=== PATIENT | male | born 1965 | race Two or more races ===

== ENCOUNTER 2016-11-13 16:57 | Inpatient (IN) | payer MEDICAID ==
[~2016-11-13] VITALS: Ht 165.1 cm; Wt 81.6 kg
--- NOTE | 2016-11-13 16:57 | NUR ---
pt ambulatory to er bed 10. c/o generalized body aches, fever and chills x 3 days. pt temp 101.5 block captain. gowned and placed on monitor. denies chest pain. pt is c/o LUE pain hurting more. denies fall or any recent trauma. awaiting md lujan.
--- NOTE | 2016-11-13 17:13 | NUR ---
dr garcia at bedside for eval.
[2016-11-13] MEDS ORDERED: IV SET PRIMARY 1 EA INFUS.SET MC ONE ×2 (17:19→18:40)
[2016-11-13] MEDS ORDERED: IV NS 0.9% 1,000 ML ONE ×3 (17:19→22:30)
--- NOTE | 2016-11-13 17:21 | NUR ---
iv line started. blood drawn and sent to lab.
[2016-11-13] MEDS: IV NS 0.9% 1,000 ML BAG IV ONE (17:25)
--- NOTE | 2016-11-13 17:42 | NUR ---
radiology at bedside for chest xray.
[2016-11-13 17:50] LABS: EOSINOPHILS % (AUTO) 0.1 % (0.0-6.0); HEMATOCRIT 39 % (39-51); HEMOGLOBIN 13.1 g/dL (13.5-17.5); LYMPHOCYTES # (AUTO) 0.5 /CMM (0.8-4.8); LYMPHOCYTES % (AUTO) 3.5 % (20.0-44.0); MEAN CORPUSCULAR HEMOGLOBIN 29 PG (26.0-33.0); MEAN CORPUSCULAR HGB CONC 34 g/dl (31.0-36.0); MEAN CORPUSCULAR VOLUME 85 fL (80-96); MONOCYTES # (AUTO) 0.7 /CMM (0.1-1.30); MONOCYTES % (AUTO) 5.1 % (2.0-12.0); NEUTROPHILS # (AUTO) 12.1 /CMM (1.8-8.9); NEUTROPHILS % (AUTO) 91.3 % (43.0-81.0); RDW COEFFICIENT OF VARIATION 15.3 (11.5-15.0); RED BLOOD CELL COUNT(AUTO) 4.57 MIL/uL (4.5-6.0); WHITE BLOOD COUNT (AUTO) 13.2 K/uL (4.3-11.0)
[2016-11-13 17:52] LABS: ALANINE AMINOTRANSFERASE 107 U/L (12-78); ALBUMIN 2.6 g/dL (3.4-5.0); ALKALINE PHOSPHATASE 101 U/L (46-116); ASPARTATE AMINOTRANSFERASE 85 U/L (15-37); BILIRUBIN,DIRECT 2.3 mg/dL (0.0-0.2); BILIRUBIN,TOTAL 3.4 mg/dL (0.2-1.0); CARBON DIOXIDE 25 mmol/L (21-32); CHLORIDE 85 mmol/L (98-107); CREATININE 1.3 mg/dL (0.6-1.3); POTASSIUM 3.8 mmol/L (3.5-5.1); TOTAL PROTEIN, SERUM 6.8 g/dL (6.4-8.2); UREA NITROGEN, BLOOD 23 mg/dL (7-18)
[2016-11-13 17:53] LABS: TROPONIN I 0.323 ng/mL (0.00-0.056)
[2016-11-13 18:01] LABS: PLATELET COUNT (AUTO) 44 /CMM (150-450)
[2016-11-13 18:04] LABS: GLUCOSE 418 mg/dL (74-106); SODIUM SERUM 119 mmol/L (136-145)
[2016-11-13 18:10] LABS: INR 0.97 (0.87-1.13); PROTHROMBIN TIME 10.5 SECS (9.5-12.7)
[2016-11-13] MEDS ORDERED: IV NS 0.9% 1,000 ML IV ONE (18:30)
[2016-11-13 18:54] LABS: BAND % (MANUAL) 8 % (0.0-5.0); LYMPHOCYTES % (MANUAL) 4 % (16-48); NEUTROPHILS % (MANUAL) 83 (42-76)
[2016-11-13 18:55] LABS: MONOCYTES % (MANUAL) 5 % (0-11.0)
[2016-11-13 19:10] LABS: APPEARANCE,URINE Clear (CLEAR); BILIRUBIN,URINE SMALL (NEGATIVE); BLOOD, URINE Moderate Ery/uL (NEGATIVE); COLOR,URINE Yellow (YELLOW); KETONES,URINE Negative (NEGATIVE); LEUKOCYTE ESTERASE ,URINE Negative (NEGATIVE); NITRITE, URINE Negative (NEGATIVE); PROTEIN,URINE 100 mg/dl (NEGATIVE); UGLUCOSE 500 MG/DL mg/dL (NEGATIVE)
--- NOTE | 2016-11-13 19:29 | NUR ---
PAGED BILINGUAL EXECUTIVE ASSISTANT PANEL JOSESITO PORTER
[2016-11-13] MEDS ORDERED: IV NS 0.9% 500 ML IV ONE ×2 (19:43→20:00)
[2016-11-13] MEDS ORDERED: IV SET PRIMARY PUMP SET 1 EA INFUS.SET MC ONE ×2 (19:43→20:10)
--- NOTE | 2016-11-13 19:55 | NUR ---
REPORT GIVEN TO KAVYA/RN ON BEHALF OF PRIMARY NURSE YECENIA.
[2016-11-13] MEDS ORDERED: PIPERACILLIN /TAZOBACTAM 3.375 G in IV D5W 50 ML IV ONE (20:00)
[2016-11-13 20:15] VITALS: BP 110/62
[2016-11-13 20:44] LABS: BACTERIA,URINE Few /HPF (None Seen); SQUAMOUS EPITHELIAL CELL,UR Few /HPF (None Seen); WBC,URINE 2-3/HPF /HPF (0-3)
[2016-11-13 20:45] LABS: MUCUS,URINE Few /LPF (None Seen); URINE AMORPHOUS URATE Moderate /HPF (None Seen)
--- NOTE | 2016-11-13 21:46 | NUR ---
NOTIFIED OF CRITICAL VALUE OF 2.0 LACTIC ACID, CHARLOTTE BELLAMY WILL ORDER NEW LACTIC ACID TO BE DRAWN, WILL CONTINUE TO MONITOR.
[2016-11-13] MEDS ORDERED: ACETAMINOPHEN 325 MG TABLET PO PRN (23:00)
[2016-11-13] MEDS ORDERED: MAGNESIUM HYDROXIDE 30 ML UDC PO PRN (23:00)
[2016-11-13] MEDS ORDERED: HYDROCODONE/APAP 5/325MG 1 EACH TABLET PO PRN (23:00)
[2016-11-13] MEDS ORDERED: ZOLPIDEM TARTRATE 5 MG TABLET PO PRN (23:00)
[2016-11-13] MEDS: IV NS 0.9% 1,000 ML IV PRN (23:08)
[2016-11-13] MEDS ORDERED: HYDROCODONE/APAP 5/325MG 1 EACH TABLET ONE (23:11)
[2016-11-13] MEDS: INSULIN REGULAR, HUMAN 100 UNIT/ML 3 ML VIAL SQ PRN (23:26)
[2016-11-13] MEDS ORDERED: DEXTROSE 50%-WATER 50 ML DISP.SYRIN IV PRN (23:30)
[2016-11-13] MEDS: BLOOD SUGAR DIAGNOSTIC 1 EACH STRIP IN SCH (23:44)
[2016-11-14] VITALS (8 sets, daily range): BP systolic 95–111; BP diastolic 57–69
[2016-11-14] MEDS ORDERED: SULFAMETH/TRIMETH 800/160 MG 1 UDTAB TABLET PO SCH
[2016-11-14 00:28] LABS: CALCIUM, SERUM 6.9 mg/dL (8.5-10.1); CREATININE 1.1 mg/dL (0.6-1.3); POTASSIUM 3.5 mmol/L (3.5-5.1)
--- NOTE | 2016-11-14 00:41 | NUR ---
CHARLOTTE BELLAMY INFORMED OF PT'S TEMP 102.4, GM DECIDED TO CHANGE ORDER FROM BACTRIM DS PO TO IV ANTIBIOTIC, NORCO 5/325MG GIVEN AN HOUR AGO FOR PAIN BUE AND BLE LEVEL OF 7/10, COOLING MEASURES PROVIDED, AWAITING FOR NEW ANTIBIOTIC ORDER, WILL CONTINUE TO MONITOR.
[2016-11-14 00:47] LABS: TROPONIN I 0.548 ng/mL (0.00-0.056)
[2016-11-14] MEDS ORDERED: INSULIN REGULAR, HUMAN 100 UNIT/ML 10 ML VIAL ONE (00:52)
[2016-11-14] MEDS ORDERED: IV D5W 250 ML IV ONE (00:53)
[2016-11-14] MEDS ORDERED: VANCOMYCIN 1 GM VIAL ONE (00:53)
[2016-11-14] MEDS ORDERED: PIPERACILLIN /TAZOBACTAM 3.375 G VIAL IV ONE (00:54)
[2016-11-14] MEDS ORDERED: IV D5W 50 ML IV ONE (00:54)
[2016-11-14] MEDS ORDERED: VANCOMYCIN 1 GM in IV D5W 250 ML IV SCH (01:00)
[2016-11-14] MEDS ORDERED: IBUPROFEN 400 MG TABLET PO PRN (01:00)
[2016-11-14] MEDS ORDERED: SECONDARY IV SET 1 EA INFUS.SET MC ONE ×2 (01:15→15:44)
[2016-11-14] MEDS ORDERED: PIPERACILLIN /TAZOBACTAM 3.375 G in IV D5W 50 ML IV SCH ×2 (02:00→10:00)
--- NOTE | 2016-11-14 05:55 | NUR ---
PUMP TENDER CLOSING NOTE PT'S TEMPERATURE IS CURRENTLY 98.3, AND COMFORTABLY SLEEPING, EASILY AROUSED, NO COMPLAINT OF PAIN OR RESPIRATORY DISTRESS NOTED, LACTIC ACID DECREASED TO 1.5 AFTER SEPSIS PROTOCOL PROVIDED, PT STATES NOT HAVING ANY MEDICAL HISTORY DUE TO NEVER HAVING REGULAR MEDICAL EXAMINATIONS, THIS IS THE FIRST TIME HE SEEKS MEDICAL ATTENTION, BS IS 287 THIS AM, WILL PROVIDE COVERAGE ORDERED, HE IS CLEAN/DRY AND COMFORTABLE, SAFETY MEASURES MAINTAINED DURING NIGHT, WILL ENDORSE TO INCOMING NURSE FOR SONI.
[2016-11-14] MEDS: BLOOD SUGAR DIAGNOSTIC 1 EACH STRIP IN SCH ×4 (06:30→21:58)
[2016-11-14] MEDS: INSULIN REGULAR, HUMAN 100 UNIT/ML 3 ML VIAL SQ PRN ×3 (06:32→17:04)
[2016-11-14 06:58] LABS: EOSINOPHILS % (AUTO) 0.1 % (0.0-6.0); HEMATOCRIT 36 % (39-51); HEMOGLOBIN 12.3 g/dL (13.5-17.5); LYMPHOCYTES # (AUTO) 0.7 /CMM (0.8-4.8); LYMPHOCYTES % (AUTO) 5.9 % (20.0-44.0); MEAN CORPUSCULAR HEMOGLOBIN 29 PG (26.0-33.0); MEAN CORPUSCULAR HGB CONC 34 g/dl (31.0-36.0); MEAN CORPUSCULAR VOLUME 84 fL (80-96); MONOCYTES # (AUTO) 0.9 /CMM (0.1-1.30); MONOCYTES % (AUTO) 7.6 % (2.0-12.0); NEUTROPHILS # (AUTO) 10.1 /CMM (1.8-8.9); NEUTROPHILS % (AUTO) 86.4 % (43.0-81.0); RDW COEFFICIENT OF VARIATION 15.2 (11.5-15.0); RED BLOOD CELL COUNT(AUTO) 4.26 MIL/uL (4.5-6.0); WHITE BLOOD COUNT (AUTO) 11.7 K/uL (4.3-11.0)
--- NOTE | 2016-11-14 07:11 | NUR ---
ARCHITECT NAVAL OPENING NOTES PATIENT RECEIVED IN BED AWAKE, ALERT AND ORIENTED X 4 IN NO ACUTE SIGNS OF DISTRESS. ABLE TO VERBALIZED NEEDS, NO COMPLAINTS OF PAIN OR DISCOMFORTS VOICED AT THIS TIME. ON TELE-MONITORING WITH READING OF SR WITH HR OF 78 THIS MORNING. IV ACCESS ON RIGHT AC G#18 INTACT AND PATENT. IVF NS @100ML/HR IN PROGRESS, NO SIGNS OF INFILTRATION NOTED. CALL LIGHT WITHIN REACH. BED LOW, LOCKED WITH SIDE RAILS UP. ALL SAFETY MEASURES IN PLACE. PATIENT IS AFEBRILE WITH TEMP OF 97.6 F @ THIS TIME. WILL CONTINUE TO MONITOR ACCORDINGLY.
[2016-11-14 07:15] LABS: CALCIUM, SERUM 7.1 mg/dL (8.5-10.1); MAGNESIUM 2.4 mg/dL (1.8-2.4); PHOSPHORUS 2.3 mg/dL (2.5-4.9); POTASSIUM 3.4 mmol/L (3.5-5.1)
[2016-11-14 07:16] LABS: CHOLESTEROL 108 mg/dL (<200); TRIGLYCERIDES 288 mg/dL (30-150)
[2016-11-14 07:17] LABS: LDL 48 mg/dL (0-99)
[2016-11-14 07:28] LABS: HDL CHOLESTEROL 6 mg/dL (40-60)
[2016-11-14 08:01] LABS: TROPONIN I 0.402 ng/mL (0.00-0.056)
[2016-11-14] MEDS: PANTOPRAZOLE 40 MG TABLET.DR PO SCH (08:32)
[2016-11-14] MEDS ORDERED: FEE PK DOSING 1 MIN EA MC ONE (08:35)
[2016-11-14 08:38] LABS: PLATELET COUNT (AUTO) 27 /CMM (150-450)
[2016-11-14] MEDS: VANCOMYCIN 1 GM in IV D5W 250 ML IV SCH ×2 (09:11→16:14)
[2016-11-14 10:02] LABS: MAGNESIUM 2.5 mg/dL (1.8-2.4); PHOSPHORUS 1.8 mg/dL (2.5-4.9)
[2016-11-14] MEDS: POTASSIUM CHLORIDE 20 MEQ TAB.PRT.SR PO SCH ×3 (10:05→13:42)
[2016-11-14] MEDS: PIPERACILLIN /TAZOBACTAM 3.375 G in IV D5W 50 ML IV SCH ×2 (10:05→17:17)
[2016-11-14 10:06] LABS: TROPONIN I 0.446 ng/mL (0.00-0.056)
[2016-11-14 10:15] LABS: THYROID STIMULATING HORMONE 1.216 uIU/mL (0.358-3.74)
--- NOTE | 2016-11-14 10:16 | NUR ---
RN NOTES PATIENT'S TROPONIN LEVEL WENT UP FROM 0.[address] FUENTES MADE AWARE. WILL CONTINUE TO MONITOR.
[2016-11-14 10:50] LABS: BAND % (MANUAL) 2 % (0.0-5.0); LYMPHOCYTES % (MANUAL) 3 % (16-48); MONOCYTES % (MANUAL) 4 % (0-11.0); NEUTROPHILS % (MANUAL) 91 (42-76)
--- NOTE | 2016-11-14 11:15 | NUR ---
RN NOTES PATIENT WITH PLATELET COUNT OF 27, DOCTOR NIKKI MADE AWARE WITH NO NEW ORDER MADE AT THIS TIME. WILL CONTINUE TO MONITOR
--- NOTE | 2016-11-14 13:03 | NUR ---
RN NOTES RECEIVED CALL FROM LABORATORY THAT PATIENT'S BLOOD CULTURE IS POSITIVE COOCI IN CLUSTERS SEEN ON GRAM STAIN ONE BOTTLE OF SET. ALSO GRAM POSITIVE COCCI IN CLUSTRES SEEN ON GRAM STAIN BOTH BOTTLES OF SET. MD MADE AWARE. PATIENT ON ABX THERAPIES OF VANCOMYCIN 1 GM IVPB Q 8HRS AND ZOSYN 3.375MG IVPB Q 6HRS. WILL CONTINUE TO MONITOR.
[2016-11-14] MEDS: IV NS 0.9% 1,000 ML IV PRN (14:31)
[2016-11-14] MEDS ORDERED: Sodium Phosphate 7.5 MMOL in IV D5W 100 ML IV ONE (15:00)
[2016-11-14] MEDS ORDERED: K PHOS NEUTRAL 250 MG TABLET PO ONE (16:00)
[2016-11-14] MEDS: HYDROCODONE/APAP 5/325MG 1 EACH TABLET PO PRN (16:15)
--- NOTE | 2016-11-14 19:26 | NUR ---
BRIM BLOCKER CLOSING NOTES PATIENT IN BED AWAKE AND WATCHING TV. ALERT AND ORIENTED X 4 AND ABLE TO VERBALIZED NEEDS. NO ACUTE SIGNS OF DISTRESS MAT THIS TIME. HEAD OF BED KEPT ELEVATED. AFEBRILE DURING SHIFT. ALL NEEDS AND CARE PROVIDED WELL. ON TELE-MONITORING WITH READING OF SR WITH HR OF 75. IV ACCESS ON RIGHT AC G#18 INTACT AND PATENT. IVF NS @100ML/HR IN PROGRESS, NO SIGNS OF INFILTRATION NOTED. CALL LIGHT WITHIN REACH. BED LOW, LOCKED WITH SIDE RAILS UP. ALL SAFETY MEASURES IN PLACE. ENDORSED TO GREASE RACK WORKER TO CONTINUE MONITORING PATIENT.
--- NOTE | 2016-11-14 19:30 | NUR ---
PAPER CONE MACHINE OPERATOR INITIAL NOTE RECEIVED PT AWAKE AND ALERT, ORIENTED X4, CITIZEN OF [place] SPEAKING MOSTLY, NO REPORT OF PAIN OR RESPIRATORY DISTRESS DURING PHYSICAL ASSESSMENT, AM NURSE REPORTED A PLT COUNT OF 27, MD AWARE, NO NEW ORDERS RECEIVED, MONITOR CLOSELY FOR SIGNS OF BLEEDING, ALSO TROP OF 0.402 AND 0.446 REPORTED TO DOCTOR SHARRON BY AM NURSE, NO NEW ORDERS RECEIVED, PT IS CLEAN DRY/COMFORTABLE, SAFETY MEASURES WILL BE MAINTAINED, ALL NEEDS WILL BE ANTICIPATED AND ATTENDED TO DURING HOURLY ROUNDS AND NEEDED.
[2016-11-14] MEDS: *INSULIN REGULAR(HUMULIN R)HUM 100 UNIT/ML VIAL SQ PRN (22:07)
[2016-11-15] VITALS (8 sets, daily range): BP systolic 101–116; BP diastolic 46–63
[2016-11-15] MEDS: PIPERACILLIN /TAZOBACTAM 3.375 G in IV D5W 50 ML IV SCH ×4 (00:36→16:54)
[2016-11-15] MEDS: VANCOMYCIN 1 GM in IV D5W 250 ML IV SCH ×3 (01:06→16:53)
--- NOTE | 2016-11-15 06:30 | NUR ---
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
[2016-11-15 07:13] LABS: ALBUMIN 1.6 g/dL (3.4-5.0); BILIRUBIN,TOTAL 2.6 mg/dL (0.2-1.0); CALCIUM, SERUM 6.9 mg/dL (8.5-10.1); MAGNESIUM 2.3 mg/dL (1.8-2.4); PHOSPHORUS 1.8 mg/dL (2.5-4.9); POTASSIUM 3.2 mmol/L (3.5-5.1); TOTAL PROTEIN, SERUM 4.8 g/dL (6.4-8.2)
[2016-11-15 07:25] LABS: HEMATOCRIT 34 % (39-51); HEMOGLOBIN 11.5 g/dL (13.5-17.5); MEAN CORPUSCULAR HEMOGLOBIN 29 PG (26.0-33.0); MEAN CORPUSCULAR HGB CONC 34 g/dl (31.0-36.0); MEAN CORPUSCULAR VOLUME 85 fL (80-96); RDW COEFFICIENT OF VARIATION 15.8 (11.5-15.0); RED BLOOD CELL COUNT(AUTO) 4.03 MIL/uL (4.5-6.0); WHITE BLOOD COUNT (AUTO) 14.7 K/uL (4.3-11.0)
[2016-11-15] MEDS: BLOOD SUGAR DIAGNOSTIC 1 EACH STRIP IN SCH ×4 (07:30→21:40)
[2016-11-15 07:33] LABS: PLATELET COUNT (AUTO) 38 /CMM (150-450)
[2016-11-15 07:35] LABS: TROPONIN I 0.941 ng/mL (0.00-0.056)
[2016-11-15 08:51] LABS: BAND % (MANUAL) 1 % (0.0-5.0); LYMPHOCYTES % (MANUAL) 3 % (16-48); MONOCYTES % (MANUAL) 7 % (0-11.0); NEUTROPHILS % (MANUAL) 89 (42-76)
--- NOTE | 2016-11-15 09:50 | NUR ---
ms rn received on bed, awake,alert,oriented x3, not in any form of distress, respirations even and unllabored, ms rn no sob noted. lungs are diminished,abdomen soft,positive bowel sounds,denies pain at this time.
--- NOTE | 2016-11-15 10:00 | NUR ---
MS CUEVA BREAKFAST SERVED, DUE MEDS GIVEN,TOLERATED WELL.
[2016-11-15] MEDS: PANTOPRAZOLE 40 MG TABLET.DR PO SCH (10:25)
[2016-11-15] MEDS: POTASSIUM CHLORIDE 20 MEQ TAB.PRT.SR PO SCH ×3 (10:26→16:54)
[2016-11-15] MEDS: NEUTRA PHOS 1 POWD.PACKET PO SCH ×2 (10:26→16:55)
[2016-11-15 11:22] LABS: *SPE A/G RATIO 0.9 (0.7-1.7); *SPE ALBUMIN 2.2 g/dL (2.9-4.4); *SPE ALPHA-1-GLOBULIN 0.3 g/dL (0.0-0.4); *SPE ALPHA-2-GLOBULIN 0.7 g/dL (0.4-1.0); *SPE BETA GLOBULIN 0.7 g/dL (0.7-1.3); *SPE GLOBULIN, TOTAL 2.5 g/dL (2.2-3.9); *SPE M-SPIKE Not Observed g/dL (Not Observed); *SPE PROTEIN TOTAL 4.7 g/dL (6.0-8.5); *SPEGAMMA GLOBULIN 0.7 g/dL (0.4-1.8)
[2016-11-15] MEDS: INSULIN REGULAR, HUMAN 100 UNIT/ML 3 ML VIAL SQ PRN ×2 (12:32→17:23)
[2016-11-15] MEDS: SOD FERRIC GLUC 125 MG in IV NS 0.9% 100 ML IV SCH (16:53)
[2016-11-15] MEDS: LACTOBACILLUS RHAMNOSUS GG 1 EACH CAP.SPRINK PO SCH (16:55)
--- NOTE | 2016-11-15 17:30 | NUR ---
MS CUEVA BS - 270 - 12 UNITS OF REGULAR INSULIN GIVEN SQ.
[2016-11-15] MEDS ORDERED: SECONDARY IV SET 1 EA INFUS.SET MC ONE (17:48)
--- NOTE | 2016-11-15 19:10 | NUR ---
CARTON STAMPER NOTES RECEIVED PT IN BED. AWAKE, ALERT AND VERBALLY RESPONSIVE. NO ACUTE DISTRESS, NO SOB NOTED. RESPIRATION IS EVEN AND UNLABORED. ABDOMEN IS SOFT AND NON DISTENDED. RAC IV SITE INTACT AND PATENT,. NO S/S OF INFILTRATION NOTED. DENIES ANY PAIN OR DISCOMFORT AT THIS TIME. ALL NEEDS AT THIS TIME ATTENDED AND MET. WILL CONTINUE TO MONITOR. CALL LIGHT WITHIN REACH.
[2016-11-15] MEDS: *INSULIN REGULAR(HUMULIN R)HUM 100 UNIT/ML VIAL SQ PRN (21:50)
[2016-11-16] VITALS (7 sets, daily range): BP systolic 94–118; BP diastolic 46–73
[2016-11-16] MEDS: PIPERACILLIN /TAZOBACTAM 3.375 G in IV D5W 50 ML IV SCH ×4 (00:30→18:16)
[2016-11-16] MEDS: VANCOMYCIN 1 GM in IV D5W 250 ML IV SCH ×3 (01:56→16:58)
[2016-11-16] MEDS: IV NS 0.9% 1,000 ML IV PRN (05:30)
[2016-11-16] MEDS: BLOOD SUGAR DIAGNOSTIC 1 EACH STRIP IN SCH ×4 (05:42→21:50)
[2016-11-16] MEDS: INSULIN REGULAR, HUMAN 100 UNIT/ML 3 ML VIAL SQ PRN ×3 (06:26→17:08)
[2016-11-16 06:37] LABS: HEMATOCRIT 33 % (39-51); HEMOGLOBIN 11.4 g/dL (13.5-17.5); MEAN CORPUSCULAR HEMOGLOBIN 29 PG (26.0-33.0); MEAN CORPUSCULAR HGB CONC 34 g/dl (31.0-36.0); MEAN CORPUSCULAR VOLUME 85 fL (80-96); PLATELET COUNT (AUTO) 75 /CMM (150-450); RDW COEFFICIENT OF VARIATION 15.8 (11.5-15.0); RED BLOOD CELL COUNT(AUTO) 3.91 MIL/uL (4.5-6.0); WHITE BLOOD COUNT (AUTO) 18.1 K/uL (4.3-11.0)
--- NOTE | 2016-11-16 06:49 | NUR ---
PLATINUMSMITH NOTES PT IN BED, RESTING COMFORTABLY. ALERT AND VERBALLY RESPONSIVE. NO ACUTE DISTRESS, NO SOB NOTED. RESPIRATION IS EVEN AND UNLABORED. ABLE TO MAKE NEEDS KNOWN. IV SITE ON RAC INTACT AND PATENT, IVF INFUSING WELL. NO S/S OF INFILTRATION NOTED. NO S/S OF HYPO/ HYPERGLYCEMIA NOTED. ABLE TO MAKE NEEDS KNOWN. ABLE TO URINATE FREELY WITH YELLOW URINE. NO HEMATURIA NOTED. ALL NEEDS ATTENDED AND MET. KEPT COMFORTABLE. CALL LIGHT WITHIN REACH. WILL ENDORSE TO NEXT SHIFT FOR SONI.
[2016-11-16 07:01] LABS: BILIRUBIN,TOTAL 1.8 mg/dL (0.2-1.0); CALCIUM, SERUM 6.8 mg/dL (8.5-10.1); CREATININE 1.2 mg/dL (0.6-1.3); MAGNESIUM 2.6 mg/dL (1.8-2.4); PHOSPHORUS 2.7 mg/dL (2.5-4.9); POTASSIUM 3.5 mmol/L (3.5-5.1); TOTAL PROTEIN, SERUM 4.6 g/dL (6.4-8.2)
[2016-11-16 07:15] LABS: ALBUMIN 1.4 g/dL (3.4-5.0)
--- NOTE | 2016-11-16 07:20 | NUR ---
DIRECTOR BIOMEDICAL ENGINEERING NOTES PATIENT IN BED, ASLEEP BUT EASILY AROUSABLE, NO DISTRESS NOTED, NO S/SX OF HYPO/HYPERGLYCEMIA NOTED, PIV ON RAC PATENT AND INTACT WITH NS RUNNING AT 100ML/HR, RECEIVED ASSISTANCE WITH ADLS, LOW BED/LOCKED POSITION, SIDERAILS X2 UP, CALL LIGHT WITHIN REACH, WILL CONTINUE TO MONITOR.
[2016-11-16 07:31] LABS: TROPONIN I 0.829 ng/mL (0.00-0.056)
--- NOTE | 2016-11-16 07:33 | NUR ---
received a call from labs regarding troponin I : 0.829 and albumin : 1.4 , endorsed to day shift nurse.
[2016-11-16 07:49] LABS: BAND % (MANUAL) 4 % (0.0-5.0); EOSINOPHILS % (MANUAL) 2 % (0-4); LYMPHOCYTES % (MANUAL) 10 % (16-48); MONOCYTES % (MANUAL) 4 % (0-11.0); NEUTROPHILS % (MANUAL) 80 (42-76)
[2016-11-16] MEDS: PANTOPRAZOLE 40 MG TABLET.DR PO SCH (08:38)
[2016-11-16] MEDS: LACTOBACILLUS RHAMNOSUS GG 1 EACH CAP.SPRINK PO SCH ×2 (08:38→16:56)
[2016-11-16] MEDS: POTASSIUM CHLORIDE 20 MEQ TAB.PRT.SR PO SCH ×3 (09:54→12:07)
[2016-11-16] MEDS: HYDROCODONE/APAP 5/325MG 1 EACH TABLET PO PRN (11:19)
--- NOTE | 2016-11-16 12:27 | NUR ---
RN MS NOTES PATIENT SEEN AND EXAMINED BY DR. FUENTES THIS AM, RECEIVED NEW ORDERS. ORDERS NOTED AND CARRIED OUT, PATIENT WILL HAVE LEXISCAN NUCLEAR STRESS TEST IN AM, CONSENTS SIGNED AND PLACED IN CHART, ALL DUE MEDS GIVEN ORDERED, PATIENT WAS ALSO SEEN BY PT AND OT AND TOLERATED WELL, WAS ABLE TO AMBULATE WITH A WALKER TO RESTROOM, ASSISTED WITH ADLS, BS 237 AND WAS GIVEN 8 UNITS OF INSULIN, EATING LUNCH AT THIS TIME AND TOLERATING WELL, CALL LIGHT WITHIN REACH, SAFETY MEASURES IN PLACED, WILL CONTINUE TO MONITOR.
[2016-11-16] MEDS ORDERED: SECONDARY IV SET 1 EA INFUS.SET MC ONE ×2 (13:50→16:17)
[2016-11-16] MEDS: SOD FERRIC GLUC 125 MG in IV NS 0.9% 100 ML IV SCH (13:57)
--- NOTE | 2016-11-16 15:57 | NUR ---
RN MS NOTES PATIENT SEEN BY DR. JORDAN WITH NEW ORDERS. ORDERS NOTED AND CARRIED OUT.
--- NOTE | 2016-11-16 17:46 | NUR ---
RN MS NOTES PATIENT IN BED, BLOOD SUGAR CHECKED WITH RESULT OF 253, 12 UNITS OF INSULIN GIVEN, NO ALOC NOR DISTRESS NOTED, ALL DUE MEDS PROVIDED, PATIENT ASSISTED WITH ADL CARE, ABLE TO AMBULATE TO RESTROOM, PIV ON RIGHT AC PATENT AND INTACT, FLUSHES WELL, CALL LIGHT WITHIN REACH, LOW BED/LOCKED POSITION, SIDERAILS X2 UP, WILL CONTINUE TO MONITOR.
--- NOTE | 2016-11-16 18:48 | NUR ---
RN MS NOTES NO SIGNIFICANT CHANGE, WILL ENDORSE TO ASSOCIATE FINANCIAL REPRESENTATIVE FOR SONI.
--- NOTE | 2016-11-16 19:10 | NUR ---
MS RN NOTES RECEIVED PT IN BED, AWAKE, ALERT AND VERBALLY RESPONSIVE. ABLE TO VERBALIZE NEEDS. NO ACUTE DISTRESS, NO SOB AT THIS TIME. RESPIRATION IS EVEN AND UNLABORED. ABDOMEN IS SOFT AND NON DISTENDED, BOWEL SOUNDS PRESENT TO ALL 4 QUADRANTS. IV SITE ON RAC G18 INTACT AND PATENT. NO S/S OF INFILTRATION NOTED. IVF INFUSING WELL. PLAN OF CARE AND PROCEDURES DISCUSSED WITH THE PT. NO S/S OF HYPO/ HYPERGLYCEMIA AT THIS TIME. NO C/O PAIN OR DISCOMFORT. ALL NEEDS ATTENDED AND MET. KEPT COMFORTABLE. SAFETY PRECAUTIONS OBSERVED. CALL LIGHT WITHIN REACH. WILL CONTINUE TO MONITOR.
--- NOTE | 2016-11-16 21:28 | NUR ---
MS RN NOTES PT FOR STRESS TEST IN AM, EXPLAINED PROCEDURE TO PT , CONSENT SIGNED. JACKIE FROM RADIOLOGY INFORMED.
[2016-11-16] MEDS: *INSULIN REGULAR(HUMULIN R)HUM 100 UNIT/ML VIAL SQ PRN (21:53)
[2016-11-17] MEDS: PIPERACILLIN /TAZOBACTAM 3.375 G in IV D5W 50 ML IV SCH ×2 (00:48→05:17)
[2016-11-17] MEDS: VANCOMYCIN 1 GM in IV D5W 250 ML IV SCH (01:26)
--- NOTE | 2016-11-17 03:16 | NUR ---
MS RN NOTES PT IN BED, ASLEEP AT THIS TIME. EASILY AROUSED. NO ACUTE DISTRESS, NO SOB NOTED. IV SITE ON RAC INTACT AND PATENT, NO S/S OF INFILTRATION NOTED. IVF INFUSING WELL. RESPIRATION IS EVEN AND UNLABORED. NO C/O PAIN OR DISCOMFORT AT THIS TIME. CALL LIGHT WITHIN REACH. SAFETY PRECAUTIONS OBSERVED. WILL CONTINUE TO MONITOR.
[2016-11-17] MEDS: IV NS 0.9% 1,000 ML IV PRN (05:11)
[2016-11-17] MEDS: BLOOD SUGAR DIAGNOSTIC 1 EACH STRIP IN SCH ×4 (06:07→22:26)
--- NOTE | 2016-11-17 06:30 | NUR ---
MS RN NOTES PT IN BED, AWAKE, ALERT AND VERBALLY RESPONSIVE. ABLE TO VERBALIZE NEEDS. NO ACUTE DISTRESS, NO SOB AT THIS TIME. RESPIRATION IS EVEN AND UNLABORED. ABDOMEN IS SOFT AND NON DISTENDED, BOWEL SOUNDS PRESENT TO ALL 4 QUADRANTS. IV SITE ON RIGHT HAND G 22 INTACT AND PATENT. NO S/S OF INFILTRATION NOTED. IVF INFUSING WELL. NO S/S OF HYPO/ HYPERGLYCEMIA AT THIS TIME. NO C/O PAIN OR DISCOMFORT. ALL NEEDS ATTENDED AND MET. KEPT COMFORTABLE. SAFETY PRECAUTIONS OBSERVED. CALL LIGHT WITHIN REACH. WILL ENDORSE TO NEXT SHIFT FOR SONI.
--- NOTE | 2016-11-17 07:17 | NUR ---
PT C/O CHEST PAIN 04/12. BP : 97/48, HR : 76, RR: 16, O2 SAT : 95%. EKG STAT DONE WITH RESULT OF SINUS RHYTHM, CHARGE NURSE AWARE. ENDORSED TO DAY SHIFT RN.
[2016-11-17 07:19] LABS: HEMATOCRIT 33 % (39-51); HEMOGLOBIN 11.4 g/dL (13.5-17.5); MEAN CORPUSCULAR HEMOGLOBIN 29 PG (26.0-33.0); MEAN CORPUSCULAR HGB CONC 34 g/dl (31.0-36.0); MEAN CORPUSCULAR VOLUME 84 fL (80-96); PLATELET COUNT (AUTO) 95 /CMM (150-450); RDW COEFFICIENT OF VARIATION 16.5 (11.5-15.0); RED BLOOD CELL COUNT(AUTO) 3.92 MIL/uL (4.5-6.0); WHITE BLOOD COUNT (AUTO) 23.3 K/uL (4.3-11.0)
[2016-11-17] MEDS: PANTOPRAZOLE 40 MG TABLET.DR PO SCH (07:30)
--- NOTE | 2016-11-17 07:35 | NUR ---
AM RN NOTE Patient awake, lying in his bed. Stating feeling little better now. EKG results shown to Dr. Sandoval (Field Human Resources Manager) with NNO at this time. On NPO status, scheduled for Kristen this am. Will continue to monitor.
[2016-11-17 07:37] LABS: CALCIUM, SERUM 6.5 mg/dL (8.5-10.1); CREATININE 3.6 mg/dL (0.6-1.3); MAGNESIUM 2.3 mg/dL (1.8-2.4); PHOSPHORUS 3.4 mg/dL (2.5-4.9); POTASSIUM 4.8 mmol/L (3.5-5.1)
[2016-11-17 08:00] VITALS: BP 96/47
[2016-11-17] MEDS ORDERED: REGADENOSON 0.4 MG/5 ML DISP.SYRIN IVP ONE (08:00)
[2016-11-17 08:56] LABS: BILIRUBIN,TOTAL 1.3 mg/dL (0.2-1.0); CALCIUM, SERUM 6.9 mg/dL (8.5-10.1); CREATININE 3.8 mg/dL (0.6-1.3); POTASSIUM 4.9 mmol/L (3.5-5.1); TOTAL PROTEIN, SERUM 4.9 g/dL (6.4-8.2)
--- NOTE | 2016-11-17 09:00 | NUR ---
RN NOTE Spoke with Anival (Pharmacist) made aware about vanco trough results 58. AM dose of vanco held at this time.
[2016-11-17 09:06] LABS: LYMPHOCYTES % (MANUAL) 11 % (16-48); MONOCYTES % (MANUAL) 13 % (0-11.0); NEUTROPHILS % (MANUAL) 76 (42-76)
[2016-11-17 09:13] LABS: ALBUMIN 1.4 g/dL (3.4-5.0)
--- NOTE | 2016-11-17 09:45 | NUR ---
RN NOTE Patient came back from [facility] ordered diet and will go downstairs to finish other part of Lexiscan. Denies any chest pain at this time.
--- NOTE | 2016-11-17 09:50 | NUR ---
RN NOTE Paged Dr. Harden to notify lab results, awaiting for call back.
[2016-11-17] MEDS: LACTOBACILLUS RHAMNOSUS GG 1 EACH CAP.SPRINK PO SCH ×2 (10:04→17:18)
--- NOTE | 2016-11-17 10:15 | NUR ---
RN NOTE Canelo Abbott PAPETERIE TABLE ASSEMBLER made aware about creatinine lab results (3.6 and repeat 3.8) and vanco lab results (58) with NNO.
[2016-11-17] MEDS: INSULIN REGULAR, HUMAN 100 UNIT/ML 3 ML VIAL SQ PRN ×2 (12:18→17:20)
[2016-11-17] MEDS: PIPERACILLIN /TAZOBACTAM 2.25 G in IV D5W 50 ML IV SCH ×2 (12:25→17:00)
--- NOTE | 2016-11-17 13:20 | NUR ---
RN NOTE Lab results Mg 2.3 and K 4.9 notified to Canelo Abbott CISCO CERTIFIED INTERNETWORK EXPERT with NNO at this time. Patient noted with loose BM X3 notified Canelo PORTER.
[2016-11-17] MEDS: SOD FERRIC GLUC 125 MG in IV NS 0.9% 100 ML IV SCH (14:09)
[2016-11-17 16:00] VITALS: BP 107/48
--- NOTE | 2016-11-17 19:24 | NUR ---
MS RN NOTES RECEIVED PT IN BED, AWAKE, ALERT AND VERBALLY RESPONSIVE. ABLE TO VERBALIZE NEEDS. NO ACUTE DISTRESS, NO SOB AT THIS TIME. RESPIRATION IS EVEN AND UNLABORED. ABDOMEN IS SOFT AND NON DISTENDED, BOWEL SOUNDS PRESENT TO ALL 4 QUADRANTS. IV SITE ON LEFT HAND G22 INTACT AND PATENT, NO S/S OF INFILTRATION NOTED. IVF INFUSING WELL. NO S/S OF HYPO/ HYPERGLYCEMIA AT THIS TIME. NO C/O PAIN OR DISCOMFORT. ALL NEEDS ATTENDED AND MET. KEPT COMFORTABLE. SAFETY PRECAUTIONS OBSERVED. CALL LIGHT WITHIN REACH. WILL CONTINUE TO MONITOR.
--- NOTE | 2016-11-17 19:28 | NUR ---
RN NOTE Patient awake, watching tv. Denies any pain at this time. Endorsed care to next shift in stable condition.
[2016-11-17 20:00] VITALS: BP_SYST 111; BP_DIAS 49; BP_DIAS 75
[2016-11-17] MEDS: *INSULIN REGULAR(HUMULIN R)HUM 100 UNIT/ML VIAL SQ PRN (22:29)
[2016-11-17] MEDS: INSULIN DETEMIR 100 UNIT/ML CARTRIDGE SQ SCH (22:30)
[2016-11-18] MEDS: PIPERACILLIN /TAZOBACTAM 2.25 G in IV D5W 50 ML IV SCH ×2 (00:30→05:37)
[2016-11-18] MEDS: BLOOD SUGAR DIAGNOSTIC 1 EACH STRIP IN SCH ×4 (05:37→23:15)
[2016-11-18] MEDS: INSULIN REGULAR, HUMAN 100 UNIT/ML 3 ML VIAL SQ PRN ×3 (05:44→18:17)
--- NOTE | 2016-11-18 06:53 | NUR ---
MS RN NOTES PT IN BED, RESTING COMFORTABLY AT THIS TIME. ALERT AND VERBALLY RESPONSIVE. ABLE TO VERBALIZE NEEDS. NO ACUTE DISTRESS, NO SOB AT THIS TIME. RESPIRATION IS EVEN AND UNLABORED. ABDOMEN IS SOFT AND NON DISTENDED. IV SITE ON LEFT HAND G22 INTACT AND PATENT, NO S/S OF INFILTRATION NOTED. IVF INFUSING WELL. NO S/S OF HYPO/ HYPERGLYCEMIA AT THIS TIME. NO C/O PAIN OR DISCOMFORT. ALL NEEDS ATTENDED AND MET. KEPT COMFORTABLE. SAFETY PRECAUTIONS OBSERVED. CALL LIGHT WITHIN REACH. WILL ENDORSE TO NEXT SHIFT FOR SONI.
[2016-11-18] MEDS: IV NS 0.9% 1,000 ML IV PRN (07:01)
[2016-11-18 07:35] LABS: HEMATOCRIT 31 % (39-51); HEMOGLOBIN 10.6 g/dL (13.5-17.5); MEAN CORPUSCULAR HEMOGLOBIN 29 PG (26.0-33.0); MEAN CORPUSCULAR HGB CONC 35 g/dl (31.0-36.0); MEAN CORPUSCULAR VOLUME 84 fL (80-96); PLATELET COUNT (AUTO) 109 /CMM (150-450); RDW COEFFICIENT OF VARIATION 16.2 (11.5-15.0); RED BLOOD CELL COUNT(AUTO) 3.66 MIL/uL (4.5-6.0); WHITE BLOOD COUNT (AUTO) 21.5 K/uL (4.3-11.0)
--- NOTE | 2016-11-18 07:44 | NUR ---
RN MS NOTES PT IN BED, AWAKE, ALERT AND ORIENTED, NO COMPLAINT OF PAIN, RESPIRATIONS REGULAR AND NOT LABORED, CALL LIGHT WITHIN REACH, NEEDS ATTENDED.
[2016-11-18 07:46] LABS: CALCIUM, SERUM 6.8 mg/dL (8.5-10.1); POTASSIUM 4.5 mmol/L (3.5-5.1)
[2016-11-18 08:00] VITALS: BP 109/46
[2016-11-18] MEDS: PANTOPRAZOLE 40 MG TABLET.DR PO SCH (08:36)
[2016-11-18] MEDS: LACTOBACILLUS RHAMNOSUS GG 1 EACH CAP.SPRINK PO SCH ×2 (08:36→16:16)
[2016-11-18 09:06] LABS: LYMPHOCYTES % (MANUAL) 5 % (16-48); MONOCYTES % (MANUAL) 8 % (0-11.0); NEUTROPHILS % (MANUAL) 87 (42-76)
--- NOTE | 2016-11-18 10:14 | NUR ---
TEXTED DR. BYRD FOR MRI APPROVAL.
--- NOTE | 2016-11-18 10:21 | NUR ---
MRI APPROVED. PLEASE HAVE THE MRI CHECKLIST READY.
--- NOTE | 2016-11-18 10:45 | NUR ---
RN MS NOTES PT FOR MRI OF THE SPINE, CHECKLIST DONE THROUGH A MULE RIDER, CONSENT GIVEN FOR PROCEDURE, VERBALIZED UNDERSTANDING.
--- NOTE | 2016-11-18 11:13 | NUR ---
RN MS NOTES PT AWAKE, SITTING IN BED, ABLE TO AMBULATE WITH STEADY GAIT TO THE BATHROOM, COOPERATIVE WITH CARE AND INTERVENTION, SEEN BY MD, PLAN OF CARE DISCUSSED, VERBALIZED UNDERSTANDING.
[2016-11-18] MEDS ORDERED: SECONDARY IV SET 1 EA INFUS.SET MC ONE (12:24)
[2016-11-18] MEDS ORDERED: VANCOMYCIN 1 GM in IV D5W 250 ML IV SCH (13:00)
[2016-11-18] MEDS: NAFCILLIN 2 G in IV D5W 50 ML IV SCH ×2 (13:10→18:16)
[2016-11-18] MEDS: SOD FERRIC GLUC 125 MG in IV NS 0.9% 100 ML IV SCH (14:54)
[2016-11-18 16:00] VITALS: BP 104/48
--- NOTE | 2016-11-18 16:26 | NUR ---
RN MS NOTES PT IN BED, RESTING, WITH COMPLAINT OF BACK PAIN 5/10 WHEN LYING DOWN IN BED FOR A LONG PERIOD OF TIME, PT DOES NOT WANT ANY PAIN MEDICATION, STATED PAIN IS RELIEVED WHEN WALKING, PT ABLE TO WALK TO THE BATHROOM WITH STEADY GAIT, PT'S VANCO THROUGH LEVEL IS 51, CLINT SALES FORECAST ANALYST IS AWARE.
--- NOTE | 2016-11-18 19:00 | NUR ---
RN MS NOTES PT IN BED, RESTING, NO COMPLAINT OF PAIN, BREATHING PATTERN NORMAL, TOLERATING CURRENT DIET WELL, BLOOD SUGAR CHECKED, INSULIN GIVEN PER SLIDING SCALE ORDERED, PM CARE RENDERED, ALL NEEDS ATTENDED.
[2016-11-18 20:00] VITALS: BP 111/51
[2016-11-18] MEDS: INSULIN DETEMIR 100 UNIT/ML CARTRIDGE SQ SCH (21:51)
[2016-11-18] MEDS: *INSULIN REGULAR(HUMULIN R)HUM 100 UNIT/ML VIAL SQ PRN (21:51)
[2016-11-19] MEDS: NAFCILLIN 2 G in IV D5W 50 ML IV SCH ×4 (00:11→17:09)
[2016-11-19] MEDS: IV NS 0.9% 1,000 ML IV PRN (00:18)
--- NOTE | 2016-11-19 00:21 | NUR ---
MS/RN SLEEPING AT THIS TIME, AROUSABLE, APPEAR COMFORTABLE, NO SIGNS OF DISTRESS NOTED, CALL LIGHT IN REACH. WILL CONTINUE TO MONITOR.
--- NOTE | 2016-11-19 05:07 | NUR ---
MS/RN PER PATIENT HE HAS NO URINE OUTPUT SINCE LAST NIGHT, BLADDER NOT DISTENDED, BLADDER SCAN SHOWED ZERO URINE IN THE BLADDER. PATIENT AWAKE, ALERT, ORIENTED, NO WHEEZING, VITAL SIGNS, BP 104/43, HR 71, RR 20, TEMP 97.8. MADE A CALL TO DR. MARR, LEFT MESSAGE.
--- NOTE | 2016-11-19 05:14 | NUR ---
MS/RN DR. MARR CALLED BACK, NO ORDERS RECEIVED.
--- NOTE | 2016-11-19 06:11 | NUR ---
MS/RN PATIENT AWAKE, COMFORTABLE, ALL NEEDS ATTENDED AT THIS TIME. WILL CONTINUE TO MONITOR.
[2016-11-19 06:35] LABS: CALCIUM, SERUM 6.6 mg/dL (8.5-10.1); POTASSIUM 4.5 mmol/L (3.5-5.1)
[2016-11-19 06:43] LABS: CREATININE 7.5 mg/dL (0.6-1.3)
[2016-11-19] MEDS: INSULIN REGULAR, HUMAN 100 UNIT/ML 3 ML VIAL SQ PRN (06:55)
[2016-11-19] MEDS: BLOOD SUGAR DIAGNOSTIC 1 EACH STRIP IN SCH ×4 (06:56→23:10)
[2016-11-19 07:00] LABS: EOSINOPHILS # (AUTO) 0.3 /CMM (0.0-0.7); EOSINOPHILS % (AUTO) 1.5 % (0.0-6.0); HEMATOCRIT 34 % (39-51); HEMOGLOBIN 11.2 g/dL (13.5-17.5); LYMPHOCYTES # (AUTO) 1.4 /CMM (0.8-4.8); LYMPHOCYTES % (AUTO) 7.3 % (20.0-44.0); MEAN CORPUSCULAR HEMOGLOBIN 28 PG (26.0-33.0); MEAN CORPUSCULAR HGB CONC 33 g/dl (31.0-36.0); MEAN CORPUSCULAR VOLUME 86 fL (80-96); MONOCYTES # (AUTO) 1.5 /CMM (0.1-1.30); MONOCYTES % (AUTO) 7.9 % (2.0-12.0); NEUTROPHILS # (AUTO) 15.9 /CMM (1.8-8.9); NEUTROPHILS % (AUTO) 83.3 % (43.0-81.0); PLATELET COUNT (AUTO) 151 /CMM (150-450); RDW COEFFICIENT OF VARIATION 16.3 (11.5-15.0); RED BLOOD CELL COUNT(AUTO) 3.93 MIL/uL (4.5-6.0)
--- NOTE | 2016-11-19 07:00 | NUR ---
MS/RN CALLED TO [facility] [employer] [facility], SPOKE TO KAT FARAH, RE: BUN = 80, CREATININE = 7.5. NO ORDERS RECEIVED. CLINT ALSO INFORMED THAT THE PATIENT HAS NO URINE OUTPUT. PATIENT IS AWAKE, ALERT, ORIENTED, NO CHANGE IN CONDITION.
--- NOTE | 2016-11-19 07:30 | NUR ---
RN MS NOTES PT IN BED, ASLEEP, EASILY AROUSABLE, ALERT AND ORIENTED, NO COMPLAINT OF PAIN AT THIS TIME, BREATHING PATTERN NORMAL, CALL LIGHT WITHIN REACH.
[2016-11-19 08:00] VITALS: BP 109/54
[2016-11-19] MEDS: LACTOBACILLUS RHAMNOSUS GG 1 EACH CAP.SPRINK PO SCH ×2 (08:20→17:09)
[2016-11-19] MEDS: PANTOPRAZOLE 40 MG TABLET.DR PO SCH (08:20)
--- NOTE | 2016-11-19 11:00 | NUR ---
RN MS NOTES PT AWAKE, SITTING IN HIS BED, NO COMPLAINT OF PAIN, RESPIRATIONS NORMAL AND NOT LABORED, SEEN BY CLINT AND DR. SONG, PLAN OF CARE EXPLAINED TO PT THROUGH AN REHABILITATION CONSTRUCTION SPECIALIST, VERBALIZED UNDERSTANDING, MD'S INFORMED OF ELEVATED BUN AND CREA, WELL NO URINE OUTPUT DURING THE NIGHT, PT ABLE TO VOID VERY SMALL AMOUNT, PT ABLE TO AMBULATE TO THE BATHROOM, REMAINS ALERT AND ORIENTED, NO CHANGE IN LOC NOTED.
[2016-11-19] MEDS: SOD FERRIC GLUC 125 MG in IV NS 0.9% 100 ML IV SCH (14:32)
[2016-11-19 16:00] VITALS: BP 94/66
--- NOTE | 2016-11-19 18:08 | NUR ---
RN MS NOTES PT IN BED, AWAKE, ALERT AND ORIENTED, EATING DINNER, WITH COMPLAINT OF BACK PAIN 5/10 DURING PROLONGED LYING IN BED, DOES NOT WANT TO TAKE PAIN MEDICATION, ABLE TO URINATE SMALL AMOUNT ONLY, AWARE, DR. SONG ORDERED URINE TESTS BUT PT UNABLE TO PRODUCE ENOUGH FOR SPECIMEN, MD AWARE, NO COMPLAINT OF SHORTNESS OF BREATH, TOLERATING ROOM AIR WELL, NO COUGHING OR CONGESTION, NO CHANGE IN LOC NOTED, AMBULATES TO THE BATHROOM WITH STEADY GAIT, PT SEEN BY DR. BARROW, RECOMMENDATIONS MADE, CLINT KITMAN INFORMED. BLOOD SUGAR CHECKED, NO EPISODE OF HYPO/HYPERGLYCEMIA NOTED, NEEDS ATTENDED.
--- NOTE | 2016-11-19 19:30 | NUR ---
MS RN INITIAL NOTE RECEIVED PT AWAKE AND ALERT, ORIENTED X3, [place] SPEAKING MOSTLY, NO COMPLAINT OF PAIN OR RESPIRATORY DISTRESS REPORTED DURING PHYSICAL ASSESSMENT, PT'S SKIN IS INTACT, LEFT HAND #22G INTACT AND PATENT AND SL, ACCORDING TO AM NURSE PT'S URINE OUT PUT WAS OF 10ML MD IS AWARE, PER DR SONG NO HD AT THIS TIME, VANCOMYCIN HAS BEEN CHANGE DUE TO VANCO TROUGH BEING HIGH, PT STARTED ON NAFCILLIN EVERY 6HRS, ORDER FOR URINE CX RECEIVED BUT NOT ABLE TO SEND TO LAB DUE TO NO URINE OUTPUT, WILL MONITOR DURING FINE GRADE OPERATOR FOR URINE OUTPUT, SAFETY MEASURES WILL BE KEPT IN PLACE, NEEDS WILL BE ANTICIPATED AND ATTENDED TO DURING HOURLY ROUNDS AND NEEDED.
[2016-11-19 20:00] VITALS: BP 108/58
[2016-11-19] MEDS: INSULIN DETEMIR 100 UNIT/ML CARTRIDGE SQ SCH (22:00)
--- NOTE | 2016-11-19 22:31 | NUR ---
UPON CHECKING BS RESULT WAS 133, NO INSULIN GIVEN DUE TO PT'S RENAL FUNCTION BEING COMPROMISED AT THE MOMENT AND PT BEING AT RISK FOR HYPOGLYCEMIA, REPORT GIVEN TO MIRI FOR SONI.
--- NOTE | 2016-11-19 22:35 | NUR ---
MS/RN NOTES RECEIVED PT. FROM ANAY HOFF. PT. LYING IN BED RESTING. EASILY AROUSABLE TO NAME. PT. IS AWAKE, BREATHING EVEN AND UNLABORED ON ROOM AIR. NO SOB, RESPIRATORY DISTRESS OR COMPLAINTS OF PAIN. PT. WITH LEFT HAND 22 GAUGE IV SALINE LOCK PRESENT, PATENT AND INTACT. NO S/S OF HYPO/HYPERGLYCEMIA NOTED. BED IN LOWEST POSITION, CALL LIGHT WITHIN REACH, WILL CONTINUE TO MONITOR.
[2016-11-20] MEDS: NAFCILLIN 2 G in IV D5W 50 ML IV SCH ×4 (00:10→17:35)
--- NOTE | 2016-11-20 06:20 | NUR ---
MS/RN NOTES PT. LYING IN BED RESTING. BREATHING EVEN AND UNLABORED ON ROOM AIR. NO SOB, RESPIRATORY DISTRESS OR COMPLAINTS OF PAIN NOTED THROUGHOUT SHIFT. PT. WITH LEFT HAND 22 GAUGE IV SALINE LOCK PRESENT, PATENT AND INTACT. NO S/S OF HYPO/HYPERGLYCEMIA NOTED THROUGHOUT SHIFT. ALL PT. NEEDS MET. BED IN LOWEST POSITION, CALL LIGHT WITHIN REACH, WILL ENDORSE TO DAYSHIFT NURSE FOR CONTINUITY OF CARE.
[2016-11-20] MEDS: BLOOD SUGAR DIAGNOSTIC 1 EACH STRIP IN SCH ×4 (07:04→22:15)
[2016-11-20 07:09] LABS: APPEARANCE,URINE SL CLOUDY (CLEAR); BILIRUBIN,URINE NEGATIVE (NEGATIVE); BLOOD, URINE 3+ Ery/uL (NEGATIVE); COLOR,URINE YELLOW (YELLOW); KETONES,URINE NEGATIVE (NEGATIVE); LEUKOCYTE ESTERASE ,URINE 1+ (NEGATIVE); NITRITE, URINE NEGATIVE (NEGATIVE); PH,URINE 5.5 (5.0-8.0); PROTEIN,URINE 3+ mg/dl (NEGATIVE); UGLUCOSE NEGATIVE (NEGATIVE); UROBILINOGEN,URINE 0.2 EU/dL (0.2)
--- NOTE | 2016-11-20 07:09 | NUR ---
MS/RN NOTES PT. B MG/DL. NO S/S OF HYPO/HYPERGLYCEMIA NOTED AT THIS TIME. WILL HOLD AND NOT ADMINISTER INSULIN PER SLIDING SCALE AT THIS TIME DUE TO PT. INCREASE RISK FOR HYPOGLYCEMIA DUE TO DECREASED GFR. WILL ENDORSE TO DAYSHIFT NURSE FOR CONTINUITY OF CARE.
[2016-11-20 07:30] LABS: BACTERIA,URINE Few /HPF (None Seen); HYALINE CASTS, URINE Few /LPF (None Seen); SQUAMOUS EPITHELIAL CELL,UR Few /HPF (None Seen); YEAST,URINE Moderate /HPF (None Seen)
[2016-11-20 07:31] LABS: BASOPHILS % (AUTO) 0.2 % (0.0-2.0); EOSINOPHILS # (AUTO) 0.3 /CMM (0.0-0.7); EOSINOPHILS % (AUTO) 2.2 % (0.0-6.0); HEMATOCRIT 32 % (39-51); HEMOGLOBIN 10.6 g/dL (13.5-17.5); LYMPHOCYTES # (AUTO) 1.4 /CMM (0.8-4.8); LYMPHOCYTES % (AUTO) 9.2 % (20.0-44.0); MEAN CORPUSCULAR HEMOGLOBIN 28 PG (26.0-33.0); MEAN CORPUSCULAR HGB CONC 33 g/dl (31.0-36.0); MEAN CORPUSCULAR VOLUME 84 fL (80-96); MONOCYTES # (AUTO) 1.2 /CMM (0.1-1.30); MONOCYTES % (AUTO) 7.8 % (2.0-12.0); NEUTROPHILS # (AUTO) 12.1 /CMM (1.8-8.9); NEUTROPHILS % (AUTO) 80.6 % (43.0-81.0); PLATELET COUNT (AUTO) 192 /CMM (150-450); RED BLOOD CELL COUNT(AUTO) 3.78 MIL/uL (4.5-6.0)
[2016-11-20 08:00] VITALS: BP 112/46
[2016-11-20 08:09] LABS: CALCIUM, SERUM 6.6 mg/dL (8.5-10.1)
[2016-11-20 08:11] LABS: EOSINOPHIL,URINE None Seen
[2016-11-20] MEDS: PANTOPRAZOLE 40 MG TABLET.DR PO SCH (08:31)
[2016-11-20] MEDS: LACTOBACILLUS RHAMNOSUS GG 1 EACH CAP.SPRINK PO SCH ×2 (08:31→16:46)
--- NOTE | 2016-11-20 08:44 | NUR ---
m/s wool cleaner: cardio f/u seen and examined by dr. esparza with order. order acknowledged.
[2016-11-20 08:57] LABS: CREATININE 9.5 mg/dL (0.6-1.3); PHOSPHORUS 9.6 mg/dL (2.5-4.9)
--- NOTE | 2016-11-20 09:00 | NUR ---
m/s wood tile installation helper: md visit seen and examined by tammy yu ([facility]) and informed md re: critical lab values: bun 93, cr 9.5, and phos level 9.6 at this time.
--- NOTE | 2016-11-20 11:00 | NUR ---
m/s inspecting supervisor: id f/u dr. da silva at bedside at this time and updating plan of care.
--- NOTE | 2016-11-20 11:20 | NUR ---
m/s resident care manager rn: nephro f/u seen by dr. michaud with orders. per dr. michaud he texted dr. barnard (vascular surgeon) for hd cath placement. pt for hd tx today per dr. michaud, pt aware. will continue to monitor.
[2016-11-20] MEDS: INSULIN REGULAR, HUMAN 100 UNIT/ML 3 ML VIAL SQ PRN ×2 (12:17→17:24)
--- NOTE | 2016-11-20 14:00 | NUR ---
m/s rn cardiovascular: notes pt increasing in oliguria, pending hd tx and hd cath placement. instructed to call for assistance. will continue to monitor. Addendum: 11/20/16 at 1404 by TAQUERIA VARGAS LVN unalbe to collect urine at this time.
[2016-11-20 16:00] VITALS: BP 111/51
[2016-11-20] MEDS ORDERED: SECONDARY IV SET 1 EA INFUS.SET MC ONE (17:31)
--- NOTE | 2016-11-20 17:55 | NUR ---
Dafne/Frieda MACIAS: VASCULAR SURGEON DR. MCNAIR HERE WITH ORDER TO GET CONSENT FOR INSERTION OF DIALYSIS CATH. ORDER READ BACK AND CARRIED OUT AND ACKNOWLEDGED. Addendum: 11/20/16 at 1841 by TAQUERIA DENSONN PT VERBALIZED UNDERSTANDING AND CONSENT SIGNED. SUPPLIES ORDERED FROM [facility].
--- NOTE | 2016-11-20 18:30 | NUR ---
m/s security dispatcher: notes inserted short-term curve dialysis fr 13, double lumen with 20cm in length, bruce well by dr. barnard at bedside. cxr stat ordered per dr. barnard. called radiology for stat order.
--- NOTE | 2016-11-20 19:00 | NUR ---
m/s business office technician: notes report given to hugh (rn) for continuity of care. cxr result pending. will continue to monitor.
--- NOTE | 2016-11-20 19:10 | NUR ---
RN NOTES RECEIVED PT AWAKE, ALERT AND ORIENTED X4, NO SOB , NOT IN DISTRESS, TOLERATING ROOM AIR. HD CATH ON RIGHT UPPER CHEST WALL INTACT, DRESSING DRY AND CLEAN. NEWLY INSERTED HD CATH BY DR MCNAIR THIS AFTERNOON AWAITING FOR CXR RESULT FOR HD CATH PLACEMENT BEFORE HD TODAY. PT VERBALIZE TOLERABLE PAIN ON HD CATH SITE. IV ACCESS ON RIGHT HAND PATENT AND INTACT. KEPT COMFORTABLE AND ATTENDED. WILL CONTINUE TO MONITOR PT.
[2016-11-20] MEDS: HYDROCODONE/APAP 5/325MG 1 EACH TABLET PO PRN (19:27)
--- NOTE | 2016-11-20 19:27 | NUR ---
RN NOTES PT COMPLAINS OF 7/10 PAIN ON HER RIGHT UPPER CHEST WALL ON THE HD CATH SITE, NORCO 5/325 MG TAB GIVEN PO AND TOLERATED WELL.
--- NOTE | 2016-11-20 19:30 | NUR ---
RN NOTES HD CATH IN PLACE PER CXR, HD STARTED , PT TOLERATED WELL. WILL CONTINUE TO MONITOR PT.
[2016-11-20 20:06] VITALS: BP 90/55
[2016-11-20 20:41] LABS: CREATININE, URINE 248.1 MG/DL (30.0-125.0)
--- NOTE | 2016-11-20 20:45 | NUR ---
RN NOTES HD DONE, NO OUTPUT PER HD DIRECTOR INTEGRATED JASON CLEANING WAS ONLY DONE. PT IN STABLE CONDITION AND VERBALIZING, HE FEELS BETTER..WILL CONTINUE TO MONITOR PT.
[2016-11-20 22:00] VITALS: BP 90/55
[2016-11-20] MEDS: *INSULIN REGULAR(HUMULIN R)HUM 100 UNIT/ML VIAL SQ PRN (22:18)
--- NOTE | 2016-11-20 22:18 | NUR ---
RN NOTES BLOOD SUGAR CHECKED 183 MG/DL, 3 UNITS INSULIN GIVEN SQ PER SLIDING SCALE. WILL CONTINUE TO MONITOR PT.
[2016-11-21] MEDS: NAFCILLIN 2 G in IV D5W 50 ML IV SCH ×4 (00:07→17:14)
[2016-11-21] MEDS: BLOOD SUGAR DIAGNOSTIC 1 EACH STRIP IN SCH ×4 (06:37→21:44)
--- NOTE | 2016-11-21 06:37 | NUR ---
RN NOTES BLOOD SUGAR CHECKED 131 MG/DL, 2 UNITS OF INSULIN GIVEN SQ PER SLIDING SCALE.
[2016-11-21] MEDS: INSULIN REGULAR, HUMAN 100 UNIT/ML 3 ML VIAL SQ PRN ×2 (06:38→11:57)
--- NOTE | 2016-11-21 07:20 | NUR ---
RN NOTES PT AWAKE IN BED, NO SOB, NO SIGNS OF DISTRESS AND DISCOMFORT NOTED, TOLERATING ROOM AIR. DENIES PAIN ON HIS HD SITE AT RIGHT UPPER CHEST WALL. PT WAS ABLE TO URINE X3 WITH VERY LITTLE AMOUNT OF URINE. ALL DUE MEDS GIVEN. PT FEELS BETTER AFTER HD, CLEANSING LAST NIGHT. ALL NEEDS ATTENDED. ENDORSED TO MORNING RN FOR CONTINUITY OF CARE.
[2016-11-21 08:00] VITALS: BP 109/45
[2016-11-21] MEDS: LACTOBACILLUS RHAMNOSUS GG 1 EACH CAP.SPRINK PO SCH ×2 (08:09→16:46)
--- NOTE | 2016-11-21 10:00 | NUR ---
m/s obstetrics gynecology physician: cardio f/u seen by dr. esparza at this time.
[2016-11-21 10:47] LABS: BASOPHILS % (AUTO) 0.1 % (0.0-2.0); EOSINOPHILS # (AUTO) 0.3 /CMM (0.0-0.7); EOSINOPHILS % (AUTO) 2.6 % (0.0-6.0); HEMATOCRIT 31 % (39-51); HEMOGLOBIN 10.4 g/dL (13.5-17.5); LYMPHOCYTES # (AUTO) 1.2 /CMM (0.8-4.8); LYMPHOCYTES % (AUTO) 9.1 % (20.0-44.0); MEAN CORPUSCULAR HEMOGLOBIN 29 PG (26.0-33.0); MEAN CORPUSCULAR HGB CONC 34 g/dl (31.0-36.0); MEAN CORPUSCULAR VOLUME 84 fL (80-96); MONOCYTES # (AUTO) 0.8 /CMM (0.1-1.30); MONOCYTES % (AUTO) 6.5 % (2.0-12.0); NEUTROPHILS # (AUTO) 10.4 /CMM (1.8-8.9); NEUTROPHILS % (AUTO) 81.7 % (43.0-81.0); PLATELET COUNT (AUTO) 241 /CMM (150-450); RDW COEFFICIENT OF VARIATION 17.2 (11.5-15.0); RED BLOOD CELL COUNT(AUTO) 3.65 MIL/uL (4.5-6.0); WHITE BLOOD COUNT (AUTO) 12.7 K/uL (4.3-11.0)
[2016-11-21 11:05] LABS: BILIRUBIN,TOTAL 2.5 mg/dL (0.2-1.0); CALCIUM, SERUM 6.7 mg/dL (8.5-10.1); POTASSIUM 4.4 mmol/L (3.5-5.1); TOTAL PROTEIN, SERUM 5.4 g/dL (6.4-8.2)
[2016-11-21 11:15] LABS: ALBUMIN 1.4 g/dL (3.4-5.0)
[2016-11-21 11:16] LABS: CREATININE 9.4 mg/dL (0.6-1.3)
--- NOTE | 2016-11-21 11:16 | NUR ---
WOUND CARE CONSULT: PT PRESENTS AMBULATORY. SMALL DRY ABRASION NOTED TO LEFT ARM. NO DRAINAGE, TENDERNESS OR SURROUNDING REDNESS NOTED. NO WOUND CARE NEEDED AT THIS TIME. WILL SEE PRN. FERNANDA SCORE IS 20. Addendum: 11/21/16 at 1117 by STEVE WASSERMAN WNDNU Amended: Links added.
--- NOTE | 2016-11-21 11:20 | NUR ---
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 DR. RAPPUBIN HERE AND MADE AWARE WITH NO NEW ORDER.
--- NOTE | 2016-11-21 12:30 | NUR ---
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 will continue to monitor.
--- NOTE | 2016-11-21 15:00 | NUR ---
M/S ZONING ENGINEER: NOTES HD TX IN PROGRESS. CALL LIGHT WITHIN REACH. WILL MONITOR.
[2016-11-21 16:00] VITALS: BP 110/69
--- NOTE | 2016-11-21 16:00 | NUR ---
m/s volunteer services manager: notes hd tx completed with zero uf per hd nurse report. no apparent distress noted. will monitor.
[2016-11-21] MEDS: SEVELAMER CARBONATE 0.8 GM POWD.PACK GT SCH (17:25)
--- NOTE | 2016-11-21 18:00 | NUR ---
m/s automatic mounter: notes in bed having dinner with hob elevated. needs attended. no apparent distress noted. instructed to call for assistance. will continue to monitor.
--- NOTE | 2016-11-21 19:10 | NUR ---
RN NOTES RECEIVED PT AWAKE IN BED, NO SOB, NOT IN DISTRESS, TOLERATING ROOM AIR. PT ALERT AND ORIENTED X4, DENIES ANY PAIN AND DISCOMFORT AT THIS TIME. HD CATH ON RIGHT UPPER CHEST WALL INTACT, WITH DRESSING DRY AND CLEAN. IV ON ACCESS ON RIGHT HAND PATENT AND INTACT. KEPT BED IN THE LOWEST POSITION, LOCKED, SIDE RAILS X2 UP WITH CALL LIGHT WITH IN REACH, FALL PRECAUTION OBSERVED. WILL CONTINUE TO MONITOR PT.
[2016-11-21 20:00] VITALS: BP 125/50
[2016-11-21] MEDS: *INSULIN REGULAR(HUMULIN R)HUM 100 UNIT/ML VIAL SQ PRN (21:47)
--- NOTE | 2016-11-21 21:47 | NUR ---
RN NOTES BLOOD SUGAR CHECKED 202 MG/DL, 4 UNITS OF INSULIN GIVEN PER SLIDING SCALE. WILL CONTINUE TO MONITOR PT.
[2016-11-21 22:00] VITALS: BP 125/50
[2016-11-22] MEDS: NAFCILLIN 2 G in IV D5W 50 ML IV SCH ×4 (00:15→17:25)
[2016-11-22 06:17] LABS: COMPLEMENT C3, SERUM <4 mg/dL (82-167); COMPLEMENT C4, SERUM 2 mg/dL (14-44)
[2016-11-22] MEDS: BLOOD SUGAR DIAGNOSTIC 1 EACH STRIP IN SCH ×4 (06:27→21:59)
[2016-11-22] MEDS: INSULIN REGULAR, HUMAN 100 UNIT/ML 3 ML VIAL SQ PRN ×2 (06:30→17:26)
--- NOTE | 2016-11-22 06:30 | NUR ---
RN NOTES BLOOD SUGAR CHECKED 148 MG/DL, 2 UNITS INSULIN GIVEN PER SLIDING SCALE.
[2016-11-22 06:52] LABS: BASOPHILS # (AUTO) 0.1 /CMM (0.0-0.2); BASOPHILS % (AUTO) 0.4 % (0.0-2.0); EOSINOPHILS # (AUTO) 0.4 /CMM (0.0-0.7); EOSINOPHILS % (AUTO) 2.9 % (0.0-6.0); HEMATOCRIT 29 % (39-51); LYMPHOCYTES # (AUTO) 0.9 /CMM (0.8-4.8); LYMPHOCYTES % (AUTO) 7.5 % (20.0-44.0); MEAN CORPUSCULAR HEMOGLOBIN 29 PG (26.0-33.0); MEAN CORPUSCULAR HGB CONC 34 g/dl (31.0-36.0); MEAN CORPUSCULAR VOLUME 84 fL (80-96); MONOCYTES # (AUTO) 0.8 /CMM (0.1-1.30); MONOCYTES % (AUTO) 6.6 % (2.0-12.0); NEUTROPHILS # (AUTO) 10.2 /CMM (1.8-8.9); NEUTROPHILS % (AUTO) 82.6 % (43.0-81.0); PLATELET COUNT (AUTO) 263 /CMM (150-450); RDW COEFFICIENT OF VARIATION 16.7 (11.5-15.0); RED BLOOD CELL COUNT(AUTO) 3.48 MIL/uL (4.5-6.0); WHITE BLOOD COUNT (AUTO) 12.4 K/uL (4.3-11.0)
--- NOTE | 2016-11-22 07:18 | NUR ---
RN NOTES PT AWAKE IN BED, NO SOB, NOT IN DISTRESS, TOLERATING ROOM AIR. VITAL SIGNS STABLE, A FEBRILE, NO EPISODE OF NAUSEA AND VOMITING. NO COMPLAIN OF PAIN WITH IN THE SHIFT. PT STILL VOIDING WITH VERY LITTLE AMOUNT OF URINE. AMBULATES TO THE BATHROOM WITH STEADY GAIT, FALL PRECAUTION OBSERVED. ALL DUE MEDS GIVEN. ALL NEEDS ATTENDED. ENDORSED TO MORNING RN FOR CONTINUITY OF CARE.
[2016-11-22 07:25] LABS: CALCIUM, SERUM 6.3 mg/dL (8.5-10.1); MAGNESIUM 2.5 mg/dL (1.8-2.4); POTASSIUM 4.1 mmol/L (3.5-5.1)
--- NOTE | 2016-11-22 07:28 | NUR ---
RN NOTES PT IN BED.AWAKE,ALERT, ORIENTED X 3. IN NO APPARENT DISTRESS. RESPIRATIONS EVEN AND UNLABORED. DENIES PAIN AND DISCOMFORT AT THIS TIME. WILL CONTINUE TO MONITOR
[2016-11-22 07:45] LABS: PHOSPHORUS 8.2 mg/dL (2.5-4.9)
--- NOTE | 2016-11-22 07:45 | NUR ---
RN NOTES RECEIVED CALL FROM LAB. PT WITH CREATININE LEVEL RESULT OF 8.0. WILL INFORM .
[2016-11-22 07:56] VITALS: BP 112/50
[2016-11-22] MEDS: LACTOBACILLUS RHAMNOSUS GG 1 EACH CAP.SPRINK PO SCH ×2 (08:04→17:26)
[2016-11-22] MEDS: SEVELAMER CARBONATE 0.8 GM POWD.PACK GT SCH ×3 (08:04→17:26)
--- NOTE | 2016-11-22 10:00 | NUR ---
RN NOTES PT SEEN AND EXAMINED BY DR GUARDADO- WITH NEW ORDERS NOTED AND CARRIED OUT. WITH ORDER FOR CT GUIDED NEEDLE IOPSY- CONSENT SIGNED BY PATIENT. WILL CONTINUE TO MONITOR
[2016-11-22 11:09] LABS: INR 0.96 (0.87-1.13); PROTHROMBIN TIME 10.3 SECS (9.5-12.7)
[2016-11-22] MEDS: CALCIUM ACETATE 667 MG TABLET PO SCH ×2 (12:49→17:26)
[2016-11-22 16:00] VITALS: BP 130/53
--- NOTE | 2016-11-22 16:11 | NUR ---
RN NOTES SPOKE WITH DR ALEMAN FOR [facility] ABOUT CONSULT. SAYS HE RECEIVED THE REFERRAL FROM [facility], BUT NEEDS TO SEE THE ACTUAL MRI SLIDES. NOTED. UPDATED CHARGE NURSE
--- NOTE | 2016-11-22 18:00 | NUR ---
RN NOTES RECEIVED PT IN BED. AWAKE, ALERT, ORIENTED X 3. IN NO APPARENT DISTRESS. RESPIRATIONS EVEN AND UNLABORED. DENIES PAIN AND DISCOMFORT. TOLERATED ALL MEDS AND TREATMENTS. PT DENIES HAVING URINE OUTPUT- UNABLE TO GET SPECIMEN FOR TESTS. WILL ENDORSE TO ONCOMING SHIFT
--- NOTE | 2016-11-22 19:40 | NUR ---
MS RN NOTE: PATIENT RESTING IN BED, NO ACUTE DISTRESS NOTED. BREATHING EVEN AND UNLABORED, NO SOB NOTED. HD SITE TO RIGHT NECK IN PLACE, NO BLEEDING NOTED. HL TO RIGHT HAND IN PLACE. PATIENT DENIES S/S OF HYPER/HYPOGLYCEMIA AT THIS TIME. INFORMED PATIENT THAT HE WILL BE NPO AFTER MIDNIGHT AND NOT TO EAT OR DRINK AFTER MIDNIGHT. FOR PROCEDURE IN THE MORNING. BED LOCKED AND IN LOWEST POSITION, CALL LIGHT IN REACH. WILL CONTINUE TO MONITOR.
[2016-11-22 20:00] VITALS: BP 138/56
--- NOTE | 2016-11-22 22:10 | NUR ---
MS RN NOTE: PATIENT BLOOD SUGAR LEVEL 127 MG/DL, NO INSULIN NEEDED PER SLIDING SCALE. PATIENT DENIES S/S OF HYPER/HYPOGLYCEMIA AT THIS TIME. WILL CONTINUE TO MONITOR.
[2016-11-23] VITALS (17 sets, daily range): BP systolic 92–167; BP diastolic 41–96
[2016-11-23] MEDS: NAFCILLIN 2 G in IV D5W 50 ML IV SCH ×2 (00:12→06:00)
--- NOTE | 2016-11-23 00:15 | NUR ---
MS RN NOTE: PATIENT NPO FOR PROCEDURE IN MORNING. INFORMED PATIENT THAT HE CAN NOT EAT OR DRINK ANYTHING ANYMORE TILL AFTER PROCEDURE IN MORNING. OFFERED PATIENT A LAST SNACK AND A DRINK. WATER PITCHER EMPTIED AND REMOVED FROM BEDSIDE. WILL CONTINUE TO MONITOR.
--- NOTE | 2016-11-23 06:05 | NUR ---
MS RN NOTE: PATIENT BLOOD SUGAR LEVEL 134 MG/DL, NO INSULIN SINCE PATIENT IS NPO FOR PROCEDURE THIS MORNING. PATIENT DENIES S/S OF HYPER/HYPOGLYCEMIA AT THIS TIME. WILL CONTINUE TO MONITOR.
--- NOTE | 2016-11-23 06:15 | NUR ---
MS RN NOTE: PATIENT COMPLAINS OF SHORTNESS OF BREATH, UNABLE TO BREATHE. VITAL SIGNS TAKEN, BP UNABLE TO REGISTER WITH AUTOMATIC BP MACHINE. MANUAL BLOOD PRESSURE TAKEN 180/70, HR 112, TEMP 97.6. RESP 22. WILL CONTINUE TO MONITOR.
[2016-11-23] MEDS ORDERED: CLONIDINE HCL 0.1 MG TABLET ONE (06:40)
[2016-11-23] MEDS: CLONIDINE HCL 0.1 MG TABLET PO PRN (06:44)
--- NOTE | 2016-11-23 06:45 | NUR ---
MS RN NOTE: PATIENT WITH NO BLOOD PRESSURE MEDICATIONS, SENIOR PHP DEVELOPER MD CONTACTED AND SPOKE TO DR. HAGAN, RECEIVED ORDERS FOR CLONIDINE 1.0 MG ORAL EVERY 6 HOURS NEEDED. ORDER NOTED AND CARRIED OUT. PATIENT ON TELE MONITOR FOR OBSERVATION. HR 122 AND PATIENT ON OXYGEN AT 5 NC WITH O2 SAT AT 90%. PATIENT THEN PLACE ON NON REBREATHER WITH O2 SAT AT 94%. CLONIDINE 0.1 MG ORAL GIVEN PER MD. WILL CONTINUE TO MONITOR.
[2016-11-23] MEDS: BLOOD SUGAR DIAGNOSTIC 1 EACH STRIP IN SCH ×4 (06:47→21:03)
--- NOTE | 2016-11-23 07:00 | NUR ---
MS RN NOTE: PATIENT CONTINUE TO BE SHORT OF BREATH WITH NON REBREATHER AND O2 SAT DECREASING TO 88-90%. BLOOD PRESSURE 167/70, HR 110. DR. FUENTES AT STATION AND ASKED TO EVALUATE PATIENT. PATIENT SEEN BY DR. FUENTES WITH ORDERS FOR STAT ABG AND CHEST XRAY. ORDERS NOTED AND CARRIED.
[2016-11-23 07:15] LABS: ABG OXYGEN SATURATION 86.5 % (92.0-98.5); ABG PCO2 57.9 mmHg (35.0-45.0); ABG PH 7.028 (7.350-7.450); ABG PO2 73.4 mmHg (75.0-100.0); AaDO2 436.2 mmHg; COHb 0.8 % (0.5-1.5); MetHb 0.9 % (0.0-1.5)
[2016-11-23 07:26] LABS: BASOPHILS % (AUTO) 0.1 % (0.0-2.0); EOSINOPHILS # (AUTO) 0.5 /CMM (0.0-0.7); EOSINOPHILS % (AUTO) 2.3 % (0.0-6.0); HEMATOCRIT 37 % (39-51); HEMOGLOBIN 12.4 g/dL (13.5-17.5); LYMPHOCYTES % (AUTO) 18.8 % (20.0-44.0); MEAN CORPUSCULAR HEMOGLOBIN 29 PG (26.0-33.0); MEAN CORPUSCULAR HGB CONC 33 g/dl (31.0-36.0); MEAN CORPUSCULAR VOLUME 86 fL (80-96); MONOCYTES # (AUTO) 1.5 /CMM (0.1-1.30); MONOCYTES % (AUTO) 7.2 % (2.0-12.0); NEUTROPHILS # (AUTO) 15.4 /CMM (1.8-8.9); NEUTROPHILS % (AUTO) 71.6 % (43.0-81.0); PLATELET COUNT (AUTO) 370 /CMM (150-450); RDW COEFFICIENT OF VARIATION 17.8 (11.5-15.0); RED BLOOD CELL COUNT(AUTO) 4.33 MIL/uL (4.5-6.0); WHITE BLOOD COUNT (AUTO) 21.5 K/uL (4.3-11.0)
--- NOTE | 2016-11-23 07:30 | NUR ---
MS RN NOTE: RT CALLED FOR STAT ABG, UNABLE TO OBTAIN AT THIS TIME. PATIENT CONTINUE TO HAVE SATURATION DECREASE TO LOW 80% ON NON-BREATHER. RAPID RESPONSE CALLED. DR. FUENTES SAW PATIENT AGAIN AND ORDERED TO TRANSFER PATIENT TO ICU. RAPID RESPONSE TEAM AT BEDSIDE, ICU NURSE TRIED TO GET ABB BEFORE TRANSFER, UNABLE TO OBTAIN. PATIENT TO BE TRANSFERRED TO ROOM 261. PATIENT TRANSFERRED WITH ACLS PROTOCOL. REPORT GIVEN AT BEDSIDE TO ANAY LAWLER.
[2016-11-23] MEDS: CALCIUM ACETATE 667 MG TABLET PO SCH ×3 (08:00→17:07)
[2016-11-23] MEDS: SEVELAMER CARBONATE 0.8 GM POWD.PACK GT SCH ×3 (08:00→17:07)
[2016-11-23] MEDS: LACTOBACILLUS RHAMNOSUS GG 1 EACH CAP.SPRINK PO SCH ×2 (08:09→17:07)
[2016-11-23 08:10] LABS: CREATININE, URINE 296.1 MG/DL (30.0-125.0); URINE TOTAL PROTEIN 797.2 mg/dL (0-11.9)
[2016-11-23 08:25] LABS: CALCIUM, SERUM 7.5 mg/dL (8.5-10.1); POTASSIUM 4.5 mmol/L (3.5-5.1)
[2016-11-23 08:37] LABS: CREATININE 10.2 mg/dL (0.6-1.3)
--- NOTE | 2016-11-23 09:28 | NUR ---
MATERIALS SUPERVISOR NOTE 0750: Received patient ABG done, pH 7.028 CO2 57.9, placed by RT to Bipap. Patient aware for the POC. Called Ahmed and made aware for the HD needed SREE. Followed up with Radiology for CXR. Dr. Sandoval called and update given. SR on EKG. 829: Dr. Sidhu called and given update re: the patient. Patient on Bipap, HD nurse at bedside to start HD. 0900: S/E by Dr. Darling, with order for repeat BC, unable to gather sputum for now for patient dry on Bipap, MD aware, will gather when able. Phleb came to draw blood from HD cath and peripheral. CN spoke with radiology unable to go to CT guided renal biopsy, secondary to unstable. 919: S/E by Dr. Real. Patient on Bipap, HD ongoing, tolerated at this time.
--- NOTE | 2016-11-23 10:00 | NUR ---
RN NOTES RECEIVED PT ON BED , ON BIPAP , O2 SAT 99%, RECEIVING HD AT THIS TIME .CONTINUE TO MONITOR PT CLOSELY .
[2016-11-23] MEDS ORDERED: IV NS 0.9% 250 ML IV ONE (10:13)
[2016-11-23] MEDS ORDERED: IV SET PRIMARY PUMP SET 1 EA INFUS.SET MC ONE ×2 (10:13→11:57)
[2016-11-23] MEDS ORDERED: SECONDARY IV SET 1 EA INFUS.SET MC ONE ×2 (10:13→17:05)
[2016-11-23] MEDS: LINEZOLID RTU BAG 600 MG in PREMIX 1 EA IV SCH ×2 (10:20→20:45)
--- NOTE | 2016-11-23 11:00 | NUR ---
RN NOTES RADIOLOGY NOTIFIED REGARDING CT GUIDED BX THAT HAS TO BE DONE TOMORROW PER DR GUARDADO'S ORDER .
[2016-11-23 11:16] LABS: ABG BASE EXCESS 1.1 mmol/L; ABG OXYGEN SATURATION 98.6 % (92.0-98.5); ABG PCO2 32.5 mmHg (35.0-45.0); ABG PH 7.488 (7.350-7.450); ABG PO2 200.8 mmHg (75.0-100.0); AaDO2 191.3 mmHg; COHb 0.4 % (0.5-1.5); MetHb 1.6 % (0.0-1.5); O2Hb 96.6 % (94.0-97.0); SITE, ABG Right Radial
--- NOTE | 2016-11-23 11:30 | NUR ---
RN NOTES ABG RESULTS SENT TO DEBBY SWEET .
--- NOTE | 2016-11-23 11:34 | NUR ---
ABG RESULTS REPORTED TO NURSE(HUGH). FI02 DECREASED TO 40% TO MAINTAIN SP02>94% PER PROTOCOL.
[2016-11-23] MEDS: PIPERACILLIN /TAZOBACTAM 2.25 G in IV D5W 50 ML IV SCH ×2 (12:03→17:09)
--- NOTE | 2016-11-23 13:22 | NUR ---
RN NOTES PT SITTING UP ON THE BED , A/Ox4. OFF BIPAP AT THIS TIME, RESPIRATION EVEN AND UNLABORED . EAT 100% OF HIS LUNCH , YASMANI ANY DISTRESS AT THIS TIME, CONTINUE TO MONITOR . Addendum: 11/23/16 at 1325 by HUGH OTT RN ON O2 2 L N/C O2 SAT 96% . NO SOB NOTED
[2016-11-23] MEDS: INSULIN REGULAR, HUMAN 100 UNIT/ML 3 ML VIAL SQ PRN (18:00)
--- NOTE | 2016-11-23 18:08 | NUR ---
PATIENT OBSERVATION ASSISTANT NOTE Patient has no any significant changes. On 2LPM ofO2 via NC, Sat 95%. With PIVs intact. Anuric. HD cath intact. VSS. Patient aware to be NPO post midnight for CT guided biopsy tomorrow @ 1000. Also aware to have less fluids or maintain 1500mL fluid restriction. Dr Sandoval updated for Trop 0.976 and patient's condition, no new order. Will follow up with patient's sputum collection after eating dinner.
--- NOTE | 2016-11-23 20:00 | NUR ---
THROW OUT CLERK PT RECEIVED IN BED . AWAKE AND ALERT. IVS INTACT AND FLUSHING WELL. PT ON 2L NC . NO SOB NOTED. RIJ HD CATH INTACT AND PATENT. PT DENIES PAIN AT THIS TIME. WILL CONT TO MONITOR FOR ANY CHANGES.
[2016-11-23] MEDS: *INSULIN REGULAR(HUMULIN R)HUM 100 UNIT/ML VIAL SQ PRN (21:10)
[2016-11-24] VITALS (57 sets, daily range): BP systolic 0–203; BP diastolic 38–158
[2016-11-24] MEDS: HYDROCODONE/APAP 5/325MG 1 EACH TABLET PO PRN (00:03)
[2016-11-24] MEDS: PIPERACILLIN /TAZOBACTAM 2.25 G in IV D5W 50 ML IV SCH ×5 (00:04→23:22)
[2016-11-24 04:36] LABS: BASOPHILS % (AUTO) 0.2 % (0.0-2.0); EOSINOPHILS # (AUTO) 0.4 /CMM (0.0-0.7); HEMATOCRIT 27 % (39-51); MEAN CORPUSCULAR HEMOGLOBIN 29 PG (26.0-33.0); MEAN CORPUSCULAR HGB CONC 34 g/dl (31.0-36.0); MEAN CORPUSCULAR VOLUME 85 fL (80-96); MONOCYTES # (AUTO) 0.9 /CMM (0.1-1.30); MONOCYTES % (AUTO) 6.5 % (2.0-12.0); NEUTROPHILS # (AUTO) 12.1 /CMM (1.8-8.9); NEUTROPHILS % (AUTO) 83.3 % (43.0-81.0); PLATELET COUNT (AUTO) 302 /CMM (150-450); RDW COEFFICIENT OF VARIATION 17.1 (11.5-15.0); RED BLOOD CELL COUNT(AUTO) 3.15 MIL/uL (4.5-6.0); WHITE BLOOD COUNT (AUTO) 14.5 K/uL (4.3-11.0)
[2016-11-24 04:47] LABS: ALBUMIN 1.5 g/dL (3.4-5.0); BILIRUBIN,TOTAL 1.6 mg/dL (0.2-1.0); MAGNESIUM 2.6 mg/dL (1.8-2.4); POTASSIUM 4.3 mmol/L (3.5-5.1); TOTAL PROTEIN, SERUM 5.7 g/dL (6.4-8.2)
[2016-11-24 04:59] LABS: CREATININE 8.1 mg/dL (0.6-1.3); PHOSPHORUS 8.3 mg/dL (2.5-4.9); TROPONIN I 0.916 ng/mL (0.00-0.056)
--- NOTE | 2016-11-24 07:01 | NUR ---
TODDLER LEAD TEACHER NO CHANGES NOTED THROUGHOUT THE NIGHT. PT TOLERATED BED BATH WELL AND WAS ABLE TO TURN SELF.
--- NOTE | 2016-11-24 07:30 | NUR ---
GREEN MEAT GRADER; ASSESSMENT RECEIVED PT AWAKE AND ORIENTED X4 SLOVENIAN SPEAKING. PT CURRENTLY RECEIVING HD. PT ON NASAL CANULA 2L/MIN. PT DENIES ANY PAIN AT THIS TIME. [place] [address]. WILL REVIEW CONSENTS. NO ACUTE DISTRESS NOTED WILL CONTINUE TO MONITOR.
[2016-11-24] MEDS: CALCIUM ACETATE 667 MG TABLET PO SCH ×3 (08:11→17:51)
[2016-11-24] MEDS: BLOOD SUGAR DIAGNOSTIC 1 EACH STRIP IN SCH ×4 (08:11→21:06)
[2016-11-24] MEDS: SEVELAMER CARBONATE 0.8 GM POWD.PACK GT SCH ×3 (08:12→17:51)
[2016-11-24] MEDS ORDERED: MIDAZOLAM HCL 5MG/ML VIAL 25 MG/5 ML VIAL IV PRN (09:00)
[2016-11-24] MEDS ORDERED: FENTANYL PF 250MCG/5ML AMPUL IV PRN (09:00)
[2016-11-24] MEDS ORDERED: NALOXONE PREFILLED SYRINGE 2 MG/2 ML SYRINGE IV PRN (09:00)
[2016-11-24] MEDS: LINEZOLID RTU BAG 600 MG in PREMIX 1 EA IV SCH (09:04)
[2016-11-24] MEDS: LACTOBACILLUS RHAMNOSUS GG 1 EACH CAP.SPRINK PO SCH ×2 (09:04→17:00)
[2016-11-24 09:26] LABS: ABG BASE EXCESS -0.8 mmol/L; ABG OXYGEN SATURATION 93.6 % (92.0-98.5); ABG PH 7.446 (7.350-7.450); ABG PO2 73.2 mmHg (75.0-100.0); AaDO2 86.3 mmHg; COHb 1.5 % (0.5-1.5); MetHb 1.6 % (0.0-1.5); O2Hb 90.7 % (94.0-97.0); SITE, ABG Right Radial; VENT MODE, BG Nasal Cannula
--- NOTE | 2016-11-24 09:47 | NUR ---
CARBON CLEANER; PROCEDURE TRANSPORT TEAM AT BEDSIDE WITH HAKEEM CUEVA (PROCEDURE NURSE) TO TAKE PT TO CT GUIDED BIOPSY OF KIDNEY. TRANSPORT USING ACLS PROTOCOL.
[2016-11-24] MEDS ORDERED: LIDOCAINE HCL/PF 1% 30 ML SDV ONE (10:07)
[2016-11-24] MEDS ORDERED: NITROGLYCERIN PACKET 1 GM PACKET ONE (11:02)
[2016-11-24 11:06] LABS: ABG BASE EXCESS -5.4 mmol/L; ABG OXYGEN SATURATION 85.7 % (92.0-98.5); ABG PCO2 45.2 mmHg (35.0-45.0); ABG PH 7.286 (7.350-7.450); ABG PO2 58.8 mmHg (75.0-100.0); COHb 1.2 % (0.5-1.5); MetHb 1.3 % (0.0-1.5); O2Hb 83.6 % (94.0-97.0); SITE, ABG Right Femoral; VENT MODE, BG NON REBREATHER
[2016-11-24] MEDS ORDERED: NITROGLYCERIN PACKET 1 GM PACKET TOP STA (11:10)
[2016-11-24] MEDS: CLONIDINE HCL 0.1 MG TABLET PO PRN (11:14)
--- NOTE | 2016-11-24 11:15 | NUR ---
EVENTS FROM 1100 TO 1130AM. RETURNED FROM X/R. PROCEDURE NOT DONE PT POSITIONED PRONE AND DEVELOPED ACUTE RESPIR DISTRESS, DIAPHORESIS, AND HTN. BROUGHT BACK TO ICU,. BP 202/156. HR 110, RR 44 BPM. PT AT 90 DEGREES. ABG WITH PH 7.29 PCO2 45 PO2 59 ON 15 LPM NRB MASK. BIPAP STARTED. NTG PASTE . GABE FUENTES, MARVIN AND MELANY NOTIFIED. DR GUARDADO CAME TO EVAL PT.
--- NOTE | 2016-11-24 11:18 | NUR ---
ARMATURE TESTER; PT BACK FORM CT. PT UNABLE TO GET BIOPSY DUE TO PT BECOMING DIAPHORETIC, TACHYCARDIC. PT NOW IN ROOM 261. ABG STAT ORDER WAS DONE. SEE ABG RESULTS. STAT CHEST XRAY ORDERED. PT PLACED ON ASSEMBLY SUPERVISOR SHOWING SINUS TACH AT 120BPM. RESP RATE OF 30'S RT CALLED TO PLACE PT ON BIPAP. BLOOD SUGAR CHECKED RESULT OF 171. DR. FUENTES AND DR. WONG NOTIFIED NEW ORDERS GIVEN.
--- NOTE | 2016-11-24 11:40 | NUR ---
CONSULTING SME 1015 BROUGHT PT FROM ICU ROOM 261 TO RADIOLOGY PT IS STABLE VS STABLE SBP 120S HR 104 RR 20 ON 4L NC SAT 94% PT DENIES OF ANY PAIN OR DISCOMFORT. 1030 PLACED PT IN PRONE POSITION FOR CT, AFTER 10MIN PT STARTED TO PERIPORATE PROFUSELY HR 120S SAT DOPED FROM 90S TO 80S DR. BEE AT BEDSIDE, CALLED DR. CHRIS GAVE INFO REGARDING PT CONDITION, AT THIS TIME PT WAS PLACED SUPINE WITH HOB ELEVATED ON NON REBREATHER SAT 90%. 1040 MOVED PT BACK TO ICU UNDER UNSTABLE CONDITION, ORDERS RECEIVED AND FOLLOWED, REPORT GIVEN TO ANAY QUINONES FOR CONTINUITY OF CARE. 1100 PT ON BIPAP SBP MEDS GIVEN SBP ELEVATED SAT 95% PT IS STABLE AT THIS TIME SR ON TELE SBP STABLE DR. KUMAR GUARDADO AT BEDSIDE EVALUATING PT.
--- NOTE | 2016-11-24 11:45 | NUR ---
BEHAVIORAL INTERVENTION SPECIALIST; MEDICATION NITROGLYCERIN 2INCHES ALREADY GIVEN. MEDICATION WAS OVERWRITTEN ONCE PT GOT HERE FROM CT SCAN.
--- NOTE | 2016-11-24 12:03 | NUR ---
MOTOR VEHICLE DISPATCHER; MEDICATION NITRO PATCHED REMOVED. BP DROP TO 92/38. WILL CONTINUE TO MONITOR CLOSELY.
[2016-11-24] MEDS ORDERED: DEXTROSE 50%-WATER 50 ML DISP.SYRIN IV PRN (12:30)
[2016-11-24] MEDS: INSULIN REGULAR, HUMAN 100 UNIT/ML 3 ML VIAL SQ PRN ×2 (12:37→21:08)
[2016-11-24] MEDS ORDERED: SECONDARY IV SET 1 EA INFUS.SET MC ONE (16:22)
[2016-11-24] MEDS ORDERED: ALBUMIN 25% 25 GM in PREMIX 1 EA IV ONE (16:30)
--- NOTE | 2016-11-24 19:30 | NUR ---
ICU/RN- PT IN BED A/OX4. DENIES ANY CHEST PAIN OR SOB AT THIS TIME. ON MONITOR W/ SR 80'S. ON O2 2L/MIN VIA NC W/ O2 SAT 98%. RESP EVEN AND UNLABORED. INSTRUCTED PT TO USE CALL LIGHT FOR ASSISTANCE. CALL LIGHT W/ IN REACH. BED LOW AND IN LOCKED POSITION. WILL MONITOR ACCORDINGLY.
[2016-11-24] MEDS: IV NS 0.9% 1,000 ML BAG IV ONE (19:56)
[2016-11-24] MEDS: LINEZOLID 600 MG TABLET PO SCH (20:08)
--- NOTE | 2016-11-24 21:31 | NUR ---
ICU/RN- CO SOB ON 3L/MIN. REQUESTED TO BE PUT BACK ON BIPAP. RT CALLED AND PLACED BACK ON BIPAP W/ SAME SETTINGS.
--- NOTE | 2016-11-24 21:34 | NUR ---
ICU/RN- RT AT BEDSIDE TO PERFORM ABG.
[2016-11-24 21:54] LABS: ABG BASE EXCESS 0.7 mmol/L; ABG OXYGEN SATURATION 87.5 % (92.0-98.5); ABG PCO2 39.2 mmHg (35.0-45.0); ABG PH 7.424 (7.350-7.450); ABG PO2 55.3 mmHg (75.0-100.0); MetHb 1.2 % (0.0-1.5); O2Hb 85.6 % (94.0-97.0); SITE, ABG Right Radial; VENT MODE, BG 3L NC
--- NOTE | 2016-11-24 22:07 | NUR ---
RT ABG ORDER FOR 1930 WAS TRANSFERED OVER ORDER FOR 1400. ABG RESULTS SHOWING @ 1400 TIME IS ACTUALLY FOR 192911/24/16.
[2016-11-25] VITALS (51 sets, daily range): BP systolic 89–149; BP diastolic 41–90
[2016-11-25 04:37] LABS: BASOPHILS # (AUTO) 0.1 /CMM (0.0-0.2); EOSINOPHILS # (AUTO) 0.2 /CMM (0.0-0.7); EOSINOPHILS % (AUTO) 1.8 % (0.0-6.0); HEMATOCRIT 25 % (39-51); HEMOGLOBIN 8.4 g/dL (13.5-17.5); LYMPHOCYTES # (AUTO) 0.9 /CMM (0.8-4.8); LYMPHOCYTES % (AUTO) 7.4 % (20.0-44.0); MEAN CORPUSCULAR HEMOGLOBIN 28 PG (26.0-33.0); MEAN CORPUSCULAR HGB CONC 33 g/dl (31.0-36.0); MEAN CORPUSCULAR VOLUME 86 fL (80-96); MONOCYTES # (AUTO) 0.7 /CMM (0.1-1.30); MONOCYTES % (AUTO) 6.3 % (2.0-12.0); NEUTROPHILS # (AUTO) 9.9 /CMM (1.8-8.9); NEUTROPHILS % (AUTO) 83.5 % (43.0-81.0); PLATELET COUNT (AUTO) 298 /CMM (150-450); RDW COEFFICIENT OF VARIATION 17.1 (11.5-15.0); RED BLOOD CELL COUNT(AUTO) 2.97 MIL/uL (4.5-6.0); WHITE BLOOD COUNT (AUTO) 11.8 K/uL (4.3-11.0)
[2016-11-25 04:49] LABS: CALCIUM, SERUM 7.8 mg/dL (8.5-10.1); CREATININE 5.9 mg/dL (0.6-1.3); POTASSIUM 4.3 mmol/L (3.5-5.1)
[2016-11-25] MEDS: PIPERACILLIN /TAZOBACTAM 2.25 G in IV D5W 50 ML IV SCH ×4 (05:26→23:36)
--- NOTE | 2016-11-25 06:36 | NUR ---
ICU/RN- HD NURSE AT BEDSIDE FOR DIALYSIS. NAD NOTED AT THIS TIME. ALL NEEDS ATTENDED AND MET. AM CARE PROVIDED. WILL ENDORSE TO AM SHIFT FOR CONTINUATION OF CARE.
[2016-11-25] MEDS ORDERED: SECONDARY IV SET 1 EA INFUS.SET MC ONE ×2 (07:27→11:59)
[2016-11-25] MEDS: BLOOD SUGAR DIAGNOSTIC 1 EACH STRIP IN SCH ×4 (07:30→21:23)
[2016-11-25] MEDS: ALBUMIN 25% 25 GM in PREMIX 1 EA IV PRN (07:31)
--- NOTE | 2016-11-25 07:50 | NUR ---
SANDER OPERATOR: pt/is A/Ox3, no pain, no c/o, on Bipap, O2 sat. WNL, SR, SBP 85-95, getting HD, waiting Albumin IV, good IV access, RT is going switch for O2 n/c
[2016-11-25] MEDS: CALCIUM ACETATE 667 MG TABLET PO SCH ×4 (08:45→18:00)
[2016-11-25] MEDS: LACTOBACILLUS RHAMNOSUS GG 1 EACH CAP.SPRINK PO SCH ×2 (08:45→16:57)
[2016-11-25] MEDS: LINEZOLID 600 MG TABLET PO SCH ×2 (08:45→20:26)
[2016-11-25] MEDS: SEVELAMER CARBONATE 0.8 GM POWD.PACK GT SCH ×3 (08:45→17:16)
--- NOTE | 2016-11-25 08:45 | NUR ---
SENIOR BOOKKEEPER: is in room, updated with pt.current condition, VS, HD, resp.status, I/O, see new orders
--- NOTE | 2016-11-25 09:40 | NUR ---
PLANT ENGINEERING SUPERVISOR: HD done, tolerated well, VSS, 4.5L out
--- NOTE | 2016-11-25 11:00 | NUR ---
SUPERANNUATION FUNDS MANAGER: updated with pt.VS, HD (10L out per last 24hrs), I/O, labs, see new orders
[2016-11-25] MEDS: INSULIN REGULAR, HUMAN 100 UNIT/ML 3 ML VIAL SQ PRN ×3 (11:47→21:22)
[2016-11-25 12:13] LABS: ABG BASE EXCESS -1.2 mmol/L; ABG OXYGEN SATURATION 91.2 % (92.0-98.5); ABG PCO2 37.1 mmHg (35.0-45.0); ABG PH 7.413 (7.350-7.450); ABG PO2 63.2 mmHg (75.0-100.0); AaDO2 107.1 mmHg; COHb 1.7 % (0.5-1.5); MetHb 0.9 % (0.0-1.5); O2Hb 88.8 % (94.0-97.0); SITE, ABG Right Radial
[2016-11-25] MEDS: LEVOFLOXACIN 500 MG /D5W 100ML 500 MG in PREMIX 1 EA IV SCH (12:15)
--- NOTE | 2016-11-25 14:35 | NUR ---
GRUBBER: notified re pt.VS, HD, I/O, labs, BS, see new orders
--- NOTE | 2016-11-25 16:08 | NUR ---
INDEPENDENT AGENT MUSIC EDUCATION: O2 sat. 90-91% on 4L n/c, RR 20-30, pt.c/o SOB, "breathing problem", placed back on Bipap by RT, SR, BP WNL
--- NOTE | 2016-11-25 16:29 | NUR ---
PLACED BACK ON BIPAP FOR ELEVATED WOB Addendum: 11/25/16 at 1630 by MAHSA COTTRELL RT Amended: Links added.
--- NOTE | 2016-11-25 17:40 | NUR ---
VP EMERGING MEDIA: is in room, updated with pt.history, tests, orders, VS, I/O, 10L out by HDx3 per last 24hrs, ABG, labs, n/c O2 support over day and desat.episode today d/t labored SOB, back on Bipap, pt.feels now better on Bipap, plan: keep on Bipap over night and try off Bipap tomorrow per state
--- NOTE | 2016-11-25 20:00 | NUR ---
ICU/RN- PT IN BED A/OX4. DENIES ANY CHEST PAIN OR SOB AT THIS TIME. ON MONITOR W/ SR 80'S. ON BIPAP R 10 25/10 FIO2 50 W/ O2 SATURATION 98%. RESP EVEN AND UNLABORED. INSTRUCTED PT TO USE CALL LIGHT FOR ASSISTANCE. CALL LIGHT W/ IN REACH. BED LOW AND IN LOCKED POSITION. WILL MONITOR ACCORDINGLY.
--- NOTE | 2016-11-25 20:11 | NUR ---
pt received on bipap via face mask, settigns as charted ambu bag at bedside alarms set and audible. disconnect alarms checked breath sounds equal bilateral coarse pt receiving no breathing tx at this time Addendum: 11/25/16 at 2012 by JACOB MARTINEZ RT Amended: Links added.
[2016-11-26] VITALS (32 sets, daily range): BP systolic 100–166; BP diastolic 42–72
[2016-11-26 04:43] LABS: BASOPHILS # (AUTO) 0.1 /CMM (0.0-0.2); EOSINOPHILS # (AUTO) 0.2 /CMM (0.0-0.7); EOSINOPHILS % (AUTO) 1.3 % (0.0-6.0); HEMATOCRIT 23 % (39-51); HEMOGLOBIN 7.8 g/dL (13.5-17.5); LYMPHOCYTES # (AUTO) 1.1 /CMM (0.8-4.8); LYMPHOCYTES % (AUTO) 8.1 % (20.0-44.0); MEAN CORPUSCULAR HEMOGLOBIN 29 PG (26.0-33.0); MEAN CORPUSCULAR HGB CONC 34 g/dl (31.0-36.0); MEAN CORPUSCULAR VOLUME 86 fL (80-96); MONOCYTES # (AUTO) 0.9 /CMM (0.1-1.30); NEUTROPHILS # (AUTO) 10.9 /CMM (1.8-8.9); NEUTROPHILS % (AUTO) 82.6 % (43.0-81.0); PLATELET COUNT (AUTO) 267 /CMM (150-450); RDW COEFFICIENT OF VARIATION 17.8 (11.5-15.0); RED BLOOD CELL COUNT(AUTO) 2.68 MIL/uL (4.5-6.0); WHITE BLOOD COUNT (AUTO) 13.2 K/uL (4.3-11.0)
[2016-11-26 04:51] LABS: RETICULOCYTE COUNT 4.4 % (0.6-2.5)
[2016-11-26 04:55] LABS: CALCIUM, SERUM 7.9 mg/dL (8.5-10.1); MAGNESIUM 2.3 mg/dL (1.8-2.4); POTASSIUM 4.5 mmol/L (3.5-5.1)
[2016-11-26 05:02] LABS: CREATININE 7.7 mg/dL (0.6-1.3)
[2016-11-26] MEDS ORDERED: IV NS 0.9% 250 ML IV ONE (05:12)
[2016-11-26] MEDS: PIPERACILLIN /TAZOBACTAM 2.25 G in IV D5W 50 ML IV SCH ×4 (05:21→23:38)
[2016-11-26] MEDS: IV NS 0.9% 250 ML IV PRN (05:21)
--- NOTE | 2016-11-26 06:06 | NUR ---
ICU/RN- HD NURSE AT BEDSIDE FOR DIALYSIS
[2016-11-26] MEDS ORDERED: SECONDARY IV SET 1 EA INFUS.SET MC ONE (06:13)
[2016-11-26] MEDS ORDERED: ALBUMIN 25% 100 ML IV ONE (06:13)
[2016-11-26] MEDS: ALBUMIN 25% 25 GM in PREMIX 1 EA IV PRN (06:17)
--- NOTE | 2016-11-26 08:00 | NUR ---
RN POST PARTUM; ASSESSMENT RECEIVED ON BIPAP AWAKE AND ORIENTED X3. RECEIVING HD AT THIS TIME. PT DENIES ANY PAIN AT THIS TIME. VSS WILL CONTINUE TO MONITOR.
[2016-11-26] MEDS: CALCIUM ACETATE 667 MG TABLET PO SCH ×3 (08:36→17:42)
[2016-11-26] MEDS: LACTOBACILLUS RHAMNOSUS GG 1 EACH CAP.SPRINK PO SCH ×2 (08:36→17:30)
[2016-11-26] MEDS: LINEZOLID 600 MG TABLET PO SCH (08:36)
[2016-11-26] MEDS: SEVELAMER CARBONATE 0.8 GM POWD.PACK GT SCH ×3 (08:36→17:30)
[2016-11-26] MEDS: BLOOD SUGAR DIAGNOSTIC 1 EACH STRIP IN SCH ×4 (08:36→23:38)
[2016-11-26] MEDS: INSULIN REGULAR, HUMAN 100 UNIT/ML 3 ML VIAL SQ PRN (12:07)
[2016-11-26] MEDS: IPRATROPIUM NEB FS 0.5 MG/2.5 ML AMPUL.NEB NEB SCH ×2 (13:37→19:55)
[2016-11-26] MEDS: ALBUTEROL FS 2.5 MG/3 ML VIAL.NEB NEB SCH ×2 (13:37→19:56)
--- NOTE | 2016-11-26 15:05 | NUR ---
EARLIER I SPOKE TO GABE GUARDADO AND MANDEEP ABOUT PT'S INCREASED GENERALIZED WEAKNESS, INCLUDING VERY WEAK PHONATION AND GENERAL WITHDRAWAL FROM INTERACTIONS WHICH IS DIFFERENT FROM 11/24/16. I HELPED GET THE PT OOB WHICH HE NEEDED MINIMAL ASSISTANCE FOR WITH EQUALLY WEAK STRENGTH BUT PT HAS A LEFT FACIAL DROOP AND DOES NOT VISUALLY TRACK WELL. HE IS CONVERSANT IN ETHIOPIAN AND HAS BETTER SPEECH VOLUME. DR KAUFMAN JUST SAW PT I CALLED HER AND SHE DIRECTS A STAT CT HEAD
--- NOTE | 2016-11-26 15:40 | NUR ---
R/V'D WITH DR BAXTER AND YANETH CASINO CAGE MANAGER WOLFGANG LEFT FACIAL WEAKNESS AND QUESTION OF CALLING A CODE STROKE ESPECIALLY IN SETTING OF POSSIBLE SEPTIC EMBOLI PER DR BAXTER VERSUS AUTOIMMUNE DISEASE PER DR GUARDADO. PT IS IN HEAD CT NOW AND TECH TOLD TO CALL FOR STAT READ
--- NOTE | 2016-11-26 16:25 | NUR ---
SERVER MANAGER; NEURO NOTED FACIAL DROOP TO LEFT SIDE. ASYMMETRICAL FACIAL MOVEMENTS. CHARGE NURSE AND MD'S AWARE, PT TAKE TO CT OF HEAD STAT. DR. BAXTER AT BEDSIDE TO R/O STROKE.
--- NOTE | 2016-11-26 16:28 | NUR ---
ADULT PSYCHIATRIST; CT/ RESP RETURNED FROM CT OF HEAD. PT TOLERATED PROCEDURE. DID NOTE PT HAVING SOB WITH WHEEZES DURING INCREASE OF ACTIVITY. HOB ELEVATED. ENCOURAGE PT TO DEEP BREATH AND COUGH..
--- NOTE | 2016-11-26 16:45 | NUR ---
CT SCAN RESULTS NOTED AND CONFERENCE BETWEEN GABE BAXTER (HERE IN ICU) AND MANDEEP (TELEPHONICALLY) DONE. MDS DO NOT WANT CODE STROKE AT THIS TIME BUT DR BLAKE WILL BE CALLED BY PMD [facility]
[2016-11-26] MEDS ORDERED: ASPIRIN 81 MG TAB.CHEW PO SCH (17:30)
--- NOTE | 2016-11-26 17:42 | NUR ---
TYPING SECTION CHIEF; MEDICATIONS UNABLE TO ADMISTER PHOSLO PER ORDER TO PT STARTED TO ASPIRATE AFTER GIVENING ASA AND RENVELA. HOB AT 90 DEGREES, ASPIRATION PRECAUTIONS ENFORCED.
--- NOTE | 2016-11-26 17:55 | NUR ---
DR KAUFMAN UPDATED AND STATES DR BLAKE WILL SEE PT TOMORROW APPLICATION SYSTEMS ADMINISTRATOR IS AWARE. I HAVE SPOKEN TO DR FUENTES AND NURSING ADMINISTRATION REGARDING NEURO STATUS WHICH INCLUDES LT FACIAL DROOP, SOME SLURRING OF SPEECH AND INABILITY TO SAFELY SWALLOW AND CT SCAN RESULTS. DR FUENTES DOES NOT THINK THERE IS ANY INDICATION FOR TPA RISK OF BLEEDING IS GREATER THAN POTENTIAL BENEFIT AND SEES NO NEED FOR CODE STROKE ACTIVATION. DR FUENTES WILL RE EVAL NEED FOR [place] IN AM
[2016-11-26] MEDS ORDERED: ASPIRIN 300 MG/SUPP.RECT RC SCH (18:00)
[2016-11-26] MEDS ORDERED: DEXTROSE 50%-WATER 50 ML DISP.SYRIN IV PRN (18:30)
--- NOTE | 2016-11-26 18:58 | NUR ---
ENERGY SYSTEMS ENGINEER; NG NG TUBE PLACED TO RIGHT NARE. PT TOLERATED WELL. POSITIVE FOR AUSCULTATION AND ASPIRATION. PLACEMENT VERIFIED WITH SECOND NURSE Pau PEREZ RN.
--- NOTE | 2016-11-26 20:00 | NUR ---
received pt from day shift, alert, follows commands, minor L facial droop and slurred speech noted MD aware, able to move all extremities no weakness noted, SR, on 4L NC sat well, lungs partially congested, some edema BLLE, NPO difficulty swallowing,anuric HD today, v/s stable, no pain, pt turned and repositioned.
[2016-11-26] MEDS: SIMVASTATIN 20 MG TABLET PO SCH (22:00)
[2016-11-27] VITALS (28 sets, daily range): BP systolic 111–150; BP diastolic 50–68
--- NOTE | 2016-11-27 00:51 | NUR ---
pt is resting in the bed, alert, follows commands, v/s stable, no pain, pt turned and repositioned q2hrs.
[2016-11-27] MEDS: IPRATROPIUM NEB FS 0.5 MG/2.5 ML AMPUL.NEB NEB SCH ×4 (02:23→20:28)
[2016-11-27] MEDS: ALBUTEROL FS 2.5 MG/3 ML VIAL.NEB NEB SCH ×4 (02:23→20:28)
[2016-11-27] MEDS ORDERED: IV NS 0.9% 0 ML IV ONE (03:30)
[2016-11-27] MEDS ORDERED: IV NS 0.9% 250 ML IV ONE (03:31)
[2016-11-27 05:00] LABS: BASOPHILS % (AUTO) 0.3 % (0.0-2.0); EOSINOPHILS # (AUTO) 0.1 /CMM (0.0-0.7); EOSINOPHILS % (AUTO) 0.8 % (0.0-6.0); HEMATOCRIT 24 % (39-51); HEMOGLOBIN 7.7 g/dL (13.5-17.5); LYMPHOCYTES # (AUTO) 0.7 /CMM (0.8-4.8); MEAN CORPUSCULAR HEMOGLOBIN 28 PG (26.0-33.0); MEAN CORPUSCULAR HGB CONC 33 g/dl (31.0-36.0); MEAN CORPUSCULAR VOLUME 86 fL (80-96); MONOCYTES # (AUTO) 0.8 /CMM (0.1-1.30); MONOCYTES % (AUTO) 6.3 % (2.0-12.0); NEUTROPHILS # (AUTO) 11.5 /CMM (1.8-8.9); NEUTROPHILS % (AUTO) 87.6 % (43.0-81.0); PLATELET COUNT (AUTO) 297 /CMM (150-450); RDW COEFFICIENT OF VARIATION 17.7 (11.5-15.0); RED BLOOD CELL COUNT(AUTO) 2.72 MIL/uL (4.5-6.0); WHITE BLOOD COUNT (AUTO) 13.1 K/uL (4.3-11.0)
--- NOTE | 2016-11-27 05:09 | NUR ---
pt is resting in the bed, alert, follows commands, extremities with in normal limits, slurred speed and L face droop, v/s stable, no pain, pt cleaned, changed and repositioned q2hrs.
[2016-11-27 05:10] LABS: CALCIUM, SERUM 8.3 mg/dL (8.5-10.1); CREATININE 7.2 mg/dL (0.6-1.3); POTASSIUM 4.2 mmol/L (3.5-5.1)
[2016-11-27] MEDS: BLOOD SUGAR DIAGNOSTIC 1 EACH STRIP IN SCH ×4 (05:18→23:50)
[2016-11-27] MEDS: PIPERACILLIN /TAZOBACTAM 2.25 G in IV D5W 50 ML IV SCH ×4 (05:18→23:51)
--- NOTE | 2016-11-27 07:30 | NUR ---
ICU/RN: PT RECEIVED IN BED, NO S/S ACUTE DISTRESS, A&OX4, SLURRED SPEECH NOTED WITH MILD L ARM WEAKNESS. PT ABLE TO MOVE ALL EXTREMITIES, EYES BRISK, PERRLA. R IJ HD CATH PATENT AND INTACT, DENIES CP, SOB, ON O2 4L/MIN. TOLERATING WELL. WILL CONT TO MONITOR PT.
[2016-11-27] MEDS: CALCIUM ACETATE 667 MG TABLET PO SCH ×3 (08:00→17:28)
[2016-11-27] MEDS: SEVELAMER CARBONATE 0.8 GM POWD.PACK GT SCH ×3 (08:00→17:28)
[2016-11-27] MEDS: LACTOBACILLUS RHAMNOSUS GG 1 EACH CAP.SPRINK PO SCH ×3 (09:00→17:28)
[2016-11-27] MEDS: ASPIRIN 300 MG/SUPP.RECT RC SCH ×2 (09:00→13:01)
[2016-11-27 11:10] LABS: INR 1.11 (0.87-1.13)
[2016-11-27] MEDS: LEVOFLOXACIN 500 MG /D5W 100ML 500 MG in PREMIX 1 EA IV SCH (11:38)
--- NOTE | 2016-11-27 12:29 | NUR ---
ICU/RN: DR KAUFMAN AT THE BEDSIDE; UPDATED ON PT STATUS. DISCUSSED [place] AND PLAN FOR RENAL BIOPSY TODAY - PT UNABLE TO TOLERATE TURNING AND REPOSITIONING FOR EXTENDED PERIODS OF TIME; SOB NOTED WITH EXERTION, O2 SAT DROPS TO 86-88% WITH ACCESSORY MUSCLE USE; PT NEEDS TO HAVE HOB ELEVATED TO DECREASE WORK OF BREATHING. PER MD OK TO HOLD PROCEDURES FOR NOW. PLASTIC BOAT PATCHER NOTIFIED.
--- NOTE | 2016-11-27 13:56 | NUR ---
RT PATIENT BECAME DISTRESS AND SOB. PLACED BACK ON BIPAP WITH PREVIOUS STANDING ORDER. VENT ALARMS CHECKED + AUDIBLE. RN AWARE Addendum: 11/27/16 at 1357 by SARBJIT DE LA CRUZ RT Amended: Links added.
--- NOTE | 2016-11-27 13:58 | NUR ---
ICU/RN: VITO HOPE, STATES "IM HAVING A HARD TIME BREATHING." ELEVATED HOB, PLACED BACK ON BIPAP ORDERED. EDUCATED. VERBALIZED UNDERSTANDING. Addendum: 11/27/16 at 1709 by NURIS RODRIGUEZ RN DR WONG NOTIFIED.
--- NOTE | 2016-11-27 19:28 | NUR ---
ICU/RN: PT RESTING IN BED COMFORTABLY, NO ACUTE DISTRESS NOTED. TOLERATING CURRENT BIPAP SETTINGS. CARE ENDORSED TO PM RN FOR SONI.
--- NOTE | 2016-11-27 20:00 | NUR ---
ICU/RN RECEIVED PT AWAKE,ALERT OX3.ON BIPAP 40% FIO2,SAT OF98%, RATE OF 10 AND W/RESP.RATE OF 26-27/MIN.MONITOR SHOWS NSR W/OUT ECTOPICS.DENIES PAIN OR DISCOMFORT.
[2016-11-27] MEDS: SIMVASTATIN 20 MG TABLET PO SCH (21:40)
[2016-11-27] MEDS ORDERED: PROPOFOL 100 ML IV ONE (21:50)
[2016-11-27] MEDS ORDERED: IV SET PRIMARY PUMP SET 1 EA INFUS.SET MC ONE (21:51)
--- NOTE | 2016-11-27 23:35 | NUR ---
ICU/RN COUSIN AT BEDSIDE VISITING,CONDITION REPORT AND PLAN OF CARE GIVEN.
[2016-11-28] VITALS (47 sets, daily range): BP systolic 94–137; BP diastolic 33–68
[2016-11-28] MEDS: IPRATROPIUM NEB FS 0.5 MG/2.5 ML AMPUL.NEB NEB SCH ×4 (02:20→20:12)
[2016-11-28] MEDS: ALBUTEROL FS 2.5 MG/3 ML VIAL.NEB NEB SCH ×4 (02:20→20:12)
[2016-11-28] MEDS ORDERED: IV SET PRIMARY PUMP SET 1 EA INFUS.SET MC ONE ×2 (03:51→12:15)
[2016-11-28] MEDS: IV NS 0.9% 250 ML IV PRN (04:02)
[2016-11-28 04:31] LABS: BASOPHILS # (AUTO) 0.2 /CMM (0.0-0.2); BASOPHILS % (AUTO) 1.3 % (0.0-2.0); EOSINOPHILS # (AUTO) 0.3 /CMM (0.0-0.7); EOSINOPHILS % (AUTO) 2.4 % (0.0-6.0); HEMATOCRIT 24 % (39-51); HEMOGLOBIN 7.7 g/dL (13.5-17.5); LYMPHOCYTES # (AUTO) 0.6 /CMM (0.8-4.8); LYMPHOCYTES % (AUTO) 5.3 % (20.0-44.0); MEAN CORPUSCULAR HEMOGLOBIN 28 PG (26.0-33.0); MEAN CORPUSCULAR HGB CONC 33 g/dl (31.0-36.0); MEAN CORPUSCULAR VOLUME 86 fL (80-96); MONOCYTES % (AUTO) 8.5 % (2.0-12.0); NEUTROPHILS % (AUTO) 82.5 % (43.0-81.0); PLATELET COUNT (AUTO) 271 /CMM (150-450); RDW COEFFICIENT OF VARIATION 17.2 (11.5-15.0); RED BLOOD CELL COUNT(AUTO) 2.73 MIL/uL (4.5-6.0); WHITE BLOOD COUNT (AUTO) 12.1 K/uL (4.3-11.0)
[2016-11-28 05:06] LABS: MAGNESIUM 2.6 mg/dL (1.8-2.4); POTASSIUM 4.9 mmol/L (3.5-5.1)
[2016-11-28 05:10] LABS: CREATININE 9.3 mg/dL (0.6-1.3)
[2016-11-28] MEDS: BLOOD SUGAR DIAGNOSTIC 1 EACH STRIP IN SCH ×3 (05:37→17:35)
[2016-11-28] MEDS: PIPERACILLIN /TAZOBACTAM 2.25 G in IV D5W 50 ML IV SCH ×3 (05:38→17:13)
--- NOTE | 2016-11-28 07:59 | NUR ---
SUPERVISOR PACKING; ASSESSMENT RECEIVED PT ON BIPAP MASK RATE OF 10, 25/10, 40% FIO2. PT IS AWAKE AND ORIENTED X3. PT IS ABLE TO FOLLOW SIMPLE COMMANDS. ABLE TO RISE ARELIS UPPER AND LOWER WITH EQUAL STRENGTH. UNABLE TO ASSESS FACIAL DROOP AT THIS TIME PT ON BIPAP. WILL ASSESS WITH RT AT BEDSIDE. PT IS ANURIC WITH HD ACCESS TO RIGHT IJ, MIDLINE 18G TO RIGHT UPPER ARM, LEFT HAND 20G. PT DENIES ANY PAIN AT THIS TIME WILL CONTINUE.
[2016-11-28] MEDS: SEVELAMER CARBONATE 0.8 GM POWD.PACK GT SCH ×3 (08:34→17:13)
[2016-11-28] MEDS: ASPIRIN 81 MG TAB.CHEW NG SCH (08:34)
[2016-11-28] MEDS: LACTOBACILLUS RHAMNOSUS GG 1 EACH CAP.SPRINK PO SCH ×2 (08:34→17:13)
[2016-11-28] MEDS: CALCIUM ACETATE 667 MG TABLET PO SCH ×3 (08:34→17:13)
--- NOTE | 2016-11-28 08:45 | NUR ---
SOCIAL DIRECTOR; PULMONARY, NEURO ASSESS AT BEDSIDE ASKED TO PLACED PT ON NASAL CANULA TO ASSESS IF PT CAN TOLERATE TRANSPORT TO OR FOR [place]. RT AT BEDSIDE. 0830;PT PLACED ON NASAL CANULA 4L/MIN. PT ABLE TO TOLERATE NASAL CANULA FOR ABOUT 10MIN. PT BECAME TACHYPNEIC, SOB AND SATURATIONS DROPPED TO 90%. WHILE PT OFF OF BIPAP ABLE TO ASSESS FACIAL MUSCLES. WHEN ASKED PT TO SMILE NOTED LEFT FACIAL DROOP. WHEN ASKED TO LIFT EYE BROWS PT ONLY ABLE TO LIFT RIGHT EYE BROW.PT DOES HAVE CLEAR SPEECH. PT PLACED BACK ON BIPAP. WILL CONTINUE TO MONITOR CLOSELY.
[2016-11-28] MEDS: ALBUMIN 25% 25 GM in PREMIX 1 EA IV PRN (09:59)
[2016-11-28] MEDS ORDERED: ATRACURIUM 100MG/10 ML MDV IV ONE (11:35)
--- NOTE | 2016-11-28 11:40 | NUR ---
COLLECTIVE BARGAINING SPECIALIST; OR OR TEAM AT BEDSIDE. PT TAKEN TO OR FOR A[place], WITH ACLS PROTOCOL
--- NOTE | 2016-11-28 12:27 | NUR ---
BIODIESEL OPERATIONS MANAGER; OR PT BACK FROM OR S/P [place], S/P INTUBATED. ETT 7.5 21CM LIP LINE. AC 16, TV 600, 100% FIO2, PEEP 5. ORDERS ENTERED FOR STAT CHEST X RAY AND TO START SEDATION DIPRIVAN DRIP PER IZABELLA ROWELL ANESTHESIOLOGIST. SHELLIE RN AT BEDSIDE TO FINISH PT RECOVERY.
--- NOTE | 2016-11-28 12:33 | NUR ---
Received male intubated pt from OR. Secured 7.5 ETT at 21cm @ the lip. Placed pt on mechanical ventilator with settings of AC 16 600 100% +[address] Sukumar Tavera. Addendum: 11/28/16 at 1236 by SARITA MOREJON RT Amended: Links added.
[2016-11-28] MEDS: PROPOFOL 100 ML IV PRN ×2 (12:35→18:07)
[2016-11-28 14:13] LABS: ABG BASE EXCESS -2.9 mmol/L; ABG PH 7.443 (7.350-7.450); ABG PO2 272.7 mmHg (75.0-100.0); AaDO2 409.3 mmHg; MetHb 1.3 % (0.0-1.5); O2Hb 96.7 % (94.0-97.0); SITE, ABG Right Radial; VENT MODE, BG AC 16 600 100% +5
--- NOTE | 2016-11-28 14:59 | NUR ---
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 Pt's and son are residing in [place] and she would like to apply for a temporary visa with Immigration to get them to the [place] to visit pt. due to his hospitalization. RICHARD informed Angela she can write a verification of admission letter stating that pt. would like for his and son to visit him in the [place] due to his current hospitalization in ICU. RICHARD informed Angela she will complete the letter and have it ready for picket [employer] union this afternoon. RICHARD contacted pt's RN Ginette to get pt's 's and son's full name. Ginette informed RICHARD, pt's is Georgette Abbott and son is Daniel Abbott. RICHARD typed letter and is awaiting for Angela Grimes to picket labor union letter requesting a temporary visa.
--- NOTE | 2016-11-28 15:24 | NUR ---
ICU, S/P [place] + vegetation, will need AVR per cardiology. Will need higher level of care referral to the county. Spoke with clifrita Coello- patient [place] no [place] ID available, advised family to bring in any bills that has patient name and address with proof he is a resident of [facility]. Family will bring in proof of residence in am. [facility] referral faxed to [facility] Intake [phone]. Addendum: 11/28/16 at 1525 by FOX BECERRA RN Amended: Links added.
--- NOTE | 2016-11-28 17:05 | NUR ---
HAWK MISSILE AIR DEFENSE ARTILLERY; SEDATION NOTED PT REACHING FOR ETT. DIPRIVAN INCREASED TO 30MCG/KG/MIN. ARELIS WRIST RESTRAINS ORDERED AND APPLIED FOR PT SAFETY.
[2016-11-28] MEDS: SIMVASTATIN 20 MG TABLET PO SCH (21:51)
[2016-11-29] VITALS (89 sets, daily range): BP systolic 82–152; BP diastolic 29–72
[2016-11-29] MEDS: PIPERACILLIN /TAZOBACTAM 2.25 G in IV D5W 50 ML IV SCH ×5 (00:09→23:47)
[2016-11-29] MEDS: BLOOD SUGAR DIAGNOSTIC 1 EACH STRIP IN SCH ×4 (00:10→17:25)
[2016-11-29] MEDS ORDERED: IV SET PRIMARY PUMP SET 1 EA INFUS.SET MC ONE ×4 (00:25→23:44)
[2016-11-29] MEDS: PROPOFOL 100 ML IV PRN ×4 (00:34→18:09)
[2016-11-29] MEDS: ALBUTEROL FS 2.5 MG/3 ML VIAL.NEB NEB SCH ×4 (01:27→20:27)
[2016-11-29] MEDS: IPRATROPIUM NEB FS 0.5 MG/2.5 ML AMPUL.NEB NEB SCH ×4 (01:27→20:27)
[2016-11-29 05:13] LABS: BASOPHILS # (AUTO) 0.1 /CMM (0.0-0.2); BASOPHILS % (AUTO) 1.1 % (0.0-2.0); EOSINOPHILS # (AUTO) 0.3 /CMM (0.0-0.7); EOSINOPHILS % (AUTO) 3.1 % (0.0-6.0); HEMATOCRIT 22 % (39-51); HEMOGLOBIN 7.3 g/dL (13.5-17.5); LYMPHOCYTES # (AUTO) 0.8 /CMM (0.8-4.8); LYMPHOCYTES % (AUTO) 7.2 % (20.0-44.0); MEAN CORPUSCULAR HEMOGLOBIN 29 PG (26.0-33.0); MEAN CORPUSCULAR HGB CONC 33 g/dl (31.0-36.0); MEAN CORPUSCULAR VOLUME 85 fL (80-96); MONOCYTES % (AUTO) 9.9 % (2.0-12.0); NEUTROPHILS # (AUTO) 8.3 /CMM (1.8-8.9); NEUTROPHILS % (AUTO) 78.7 % (43.0-81.0); PLATELET COUNT (AUTO) 243 /CMM (150-450); RDW COEFFICIENT OF VARIATION 17.1 (11.5-15.0); RED BLOOD CELL COUNT(AUTO) 2.56 MIL/uL (4.5-6.0); WHITE BLOOD COUNT (AUTO) 10.5 K/uL (4.3-11.0)
[2016-11-29 05:25] LABS: CALCIUM, SERUM 7.8 mg/dL (8.5-10.1); MAGNESIUM 2.4 mg/dL (1.8-2.4); POTASSIUM 5.2 mmol/L (3.5-5.1)
[2016-11-29 05:45] LABS: CREATININE 7.9 mg/dL (0.6-1.3); PHOSPHORUS 8.1 mg/dL (2.5-4.9)
[2016-11-29 06:33] LABS: ALBUMIN 1.8 g/dL (3.4-5.0); BILIRUBIN,DIRECT 1.2 mg/dL (0.0-0.2); BILIRUBIN,TOTAL 2.1 mg/dL (0.2-1.0); TOTAL PROTEIN, SERUM 6.3 g/dL (6.4-8.2)
[2016-11-29] MEDS ORDERED: PHENYLEPHRINE 40 MG in IV D5W 250 ML IV PRN (07:30)
[2016-11-29] MEDS: SEVELAMER CARBONATE 0.8 GM POWD.PACK GT SCH ×3 (07:50→17:25)
[2016-11-29] MEDS: CALCIUM ACETATE 667 MG TABLET PO SCH ×3 (07:51→17:25)
--- NOTE | 2016-11-29 08:00 | NUR ---
ICU/RN INITIAL NOTES,AM RECEIVED REPORT FROM NIGHT NURSE. PT INTUBATED, ETT 7.5, 21 @ THE LIP. ON VENT SETTINGS ORDERED, NO ACUTE DISTRESS NOTED AT THIS TIME. PT SEDATED, HOWEVER STILL ABLE TO OPEN EYES TO STIMULI AND FOLLOW SIMPLE COMMANDS. PT ON TELE, SINUS. RIGHT NARE NG TUBE IN PLACE, PLACEMENT VERIFIED, LIFE EDUCATOR CLAMPED AT THIS TIME. PT NPO FOR US GUIDED BIOPSY, CONSENT SIGNED AND IN CHART. TRANSFER TO HIGHER LEVEL OF CARE PENDING, PT NEEDS AORTIC VALVE REPLACEMENT. PT NPO AT THIS TIME. BLOOD PRESSURE IN 80'S CALLING MD FOR ORDERS. MIDLINE IN PLACE, NO S/S OF INFECTION OR INFILTRATION. ALL NEEDS WILL BE MET, SAFETY MEASURES TAKEN, BED IN LOW POSITION,SIDE RAILS UP. PT ON BILATERAL WRIST RESTRAINTS FOR SAFETY. WILL CONTINUE CARE.
[2016-11-29] MEDS: LACTOBACILLUS RHAMNOSUS GG 1 EACH CAP.SPRINK PO SCH ×2 (08:04→17:25)
[2016-11-29] MEDS: ASPIRIN 81 MG TAB.CHEW NG SCH (08:04)
--- NOTE | 2016-11-29 08:30 | NUR ---
ICU/RN: PT STARTED ON GODFREY FOR BP SUPPORT, WILL TITRATE APPROPRIATE. ORDERS FOR PICC LINE RECEIVED AWAITING FOR PLACEMENT, BREAD ICER AND CHARGE AWARE.
--- NOTE | 2016-11-29 10:30 | NUR ---
ICU/RN: ROUNDS: PT SEEN BY . AT THIS TIME PT NOT STABLE FOR BIOPSY. TROLLEY CAR MECHAN[employer] AND CHARGE NOTIFIED.
--- NOTE | 2016-11-29 12:10 | NUR ---
RICHARD received a call from pt's cousin Cassandra Abbott requesting for SW to email letter for temporary visa to [email or web address]. RICHARD sent an email to
[2016-11-29] MEDS: ALBUMIN 25% 25 GM in PREMIX 1 EA IV SCH ×3 (12:40→23:45)
--- NOTE | 2016-11-29 14:30 | NUR ---
ICU/RN: SUSANNA THOMPSON AT BEDSIDE FOR PICC LINE INSERTION. CONSENT OBTAINED, SIGNED AND IN CHART.
--- NOTE | 2016-11-29 16:00 | NUR ---
ICU/RN: TEMP OF 100.1 NOTED, COOL ICE BATH GIVEN. WILL REASSESS
[2016-11-29 16:31] LABS: ABG OXYGEN SATURATION 91.8 % (92.0-98.5); ABG PCO2 34.1 mmHg (35.0-45.0); ABG PO2 67.2 mmHg (75.0-100.0); MetHb 1.2 % (0.0-1.5); O2Hb 89.8 % (94.0-97.0); SITE, ABG Right Radial; VENT MODE, BG AC 12 550 70%
--- NOTE | 2016-11-29 19:29 | NUR ---
ICU/RN ENDING NOTES,AM REPORT ENDORSED TO NIGHT NURSE FOR CONTINUATION OF CARE. ALL NEEDS MET. PT CONTINUES TO BE ON DIPRIVAN FOR SEDATION. NO BP SUPPORT NEEDED AT THIS TIME. PT ON VENT SETTINGS ORDERED BY MD, NO ACUTE DISTRESS NOTED. STILL PENDING TRANSFER FOR HIGHER LEVEL OF CARE. PT SCHEDULED FOR H.D IN AM. TEMP DOWN, UNDER CONTROL AT THIS TIME. PT BATHED, LINENS CHANGED, TURNED AND REPOSITIONED. ALL NEEDS MET, SAFETY MEASURES TAKEN, BED IN LOW POSITION, SIDE RAILS UP. WILL CONTINUE CARE.
--- NOTE | 2016-11-29 19:42 | NUR ---
ICU/RN- PT IN BED, OPENS EYES TO NAME AND NODS YES OR NO W/ BUE SOFT WRIST RESTRAINTS FOR SAFETY. ON MONITOR W/ SR 90S. ORALLY INTUBATED W/ ETT 7.5 AC 12 TV 550 FIO2 80% P 0. O2 SAT 94% AT THIS TIME. WILL SUCTION ETT PRN FOR CLEARANCE. NINA MIDLINE AND MILAGROS PICC LINE PATENT AND INTACT. DIPRIVAN 22 MCG/KG MIN. INCREASED TO 30 MCG/KG/MIN FOR SEDATION. REPOSITION FOR COMFORT. WILL MONITOR CLOSELY.
[2016-11-30] VITALS (85 sets, daily range): BP systolic 84–135; BP diastolic 31–67
[2016-11-30] MEDS ORDERED: IV SET PRIMARY PUMP SET 1 EA INFUS.SET MC ONE ×3 (00:47→21:11)
[2016-11-30] MEDS: PROPOFOL 100 ML IV PRN ×8 (01:08→23:14)
[2016-11-30] MEDS: IPRATROPIUM NEB FS 0.5 MG/2.5 ML AMPUL.NEB NEB SCH ×4 (01:11→19:31)
[2016-11-30] MEDS: ALBUTEROL FS 2.5 MG/3 ML VIAL.NEB NEB SCH ×4 (01:12→19:31)
[2016-11-30] MEDS ORDERED: ACETAMINOPHEN 650 MG/20.3 ML UDC ONE (01:28)
--- NOTE | 2016-11-30 01:35 | NUR ---
ICU/RN- INFORMED DR POWER ABOUT TEMP OF 102.6 ORALLY. ORDERED TO PROVIDE COOLING BLANKET. OK TO GIVE TYLENOL 650 Q 6HRS NGT PRN FEVER. BLOOD CULTURE X 2 AND UA AND URINE CULTURE. OK TO USE STRAIGHT CATH FOR COLLECTION.
[2016-11-30] MEDS: ACETAMINOPHEN 650 MG/20.3 ML UDC NG PRN ×2 (01:47→10:10)
--- NOTE | 2016-11-30 02:30 | NUR ---
ICU/RN- IN AND OUT CATH INSERTED. NO URINE OUTPUT. UNABLE TO ACQUIRE SPECIMEN.
--- NOTE | 2016-11-30 03:00 | NUR ---
ICU/RN- PT O2 SAT IS IN HI 80S. CALLED RT. JONATHON RT AT BEDSIDE. INCREASED FIO2 100%. WILL MONITOR FOR S/SX OF RESP DISTRESS.
[2016-11-30 04:53] LABS: BASOPHILS # (AUTO) 0.2 /CMM (0.0-0.2); BASOPHILS % (AUTO) 1.3 % (0.0-2.0); EOSINOPHILS # (AUTO) 0.2 /CMM (0.0-0.7); EOSINOPHILS % (AUTO) 1.5 % (0.0-6.0); HEMATOCRIT 22 % (39-51); HEMOGLOBIN 7.4 g/dL (13.5-17.5); MEAN CORPUSCULAR HEMOGLOBIN 29 PG (26.0-33.0); MEAN CORPUSCULAR HGB CONC 34 g/dl (31.0-36.0); MEAN CORPUSCULAR VOLUME 86 fL (80-96); MONOCYTES # (AUTO) 1.6 /CMM (0.1-1.30); NEUTROPHILS # (AUTO) 11.6 /CMM (1.8-8.9); NEUTROPHILS % (AUTO) 79.2 % (43.0-81.0); PLATELET COUNT (AUTO) 213 /CMM (150-450); RED BLOOD CELL COUNT(AUTO) 2.58 MIL/uL (4.5-6.0); WHITE BLOOD COUNT (AUTO) 14.7 K/uL (4.3-11.0)
[2016-11-30 05:11] LABS: CALCIUM, SERUM 7.9 mg/dL (8.5-10.1); MAGNESIUM 2.8 mg/dL (1.8-2.4)
[2016-11-30] MEDS: PIPERACILLIN /TAZOBACTAM 2.25 G in IV D5W 50 ML IV SCH ×4 (05:20→23:55)
[2016-11-30] MEDS: ALBUMIN 25% 25 GM in PREMIX 1 EA IV SCH (05:20)
[2016-11-30] MEDS: BLOOD SUGAR DIAGNOSTIC 1 EACH STRIP IN SCH ×5 (05:28→23:50)
[2016-11-30 05:49] LABS: CREATININE 9.7 mg/dL (0.6-1.3); POTASSIUM 6.4 mmol/L (3.5-5.1)
--- NOTE | 2016-11-30 07:45 | NUR ---
DIRECTOR ZONE: pt.is sedated well with Diprivan 40mcg/kg/m, reactive for pain with face muscles activity, RR 30-40, ABG order is active, FiO2 100%, was desat. over night, s/p stroke, pressor is off, SR, T101.1 now, was 102.6 over night, BC done, K+6.4, HD today, is in room, updated with above
[2016-11-30] MEDS: CALCIUM ACETATE 667 MG TABLET PO SCH ×3 (08:12→17:43)
[2016-11-30] MEDS: SEVELAMER CARBONATE 0.8 GM POWD.PACK GT SCH ×3 (08:12→17:43)
[2016-11-30 08:23] LABS: ABG BASE EXCESS -7.5 mmol/L; ABG OXYGEN SATURATION 94.3 % (92.0-98.5); ABG PCO2 27.4 mmHg (35.0-45.0); ABG PH 7.398 (7.350-7.450); ABG PO2 82.5 mmHg (75.0-100.0); AaDO2 603.1 mmHg; COHb 1.4 % (0.5-1.5); MetHb 1.3 % (0.0-1.5); O2Hb 91.8 % (94.0-97.0); PEEP,BG 0 cm H2O; SITE, ABG Right Radial; VT, ABG 500 mL
[2016-11-30] MEDS: LACTOBACILLUS RHAMNOSUS GG 1 EACH CAP.SPRINK PO SCH ×2 (08:35→16:54)
[2016-11-30] MEDS: ASPIRIN 81 MG TAB.CHEW NG SCH (08:35)
--- NOTE | 2016-11-30 09:17 | NUR ---
CHIP TUNER: is in room, updated with pt.current condition, sedation level, 102.6 T episode, FiO2 100%, ABG, VS, I/O, pressor off now, labs, HD today, ETT suction amount, ordered: PEEP 8 (RT is in room), see new orders
--- NOTE | 2016-11-30 10:00 | NUR ---
PHYSICAL METALLURGIST: RT titrated FiO2 down to 80%, O2sat. 90-92%, RR 30-40, pt.is reactive for touch, confirmed "yes": can hear, no grimacing, eyes reaction+ without tracking, increased sedation to 50mcg Dipivan gtt, continue FiO2 85% by RT, is in room, updated with all above, VS, labs/HD today by night court magistrate report, T, H/H, NPO, I/O, BCx2 done, pressor off now, restraints, neuro status, family call, charge nurse spoke with SW: confirmed med report/letter was sent for [facility] consular, ordered: ok for sedation maximum dose 100 mcg/kg/min Diprivan, pt.is unstable to go for kidney biopsy now
[2016-11-30 11:16] LABS: HEPATITIS Be AB Negative (Negative)
--- NOTE | 2016-11-30 12:45 | NUR ---
ESOL TEACHER ASSISTANT: HD nurse got report, labs, meds information, pt.is sedated well, reactive with pain stimuli, RR 28-32, O2 sat/ WNL
--- NOTE | 2016-11-30 13:34 | NUR ---
CLINICAL REHAB SPECIALIST: ID FULL STACK PHP DEVELOPER updated with pt.VS, labs, HD, catheters, I/O, orders, POC
[2016-11-30] MEDS ORDERED: ALBUMIN 25% 25 GM in PREMIX 1 EA IV ONE (14:00)
--- NOTE | 2016-11-30 17:27 | NUR ---
VOLTAGE TESTER: pt.is sedated well now, RR 20-26, O2 sat. WNL, FiO2 70%, suctioned: no bloody secretion, SR, getting HD, goal 4L out, SBP over 100, PM/skin care done, sacral area skin is intact, T WNL, same neuro status, had 6.4 K+, elevated ST waves are down during HD
--- NOTE | 2016-11-30 18:07 | NUR ---
RT END OF THE SHIFT REPORT: PT. 51 Y OLD MALE REMAIN ORALLY INTUBATED ETT#7.5@22CM ON VENT WITH NOTED SETTINGS, ALARMS ARE SET AND FUNCTIONAL, B/S RALES/RHONCHI SUX' FOR LARGE/MINIMAL REDDISH FOAMY THIN SECRETIONS, NO DISTRESS NOTED T/O SHIFT PEEP INCREASED TO +[address] WONG ORDER AT THE BEDSIDE. RN AT THE BEDSIDE. CONTINUE FOR MONITOR AND TITRATED FIO2 DOWN TO 70% T/O SHIFT. PT. REMAIN STABLE TX'S GIVEN INLINE NO ADVERSE REACTION NOTED VENT PLUGGED INTO RED OUTLET AND AMBU BAG AT THE BEDSIDE. REPORT WILL BE PASS TO PM SHIFT. Addendum: 11/30/16 at 1811 by JERMAN HOGAN RT Amended: Links added.
--- NOTE | 2016-11-30 19:45 | NUR ---
ICU/CRAS RECEIVED REPORT FROM DAY NURSE, PT IS CURRENTLY ON DEPRO AT 70 MCG, PT IS ABLE TO MOVE ARMS, WHICH REQUIRES RESTRAINTS. PT IS ORALLY INTUBATED, TOLERATING CURRENT VENT SETTINGS. SATURATION IS 94-96%. PT IS SINUS ON MONITOR. PT HAS RIGHT NARE N/G TUBE WHICH HE IS NPO. PT PRODUCED NO URINE. HE GETS HD WHICH WAS DONE TODAY, TOOK OFF 4 LITERS. PT WAS TURNED AND REPOSITIONED FOR COMFORT AND CARE, NO SKIN ISSUES ARE NOTED AT THIS TIME.
[2016-11-30] MEDS ORDERED: DOSE PER PHARMACY MICAFUNGIN 1 EA XX PRN (20:00)
--- NOTE | 2016-11-30 21:00 | NUR ---
ICU/SVP PROGRAMMATIC TV KATHYA FERNANDO WROTE NEW ORDERS, FOR ANTIBIOTICS AND ALSO URINE CULTURE. PT IS A HD PT AND DOES NOT PRODUCE URINE, BUT WILL TRY. CHARGE NURSE AWARE OF THE NEW ORDERS.
[2016-11-30] MEDS ORDERED: SECONDARY IV SET 1 EA INFUS.SET MC ONE (21:11)
[2016-11-30] MEDS ORDERED: IV NS 0.9% 250 ML IV ONE (21:12)
[2016-11-30] MEDS: MICAFUNGIN SODIUM 100 MG in IV NS 0.9% 100 ML IV SCH (21:24)
[2016-11-30] MEDS: LINEZOLID RTU BAG 600 MG in PREMIX 1 EA IV SCH (21:58)
[2016-11-30] MEDS ORDERED: IV NS 0.9% 250 ML IV PRN ×2 (22:00)
--- NOTE | 2016-11-30 22:10 | NUR ---
ICU/HAIRSPRING STUDDER FAMILY AT BEDSIDE, ASKED QUESTIONS. GAVE A UPDATE. NO FURTHER QUESTIONS AT THIS TIME.
[2016-11-30] MEDS: INSULIN REGULAR, HUMAN 100 UNIT/ML 3 ML VIAL SQ PRN (23:51)
[2016-12-01] VITALS (37 sets, daily range): BP systolic 96–136; BP diastolic 28–58
--- NOTE | 2016-12-01 00:10 | NUR ---
ICU/MANAGER SKILLED BLOOD SUGAR IS 131, THERE IS 2 UNITS FOR THIS. WILL CONTINUE TO MONITOR THE BLOOD SUGAR PER MD ORDERS. PT WAS TURNED AND REPOSITIONED FOR COMFORT AND CARE.
--- NOTE | 2016-12-01 00:59 | NUR ---
ICU/REFUND SPECIALIST FAMILY AT BEDSIDE, ASKED QUESTIONS. GAVE A UPDATE. NO FURTHER QUESTIONS AT THIS TIME. STAYED FOR ABOUT 20 MINUTES THEN WENT HOME.
[2016-12-01] MEDS: ALBUTEROL FS 2.5 MG/3 ML VIAL.NEB NEB SCH ×4 (01:24→20:08)
[2016-12-01] MEDS: IPRATROPIUM NEB FS 0.5 MG/2.5 ML AMPUL.NEB NEB SCH ×4 (01:24→20:08)
[2016-12-01] MEDS: PROPOFOL 100 ML IV PRN ×6 (01:52→17:54)
--- NOTE | 2016-12-01 02:07 | NUR ---
ICU/VULCAN CREWMEMBER URINE CULTURE AND C&S WAS ORDERED BY KATHYA ROSS, HOWEVER PT IS A HD ON 11/30/16 WHICH TOOK OFF 4 LITERS. THERE STRAIGHT CATH WAS DONE HOWEVER PRODUCED NO URINE, CHARGE NURSE AWARE OF THE RESULTS. PT WAS TURNED AND REPOSITIONED FOR COMFORT AND ARE.
[2016-12-01 05:06] LABS: CALCIUM, SERUM 7.7 mg/dL (8.5-10.1); CREATININE 5.2 mg/dL (0.6-1.3); MAGNESIUM 2.1 mg/dL (1.8-2.4); PHOSPHORUS 5.8 mg/dL (2.5-4.9); POTASSIUM 4.4 mmol/L (3.5-5.1)
[2016-12-01] MEDS: BLOOD SUGAR DIAGNOSTIC 1 EACH STRIP IN SCH ×3 (05:19→17:32)
[2016-12-01 05:21] LABS: BASOPHILS # (AUTO) 0.1 /CMM (0.0-0.2); BASOPHILS % (AUTO) 0.9 % (0.0-2.0); EOSINOPHILS # (AUTO) 0.4 /CMM (0.0-0.7); LYMPHOCYTES # (AUTO) 0.6 /CMM (0.8-4.8); LYMPHOCYTES % (AUTO) 5.7 % (20.0-44.0); MEAN CORPUSCULAR HEMOGLOBIN 29 PG (26.0-33.0); MEAN CORPUSCULAR HGB CONC 34 g/dl (31.0-36.0); MEAN CORPUSCULAR VOLUME 86 fL (80-96); MONOCYTES # (AUTO) 1.1 /CMM (0.1-1.30); MONOCYTES % (AUTO) 9.8 % (2.0-12.0); NEUTROPHILS # (AUTO) 8.8 /CMM (1.8-8.9); NEUTROPHILS % (AUTO) 79.6 % (43.0-81.0); PLATELET COUNT (AUTO) 140 /CMM (150-450); RDW COEFFICIENT OF VARIATION 17.3 (11.5-15.0); WHITE BLOOD COUNT (AUTO) 11.1 K/uL (4.3-11.0)
[2016-12-01 05:22] LABS: RED BLOOD CELL COUNT(AUTO) 1.92 MIL/uL (4.5-6.0)
[2016-12-01 05:23] LABS: HEMATOCRIT 17 % (39-51); HEMOGLOBIN 5.6 g/dL (13.5-17.5)
[2016-12-01 05:39] LABS: BAND % (MANUAL) 2 % (0.0-5.0); EOSINOPHILS % (MANUAL) 2 % (0-4); LYMPHOCYTES % (MANUAL) 5 % (16-48); MONOCYTES % (MANUAL) 4 % (0-11.0); NEUTROPHILS % (MANUAL) 87 (42-76)
[2016-12-01] MEDS: PIPERACILLIN /TAZOBACTAM 2.25 G in IV D5W 50 ML IV SCH (05:41)
--- NOTE | 2016-12-01 05:50 | NUR ---
Received pt on vent support, AC 12,550, +8 AND 70% FIO2, vent orders were checked and current to MDs orders, pt remained stable no sob or distress noted, titrated fio2 to 60% and current saturation is at 95%. Addendum: 12/01/16 at 0552 by NICKY LYLES RT Amended: Links added.
--- NOTE | 2016-12-01 06:05 | NUR ---
ICU/LOCATION MANAGER HD NURSE HERE, AM LABS GIVEN. WELL ORDER WRITTEN FOR ALBUMIN. WHICH WAS SCANNED.
--- NOTE | 2016-12-01 06:10 | NUR ---
ICU/MILITARY PERSONNEL SPECIALIST PT'S H/H WAS LOW AT 5.6/, MD WAS CALLED ABOUT CRITICAL, MD GAVE ORDERS FOR 2 UNITS TYPE AND CROSS AND 2 UNITS PRBC. COUSIN WAS CALLED GAVE CONSENT TO TYPE AND CROSS PLUS 2 UNITS OF PRBC.
[2016-12-01] MEDS ORDERED: SECONDARY IV SET 1 EA INFUS.SET MC ONE ×2 (06:42→13:20)
[2016-12-01] MEDS: ALBUMIN 25% 25 GM in PREMIX 1 EA IV PRN (06:51)
--- NOTE | 2016-12-01 07:30 | NUR ---
RN INITIAL NOTES PT IN BED, SEDATED, HOB ELEVATED 35 DEGREES, HAVING HD NOW, WILL ALSO GIVE 2 UNITS OF PRBC D/T LOW H/H OF 5.6/17 PER MD. ON TELE MONITOR WITH SR 70-80'S. PT HAS ETT 7.5, AC 12, TV 550, FO2 60%, PEEP +8, TOLERATING WELL, NO SIGNS OF DISTRESS NOTED. SKIN CDI. IV ON RIJ HD CATH, NINA MIDLINE, MILAGROS PICC, LH 20G, SALINE FLUSHED, ALL CDI, NO SIGNS OF INFECTION/INFILTRATION NOTED, RUNNING DIP @ 70 MCG, TOLERATING WELL. OFF GODFREY SINCE 11/30. PT HAS A RIGHT NGT, NPO. CALL LIGHT WITHIN EASY REACH, SAFETY MEASURES MAINTAINED, WILL CONTINUE TO MONITOR AND FOLLOW MD ORDERS.
[2016-12-01] MEDS ORDERED: BLOOD IV SET 1 EA INFUS.SET MC ONE (08:13)
[2016-12-01] MEDS: ASPIRIN 81 MG TAB.CHEW NG SCH (08:19)
[2016-12-01] MEDS: CALCIUM ACETATE 667 MG TABLET PO SCH ×3 (08:19→17:33)
[2016-12-01] MEDS: SEVELAMER CARBONATE 0.8 GM POWD.PACK GT SCH ×3 (08:19→17:33)
[2016-12-01] MEDS: LACTOBACILLUS RHAMNOSUS GG 1 EACH CAP.SPRINK PO SCH ×2 (08:19→17:00)
[2016-12-01] MEDS ORDERED: IV SET PRIMARY PUMP SET 1 EA INFUS.SET MC ONE ×2 (08:52→20:14)
[2016-12-01] MEDS: LINEZOLID RTU BAG 600 MG in PREMIX 1 EA IV SCH (09:54)
[2016-12-01 11:39] LABS: ABG BASE EXCESS 1.7 mmol/L; ABG OXYGEN SATURATION 94.7 % (92.0-98.5); ABG PCO2 38.2 mmHg (35.0-45.0); ABG PH 7.447 (7.350-7.450); ABG PO2 76.1 mmHg (75.0-100.0); AaDO2 309.7 mmHg; COHb 0.8 % (0.5-1.5); MetHb 1.2 % (0.0-1.5); O2Hb 92.8 % (94.0-97.0); PEEP,BG 8 cm H2O; SITE, ABG Right Radial; VT, ABG 550 mL
--- NOTE | 2016-12-01 12:00 | NUR ---
PROCESS CONTROL BOARD OPERATOR NOTE 0915: Done with HD, SP 2PRBC with HD, tolerated well, VSS at this time. 1000: Will titrate Diprivan as able. 1200: @ 20mcg of Dirpivan at this time, patient comfortable. VSS.
[2016-12-01 12:04] LABS: BASOPHILS % (AUTO) 0.2 % (0.0-2.0); EOSINOPHILS # (AUTO) 0.5 /CMM (0.0-0.7); EOSINOPHILS % (AUTO) 3.1 % (0.0-6.0); HEMATOCRIT 24 % (39-51); HEMOGLOBIN 8.2 g/dL (13.5-17.5); LYMPHOCYTES # (AUTO) 0.5 /CMM (0.8-4.8); LYMPHOCYTES % (AUTO) 3.4 % (20.0-44.0); MEAN CORPUSCULAR HEMOGLOBIN 29 PG (26.0-33.0); MEAN CORPUSCULAR HGB CONC 34 g/dl (31.0-36.0); MEAN CORPUSCULAR VOLUME 87 fL (80-96); MONOCYTES # (AUTO) 1.1 /CMM (0.1-1.30); MONOCYTES % (AUTO) 6.9 % (2.0-12.0); NEUTROPHILS # (AUTO) 13.2 /CMM (1.8-8.9); NEUTROPHILS % (AUTO) 86.4 % (43.0-81.0); PLATELET COUNT (AUTO) 134 /CMM (150-450); RDW COEFFICIENT OF VARIATION 16.8 (11.5-15.0); WHITE BLOOD COUNT (AUTO) 15.3 K/uL (4.3-11.0)
--- NOTE | 2016-12-01 12:21 | NUR ---
RICHARD received a call from pt's daughter Paula from [place] requesting a letter. RICHARD Rivas contacted Paula and left her a voicemail message to call back. Paula is Turkmen speaking. RICHARD Marcial contacted Cassandra Abbott, to inform her that the letter was emailed to Marcelle at the [place] consulate on November 29, 2016.
[2016-12-01 12:22] LABS: INR 1.04 (0.87-1.13); PROTHROMBIN TIME 11.1 SECS (9.5-12.7)
[2016-12-01 12:26] LABS: D-DIMER 4.4 mg/L(FEU (0.17-0.50)
[2016-12-01] MEDS: CEFAZOLIN 1 GM in IV NS 0.9% 50 ML IV SCH (14:00)
[2016-12-01] MEDS: LEVOFLOXACIN 500 MG /D5W 100ML 500 MG in PREMIX 1 EA IV SCH (15:11)
[2016-12-01] MEDS: RENAL NOVASOURCE 1,000 ML BOTTLE GT PRN (17:33)
[2016-12-01 18:03] LABS: BASOPHILS # (AUTO) 0.1 /CMM (0.0-0.2); BASOPHILS % (AUTO) 0.5 % (0.0-2.0); EOSINOPHILS # (AUTO) 0.4 /CMM (0.0-0.7); EOSINOPHILS % (AUTO) 2.4 % (0.0-6.0); HEMATOCRIT 25 % (39-51); HEMOGLOBIN 8.5 g/dL (13.5-17.5); LYMPHOCYTES # (AUTO) 0.6 /CMM (0.8-4.8); LYMPHOCYTES % (AUTO) 3.9 % (20.0-44.0); MEAN CORPUSCULAR HEMOGLOBIN 29 PG (26.0-33.0); MEAN CORPUSCULAR HGB CONC 34 g/dl (31.0-36.0); MEAN CORPUSCULAR VOLUME 86 fL (80-96); MONOCYTES # (AUTO) 1.1 /CMM (0.1-1.30); MONOCYTES % (AUTO) 7.3 % (2.0-12.0); NEUTROPHILS # (AUTO) 12.9 /CMM (1.8-8.9); NEUTROPHILS % (AUTO) 85.9 % (43.0-81.0); PLATELET COUNT (AUTO) 147 /CMM (150-450); RDW COEFFICIENT OF VARIATION 16.7 (11.5-15.0); RED BLOOD CELL COUNT(AUTO) 2.92 MIL/uL (4.5-6.0)
--- NOTE | 2016-12-01 19:20 | NUR ---
RN CLOSING NOTES PT IN STABLE CONDITION, ALL MD ORDERS CARRIED OUT, IV'S CDI, TOLERATING ALL MEDS WELL, VSS, AFEBRILE, TOLERATING MECH VENT WELL. CALL LIGHT WITHIN EASY REACH, SAFETY MEASURES MAINTAINED, REPORT GIVEN TO NIGHT NURSE FOR SONI.
--- NOTE | 2016-12-01 19:30 | NUR ---
DIRECTOR OF INSTITUTIONAL RESEARCH: PT RECEIVED ORALLY INTUBATED AND TOLERATING VENT SETTINGS ORDERED. SEDATED ON DIPRIVAN AT 20MCG/KG/MIN, ABLE TO FOLLOW SIMPLE COMMANDS. BILAT. SOFT WRIST RESTRAINTS IN PLACE FOR EPISODES OF TRYING TO REACH FOR TUBINGS. GOOD CIRCULATION AND NO NEW SKIN BREAKDOWN NOTED WHEN RESTRAINTS WERE RELEASED AND CHECKED. VS WITHIN HIS BASELINE. AFEBRILE. TOLERATING NGT FEEDING WT NO RESIDUAL. SAFETY PRECAUTION NOTED. WILL CONTINUE TO MONITOR.
[2016-12-01] MEDS: PANTOPRAZOLE 40 MG VIAL IV SCH (20:45)
[2016-12-01] MEDS: MICAFUNGIN SODIUM 100 MG in IV NS 0.9% 100 ML IV SCH (20:50)
[2016-12-02] VITALS (37 sets, daily range): BP systolic 90–165; BP diastolic 32–62
[2016-12-02] MEDS: CEFAZOLIN 1 GM in IV NS 0.9% 50 ML IV SCH ×2 (00:48→12:37)
[2016-12-02] MEDS: PROPOFOL 100 ML IV PRN ×3 (00:49→20:09)
[2016-12-02] MEDS: BLOOD SUGAR DIAGNOSTIC 1 EACH STRIP IN SCH ×4 (00:53→17:04)
[2016-12-02] MEDS: INSULIN REGULAR, HUMAN 100 UNIT/ML 3 ML VIAL SQ PRN ×2 (00:56→12:12)
[2016-12-02] MEDS: IPRATROPIUM NEB FS 0.5 MG/2.5 ML AMPUL.NEB NEB SCH ×4 (01:32→19:54)
[2016-12-02] MEDS: ALBUTEROL FS 2.5 MG/3 ML VIAL.NEB NEB SCH ×4 (01:32→19:54)
[2016-12-02 05:25] LABS: BASOPHILS % (AUTO) 0.2 % (0.0-2.0); EOSINOPHILS # (AUTO) 0.6 /CMM (0.0-0.7); EOSINOPHILS % (AUTO) 3.6 % (0.0-6.0); HEMATOCRIT 32 % (39-51); HEMOGLOBIN 10.8 g/dL (13.5-17.5); LYMPHOCYTES # (AUTO) 0.6 /CMM (0.8-4.8); LYMPHOCYTES % (AUTO) 3.6 % (20.0-44.0); MEAN CORPUSCULAR HEMOGLOBIN 29 PG (26.0-33.0); MEAN CORPUSCULAR HGB CONC 34 g/dl (31.0-36.0); MEAN CORPUSCULAR VOLUME 87 fL (80-96); MONOCYTES # (AUTO) 0.9 /CMM (0.1-1.30); MONOCYTES % (AUTO) 5.9 % (2.0-12.0); NEUTROPHILS # (AUTO) 13.6 /CMM (1.8-8.9); NEUTROPHILS % (AUTO) 86.7 % (43.0-81.0); PLATELET COUNT (AUTO) 172 /CMM (150-450); WHITE BLOOD COUNT (AUTO) 15.7 K/uL (4.3-11.0)
[2016-12-02 05:37] LABS: CREATININE 4.5 mg/dL (0.6-1.3); PHOSPHORUS 5.7 mg/dL (2.5-4.9); POTASSIUM 4.1 mmol/L (3.5-5.1)
[2016-12-02] MEDS: IV NS 0.9% 250 ML IV PRN (05:39)
--- NOTE | 2016-12-02 06:35 | NUR ---
TECHNICAL SUPPORT ANALYST: PT HAD LARGE AMT. OF ORAL THIN NICOLE SECRETIONS. ALSO NOTED WT PINK TINGED SECRETIONS WHEN SUCTIONED VIA ETT. REMAINED SEDATED ON DIPRIVAN AT 20MCG/KG/MIN. ABLE TO FOLLOW SIMPLE COMMANDS. V/S WITHIN HIS BASELINE. REMAINED AFEBRILE THROUGHOUT THE SHIFT.
--- NOTE | 2016-12-02 07:19 | NUR ---
RN INITIAL NOTES PT IN BED, SEDATED, HOB ELEVATED 35 DEGREES, ON TELE MONITOR WITH SR 70-80'S. PT HAS ETT 7.5/, AC 12, TV 550, FO2 60%, PEEP +8, TOLERATING WELL, NO SIGNS OF DISTRESS NOTED. SKIN CDI, WITH LEFT LATERAL AC SKIN TEAR. IV ON RIJ HD CATH, NINA MIDLINE, MILAGROS PICC, LH 20G, SALINE FLUSHED, ALL CDI, NO SIGNS OF INFECTION/INFILTRATION NOTED, RUNNING DIP @ 20 MCG, TOLERATING WELL. OFF GODFREY SINCE 11/30. PT HAS A RIGHT NGT RUNNING NOVASOURCE @ 20 CC/HR, TOLERATING WELL, NO RESIDUAL. CALL LIGHT WITHIN EASY REACH, SAFETY MEASURES MAINTAINED, WILL CONTINUE TO MONITOR AND FOLLOW MD ORDERS.
[2016-12-02] MEDS ORDERED: IV SET PRIMARY PUMP SET 1 EA INFUS.SET MC ONE ×3 (07:34→19:58)
--- NOTE | 2016-12-02 07:59 | NUR ---
RN NOTES PT OFF DIPRIVAN AND IS AWAKE, CALM, AND DENIES PAIN. PT IS ABLE TO FOLLOW COMMANDS, PUPILS ARE REACTIVE (RIGHT SLIGHTLY BIGGER THAN LEFT), PT IS ABLE TO SQUEEZE MY HANDS. WILL KEEP PT OFF DIP FOR LONG HE CAN TOLERATE WITHOUT IT. OVERALL IN STABLE CONDITION.
--- NOTE | 2016-12-02 08:21 | NUR ---
PHOTOFLASH POWDER MIXER NOTE S/E by Dr. Lyn, aware for the am labs and for FOB +, said may resume feeding, keep @ 20ml/hr and continue Protonix.
[2016-12-02] MEDS: ASPIRIN 81 MG TAB.CHEW NG SCH (08:24)
[2016-12-02] MEDS: LACTOBACILLUS RHAMNOSUS GG 1 EACH CAP.SPRINK PO SCH ×2 (08:24→17:04)
[2016-12-02] MEDS: SEVELAMER CARBONATE 0.8 GM POWD.PACK GT SCH ×3 (08:24→17:04)
[2016-12-02] MEDS: CALCIUM ACETATE 667 MG TABLET PO SCH ×3 (08:24→17:04)
[2016-12-02 10:09] LABS: ABG BASE EXCESS -0.5 mmol/L; ABG OXYGEN SATURATION 98.3 % (92.0-98.5); ABG PCO2 37.9 mmHg (35.0-45.0); ABG PH 7.417 (7.350-7.450); ABG PO2 144.5 mmHg (75.0-100.0); AaDO2 241.6 mmHg; COHb 0.7 % (0.5-1.5); O2Hb 96.6 % (94.0-97.0); PEEP,BG 8 cm H2O; SITE, ABG Right Radial; VT, ABG 550 mL
--- NOTE | 2016-12-02 13:30 | NUR ---
RN NOTES PT BACK ON DIP 20 MCG
[2016-12-02] MEDS: RENAL NOVASOURCE 1,000 ML BOTTLE GT PRN (20:09)
[2016-12-02] MEDS: MICAFUNGIN SODIUM 100 MG in IV NS 0.9% 100 ML IV SCH (20:10)
[2016-12-02] MEDS: PANTOPRAZOLE 40 MG VIAL IV SCH (20:10)
[2016-12-03] VITALS (40 sets, daily range): BP systolic 94–141; BP diastolic 32–79
[2016-12-03] MEDS: BLOOD SUGAR DIAGNOSTIC 1 EACH STRIP IN SCH ×5 (00:13→23:46)
[2016-12-03] MEDS: INSULIN REGULAR, HUMAN 100 UNIT/ML 3 ML VIAL SQ PRN ×4 (00:15→23:47)
[2016-12-03] MEDS: CEFAZOLIN 1 GM in IV NS 0.9% 50 ML IV SCH ×3 (00:16→23:47)
[2016-12-03] MEDS: ALBUTEROL FS 2.5 MG/3 ML VIAL.NEB NEB SCH ×4 (01:40→20:00)
[2016-12-03] MEDS: IPRATROPIUM NEB FS 0.5 MG/2.5 ML AMPUL.NEB NEB SCH ×4 (01:40→20:00)
[2016-12-03] MEDS: PROPOFOL 100 ML IV PRN ×2 (02:57→09:04)
[2016-12-03 04:34] LABS: BASOPHILS # (AUTO) 0.2 /CMM (0.0-0.2); BASOPHILS % (AUTO) 1.4 % (0.0-2.0); EOSINOPHILS # (AUTO) 0.6 /CMM (0.0-0.7); EOSINOPHILS % (AUTO) 4.7 % (0.0-6.0); HEMATOCRIT 28 % (39-51); HEMOGLOBIN 9.6 g/dL (13.5-17.5); LYMPHOCYTES # (AUTO) 0.6 /CMM (0.8-4.8); LYMPHOCYTES % (AUTO) 4.8 % (20.0-44.0); MEAN CORPUSCULAR HEMOGLOBIN 30 PG (26.0-33.0); MEAN CORPUSCULAR HGB CONC 34 g/dl (31.0-36.0); MEAN CORPUSCULAR VOLUME 87 fL (80-96); MONOCYTES # (AUTO) 0.8 /CMM (0.1-1.30); MONOCYTES % (AUTO) 6.1 % (2.0-12.0); NEUTROPHILS # (AUTO) 10.4 /CMM (1.8-8.9); PLATELET COUNT (AUTO) 184 /CMM (150-450); RDW COEFFICIENT OF VARIATION 16.6 (11.5-15.0); RED BLOOD CELL COUNT(AUTO) 3.25 MIL/uL (4.5-6.0); WHITE BLOOD COUNT (AUTO) 12.6 K/uL (4.3-11.0)
[2016-12-03 04:48] LABS: CALCIUM, SERUM 7.9 mg/dL (8.5-10.1); CREATININE 5.8 mg/dL (0.6-1.3); PHOSPHORUS 5.2 mg/dL (2.5-4.9); POTASSIUM 3.9 mmol/L (3.5-5.1)
[2016-12-03 04:49] LABS: MAGNESIUM 2.3 mg/dL (1.8-2.4)
[2016-12-03] MEDS: IV NS 0.9% 250 ML IV PRN (04:56)
[2016-12-03] MEDS ORDERED: SECONDARY IV SET 1 EA INFUS.SET MC ONE (06:04)
--- NOTE | 2016-12-03 06:30 | NUR ---
RELATIONSHIP EXECUTIVE: NO SIGNIFICANT SONI DURING THE SHIFT. PT REMAINED SEDATED ON DIPRIVAN DRIP AT 20MCG/KG/MIN. ABLE TO FOLLOW SIMPLE COMMANDS. TOLERATING VENT SETTINGS ORDERED WT NO ACUTE DISTRESS. NO EVIDENCE OF DISCOMFORT. VS WITHIN HIS BASELINE. HEMODIALYSIS STARTED AT 0600 WITH NO NEED FOR ALBUMIN AT THIS TIME. TOLERATING GTF WT NO RESIDUAL. BILAT. SOFT WRIST RESTRAINTS IN PLACE FOR EPISODES OF TRYING TO REACH FOR TUBINGS. NO NEW SKIN BREAKDOWN AND WT GOOD CIRCULATION WHEN RELEASED AND CHECKED. SAFETY PRECAUTION NOTED AT ALL TIMES.
--- NOTE | 2016-12-03 07:48 | NUR ---
INITIAL DIRECTOR STRATEGY NOTE RCVD PT AWAKE AND ALERT, ABLE TO FOLLOW COMMANDS. SHOWING NO S/O DISTRESS OR C/O PAIN AT THE MOMENT. SR ON TELE HR 79. TOLERATING ORDERED VENT SETTTINGS ETT 7.5 21 AT LIP. PER PT'S REPORT ANURIC. NG TUBE IN RIGHT NARE PATENT, PLACEMENT VERIFIED. INFUSING TUBE FEEDING. TOLERATING WELL NO RESIDUAL OBTAINED. PT RECEIVING DIALYSIS AT THIS TIME. IV SITES IV SITES C/D/I/PATENT. NO S/O INFILTRATION OR PHLEBITIS OBSERVED UPON FLUSHING. WILL CONTINUE TO MONITOR PT FOR SAFETY AND COMFORT. CALL LIGHT WITHIN REACH. BED IN LOW AND LOCKED POSITION.
[2016-12-03] MEDS: SEVELAMER CARBONATE 0.8 GM POWD.PACK GT SCH ×3 (08:18→17:45)
[2016-12-03] MEDS: CALCIUM ACETATE 667 MG TABLET PO SCH ×3 (08:18→17:44)
[2016-12-03] MEDS: LACTOBACILLUS RHAMNOSUS GG 1 EACH CAP.SPRINK PO SCH ×2 (08:18→17:41)
[2016-12-03] MEDS: ASPIRIN 81 MG TAB.CHEW NG SCH (08:18)
[2016-12-03] MEDS ORDERED: IV SET PRIMARY PUMP SET 1 EA INFUS.SET MC ONE (08:49)
[2016-12-03] MEDS: ALBUMIN 25% 25 GM in PREMIX 1 EA IV PRN (08:55)
--- NOTE | 2016-12-03 10:09 | NUR ---
MEDICAL RECORDS DIRECTOR NOTE [place] [facility] [phone] REQUESTING PT'S INFORMATION. HE STATED THAT HE'S LOOKING INTO [facility]. WILL CALL BACK IF THERE IS A BED AVAILABLE. EPIC # [id number]. MAXINE ANDERSON AWARE.
[2016-12-03] MEDS ORDERED: LACTULOSE 10 G/15 ML UDC (PYXIS) PO PRN (10:30)
--- NOTE | 2016-12-03 11:04 | NUR ---
THERAPY ASSISTANT NOTE PT'S FAMILY FRIENDS AT BEDSIDE, INFORMED OF PT'S CONDITION PER PT'S REQUEST. QUESTIONS ANSWERED.
--- NOTE | 2016-12-03 11:30 | NUR ---
EMPLOYMENT APPEALS EXAMINER NOTE RESTRAINTS REMOVED WILL CONTINUE TO MONITOR PT FOR SAFETY. PT WAS EXPLAINED THE IMPORTANCE OF THE ETT IN JAPANESE AND TO NOT PULL THE TUBE. PT ACKNOWLEDGED.
[2016-12-03] MEDS: RENAL NOVASOURCE 1,000 ML BOTTLE GT PRN (11:57)
--- NOTE | 2016-12-03 13:07 | NUR ---
DIE MAKER APPRENTICE NOTE NG TUBE CLOGGED, CHANGED, PLACEMENT VERIFIED BY AUSCULTATION AND SECOND RN.
[2016-12-03] MEDS: LEVOFLOXACIN 500 MG /D5W 100ML 500 MG in PREMIX 1 EA IV SCH (13:08)
[2016-12-03] MEDS: DOCUSATE SODIUM LIQ 100 MG/10 ML UDC GT SCH (17:41)
--- NOTE | 2016-12-03 18:18 | NUR ---
ENDING AGRICULTURAL SYSTEMS SPECIALIST NOTE PT AWAKE AND ALERT, OFF SEDATION AND RESTRAINTS. SR ON TELE. ETT 7.5 21 AT LIP. TOLERATING NEW ORDERED VENT SETTINGS. RIGHT NG TUBE PATENT. TOLERATING NEW TUBE FEEDING RATE. NO RESIDUAL OBTAINED. IV SITES C/D/I/PATENT. NO S/O INFILTRATION OR PHLEBITIS OBSERVED UPON FLUSHING. CALL LIGHT WITHIN REACH. BED IN LOW AND LOCKED POSITION. PT'S CARE WILL BE ENDORSED TO ADMINISTRATIVE MANAGER RN FOR CONTINUITY OF CARE.
[2016-12-03 18:25] LABS: BASOPHILS # (AUTO) 0.1 /CMM (0.0-0.2); BASOPHILS % (AUTO) 0.5 % (0.0-2.0); EOSINOPHILS # (AUTO) 0.4 /CMM (0.0-0.7); HEMATOCRIT 26 % (39-51); HEMOGLOBIN 8.8 g/dL (13.5-17.5); LYMPHOCYTES # (AUTO) 0.6 /CMM (0.8-4.8); LYMPHOCYTES % (AUTO) 5.5 % (20.0-44.0); MEAN CORPUSCULAR HEMOGLOBIN 29 PG (26.0-33.0); MEAN CORPUSCULAR HGB CONC 34 g/dl (31.0-36.0); MEAN CORPUSCULAR VOLUME 86 fL (80-96); MONOCYTES # (AUTO) 0.8 /CMM (0.1-1.30); MONOCYTES % (AUTO) 7.1 % (2.0-12.0); NEUTROPHILS # (AUTO) 8.9 /CMM (1.8-8.9); NEUTROPHILS % (AUTO) 82.9 % (43.0-81.0); PLATELET COUNT (AUTO) 156 /CMM (150-450); RDW COEFFICIENT OF VARIATION 16.8 (11.5-15.0); RED BLOOD CELL COUNT(AUTO) 3.06 MIL/uL (4.5-6.0); WHITE BLOOD COUNT (AUTO) 10.7 K/uL (4.3-11.0)
[2016-12-03] MEDS ORDERED: DEXTROSE 50%-WATER 50 ML DISP.SYRIN IV PRN (18:30)
--- NOTE | 2016-12-03 18:55 | NUR ---
NETWORKS SOFTWARE CONSULTANT NOTE RCVD CBC RESULTS DR. GUZMAN MADE AWARE OF HGB DROPPING TO 8.8 FROM 9.6. NO ACTIVE BLEEDING OBSERVED.
--- NOTE | 2016-12-03 20:00 | NUR ---
PROFESSOR OF ENGLISH: POLY PT AWAKE AND ALERT, ABLE TO FOLLOW COMMANDS. SHOWING NO S/O DISTRESS, NO C/O PAIN AT THE MOMENT. SR ON TELE HR STABLE. TOLERATING ORDERED VENT SETTINGS ETT 7.5 21 AT LIP. PER PT'S REPORT ANURIC,ON DIALYSIS,DIALYZED TODAY 2.8 L OUT. NG TUBE IN RIGHT NARE PATENT, PLACEMENT VERIFIED. INFUSING TUBE FEEDING. TOLERATING WELL NO RESIDUAL NOTED. IV SITES IV SITES C/D/I/PATENT. NO S/O INFILTRATION OR PHLEBITIS OBSERVED UPON FLUSHING. SAFETY PRECAUTION PLACED. CALL LIGHT WITHIN REACH. BED IN LOW AND LOCKED POSITION. ONGOING MONITORING...
[2016-12-03] MEDS: PANTOPRAZOLE 40 MG VIAL IV SCH (20:43)
[2016-12-03] MEDS: MICAFUNGIN SODIUM 100 MG in IV NS 0.9% 100 ML IV SCH (20:43)
--- NOTE | 2016-12-03 20:48 | NUR ---
PT RECEIVED INTUBATED WITH 7.5 ETT SECURED AT 22CM AT THE LIP. PT IS AWAKE TOLERATING VENT SETTINGS. SX'D FOR MOD AMT OF TINGED SECRETIONS. VENT ALARMS SET AND AUDIBLE. ANILA SARMIENTO AT [facility]. WILL CONTINUE TO MONITOR. Addendum: 12/03/16 at 2049 by ANITA DIGGS RT Amended: Links added.
[2016-12-04] VITALS (46 sets, daily range): BP systolic 93–160; BP diastolic 33–62
[2016-12-04] MEDS: IPRATROPIUM NEB FS 0.5 MG/2.5 ML AMPUL.NEB NEB SCH ×4 (01:44→20:25)
[2016-12-04] MEDS: ALBUTEROL FS 2.5 MG/3 ML VIAL.NEB NEB SCH ×4 (01:44→20:25)
[2016-12-04 04:59] LABS: BASOPHILS # (AUTO) 0.2 /CMM (0.0-0.2); BASOPHILS % (AUTO) 1.6 % (0.0-2.0); EOSINOPHILS # (AUTO) 0.5 /CMM (0.0-0.7); EOSINOPHILS % (AUTO) 3.9 % (0.0-6.0); HEMATOCRIT 27 % (39-51); HEMOGLOBIN 8.9 g/dL (13.5-17.5); LYMPHOCYTES # (AUTO) 0.6 /CMM (0.8-4.8); LYMPHOCYTES % (AUTO) 4.8 % (20.0-44.0); MEAN CORPUSCULAR HEMOGLOBIN 29 PG (26.0-33.0); MEAN CORPUSCULAR HGB CONC 33 g/dl (31.0-36.0); MEAN CORPUSCULAR VOLUME 88 fL (80-96); MONOCYTES # (AUTO) 0.9 /CMM (0.1-1.30); MONOCYTES % (AUTO) 7.6 % (2.0-12.0); NEUTROPHILS # (AUTO) 10.2 /CMM (1.8-8.9); NEUTROPHILS % (AUTO) 82.1 % (43.0-81.0); PLATELET COUNT (AUTO) 165 /CMM (150-450); RDW COEFFICIENT OF VARIATION 16.8 (11.5-15.0); RED BLOOD CELL COUNT(AUTO) 3.03 MIL/uL (4.5-6.0); WHITE BLOOD COUNT (AUTO) 12.4 K/uL (4.3-11.0)
[2016-12-04] MEDS: BLOOD SUGAR DIAGNOSTIC 1 EACH STRIP IN SCH ×3 (05:12→17:25)
[2016-12-04] MEDS: INSULIN REGULAR, HUMAN 100 UNIT/ML 3 ML VIAL SQ PRN ×3 (05:13→17:25)
[2016-12-04 05:17] LABS: CREATININE 5.4 mg/dL (0.6-1.3); MAGNESIUM 2.1 mg/dL (1.8-2.4); PHOSPHORUS 3.5 mg/dL (2.5-4.9); POTASSIUM 3.8 mmol/L (3.5-5.1)
[2016-12-04] MEDS: IV NS 0.9% 250 ML IV PRN (05:23)
[2016-12-04] MEDS: DOCUSATE SODIUM LIQ 100 MG/10 ML UDC GT SCH ×2 (08:11→17:08)
[2016-12-04] MEDS: LACTOBACILLUS RHAMNOSUS GG 1 EACH CAP.SPRINK PO SCH ×2 (08:12→17:08)
[2016-12-04] MEDS: ASPIRIN 81 MG TAB.CHEW NG SCH (08:12)
[2016-12-04] MEDS: CALCIUM ACETATE 667 MG TABLET PO SCH ×3 (08:12→17:08)
[2016-12-04] MEDS: SEVELAMER CARBONATE 0.8 GM POWD.PACK GT SCH ×3 (08:12→17:08)
[2016-12-04 08:19] LABS: ABG BASE EXCESS -3.4 mmol/L; ABG PCO2 38.4 mmHg (35.0-45.0); ABG PH 7.367 (7.350-7.450); AaDO2 208.3 mmHg; COHb 0.2 % (0.5-1.5); O2Hb 95.8 % (94.0-97.0); PEEP,BG 5 cm H2O; SITE, ABG Right Radial; VT, ABG 550 mL
--- NOTE | 2016-12-04 10:36 | NUR ---
RICHARD received a call from pt's cousin Cassandra Arsalan, requesting another verification of admission letter be sent to Marcelle at the [facility] consulate. Cassandra informed SW that pt's Georgette and two last names and both need to be included. RICHARD completed letter and included Georgette Peraza in the letter and sent it via email to [email or web address].
[2016-12-04] MEDS: CEFAZOLIN 1 GM in IV NS 0.9% 50 ML IV SCH (12:04)
[2016-12-04] MEDS ORDERED: SECONDARY IV SET 1 EA INFUS.SET MC ONE (12:16)
--- NOTE | 2016-12-04 13:12 | NUR ---
HEALTH SERVICES DIRECTOR NOTE 0720: Received patient awake. A/Ox3, able to answer yes/no questions. With ETT to vent, tolerated settings. No c/o any discomfort at this time. Diprivan off since yesterday. With right NGT intact, feeding tolerated, no residuals noted. No S/S hypo/hyperglycemia noted at this time. RIJ HD cath, NINA midline, MILAGROS PICC RH PIV g20, all intact. S/E by Dr. Sandoval, no new order at this time. 0800: S/E by Dr. Acosta,a with set of lab ordered for tomorrow. 0900: S/E by Dr. Real, no new order at this time. 0930: S/E by Dr. Tavera, ordered HD today. 1030: HD at bedside for HD, S/E by Dr. Fournier, no new order at this time. 1200: BS 139, 2 units of RI given as ordered. 1230: HD done, patient tolerated well, HD nurse reported 2500mL out. Nephew at bedside. 1300: No any significant changes noted at this time, continue monitoring for changes. Kept patient clean, warm and dry. Needs anticipated. Positioned q2 and for comfort.
[2016-12-04] MEDS: RENAL NOVASOURCE 1,000 ML BOTTLE GT PRN (16:36)
--- NOTE | 2016-12-04 18:17 | NUR ---
RT END OF THE SHIFT REPORT: PT. 51 Y OLD MALE REMAIN ORALLY INTUBATED ETT#7.5@22CM ON VENT WITH NOTED SETTINGS, ALARMS ARE SET AND FUNCTIONAL, B/S RALES/RHONCHI SUX' FOR MINIMAL REDDISH THIN SECRETIONS, NO DISTRESS NOTED T/O SHIFT NO CHANGES T/O SHIFT. CONTINUE FOR MONITOR AND EQUAL CHEST RISE NOTED PT. AWAKE AND RESPONSIVE. HME CHANGED AMBU BAG REMAIN AT THE BEDSIDE. REPORT WILL PASS TO PM SHIFT Addendum: 12/04/16 at 1818 by JERMAN HOGAN RT Amended: Links added.
--- NOTE | 2016-12-04 20:00 | NUR ---
OIL WELL SERVICE UNIT OPERATOR: POLY PT AWAKE AND ALERT, ABLE TO FOLLOW COMMANDS. SHOWING NO S/O DISTRESS, NO C/O PAIN AT THE MOMENT. SR ON TELE HR STABLE. TOLERATING ORDERED VENT SETTINGS ETT 7.5 21 cm AT LIP. PER PT'S REPORT ANURIC,ON DIALYSIS,DIALYZED TODAY 2.5 L OUT. NG TUBE IN RIGHT NARE PATENT, PLACEMENT VERIFIED. INFUSING TUBE FEEDING. TOLERATING WELL NO RESIDUAL NOTED. IV SITES IV SITES C/D/I/PATENT. NO S/O INFILTRATION OR PHLEBITIS OBSERVED UPON FLUSHING. SAFETY PRECAUTION PLACED. CALL LIGHT WITHIN REACH. BED IN LOW AND LOCKED POSITION. ONGOING MONITORING...
[2016-12-04] MEDS: PANTOPRAZOLE 40 MG VIAL IV SCH (20:38)
[2016-12-04] MEDS: MICAFUNGIN SODIUM 100 MG in IV NS 0.9% 100 ML IV SCH (20:39)
--- NOTE | 2016-12-04 21:36 | NUR ---
PT REC'D INTUBATED WITH 7.5 ETT @ 22CM AT THE LIP. PT IS AWAKE. PT ON VENT SETTINGS CHARTED. SX'D MOD BLOOD TINGED SECRETIONS. VENT ALARMS SET AND AUDIBLE. AMBU BAG BEDSIDE. VENT IS PLUGGED IN RED OUTLET. WILL CONTINUE TO MONITOR. Addendum: 12/04/16 at 2141 by CHRISTOPHE BECKETT RT Amended: Links added.
[2016-12-05] VITALS (63 sets, daily range): BP systolic 94–171; BP diastolic 33–83
[2016-12-05] MEDS ORDERED: SECONDARY IV SET 1 EA INFUS.SET MC ONE (00:02)
[2016-12-05] MEDS: BLOOD SUGAR DIAGNOSTIC 1 EACH STRIP IN SCH ×5 (00:26→23:55)
[2016-12-05] MEDS: INSULIN REGULAR, HUMAN 100 UNIT/ML 3 ML VIAL SQ PRN ×5 (00:27→23:55)
[2016-12-05] MEDS: CEFAZOLIN 1 GM in IV NS 0.9% 50 ML IV SCH ×2 (00:27→12:47)
[2016-12-05] MEDS: IPRATROPIUM NEB FS 0.5 MG/2.5 ML AMPUL.NEB NEB SCH ×4 (02:00→20:27)
[2016-12-05] MEDS: ALBUTEROL FS 2.5 MG/3 ML VIAL.NEB NEB SCH ×4 (02:00→20:27)
[2016-12-05] MEDS ORDERED: IV SET PRIMARY PUMP SET 1 EA INFUS.SET MC ONE ×3 (03:30→12:42)
[2016-12-05] MEDS: IV NS 0.9% 250 ML IV PRN (03:37)
[2016-12-05 05:18] LABS: BASOPHILS # (AUTO) 0.2 /CMM (0.0-0.2); BASOPHILS % (AUTO) 1.1 % (0.0-2.0); EOSINOPHILS # (AUTO) 0.5 /CMM (0.0-0.7); EOSINOPHILS % (AUTO) 3.9 % (0.0-6.0); HEMATOCRIT 26 % (39-51); HEMOGLOBIN 8.8 g/dL (13.5-17.5); LYMPHOCYTES # (AUTO) 0.9 /CMM (0.8-4.8); LYMPHOCYTES % (AUTO) 6.2 % (20.0-44.0); MEAN CORPUSCULAR HEMOGLOBIN 30 PG (26.0-33.0); MEAN CORPUSCULAR HGB CONC 34 g/dl (31.0-36.0); MEAN CORPUSCULAR VOLUME 88 fL (80-96); MONOCYTES # (AUTO) 1.3 /CMM (0.1-1.30); MONOCYTES % (AUTO) 9.6 % (2.0-12.0); NEUTROPHILS # (AUTO) 11.1 /CMM (1.8-8.9); NEUTROPHILS % (AUTO) 79.2 % (43.0-81.0); PLATELET COUNT (AUTO) 174 /CMM (150-450); RDW COEFFICIENT OF VARIATION 16.9 (11.5-15.0); RED BLOOD CELL COUNT(AUTO) 2.97 MIL/uL (4.5-6.0); WHITE BLOOD COUNT (AUTO) 14.1 K/uL (4.3-11.0)
[2016-12-05 05:23] LABS: CALCIUM, SERUM 8.1 mg/dL (8.5-10.1); MAGNESIUM 2.2 mg/dL (1.8-2.4); PHOSPHORUS 2.6 mg/dL (2.5-4.9)
[2016-12-05] MEDS: ACETAMINOPHEN 650 MG/20.3 ML UDC NG PRN (05:45)
[2016-12-05] MEDS: MORPHINE SULFATE INJ 2 MG/ML DISP.SYRIN IV PRN (05:47)
[2016-12-05] MEDS: PROPOFOL 100 ML IV PRN ×2 (06:03→18:57)
--- NOTE | 2016-12-05 06:03 | NUR ---
PT WAS DESATURATING BELOW 88%. PT COUGHING LARGE AMOUNT OF RED SECRETIONS. PT WAS PUT ON 100%. ANAY MCGEE NOTIFIED.
--- NOTE | 2016-12-05 06:14 | NUR ---
TIRE MAN: PT WAS DESATURATING TO 885, TACHYPNEIC RR 40, TACHYCARDIAC HR 130, SWEATING, BP ELEVATED, PT NODS HIS HEAD WHEN ASKED FOR PAIN, MORPHINE 2 MG IV PRN GIVEN, NOTIFIED TO DR POWER , ORDERS TO RESTART DIPRIVAN. PT IS INTUBATED WITH AC MODE WITHOUT SEDATION. DIPRIVAN STARTED AT 5 MCG/KG/MIN, ONGOING MONITORING... Addendum: 12/05/16 at 0619 by SOURAV COLINDRES RN CORRECT WORD: DESATURATING TO 88%.
--- NOTE | 2016-12-05 08:00 | NUR ---
CONTRACT AGENT RECEIVED PT IN BED AWAKE AO X2, INTUBATED TUBE SECURED VENT SETTINGS NTOED, ON PROPOFOL 5MICS, VS STABLE HR SR ON TELE HR 90S SBP STABLE, EDEMA PRESENT UPPER AND LOWER EXTREMITY, ABD SOFT ACTIVE BOWEL SOUNDS, PT IV ACCESS MID LINE AND PICC LINE PATENT INFUSING MEDS WITH GOOD BLOOD RETURN, NO DISTRESS NOTED TEMP 99 FAN ON PROVIDED BAY CARE PT HAD A BM X1 APPLIED COLD TOWEL ON PT FOREHEAD, TURN AND REPOSITION IN BED FALL PRECAUTIONS TAKEN CALL LIGHT W/ IN REACH.
[2016-12-05] MEDS: LACTOBACILLUS RHAMNOSUS GG 1 EACH CAP.SPRINK PO SCH ×2 (08:08→17:30)
[2016-12-05] MEDS: SEVELAMER CARBONATE 0.8 GM POWD.PACK GT SCH ×3 (08:08→17:30)
[2016-12-05] MEDS: ASPIRIN 81 MG TAB.CHEW NG SCH (08:08)
[2016-12-05] MEDS: DOCUSATE SODIUM LIQ 100 MG/10 ML UDC GT SCH ×2 (08:08→17:30)
[2016-12-05] MEDS: CALCIUM ACETATE 667 MG TABLET PO SCH ×3 (08:08→17:30)
[2016-12-05 09:28] LABS: ABG BASE EXCESS 0.8 mmol/L; ABG OXYGEN SATURATION 97.7 % (92.0-98.5); ABG PCO2 41.3 mmHg (35.0-45.0); ABG PH 7.409 (7.350-7.450); ABG PO2 114.6 mmHg (75.0-100.0); AaDO2 412.4 mmHg; COHb 0.4 % (0.5-1.5); MetHb 0.7 % (0.0-1.5); O2Hb 96.6 % (94.0-97.0); PEEP,BG 5 cm H2O; SITE, ABG Right Radial; VT, ABG 550 mL
[2016-12-05] MEDS ORDERED: LEVOFLOXACIN 500 MG /D5W 100ML 500 MG in PREMIX 1 EA IV SCH (14:00)
--- NOTE | 2016-12-05 15:00 | NUR ---
WHEEL BUFFER PT IN BED HD FINISHED 2.4L OUT ALBUMIN GIVEN P/HD NURSE, NO DISTRESS NOTED STARTED TO TITRATE PROPOFOL DOWN.
--- NOTE | 2016-12-05 15:57 | NUR ---
RT NOTE: PATIENT RECEIVED ORALLY INTUBATED WITH 7.5 ETT SECURED AT 22CM MID UPPER LIP LINE ON MECHANICAL VENT. ETT MOVED FROM LEFT TO RIGHT SIDE OF THE MOUTH THROUGHOUT THE SHIFT. BILAT BS NOTED. SUCTIONED AND LAVAGED THIN BLOODY SECRETIONS THROUGHOUT SHIFT. AWARE. ABG DONE AND REPORTED TO . ANILA SARMIENTO AT [facility].
--- NOTE | 2016-12-05 17:00 | NUR ---
DIRECTOR SEMICONDUCTOR PT IN BED OFF OF PROPOFOL NO DISTRESS NOTED BED BATH GIVEN W/ COMPLETE LINEN CHANGE ALL PT NEEDS MEET CO WORKERS AT BEDSIDE.
--- NOTE | 2016-12-05 19:54 | NUR ---
WOOD WINDOW AND DOOR CRAFTSMAN: RECEIVED PT A/O X2, INTUBATED TUBE SECURED VENT SETTINGS VERIFIED, NOTED TACHYPNEIC RR AROUND 40, PT LOOKS ANXIOUS, RESTARTED PROPOFOL AT 5 MCG/KG/MIN, VS STABLE HR SR ON MONITOR HR 90-100, SBP STABLE, EDEMA PRESENT UPPER AND LOWER EXTREMITY, ABD SOFT ACTIVE BOWEL SOUNDS, PT IV ACCESS MID LINE AND PICC LINE PATENT INFUSING DIPRIVAN AND TKO. NO DISTRESS NOTED. TEMP 99.4, FAN ON. TURN AND REPOSITION IN BED FALL PRECAUTIONS PLACED.
--- NOTE | 2016-12-05 20:32 | NUR ---
PT RECEIVED ON VENT VIA ETT, SETTINGS CHARTED AMBU BAG AT BEDSIDE ALARMS SET AND AUDIBLE SUCTIONED A SMALL AMOUNT OF THIN RED SECRETIONS BREATH SOUNDS EQUAL BILATERAL COARSE PT RECEIVING NO BREATHING TX AT THIS TIME
--- NOTE | 2016-12-05 20:35 | NUR ---
PT RECEIVED ON VENT VIA ETT, SETTINGS CHARTED AMBU BAG AT BEDSIDE ALARMS SET AND AUDIBLE SUCTIONED A SMALL AMOUNT OF THIN RED SECRETIONS BREATH SOUNDS EQUAL BILATERAL COARSE PT RECEIVING ALBUTEROL AND ATROVENT Addendum: 12/05/16 at 2037 by JACOB ALONZO Amended: Links added.
[2016-12-05] MEDS: MICAFUNGIN SODIUM 100 MG in IV NS 0.9% 100 ML IV SCH (21:41)
[2016-12-05] MEDS: PANTOPRAZOLE 40 MG VIAL IV SCH (21:41)
[2016-12-06] VITALS (50 sets, daily range): BP systolic 91–135; BP diastolic 33–94
[2016-12-06] MEDS: CEFAZOLIN 1 GM in IV NS 0.9% 50 ML IV SCH ×2 (00:48→11:57)
[2016-12-06] MEDS ORDERED: IV SET PRIMARY PUMP SET 1 EA INFUS.SET MC ONE ×3 (01:07→23:48)
[2016-12-06] MEDS: MORPHINE SULFATE INJ 2 MG/ML DISP.SYRIN IV PRN (01:11)
--- NOTE | 2016-12-06 01:32 | NUR ---
[facility]ICE [facility]: pt still awake, agitates, sweating, no fever, pain meds given, restlessness, TACHYPNEIC RR 30, breathing over the vent, diprivan increased to 25 mcg/kg/min. ONGOING MONITORING..
[2016-12-06] MEDS: ALBUTEROL FS 2.5 MG/3 ML VIAL.NEB NEB SCH ×4 (02:18→19:39)
[2016-12-06] MEDS: IPRATROPIUM NEB FS 0.5 MG/2.5 ML AMPUL.NEB NEB SCH ×4 (02:18→19:39)
[2016-12-06] MEDS: IV NS 0.9% 250 ML IV PRN (03:46)
[2016-12-06] MEDS: PROPOFOL 100 ML IV PRN ×6 (04:03→22:13)
[2016-12-06 04:32] LABS: BASOPHILS # (AUTO) 0.1 /CMM (0.0-0.2); BASOPHILS % (AUTO) 1.1 % (0.0-2.0); EOSINOPHILS # (AUTO) 0.8 /CMM (0.0-0.7); EOSINOPHILS % (AUTO) 6.4 % (0.0-6.0); HEMATOCRIT 23 % (39-51); HEMOGLOBIN 7.7 g/dL (13.5-17.5); LYMPHOCYTES # (AUTO) 0.7 /CMM (0.8-4.8); LYMPHOCYTES % (AUTO) 5.5 % (20.0-44.0); MEAN CORPUSCULAR HEMOGLOBIN 30 PG (26.0-33.0); MEAN CORPUSCULAR HGB CONC 34 g/dl (31.0-36.0); MEAN CORPUSCULAR VOLUME 88 fL (80-96); MONOCYTES # (AUTO) 0.9 /CMM (0.1-1.30); MONOCYTES % (AUTO) 7.8 % (2.0-12.0); NEUTROPHILS # (AUTO) 9.5 /CMM (1.8-8.9); NEUTROPHILS % (AUTO) 79.2 % (43.0-81.0); PLATELET COUNT (AUTO) 167 /CMM (150-450); RDW COEFFICIENT OF VARIATION 16.8 (11.5-15.0); RED BLOOD CELL COUNT(AUTO) 2.61 MIL/uL (4.5-6.0)
[2016-12-06 04:46] LABS: CALCIUM, SERUM 7.9 mg/dL (8.5-10.1); CREATININE 4.8 mg/dL (0.6-1.3); MAGNESIUM 2.1 mg/dL (1.8-2.4); PHOSPHORUS 2.1 mg/dL (2.5-4.9); POTASSIUM 3.9 mmol/L (3.5-5.1)
[2016-12-06] MEDS: INSULIN REGULAR, HUMAN 100 UNIT/ML 3 ML VIAL SQ PRN ×4 (05:48→23:59)
[2016-12-06] MEDS: BLOOD SUGAR DIAGNOSTIC 1 EACH STRIP IN SCH ×4 (05:48→23:58)
[2016-12-06] MEDS: CALCIUM ACETATE 667 MG TABLET PO SCH (08:00)
[2016-12-06] MEDS: SEVELAMER CARBONATE 0.8 GM POWD.PACK GT SCH (08:00)
--- NOTE | 2016-12-06 08:00 | NUR ---
WOUND CARE CONSULT: PT PRESENTS WITH INTACT SKIN AND SMALL DRY ABRASION TO LEFT ARM. NO DRAINAGE OR REDNESS NOTED. PT INTUBATED, ON FIRST STEP MATTRESS. ALL SKIN PROTECTION MEASURES IN PLACE AND DISCUSSED WITH NURSING STAFF. WILL SEE PRN. ANDRES IN AGREEMENT WITH PLAN OF CARE. Addendum: 12/06/16 at 0802 by STEVE WASSERMAN WNDNU Amended: Links added.
--- NOTE | 2016-12-06 08:15 | NUR ---
ASSOCIATE PASTOR NOTE: RECEIVED PATIENT IN BED INTUBATED WITH ETT 7.5 21CMS AT THE LIP VENT SETTINGS NOTED AND VERIFIED. OPENS EYES, SEDATION VACATION PROVIDED. RESPONDS TO NAME, ALERT TO SELF AND PLACE. PATIENT PLACED BACK ON PROPOFOL AND TITRATED UP TO 45MCG/KG/MIN PATIENT BECAME TACHYPNEIC WITH INCREASED WORK OF BREATHING AND DISTRESS NOTED, SR ON TELE, BP STABLE. PT NOTED WITH IV ACCESS NINA MID LINE AND MILAGROS PICC LINE PATENT INFUSING MEDS WITH GOOD BLOOD RETURN, AND RIJ HD CATHETER. PATIENT NOTED WITH RNARE NGTUBE IN PLACEMENT VERIFIED. ON NOVASOURCE AT 40ML/HR NO RESIDUAL NOTED. WOUND CARE CONSULT DONE AND SKIN INTACT. ON 1ST STEP AIR MATTRESS. PATIENT KEPT CLEAN AND DRY, TURN AND REPOSITION, EXTREMITIES OFFLOADED. SAFETY MAINTAINED, CALL LIGHT WITHIN REACH ONGOING MONITORING
[2016-12-06] MEDS: LACTOBACILLUS RHAMNOSUS GG 1 EACH CAP.SPRINK PO SCH ×2 (08:28→16:16)
[2016-12-06] MEDS: ASPIRIN 81 MG TAB.CHEW NG SCH (08:28)
[2016-12-06] MEDS: DOCUSATE SODIUM LIQ 100 MG/10 ML UDC GT SCH ×2 (08:28→16:16)
--- NOTE | 2016-12-06 08:40 | NUR ---
STUDIO DIRECTOR NOTE: DR. WONG AT BEDSIDE. PATIENT NOTED ON DIPRIVAN AT 45MCG/KG/MIN HOWEVER CALM AND COOPERATIVE ABLE TO RESPOND. NOTED TO BE TACHYPNEIC. NO PLAN FOR WEANING TODAY. ONGOING MONITORING.
[2016-12-06 09:00] LABS: ABG BASE EXCESS -0.6 mmol/L; ABG OXYGEN SATURATION 92.1 % (92.0-98.5); ABG PCO2 35.1 mmHg (35.0-45.0); ABG PH 7.441 (7.350-7.450); ABG PO2 63.2 mmHg (75.0-100.0); AaDO2 253.8 mmHg; COHb 1.1 % (0.5-1.5); MetHb 1.2 % (0.0-1.5); PEEP,BG 5 cm H2O; SITE, ABG Right Radial; VT, ABG 550 mL
--- NOTE | 2016-12-06 09:42 | NUR ---
ROLLER COASTER OPERATOR NOTE: DR. GUARDADO AT BEDSIDE, INFORMED THAT PATENT'S HGB IS 7.7 FROM 8.8 YESTERDAY AND PHOS IS 2.1. RECEIVED ORDER TO DISCONTINUE PHOSLO AND RENVELA. PATIENT WILL HAVE HD TODAY HOWEVER NO ORDER FOR TRANSFUSION TODAY. ONGOING MONITORING.
--- NOTE | 2016-12-06 11:46 | NUR ---
SENIOR TECHNICAL SUPPORT ENGINEER NOTE: RECEIVED ORDER FOR URINE DRUG SCREEN, PATIENT ANURIC UNABLE TO OBTAIN SAMPLE. ONGOING MONITORING
[2016-12-06] MEDS: ACETAMINOPHEN 650 MG/20.3 ML UDC NG PRN (12:13)
[2016-12-06] MEDS: CEFAZOLIN 500 MG in IV NS 0.9% 50 ML IV SCH (13:00)
[2016-12-06] MEDS ORDERED: NEUTRA PHOS 1 POWD.PACKET GT ONE (14:30)
[2016-12-06] MEDS ORDERED: IBUPROFEN 400 MG TABLET GT PRN (15:30)
--- NOTE | 2016-12-06 15:50 | NUR ---
AUTOMOTIVE METALSMITH NOTE: HD NURSE AT BEDSIDE STARTING HD. VS STABLE. ORAL CARE PROVIDED. PATIENT TURNED AND REPOSITIONED AND SUCTIONED. ONGOING MONITORING
[2016-12-06] MEDS: RENAL NOVASOURCE 1,000 ML BOTTLE GT PRN (17:55)
--- NOTE | 2016-12-06 18:20 | NUR ---
ELECTRICAL MECHANIC NOTE: HD COMPLETE AND 2800ML OUT. VS STABLE. PATIENT TOLERATED HD WELL. PATIENT CLEANED AND TURNED AND REPOSITIONED. SKIN CARE RENDERED. EXTREMITIES OFFLOADED. DIPRIVAN TITRATED UP TO 60MCG/KG/MIN PER PROTOCOL PER ORDER. SAFETY MEASURES OBSERVED. WILL ENDORSE FOR CONTINUITY OF CARE.
[2016-12-06] MEDS: PANTOPRAZOLE 40 MG VIAL IV SCH (20:05)
--- NOTE | 2016-12-06 22:30 | NUR ---
AIRFRAME DESIGN ENGINEER SBP INTERMITTENTLY 80s DECREASED DIPRIVAN TO 55 MCG/KG/MIN; CONTINUE TO MONITOR.
[2016-12-06] MEDS ORDERED: IV NS 0.9% 250 ML IV ONE (23:48)
[2016-12-07] VITALS (40 sets, daily range): BP systolic 90–110; BP diastolic 27–43
[2016-12-07] MEDS: IV NS 0.9% 250 ML IV PRN
[2016-12-07] MEDS: CEFAZOLIN 500 MG in IV NS 0.9% 50 ML IV SCH ×2 (00:01→12:00)
[2016-12-07] MEDS: ALBUTEROL FS 2.5 MG/3 ML VIAL.NEB NEB SCH ×4 (01:47→20:01)
[2016-12-07] MEDS: IPRATROPIUM NEB FS 0.5 MG/2.5 ML AMPUL.NEB NEB SCH ×4 (01:47→20:01)
[2016-12-07 04:59] LABS: BASOPHILS # (AUTO) 0.2 /CMM (0.0-0.2); BASOPHILS % (AUTO) 1.4 % (0.0-2.0); EOSINOPHILS # (AUTO) 1.5 /CMM (0.0-0.7); EOSINOPHILS % (AUTO) 12.3 % (0.0-6.0); HEMATOCRIT 23 % (39-51); HEMOGLOBIN 7.8 g/dL (13.5-17.5); LYMPHOCYTES # (AUTO) 0.8 /CMM (0.8-4.8); LYMPHOCYTES % (AUTO) 6.5 % (20.0-44.0); MEAN CORPUSCULAR HEMOGLOBIN 30 PG (26.0-33.0); MEAN CORPUSCULAR HGB CONC 34 g/dl (31.0-36.0); MEAN CORPUSCULAR VOLUME 87 fL (80-96); MONOCYTES % (AUTO) 8.1 % (2.0-12.0); NEUTROPHILS # (AUTO) 8.6 /CMM (1.8-8.9); NEUTROPHILS % (AUTO) 71.7 % (43.0-81.0); PLATELET COUNT (AUTO) 198 /CMM (150-450); RED BLOOD CELL COUNT(AUTO) 2.62 MIL/uL (4.5-6.0)
[2016-12-07] MEDS: BLOOD SUGAR DIAGNOSTIC 1 EACH STRIP IN SCH ×3 (05:00→17:05)
[2016-12-07] MEDS: PROPOFOL 100 ML IV PRN ×8 (05:01→23:36)
[2016-12-07 05:27] LABS: CALCIUM, SERUM 7.9 mg/dL (8.5-10.1); CREATININE 5.9 mg/dL (0.6-1.3); MAGNESIUM 2.3 mg/dL (1.8-2.4); PHOSPHORUS 2.8 mg/dL (2.5-4.9); POTASSIUM 4.5 mmol/L (3.5-5.1)
[2016-12-07] MEDS: INSULIN REGULAR, HUMAN 100 UNIT/ML 3 ML VIAL SQ PRN ×3 (05:53→17:22)
[2016-12-07 06:00] LABS: EOSINOPHILS % (MANUAL) 13 % (0-4); LYMPHOCYTES % (MANUAL) 10 % (16-48); MONOCYTES % (MANUAL) 8 % (0-11.0); NEUTROPHILS % (MANUAL) 69 (42-76)
[2016-12-07 07:15] LABS: ALBUMIN 2.2 g/dL (3.4-5.0); BILIRUBIN,DIRECT 0.5 mg/dL (0.0-0.2); TOTAL PROTEIN, SERUM 6.9 g/dL (6.4-8.2)
[2016-12-07] MEDS ORDERED: IV SET PRIMARY PUMP SET 1 EA INFUS.SET MC ONE ×4 (07:51→20:08)
--- NOTE | 2016-12-07 07:53 | NUR ---
INITIAL PENSION EXAMINER NOTE RCVD PT SEDATED ON DIPRIVAN, SR ON TELE. ETT 7.5 AT 21 AT LIP TOLERATING ORDERED VENT SETTINGS WELL. RIGHT NARE TUBE PLACEMENT VERIFIED NO RESIDUAL OBSERVED, FEEDING TOLERATED. MILAGROS PICC, NINA MIDLINE NO S/O INFILTRATION OR PHLEBITIS OBSERVED UPON FLUSHING. WILL CONTINUE TO MONITOR PT FOR SAFETY AND COMFORT. CALL LIGHT WITHIN REACH. BED IN LOW AND LOCKED POSITION. Addendum: 12/07/16 at 1146 by CARLA WARREN RN ETT 22 AT LIP PT ABLE TO FOLLOW COMMANDS WHILE SEDATED.
--- NOTE | 2016-12-07 08:24 | NUR ---
PT REC'D INTUBATED VIA 7.5 ETT AT 22CM AT THE LIP. BS BILAT. EQUAL AND COARSE. ETT WILL SHIFTED TO PREVENT PRESSURE ULCERS THROUGHOUT THE SHIFT. ABG PENDING. SX'D SEMI-THICK BLOODY/YELLOW SECRETIONS FROM ETT. VENT SETTINGS PER MD REQUEST. ALARMS CHECKED AND AUDIBLE PER POLICY. VENT PLUGGED INTO RED OUTLET. [facility] AT [facility]. WILL CONTINUE TO MONITOR PT.
[2016-12-07 08:44] LABS: ABG BASE EXCESS -1.1 mmol/L; ABG OXYGEN SATURATION 96.8 % (92.0-98.5); ABG PCO2 37.1 mmHg (35.0-45.0); ABG PH 7.415 (7.350-7.450); ABG PO2 97.2 mmHg (75.0-100.0); AaDO2 289.8 mmHg; COHb 0.9 % (0.5-1.5); MetHb 1.2 % (0.0-1.5); O2Hb 94.8 % (94.0-97.0); PEEP,BG 8 cm H2O; SITE, ABG Right Radial; VT, ABG 550 mL
[2016-12-07] MEDS: ASPIRIN 81 MG TAB.CHEW NG SCH (08:47)
[2016-12-07] MEDS: DOCUSATE SODIUM LIQ 100 MG/10 ML UDC GT SCH ×2 (08:47→17:05)
[2016-12-07] MEDS: LACTOBACILLUS RHAMNOSUS GG 1 EACH CAP.SPRINK PO SCH ×2 (08:47→17:05)
[2016-12-07] MEDS ORDERED: ALBUMIN 25% 25 GM in PREMIX 1 EA IV PRN (10:00)
[2016-12-07] MEDS ORDERED: IV NS 0.9% 250 ML IV ONE ×2 (11:40→20:08)
--- NOTE | 2016-12-07 12:39 | NUR ---
SHIPFITTER NOTE DR. SMITH INFORMED OF TRIGLYCERIDE 360 ON 12/04 HE RECOMMENDED TO RE-DRAW LAB TODAY AND RE-EVALUATE PT'S SEDATION MEDICATION. WILL F/U.
[2016-12-07] MEDS: CEFAZOLIN 1 GM in IV D5W 50 ML IV SCH (12:52)
--- NOTE | 2016-12-07 14:30 | NUR ---
INDUSTRIAL MACHINE SYSTEM TECHNICIAN NOTE DR. SMITH INFORMED OF TODAY'S TRIGLYCERIDE RESULTS 293 HE RECOMMENDED TO CONTINUE WITH DIPRIVAN.
[2016-12-07] MEDS ORDERED: EPOETIN ALFA (10,000 UNIT) 10,000 UNIT/ML VIAL SQ ONE (15:00)
[2016-12-07] MEDS: ALBUMIN 25% 25 GM in PREMIX 1 EA IV PRN (16:19)
[2016-12-07] MEDS: RENAL NOVASOURCE 1,000 ML BOTTLE GT PRN (17:05)
--- NOTE | 2016-12-07 18:08 | NUR ---
ENDING VOICE TEACHER NOTE PT CONTINUES TO BE SEDATED, FOLLOWING COMMANDS, SR ON TELE. ETT 7.5 22 AT LIP. TOLERATING ORDERED TUBE FEEDING RATE. IV LINES C/D/I/PATENT. NO S/O INFILTRATION OR PHLEBITIS OBSERVED IVF INFUSING. DIALYSIS DONE TODAY PT TOLERATED ALBUMIN INFUSED DURING TREATMENT. CALL LIGHT WITHIN REACH. BED IN LOW AND LOCKED POSITION.
[2016-12-07] MEDS: PANTOPRAZOLE 40 MG VIAL IV SCH (20:18)
--- NOTE | 2016-12-07 20:30 | NUR ---
ICU/PROPERTY ECONOMIST FAMILY MEMBERS AT BEDSIDE, PT APPEARED TO RESPOND TO THEM BY WAVING HIS HAND. ASKED ABOUT UPDATE, SMALL REPORT GIVEN, THEN STAYED FOR ABOUT 15-20 MINUTES THEN WENT HOME.
--- NOTE | 2016-12-07 22:10 | NUR ---
ICU/NUT PICKER BOTHER AT BEDSIDE, RESPONDED TO HIM BY WAVING HIS HAND.THEN HE ASKED ABOUT ANY UPDATES, BRIEF REPORT GIVEN, HE STAYED FOR ABOUT 15 MINUTES THEN WENT HOME.
[2016-12-08] VITALS (41 sets, daily range): BP systolic 99–134; BP diastolic 33–55
[2016-12-08] MEDS: BLOOD SUGAR DIAGNOSTIC 1 EACH STRIP IN SCH ×5 (00:43→23:34)
[2016-12-08] MEDS: CEFAZOLIN 1 GM in IV D5W 50 ML IV SCH ×2 (00:47→12:02)
[2016-12-08] MEDS: ACETAMINOPHEN 650 MG/20.3 ML UDC NG PRN (00:49)
[2016-12-08] MEDS: INSULIN REGULAR, HUMAN 100 UNIT/ML 3 ML VIAL SQ PRN ×5 (00:49→23:28)
[2016-12-08] MEDS: IPRATROPIUM NEB FS 0.5 MG/2.5 ML AMPUL.NEB NEB SCH ×4 (01:49→19:51)
[2016-12-08] MEDS: ALBUTEROL FS 2.5 MG/3 ML VIAL.NEB NEB SCH ×4 (01:49→19:51)
--- NOTE | 2016-12-08 02:30 | NUR ---
ICU/DEMOGRAPHER PT WAS GIVEN TYLENOL VIA N/G TUBE FOR PAIN, USING FLACC SCALE PAIN RATED BETWEEN 5-7/10. WILL CONTINUE TO MONITOR PT'S PAIN.
[2016-12-08] MEDS: PROPOFOL 100 ML IV PRN ×2 (03:20→07:12)
[2016-12-08 04:48] LABS: BASOPHILS # (AUTO) 0.1 /CMM (0.0-0.2); BASOPHILS % (AUTO) 1.1 % (0.0-2.0); EOSINOPHILS # (AUTO) 1.5 /CMM (0.0-0.7); EOSINOPHILS % (AUTO) 13.3 % (0.0-6.0); HEMATOCRIT 23 % (39-51); HEMOGLOBIN 7.8 g/dL (13.5-17.5); LYMPHOCYTES # (AUTO) 0.8 /CMM (0.8-4.8); LYMPHOCYTES % (AUTO) 7.6 % (20.0-44.0); MEAN CORPUSCULAR HEMOGLOBIN 30 PG (26.0-33.0); MEAN CORPUSCULAR HGB CONC 34 g/dl (31.0-36.0); MEAN CORPUSCULAR VOLUME 87 fL (80-96); MONOCYTES # (AUTO) 0.8 /CMM (0.1-1.30); MONOCYTES % (AUTO) 6.8 % (2.0-12.0); NEUTROPHILS # (AUTO) 7.9 /CMM (1.8-8.9); NEUTROPHILS % (AUTO) 71.2 % (43.0-81.0); PLATELET COUNT (AUTO) 227 /CMM (150-450); RDW COEFFICIENT OF VARIATION 17.1 (11.5-15.0); RED BLOOD CELL COUNT(AUTO) 2.62 MIL/uL (4.5-6.0); WHITE BLOOD COUNT (AUTO) 11.1 K/uL (4.3-11.0)
[2016-12-08 04:56] LABS: CREATININE 4.9 mg/dL (0.6-1.3); MAGNESIUM 2.1 mg/dL (1.8-2.4); PHOSPHORUS 3.1 mg/dL (2.5-4.9); POTASSIUM 4.2 mmol/L (3.5-5.1)
--- NOTE | 2016-12-08 07:57 | NUR ---
INITIAL COMMERCIAL MANAGEMENT ACCOUNTANT NOTE RCVD PT SEDATED ON DIPRIVAN, ABLE TO FOLLOW COMMANDS. SR ON TELE. TOLERATING ORDERED VENT SETTINGS. RIGHT NG TUBE PLACEMENT VERIFIED. NO RESIDUAL OBSERVED. IV LINES C/D/I/PATENT. NO S/O INFILTRATION OR PHLEBITIS OBSERVED IVF INFUSING. WILL CONTINUE TO MONITOR PT FOR SAFETY AND COMFORT. CALL LIGHT WITHIN REACH. BED IN LOW AND LOCKED POSITION.
--- NOTE | 2016-12-08 08:05 | NUR ---
RT PT RECEIVED ORALLY INTUBATED WITH A 7.5 ETT SECURED AT 22CM AT THE LIP LINE. PT RESPONDS TO STIMULI. VENT ALARMS ARE SET AND AUDIBLE WITH BVM BY BEDSIDE. HR ASSISTANT CUFF PRESSURE NOTED. VENT IS PLUGGED INTO RED OUTLET. SX MODERATE THICK WHITE SECRETIONS. NO RESPIRATORY DISTRESS NOTED AT THIS TIME, WILL CONTINUE TO MONITOR. Addendum: 12/08/16 at 1516 by PRATIMA CASTELLANOS RT Amended: Links added.
[2016-12-08] MEDS: LACTOBACILLUS RHAMNOSUS GG 1 EACH CAP.SPRINK PO SCH ×2 (08:11→16:46)
[2016-12-08] MEDS: ASPIRIN 81 MG TAB.CHEW NG SCH (08:11)
[2016-12-08] MEDS: DOCUSATE SODIUM LIQ 100 MG/10 ML UDC GT SCH ×2 (08:11→16:53)
--- NOTE | 2016-12-08 10:25 | NUR ---
OFF OF DIPRIVAN. AWAKE AND ALERT AND FOLLOWS COMMANDS. NODS HEAD YES AND NO TO QUESTIONS. VERY MINIMAL LUE MOVEMENT. MOVES RUE STRONGLY AND PURPOSEFULLY. WIGGLES ALL TEN TOES TO COMMAND. D/W DR SMITH AND THERAPY TEACHER ARMANI
--- NOTE | 2016-12-08 10:45 | NUR ---
AUTOMATIC BEADING LATHE OPERATOR NOTE PT OFF SEDATION CONTINUES TO BE ALERT AND FOLLOW COMMANDS. MARCI, REHABILITATION THERAPY TECHNICIAN AT BEDSIDE UPDATED ON PT'S CONDITION. WILL CONTINUE TO MONITOR.
--- NOTE | 2016-12-08 14:07 | NUR ---
MANAGING DIRECTOR ATLAS NOTE PT TAKEN TO RADIOLOGY VIA BED PER PROTOCOL FOR CT SCAN OF HEAD. RT, RN AND TRANSPORT AT BEDSIDE.
--- NOTE | 2016-12-08 14:22 | NUR ---
BUSINESS EDUCATION TEACHER NOTE PT RETURNED TO ROOM FROM RADIOLOGY IN STABLE CONDITION. PT PLACED BACK ON BEDSIDE MONITOR, NGTUBE PLACEMENT VERIFIED AND FLUSHED.
[2016-12-08] MEDS: RENAL NOVASOURCE 1,000 ML BOTTLE GT PRN (16:46)
[2016-12-08] MEDS: Z GUARD REMEDY 2 OZ OINT TP PRN (17:00)
[2016-12-08] MEDS: MORPHINE SULFATE INJ 2 MG/ML DISP.SYRIN IV PRN (18:37)
--- NOTE | 2016-12-08 18:48 | NUR ---
ENDING LINECASTING MACHINE KEYBOARD OPERATOR NOTE PT AWAKE AND ALERT OFF SEDATION, SHOWING NO S/O DISTRESS OR PAIN. SR ON TELE. CONTINUES TO TOLERATE ORDERED VENT SETTINGS. RIGHT NG TUBE IN PLACE. TOLERATING TUBE FEEDING RATE. IV SITES C/D/I/PATENT. NO S/O INFILTRATION OR PHLEBITIS OBSERVED IVF INFUSING. CALL LIGHT WITHIN REACH. BED IN LOW AND LOCKED POSITION. Addendum: 12/08/16 at 1850 by CARLA WARREN RN PT'S CARE WILL BE ENDORSED TO MATHEMATICS ACADEMIC CHAIR RN FOR CONTINUITY OF CARE.
[2016-12-08] MEDS: PANTOPRAZOLE 40 MG VIAL IV SCH (19:35)
--- NOTE | 2016-12-08 19:44 | NUR ---
GRAD INTERN NOTES RECEIVED REPORT FROM NADYA. PATIENT IS ALERT ORIENTED X3, KAZAKH SPEAKING. SR 8U3 BP 121/47 O2 SAT 00% TEMP 99.3, ET TO VENT WITH SETTINGS AC 12 TV 550 FIO2 50% PEEP 8, NGT TO L NARE CONNECTED TO FEEDING NOVASOUNRCE 40 WITH NO RESIDUAL. ANURIC, SCD'S ON, NORMAL RADIAL PULSES, NO SOB, ICC LINE PATENT WITH BLOOD RETURN/FLUSHED, PAIN REASSESSMENT 0 PER RONY PAINTING. WILL CONTINUE TO MONITOR. Addendum: 12/08/16 at 2007 by CASSIE MORA RN [place] ICU PATIENT IS CALM, NOT SEDATED, NOT PULLING ON TUBES
--- NOTE | 2016-12-08 21:49 | NUR ---
FIRE CREW WORKER VERBALIZED SOME DIFFICULTY IN BREATHING (GUEST SUPERINTENDENT RADIO COMMUNICATIONS), O2 SAT 100% ON PRESENT VENT SETIINGS, SUCTIONED THIN WHITISH SECRETION VIA ET, SUCTIONED MOUTH AND GIVEN MOUTH CARE, CALL MADE TO RT TO REASSES, EMOTIONAL SUPPORT GIVEN. Addendum: 12/08/16 at 2203 by CASSIE MORA RN FIRE CREW WORKER DENIES CHEST PAIN
[2016-12-09] VITALS (57 sets, daily range): BP systolic 92–202; BP diastolic 35–91
[2016-12-09] MEDS: CEFAZOLIN 1 GM in IV D5W 50 ML IV SCH ×2 (00:36→12:02)
--- NOTE | 2016-12-09 00:49 | NUR ---
BUILDING INSPECTION ENGINEER PATIENT'S IJ HD LINE ACCIDENTALLY GOT PULLED OUT, MINIMAL BLEEDING/IMMEDIATELY APPLIED PRESSURE, PRESSURE KEPT FOR 15 MIN AND PRESSURE DRESSING APPLIED BY CHARGE NURSE ED, REPORTED TO DR JORDAN WHO WAS IN THE STATION AT THE TIME, WILL CONTINUE TO WATCH FOR BLEEDING.SUCTIONED LARGE AMOUNT OF WHITISH ORAL SECRETIONS AND SMALL AMOUNT OF NICOLE SECRETIONS FROM ET. Addendum: 12/09/16 at 0329 by CASSIE MORA RN BUILDING INSPECTION ENGINEER NO BLEEDING ON FORMER IJ SITE
[2016-12-09] MEDS: ALBUTEROL FS 2.5 MG/3 ML VIAL.NEB NEB SCH ×4 (01:52→19:30)
[2016-12-09] MEDS: IPRATROPIUM NEB FS 0.5 MG/2.5 ML AMPUL.NEB NEB SCH ×4 (01:52→19:30)
--- NOTE | 2016-12-09 02:13 | NUR ---
FINISH PHOTOGRAPHER VERBALIZED SOB, O2 SAT FROM 100% TO 93%, SUBSTERNAL RETRACTIONS NOTED, RR 26 BP 163.75, TACHY 110, SUCTIONED DONE BY RN AND RT, ASSESSED BY RT, PEAK FLOW TO 70% BY RT, PATIENT DENIED PAIN. SOB RELIEVED, V/S TO STABLE SR 97, RR 23, O2 SAT 99% BP 138/57
[2016-12-09 04:33] LABS: BASOPHILS # (AUTO) 0.5 /CMM (0.0-0.2); BASOPHILS % (AUTO) 2.8 % (0.0-2.0); EOSINOPHILS # (AUTO) 0.5 /CMM (0.0-0.7); EOSINOPHILS % (AUTO) 3.1 % (0.0-6.0); HEMATOCRIT 26 % (39-51); HEMOGLOBIN 8.8 g/dL (13.5-17.5); LYMPHOCYTES # (AUTO) 0.8 /CMM (0.8-4.8); LYMPHOCYTES % (AUTO) 4.9 % (20.0-44.0); MEAN CORPUSCULAR HEMOGLOBIN 29 PG (26.0-33.0); MEAN CORPUSCULAR HGB CONC 34 g/dl (31.0-36.0); MEAN CORPUSCULAR VOLUME 86 fL (80-96); MONOCYTES % (AUTO) 6.4 % (2.0-12.0); NEUTROPHILS # (AUTO) 13.3 /CMM (1.8-8.9); NEUTROPHILS % (AUTO) 82.8 % (43.0-81.0); PLATELET COUNT (AUTO) 314 /CMM (150-450); RDW COEFFICIENT OF VARIATION 16.4 (11.5-15.0)
[2016-12-09 04:56] LABS: CALCIUM, SERUM 8.3 mg/dL (8.5-10.1); CREATININE 6.5 mg/dL (0.6-1.3); POTASSIUM 5.1 mmol/L (3.5-5.1)
--- NOTE | 2016-12-09 05:10 | NUR ---
SCIENTIST IMMUNOLOGY CRITICAL LAB CALLED BY LAB BUN 105 AND CREA 6.5, REPORTED TO DR JORDAN
[2016-12-09] MEDS: BLOOD SUGAR DIAGNOSTIC 1 EACH STRIP IN SCH ×4 (05:18→23:32)
[2016-12-09] MEDS: INSULIN REGULAR, HUMAN 100 UNIT/ML 3 ML VIAL SQ PRN ×4 (05:21→23:24)
[2016-12-09] MEDS: CLONIDINE HCL 0.1 MG TABLET PO PRN (07:10)
--- NOTE | 2016-12-09 07:13 | NUR ---
RN SUDDEN DESAT AT 0648, HYPERVENTILATED AND SUCTIONED, SEEN BY RT'S, HIGH BP 200/79, TACHY 122, MORPHINE 2 MG PRN GIVEN, CLONIDINE PRN GIVEN, NOW WITH RT TATUM. DR SONG CALLED AND ORDERED TO CALL DR RUIZ. DR RUIZ CALLED BUT NOT AVAILABLE AND NOW TRYING TO REACH DR SANTIAGO OR SUSANNA THOMPSON.
[2016-12-09] MEDS ORDERED: IV SET PRIMARY PUMP SET 1 EA INFUS.SET MC ONE ×3 (07:25→22:26)
[2016-12-09] MEDS: PROPOFOL 100 ML IV PRN ×2 (07:35→16:08)
--- NOTE | 2016-12-09 07:35 | NUR ---
ICU/RN - Notes Pt noted to be tachypneic RR 30's, hypertensive with BP as high 200/79, tachycardic 120's, pt restarted on Diprivan drip as pt manifests distress, while orally intubated to mechanical vent. RT at bedside.
[2016-12-09] MEDS: DOCUSATE SODIUM LIQ 100 MG/10 ML UDC GT SCH ×2 (08:14→16:06)
[2016-12-09] MEDS: ASPIRIN 81 MG TAB.CHEW NG SCH (08:14)
[2016-12-09] MEDS: LACTOBACILLUS RHAMNOSUS GG 1 EACH CAP.SPRINK PO SCH ×2 (08:14→16:06)
[2016-12-09] MEDS: ACETAMINOPHEN 650 MG/20.3 ML UDC NG PRN ×2 (08:14→21:34)
--- NOTE | 2016-12-09 08:57 | NUR ---
ICU/RN - Notes Pt noted with temperature 101.2 F. Per order from Infectious Disease, blood culture x2 (including one from PICC line) and respiratory culture obtained and sent to lab. Attempted to collect urine per order, but unable to obtain sufficient urine via straight cath as pt is anuric, scant urine amount drained. Administered Tylenol 650mg via NGT as ordered. Cooling measures in place. Will continue to monitor.
--- NOTE | 2016-12-09 09:00 | NUR ---
ICU/RN - Notes Per charge nurse, Dr Todd Glover will place HD catheter tomorrow, unable today.
[2016-12-09] MEDS ORDERED: SECONDARY IV SET 1 EA INFUS.SET MC ONE ×2 (11:45→14:31)
[2016-12-09] MEDS: IV NS 0.9% 250 ML IV PRN (12:18)
[2016-12-09] MEDS ORDERED: DOSE PER PHARMACY MICAFUNGIN 1 EA XX PRN (14:00)
[2016-12-09] MEDS: MEROPENEM 500 MG in IV NS 0.9% 50 ML IV SCH (15:12)
[2016-12-09] MEDS: MICAFUNGIN SODIUM 100 MG in IV NS 0.9% 100 ML IV SCH (16:06)
[2016-12-09] MEDS: MORPHINE SULFATE INJ 2 MG/ML DISP.SYRIN IV PRN ×2 (16:30→23:30)
--- NOTE | 2016-12-09 16:30 | NUR ---
ICU/RN - Notes Pt noted to be diaphoretic, vital signs changes - tachypneic RR 40's, hypertensive with BP as high 147/48, tachycardic 108, O2 saturation 90%, Diprivan titrated up as pt is in distress. Morphine 2mg IVP administered to ensure comfort as pt is intubated. Will continue to monitor.
[2016-12-09] MEDS: RENAL NOVASOURCE 1,000 ML BOTTLE GT PRN (17:09)
[2016-12-09] MEDS: LINEZOLID RTU BAG 600 MG in PREMIX 1 EA IV SCH (17:12)
[2016-12-09] MEDS: CLOTRIMAZOLE 1% 15 GM TUBE TP SCH (18:33)
--- NOTE | 2016-12-09 18:53 | NUR ---
ICU/RN - Notes Pt appears comfortable with eyes closed. Sedated on Diprivan @ 30 mcg/kg/min. All needs met and attended. Will endorse to night nurse for continuity of care.
--- NOTE | 2016-12-09 20:26 | NUR ---
PT RECEIVED INTUBATED 7.5 ETT SECURED AT 22CM AT THE LIP. PT TACHYPNEIC ON VENT. PT ON 80% FIO2 O2 SAT IS 97%. SX'D FOR MOD AMT OF TINGED SECRETIONS. VENT ALARMS SET AND AUDIBLE. AMBU BAG AT [facility]. VENT PLUGGED INTO RED OUTLET. WILL CONTINUE TO MONITOR. Addendum: 12/09/16 at 2028 by ANITA DIGGS RT Amended: Links added.
--- NOTE | 2016-12-09 20:53 | NUR ---
ULTRASOUND TECHNOLOGIST SONOGRAPHER DF PT SEDATED ON 35MCG OF PROPOFOL INCREASED FROM 25MCG PT OVERBREATHING VENT,RESTLESS,AGITATED. PT OBSERVED MOVING RIGHT HAND SCRATCH FACE AND PT IS PLACING HIS HAND ON ETT. PT ON 12/08 REMOVED HD CATH PER REPORT. PT SELF EXTUBATION RISK.PLACED RIGHT HAND IN SOFT RESTRAINT FOR PT SAFETY. PT WITH FEVER OF 100.1 COOLING MEASURES PROVIDED. WILL MEDICATE PT WITH TYLENOL. PT VSS. BP OF 92/53 TOLERATING VENT SETTINGS. NAD NOTED.
[2016-12-09] MEDS: PANTOPRAZOLE 40 MG VIAL IV SCH (20:59)
--- NOTE | 2016-12-09 23:30 | NUR ---
DARKROOM TECHNICIAN DF MORPHINE 2MG IVP ADMIN PRN PAIN FLACC OF 2 DIAPHORETIC RESTLESS,AGITATED.SEDATED ON PROPOFOL@40MCG. ACCU CHECK OF 143 COVERED WITH 2UNITS PER RISS.
[2016-12-10] VITALS (48 sets, daily range): BP systolic 91–128; BP diastolic 33–50
[2016-12-10] MEDS: ALBUTEROL FS 2.5 MG/3 ML VIAL.NEB NEB SCH ×4 (01:14→20:26)
[2016-12-10] MEDS: IPRATROPIUM NEB FS 0.5 MG/2.5 ML AMPUL.NEB NEB SCH ×4 (01:14→20:26)
[2016-12-10] MEDS: MEROPENEM 500 MG in IV NS 0.9% 50 ML IV SCH ×2 (02:37→14:10)
[2016-12-10] MEDS: PROPOFOL 100 ML IV PRN ×4 (02:37→17:51)
[2016-12-10 04:58] LABS: BASOPHILS # (AUTO) 0.3 /CMM (0.0-0.2); BASOPHILS % (AUTO) 2.1 % (0.0-2.0); EOSINOPHILS # (AUTO) 0.5 /CMM (0.0-0.7); EOSINOPHILS % (AUTO) 3.1 % (0.0-6.0); HEMATOCRIT 22 % (39-51); HEMOGLOBIN 7.4 g/dL (13.5-17.5); LYMPHOCYTES % (AUTO) 6.5 % (20.0-44.0); MEAN CORPUSCULAR HEMOGLOBIN 29 PG (26.0-33.0); MEAN CORPUSCULAR HGB CONC 34 g/dl (31.0-36.0); MEAN CORPUSCULAR VOLUME 86 fL (80-96); MONOCYTES # (AUTO) 0.9 /CMM (0.1-1.30); MONOCYTES % (AUTO) 5.5 % (2.0-12.0); NEUTROPHILS % (AUTO) 82.8 % (43.0-81.0); PLATELET COUNT (AUTO) 333 /CMM (150-450); RDW COEFFICIENT OF VARIATION 16.4 (11.5-15.0); RED BLOOD CELL COUNT(AUTO) 2.57 MIL/uL (4.5-6.0); WHITE BLOOD COUNT (AUTO) 15.7 K/uL (4.3-11.0)
[2016-12-10 05:12] LABS: CALCIUM, SERUM 8.3 mg/dL (8.5-10.1); MAGNESIUM 2.6 mg/dL (1.8-2.4); PHOSPHORUS 5.7 mg/dL (2.5-4.9); POTASSIUM 5.3 mmol/L (3.5-5.1)
[2016-12-10 05:21] LABS: CREATININE 8.7 mg/dL (0.6-1.3)
--- NOTE | 2016-12-10 05:30 | NUR ---
SUPERVISOR STRIPPING DF CRITICAL VALUES BUN 143/CREAT 8.7 PER REPORTS/NOTES ON 12/08 HD CATH REMOVED. TO ARRIVE TODAY AROUND 1600 FOR HD CATH PLACEMENT AND PT WILL HAVE DIALYSIS POST HD CATH PLACEMENT.CONSULTING MD,S AWARE OF SITUATION.
[2016-12-10] MEDS: ACETAMINOPHEN 650 MG/20.3 ML UDC NG PRN (06:29)
[2016-12-10] MEDS: BLOOD SUGAR DIAGNOSTIC 1 EACH STRIP IN SCH ×4 (06:31→23:28)
[2016-12-10] MEDS: INSULIN REGULAR, HUMAN 100 UNIT/ML 3 ML VIAL SQ PRN ×4 (06:31→23:28)
[2016-12-10] MEDS ORDERED: PROPOFOL 100 ML IV ONE (06:37)
--- NOTE | 2016-12-10 06:44 | NUR ---
COMPUTER REPAIR INSTRUCTOR DF PT WITH TEMP OF 99.1 COOLING MEASURES PROVIDED.TYLENOL 650 MG LIQ GT ADMIN. VSS.NAD NOTED.
--- NOTE | 2016-12-10 07:20 | NUR ---
Received intubated pt on mechanical vent. 7.5 ETT secured at 22 cm @ the lip. Vent is plugged into a red outlet, alarms are set and audible. Ambu bag at bedside. Addendum: 12/10/16 at 1126 by SARITA MOREJON RT Amended: Links added.
--- NOTE | 2016-12-10 07:56 | NUR ---
ICU/RN - Initial Notes Received pt in bed, orally intubated to mechanical vent with settings as ordered. Pt noted with temperature 100.9F, Tylenol administered per previous nurse, cooling measures in place. Sedated on Diprivan drip, able to open eyes to verbal stimuli. SR 96 on the monitor. Right nare NGT intact, tolerating tube feeding well, no residual noted. MILAGROS PICC and NINA Midline intact. Safety and comfort measures in place. Will continue to monitor pt closely.
[2016-12-10] MEDS: LINEZOLID RTU BAG 600 MG in PREMIX 1 EA IV SCH ×2 (08:06→21:10)
[2016-12-10] MEDS: ASPIRIN 81 MG TAB.CHEW NG SCH (08:07)
[2016-12-10] MEDS: IV NS 0.9% 250 ML IV PRN (08:07)
[2016-12-10] MEDS: CLOTRIMAZOLE 1% 15 GM TUBE TP SCH ×2 (08:07→16:10)
[2016-12-10] MEDS: DOCUSATE SODIUM LIQ 100 MG/10 ML UDC GT SCH ×2 (08:07→16:00)
[2016-12-10] MEDS: LACTOBACILLUS RHAMNOSUS GG 1 EACH CAP.SPRINK PO SCH ×2 (08:07→16:00)
[2016-12-10] MEDS: MORPHINE SULFATE INJ 2 MG/ML DISP.SYRIN IV PRN ×2 (08:44→15:36)
--- NOTE | 2016-12-10 08:55 | NUR ---
ICU/RN - Notes Followed up with lab regarding blood culture preliminary results, spoke with Shayla, per lab preliminary blood culture negative and "will release and write report within an hour" Followed up with [facility] regarding sputum culture, per micro specimen will be worked up today with preliminary result released this afternoon. Call back number provided.
[2016-12-10] MEDS ORDERED: EPOETIN ALFA (10,000 UNIT) 10,000 UNIT/ML VIAL SQ ONE (10:00)
--- NOTE | 2016-12-10 12:03 | NUR ---
RT PER DR CHRISTIAN DAILY ABG NOT NECESSARY TODAY, PATIENT STABLE WITH NO DISTRESS OR SOB
[2016-12-10] MEDS ORDERED: IV SET PRIMARY PUMP SET 1 EA INFUS.SET MC ONE ×2 (13:27→22:35)
[2016-12-10] MEDS: MICAFUNGIN SODIUM 100 MG in IV NS 0.9% 100 ML IV SCH (15:02)
--- NOTE | 2016-12-10 15:36 | NUR ---
ICU/RN - Notes Pt noted to be tachypneic with RR 40's and diaphoretic. Administered Morphine 2mg IVP as ordered to ensure comfort as pt is intubated.
[2016-12-10] MEDS: RENAL NOVASOURCE 1,000 ML BOTTLE GT PRN (16:01)
[2016-12-10 16:05] LABS: ABG BASE EXCESS -8.2 mmol/L; ABG OXYGEN SATURATION 94.1 % (92.0-98.5); ABG PCO2 41.4 mmHg (35.0-45.0); ABG PH 7.262 (7.350-7.450); AaDO2 442.9 mmHg; COHb 1.3 % (0.5-1.5); MetHb 1.2 % (0.0-1.5); O2Hb 91.7 % (94.0-97.0); SITE, ABG Right Radial; VENT MODE, BG AC 12 550 80% +8
[2016-12-10] MEDS ORDERED: LACTOBACILLUS RHAMNOSUS GG 1 EACH CAP.SPRINK GT SCH (17:00)
--- NOTE | 2016-12-10 17:10 | NUR ---
ICU/RN - Notes Hemodialysis catheter inserted by Dr Todd Glover to pt's left femoral. HD nurse called by charge nurse for pt to have hemodialysis, per charge nurse, HD nurse will be here at 1900.
[2016-12-10] MEDS ORDERED: BLOOD IV SET 1 EA INFUS.SET MC ONE (19:47)
[2016-12-10] MEDS ORDERED: IV NS 0.9% 250 ML IV ONE (19:48)
--- NOTE | 2016-12-10 21:03 | NUR ---
received pt from day shift, sedated on Diprivan at 30mcg, SR, ST, on the vent, lungs congested, some non pitting edema all extremities, one unit PRBCs transfused with HD, no transfusion reactions, NG to feeding tolerates well, anuric, having HD now, v/s stable, no pain, pt turned and repositioned, family at the bedside.
[2016-12-10] MEDS: PANTOPRAZOLE 40 MG VIAL IV SCH (21:10)
[2016-12-11] VITALS (45 sets, daily range): BP systolic 88–125; BP diastolic 31–69
[2016-12-11] MEDS: ACETAMINOPHEN 650 MG/20.3 ML UDC NG PRN (00:20)
--- NOTE | 2016-12-11 00:44 | NUR ---
pt is resting in the bed, sedated on diprivan at 35mcg, temp 101, tylenol 650mg given, cooling measures initiated, tolerates feeding, v/s stable, no pain, pt turned and repositioned q2hrs.
[2016-12-11] MEDS: ALBUTEROL FS 2.5 MG/3 ML VIAL.NEB NEB SCH ×4 (01:34→20:15)
[2016-12-11] MEDS: IPRATROPIUM NEB FS 0.5 MG/2.5 ML AMPUL.NEB NEB SCH ×4 (01:34→20:15)
[2016-12-11] MEDS: MEROPENEM 500 MG in IV NS 0.9% 50 ML IV SCH ×2 (02:46→14:09)
--- NOTE | 2016-12-11 04:15 | NUR ---
pt is resting in the bed, no acute distress overnight, sedated on Diprivan at 35mcg, v/s stable,no pain, pt cleaned, changed and repositioned q2hrs.
[2016-12-11] MEDS: PROPOFOL 100 ML IV PRN (04:32)
[2016-12-11 04:50] LABS: BASOPHILS # (AUTO) 0.2 /CMM (0.0-0.2); BASOPHILS % (AUTO) 0.8 % (0.0-2.0); EOSINOPHILS # (AUTO) 0.2 /CMM (0.0-0.7); EOSINOPHILS % (AUTO) 0.8 % (0.0-6.0); HEMATOCRIT 26 % (39-51); HEMOGLOBIN 8.8 g/dL (13.5-17.5); LYMPHOCYTES # (AUTO) 0.9 /CMM (0.8-4.8); LYMPHOCYTES % (AUTO) 3.9 % (20.0-44.0); MEAN CORPUSCULAR HEMOGLOBIN 29 PG (26.0-33.0); MEAN CORPUSCULAR HGB CONC 34 g/dl (31.0-36.0); MEAN CORPUSCULAR VOLUME 85 fL (80-96); MONOCYTES # (AUTO) 1.2 /CMM (0.1-1.30); MONOCYTES % (AUTO) 5.5 % (2.0-12.0); PLATELET COUNT (AUTO) 364 /CMM (150-450); RDW COEFFICIENT OF VARIATION 17.2 (11.5-15.0); RED BLOOD CELL COUNT(AUTO) 3.06 MIL/uL (4.5-6.0); WHITE BLOOD COUNT (AUTO) 22.5 K/uL (4.3-11.0)
[2016-12-11 05:08] LABS: CALCIUM, SERUM 8.2 mg/dL (8.5-10.1); CREATININE 7.4 mg/dL (0.6-1.3); MAGNESIUM 2.4 mg/dL (1.8-2.4); POTASSIUM 4.4 mmol/L (3.5-5.1)
[2016-12-11] MEDS: INSULIN REGULAR, HUMAN 100 UNIT/ML 3 ML VIAL SQ PRN ×3 (05:27→17:08)
[2016-12-11] MEDS: BLOOD SUGAR DIAGNOSTIC 1 EACH STRIP IN SCH ×3 (05:29→17:03)
[2016-12-11 05:54] LABS: BAND % (MANUAL) 1 % (0.0-5.0); LYMPHOCYTES % (MANUAL) 6 % (16-48); MONOCYTES % (MANUAL) 5 % (0-11.0); NEUTROPHILS % (MANUAL) 88 (42-76)
--- NOTE | 2016-12-11 07:55 | NUR ---
INITIAL TOOL PROFILING MACHINE SET UP OPERATOR NOTE RCVD PT SEDATED ON DIPRIVAN AT 35 MCG, ABLE TO FOLLOW COMMANDS SHOWING NO S/O DISTRESS OR PAIN. SR ON TELE. TOLERATING ORDERED VENT SETTINGS. RIGHT NG TUBE PLACEMENT VERIFIED NO RESIDUAL OBSERVED. IV SITES C/D/I/PATENT. NO S/O INFILTRATION OR PHLEBITIS OBSERVED. PT SUCTIONED WILL CONTINUE TO MONITOR FOR SAFETY AND COMFORT. CALL LIGHT WITHIN REACH. BED IN LOW AND LOCKED POSITION.
[2016-12-11 08:21] LABS: ABG BASE EXCESS -3.2 mmol/L; ABG OXYGEN SATURATION 96.8 % (92.0-98.5); ABG PCO2 42.9 mmHg (35.0-45.0); ABG PH 7.337 (7.350-7.450); ABG PO2 103.1 mmHg (75.0-100.0); AaDO2 422.3 mmHg; COHb 1.1 % (0.5-1.5); MetHb 0.8 % (0.0-1.5); PEEP,BG 8 cm H2O; SITE, ABG Right Radial; VT, ABG 550 mL
[2016-12-11] MEDS: DOCUSATE SODIUM LIQ 100 MG/10 ML UDC GT SCH ×3 (09:00→17:00)
[2016-12-11] MEDS ORDERED: SECONDARY IV SET 1 EA INFUS.SET MC ONE ×2 (09:06→20:24)
[2016-12-11] MEDS: LACTOBACILLUS RHAMNOSUS GG 1 EACH CAP.SPRINK PO SCH ×2 (09:11→17:03)
[2016-12-11] MEDS: LINEZOLID RTU BAG 600 MG in PREMIX 1 EA IV SCH ×2 (09:11→20:22)
[2016-12-11] MEDS: ASPIRIN 81 MG TAB.CHEW NG SCH (09:11)
[2016-12-11] MEDS: CLOTRIMAZOLE 1% 15 GM TUBE TP SCH ×2 (09:12→17:04)
--- NOTE | 2016-12-11 09:51 | NUR ---
WHEAT GROWER NOTE DR. SMITH AT BEDSIDE INFORMED OF PT HAVING WATERY DIARRHEA, RCVD ORDER TO SEND SAMPLE FOR C.DIFF. SAID THAT PT MIGHT BE TRANSFERRED TO [facility] TO GET VALVE REPLACED. WILL F/U WITH CASE MANAGEMENT.
--- NOTE | 2016-12-11 11:11 | NUR ---
AESTHETICIAN NOTE PT OBSERVED BEING DIAPHORETIC TEMP CHECKED 100.1 COOLING MEASURES STARTED. WILL CONTINUE TO MONITOR.
--- NOTE | 2016-12-11 12:24 | NUR ---
MINCEMEAT MAKER NOTE TEMP RE-CHECKED 99.6 WILL CONTINUE TO MONITOR.
[2016-12-11] MEDS: MICAFUNGIN SODIUM 100 MG in IV NS 0.9% 100 ML IV SCH (15:01)
--- NOTE | 2016-12-11 15:21 | NUR ---
COGNOS REPORT DEVELOPER NOTE PT'S FAMILY MEMBERS AT BEDSIDE UPDATED ON PT'S CONDITION PER PT'S REQUEST. QUESTIONS ANSWERED.
[2016-12-11] MEDS: RENAL NOVASOURCE 1,000 ML BOTTLE GT PRN (17:03)
--- NOTE | 2016-12-11 18:22 | NUR ---
ENDING WEB OFFSET PRESS FEEDER NOTE PT AWAKE AND ALERT SHOWING NO S/O DISTRESS, DENIES PAIN. TOLERATING ORDERED VENT SETTINGS, ETT 7.5 22 AT LIP, NO RESIDUAL ON TUBE FEEDING. IV SITES C/D/I/PATENT. NO S/O INFILTRATION OR PHLEBITIS OBSERVED. PT REPOSITIONED THROUGHOUT SHIFT PER POLICY. CALL LIGHT WITHIN REACH. BED IN LOW AND LOCKED POSITION. PT'S CARE WILL BE ENDORSED TO PAINTING TECHNICIAN RN FOR CONTINUITY OF CARE.
--- NOTE | 2016-12-11 18:35 | NUR ---
RT END OF THE SHIFT REPORT: PT. 51 Y OLD MALE REMAIN ORALLY INTUBATED ETT#7.5 @ 22 CM ON VENT WITH NOTED SETTINGS, ALARMS ARE SET AND FUNCTIONAL, B/S RALES/RHONCHI BILATERALLY SUX' FOR MINIMAL NICOLE SECRETIONS, NO DISTRESS NOTED PEEP +[address] WONG ORDER AT THE BEDSIDE. CUATE. WELL. CONTINUED FOR MONITOR. VENT PLUGGED INTO RED OUTLET. EQUAL CHEST RISE NOTED. HME CHANGED, AMBU BAG REMAIN AT THE BEDSIDE. PT. REMAIN STABLE. REPORT WILL PASS TO PM SHIFT. Addendum: 12/11/16 at 1837 by JERMAN HOGAN RT Amended: Links added.
[2016-12-11] MEDS: PANTOPRAZOLE 40 MG VIAL IV SCH (20:20)
[2016-12-11] MEDS ORDERED: IV SET PRIMARY PUMP SET 1 EA INFUS.SET MC ONE (20:23)
--- NOTE | 2016-12-11 20:47 | NUR ---
pt received on vent via ett, settings as charted ambu bag at bedside alarms set and audible breath sounds equal bilateral coarse suctioned a small amount of thick red secretions pt receiving albuterol and atrovent q6 Addendum: 12/11/16 at 2046 by JACOB MARTINEZ RT Amended: Links added.
[2016-12-11] MEDS: PIPERACILLIN /TAZOBACTAM 2.25 G in IV D5W 50 ML IV SCH (21:16)
--- NOTE | 2016-12-11 22:01 | NUR ---
ICU/RN- HD NURSE AT BEDSIDE FOR DIALYSIS. INFORMED HD NURSE ABOUT BLOOD CULTURE X 2 15 MIN APART PER MD ORDER.
[2016-12-12] VITALS (61 sets, daily range): BP systolic 94–139; BP diastolic 35–109
--- NOTE | 2016-12-12 00:02 | NUR ---
ICU/RN- HD DONE, 1700 ML OUTPUT PER HD NURSE.
[2016-12-12] MEDS: BLOOD SUGAR DIAGNOSTIC 1 EACH STRIP IN SCH ×5 (00:20→23:10)
[2016-12-12] MEDS: INSULIN REGULAR, HUMAN 100 UNIT/ML 3 ML VIAL SQ PRN ×5 (00:21→23:11)
[2016-12-12] MEDS: PIPERACILLIN /TAZOBACTAM 2.25 G in IV D5W 50 ML IV SCH ×4 (01:30→20:36)
[2016-12-12] MEDS: ALBUTEROL FS 2.5 MG/3 ML VIAL.NEB NEB SCH ×4 (01:52→20:26)
[2016-12-12] MEDS: IPRATROPIUM NEB FS 0.5 MG/2.5 ML AMPUL.NEB NEB SCH ×4 (01:52→20:26)
[2016-12-12 04:31] LABS: HEMATOCRIT 26 % (39-51); HEMOGLOBIN 8.6 g/dL (13.5-17.5); MEAN CORPUSCULAR HEMOGLOBIN 29 PG (26.0-33.0); MEAN CORPUSCULAR HGB CONC 33 g/dl (31.0-36.0); MEAN CORPUSCULAR VOLUME 86 fL (80-96); PLATELET COUNT (AUTO) 304 /CMM (150-450); RDW COEFFICIENT OF VARIATION 17.9 (11.5-15.0); RED BLOOD CELL COUNT(AUTO) 3.02 MIL/uL (4.5-6.0); WHITE BLOOD COUNT (AUTO) 20.9 K/uL (4.3-11.0)
[2016-12-12 04:47] LABS: CALCIUM, SERUM 8.3 mg/dL (8.5-10.1); CREATININE 6.1 mg/dL (0.6-1.3); MAGNESIUM 2.4 mg/dL (1.8-2.4); PHOSPHORUS 4.8 mg/dL (2.5-4.9); POTASSIUM 5.3 mmol/L (3.5-5.1)
[2016-12-12 05:08] LABS: EOSINOPHILS % (MANUAL) 1 % (0-4); LYMPHOCYTES % (MANUAL) 3 % (16-48); MONOCYTES % (MANUAL) 8 % (0-11.0); NEUTROPHILS % (MANUAL) 88 (42-76)
--- NOTE | 2016-12-12 07:48 | NUR ---
INITIAL TAG PRESS OPERATOR NOTE RCVD PT AWAKE AND ALERT, TOLERATING BEING OFF SEDATION AND SHOWING NO S/O DISTRESS OR PAIN. SR ON TELE. TOLERATING ORDERED VENT SETTINGS AND TUBE FEEDING RATE. NO RESIDUAL OBSERVED. RIGHT NG TUBE PLACEMENT VERIFIED. IV SITES C/D/I/PATENT. NO S/O INFILTRATION OR PHLEBITIS OBSERVED. WILL CONTINUE TO MONITOR FOR SAFETY AND COMFORT. CALL LIGHT WITHIN REACH. BED IN LOW AND LOCKED POSITION.
--- NOTE | 2016-12-12 07:54 | NUR ---
CLAM PICKER NOTE LAB CALLED REQUESTING C.DIFF RESULTS, CARPENTER ROUGH STATES THAT SAMPLE WAS SENT OUT TO [facility] FOR PROCESSING AND THEY'LL RELEASE THE RESULTS, TEST TAKES A COUPLE OF DAYS.
[2016-12-12] MEDS: DOCUSATE SODIUM LIQ 100 MG/10 ML UDC GT SCH ×2 (08:24→16:47)
[2016-12-12] MEDS: CLOTRIMAZOLE 1% 15 GM TUBE TP SCH ×2 (08:24→16:47)
[2016-12-12] MEDS: LINEZOLID RTU BAG 600 MG in PREMIX 1 EA IV SCH ×2 (08:24→20:36)
[2016-12-12] MEDS: ASPIRIN 81 MG TAB.CHEW NG SCH (08:24)
[2016-12-12] MEDS: LACTOBACILLUS RHAMNOSUS GG 1 EACH CAP.SPRINK PO SCH ×2 (08:24→16:46)
--- NOTE | 2016-12-12 08:28 | NUR ---
WOUND CARE CONSULT PATIENT SEEN AND SKIN INTEGRITY ASSESSMENT DONE. PLEASE SEE ANSWERING SERVICE AGENT ASSESSMENT IN PCS FOR TODAY ALONG WITH ALL RECOMMENDATIONS. PATIENT PRESENTS WITH INTACT DTI TO THE RIGHT OUTER EAR. PATIENT TENDS TO FAVOR THAT SIDE. PATIENT WAS GIVEN INSTRUCTION IN GERMAN THAT HE NOW HAS A WOUND ON THAT OUTER EAR AND HE NEEDS TO REALLY TRY AND NOT LAY ALL THE TIME ON THE EAR, HE WAS ABLE TO NOD YES TO UNDERSTANDING OF THESE INSTRUCTIONS. TREATMENT PLAN DISCUSSED WITH MD AND MD IN AGREEMENT. ALL SKIN MANAGEMENT AND PREVENTION MEASURES NOTED TO BE IN PLACE AT THE TIME OF THE BREAKDOWN. PATIENT WITH MULTIPLE CO-MORBIDITIES INCLUDING MULTISYSTEM ORGAN FAILURE, FURTHER SKIN BREAKDOWN MAY BE UNAVOIDABLE. ALL SKIN MANAGMENT AND PREVENTION MEASURES DISCUSSED WITH NURSING AT THE BEDSIDE AND ALL DISCUSSED WITH PATIENT WELL IN GERMAN WITH GOOD UNDERSTANDING. Addendum: 12/12/16 at 0833 by VANE DUGGAN WNDNU Amended: Links added.
[2016-12-12 08:35] LABS: ABG BASE EXCESS -1.6 mmol/L; ABG OXYGEN SATURATION 96.9 % (92.0-98.5); ABG PH 7.326 (7.350-7.450); ABG PO2 105.8 mmHg (75.0-100.0); AaDO2 414.2 mmHg; COHb 1.3 % (0.5-1.5); O2Hb 94.7 % (94.0-97.0); PEEP,BG 10 cm H2O; SITE, ABG Left Radial; VT, ABG 550 mL
[2016-12-12] MEDS: NEOMY SULF/BACITRAC ZN/POLY 15 GM TUBE TP SCH ×2 (09:34→16:47)
--- NOTE | 2016-12-12 11:16 | NUR ---
DRAFTER AUTOMOTIVE DESIGN LAYOUT NOTE DR. WONG AT BEDSIDE ASKED HIM REGARDING TRACH PLAN, NO CURRENT ORDER FOR TRACH AT THE TIME BUT THAT WILL BE THE CLAIMS MANAGER PLAN FOR PT WHILE WAITING FOR VALVE REPLACEMENT. DR. SONG IN UNIT INFORMED HER THAT PT HAS CRACKLES IN HIS LUNGS DESPITE DIALYSIS LAST NIGHT. SHE'LL ORDER DIALYSIS FOR TODAY. WILL F/U. DR. RAGSDALE AT BEDSIDE INFORMED HER THAT PT CONTINUES TO HAVE DIARRHEA PER NUMERICAL TOOL PROGRAMMER'S REPORT, TEMP RANGES BETWEEN 99-100. SHE ACKNOWLEDGED AND CHANGED SOME ABX. REQUESTED TO CANCEL URINE CX/UA SINCE PT IS ANURIC. LAB INFORMED TO CANCEL BOTH ORDERS. WILL CONTINUE TO MONITOR.
[2016-12-12] MEDS ORDERED: PIPERACILLIN /TAZOBACTAM 2.25 G in IV D5W 50 ML IV SCH (13:00)
--- NOTE | 2016-12-12 13:57 | NUR ---
SUMMER LAW ASSOCIATE NOTE CHARLOTTE JARAMILLO IN UNIT INFORMED OF PT'S LLE WEAKNESS, PT ACKNOWLEDGES THAT LLE IS WEAKER TODAY COMPARED TO YESTERDAY. CHARLOTTE JARAMILLO ACKNOWLEDGED AND SAID THAT HEAD CT SCAN WILL BE ORDERED.
[2016-12-12] MEDS ORDERED: ALTEPLASE CATHFLO 2 MG/VIAL IV ONE ×2 (14:30→15:00)
[2016-12-12] MEDS: MICAFUNGIN SODIUM 100 MG in IV NS 0.9% 100 ML IV SCH (16:46)
--- NOTE | 2016-12-12 17:06 | NUR ---
INBOUND CALL CENTER AGENT NOTE PT TAKEN TO RADIOLOGY FOR CT SCAN PER PROTOCOL. VITALS STABLE DURING TRANSPORT. RT AND RADIOLOGIST AT BEDSIDE.
[2016-12-12] MEDS: RENAL NOVASOURCE 1,000 ML BOTTLE GT PRN (17:38)
--- NOTE | 2016-12-12 17:55 | NUR ---
RT END OF THE SHIFT REPORT: PT. 51 Y OLD MALE REMAIN ORALLY INTUBATED ETT#7.5 @ 22 CM ON VENT WITH NOTED SETTINGS, ALARMS ARE SET AND FUNCTIONAL, B/S RALES/RHONCHI BILATERALLY SUX' FOR MINIMAL NICOLE SECRETIONS, NO DISTRESS NOTED FIO2 TITRATED TO 65% PER DR. WONG ORDER. TOL. UMAÑA. CONTINUED FOR MONITOR. VENT PLUGGED INTO RED OUTLET. EQUAL CHEST RISE NOTED. HME CHANGED, AMBU BAG REMAIN AT THE BEDSIDE. REPORT WILL PASS ON TO PM SHIFT. Addendum: 12/12/16 at 1756 by JERMAN HOGAN RT Amended: Links added.
[2016-12-12] MEDS: IV NS 0.9% 250 ML IV PRN (18:25)
[2016-12-12] MEDS: ACETAMINOPHEN 650 MG/20.3 ML UDC NG PRN ×2 (18:39→23:49)
--- NOTE | 2016-12-12 18:53 | NUR ---
ENDING FIBER DRIER OPERATOR NOTE PT AWAKE INTERMITTENTLY, TOLERATING ORDERED VENT SETTINGS ETT 7.5 22 AT LIP. TOLERATING TUBE FEEDING. IV SITES C/D/I/PATENT. NO S/O INFILTRATION OR PHLEBITIS OBSERVED. SR/ST ON TELE. TEMP 101.1 TYLENOL GIVEN, COOL BATH DONE, COOLING MEASURES IMPLEMENTED. BLOOD CX FROM PICC X2 DRAWN AND RESPIRATORY CX SENT TO LAB. PT'S CARE WILL BE ENDORSED TO RESOURCE TECHNICIAN RN FOR CONTINUITY OF CARE. BED IN LOW AND LOCKED POSITION. CALL LIGHT WITHIN REACH.
--- NOTE | 2016-12-12 19:18 | NUR ---
CORPORATE RELATIONS MANAGER NOTE CT HEAD RESULTS RCVD AND COMMUNICATED TO CHARLOTTE JARAMILLO. F/U ENDORSED TO ANAY CASTELLANOS.
[2016-12-12] MEDS: PANTOPRAZOLE 40 MG VIAL IV SCH (20:35)
--- NOTE | 2016-12-12 23:56 | NUR ---
ICU/RN- PT TEMP IS 101.1. COOLING MEASURES ALREADY IN PLACE. TYLENOL 650 MG GIVEN RNGT PRN FOR FEVER. WILL MONITOR TEMP.
[2016-12-13] VITALS (46 sets, daily range): BP systolic 105–162; BP diastolic 35–70
[2016-12-13] MEDS: IPRATROPIUM NEB FS 0.5 MG/2.5 ML AMPUL.NEB NEB SCH ×4 (02:26→19:58)
[2016-12-13] MEDS: ALBUTEROL FS 2.5 MG/3 ML VIAL.NEB NEB SCH ×4 (02:26→19:58)
[2016-12-13] MEDS: PIPERACILLIN /TAZOBACTAM 2.25 G in IV D5W 50 ML IV SCH ×3 (04:25→20:02)
[2016-12-13 04:55] LABS: BASOPHILS # (AUTO) 0.1 /CMM (0.0-0.2); BASOPHILS % (AUTO) 0.6 % (0.0-2.0); EOSINOPHILS # (AUTO) 0.4 /CMM (0.0-0.7); EOSINOPHILS % (AUTO) 1.9 % (0.0-6.0); HEMATOCRIT 26 % (39-51); HEMOGLOBIN 8.5 g/dL (13.5-17.5); LYMPHOCYTES # (AUTO) 0.9 /CMM (0.8-4.8); LYMPHOCYTES % (AUTO) 4.7 % (20.0-44.0); MEAN CORPUSCULAR HEMOGLOBIN 28 PG (26.0-33.0); MEAN CORPUSCULAR HGB CONC 32 g/dl (31.0-36.0); MEAN CORPUSCULAR VOLUME 86 fL (80-96); MONOCYTES # (AUTO) 0.8 /CMM (0.1-1.30); MONOCYTES % (AUTO) 4.3 % (2.0-12.0); NEUTROPHILS # (AUTO) 16.8 /CMM (1.8-8.9); NEUTROPHILS % (AUTO) 88.5 % (43.0-81.0); PLATELET COUNT (AUTO) 263 /CMM (150-450); RDW COEFFICIENT OF VARIATION 17.6 (11.5-15.0); RED BLOOD CELL COUNT(AUTO) 3.06 MIL/uL (4.5-6.0)
[2016-12-13 05:18] LABS: CALCIUM, SERUM 8.5 mg/dL (8.5-10.1); CREATININE 6.4 mg/dL (0.6-1.3); MAGNESIUM 2.7 mg/dL (1.8-2.4); PHOSPHORUS 5.7 mg/dL (2.5-4.9); POTASSIUM 5.3 mmol/L (3.5-5.1)
[2016-12-13] MEDS: BLOOD SUGAR DIAGNOSTIC 1 EACH STRIP IN SCH ×4 (05:36→23:23)
[2016-12-13] MEDS: INSULIN REGULAR, HUMAN 100 UNIT/ML 3 ML VIAL SQ PRN ×2 (05:37→23:36)
[2016-12-13 06:09] LABS: BAND % (MANUAL) 2 % (0.0-5.0); BASOPHILS % (MANUAL) 1 % (0.0-2.0); EOSINOPHILS % (MANUAL) 1 % (0-4); LYMPHOCYTES % (MANUAL) 4 % (16-48); MONOCYTES % (MANUAL) 1 % (0-11.0); MYELOCYTES % 3 % (0-0); NEUTROPHILS % (MANUAL) 88 (42-76)
--- NOTE | 2016-12-13 07:15 | NUR ---
ICU/RN: PT RECEIVED, ON VENT, TOLERATING CURRENT SETTINGS, AIRWAY CLEARED OF SECRETIONS. A&OX4, ABLE TO COMMUNICATE NEEDS. R AND L UE WEAKNESS NOTED. PT WITH FULL ROM OF L LEG; MILD WEAKNESS NOTED ON R LEG. NGT WITH SOME RESISTANCE, FLUSHED, AUSCULTATED FOR PATENCY. OFFLOADED R EAR. ALARM SOUNDS AUDIBLE. WILL CONT TO MONITOR.
[2016-12-13] MEDS: LACTOBACILLUS RHAMNOSUS GG 1 EACH CAP.SPRINK PO SCH ×2 (08:45→17:19)
[2016-12-13] MEDS: DOCUSATE SODIUM LIQ 100 MG/10 ML UDC GT SCH ×2 (08:45→17:00)
[2016-12-13] MEDS: LINEZOLID RTU BAG 600 MG in PREMIX 1 EA IV SCH ×2 (08:46→20:02)
[2016-12-13] MEDS: Z GUARD REMEDY 2 OZ OINT TP PRN ×2 (08:46→17:19)
[2016-12-13] MEDS: NEOMY SULF/BACITRAC ZN/POLY 15 GM TUBE TP SCH ×2 (08:46→17:19)
[2016-12-13] MEDS: ASPIRIN 81 MG TAB.CHEW NG SCH (08:47)
[2016-12-13] MEDS: CLOTRIMAZOLE 1% 15 GM TUBE TP SCH ×2 (08:49→17:19)
[2016-12-13] MEDS ORDERED: EPOETIN ALFA (10,000 UNIT) 10,000 UNIT/ML VIAL SQ ONE (10:00)
--- NOTE | 2016-12-13 11:43 | NUR ---
ICU/RN: CLINT DANIEL AT THE BEDSIDE; INFORMED FIRER HELPER OF ABN LABS, OVERNIGHT TEMP AND ID RECOMMENDATIONS. PER FIRER HELPER, OK TO HOLD RADIOLOGY TESTS UNTIL PEEP IS TITRATED DOWN. WOUND CARE CONSULT REQUESTED. NOTED.
--- NOTE | 2016-12-13 17:00 | NUR ---
ICU/RN: DURING HD PT HAD PERIOD OF SVT 170'S, FLUIDS IMMEDIATELY RETURNED AND HD STOPPED. HR RETURNED TO ST 105 WITHIN SECONDS. PT REMAINS AOX4, AWAKE, OBEYS COMMANDS AND DENIES ANY DISCOMFORT. CLINT DANIEL NOTIFIED. TOTAL HD OUTPUT: 1.4 LITERS
[2016-12-13] MEDS: RENAL NOVASOURCE 1,000 ML BOTTLE GT PRN (17:19)
[2016-12-13] MEDS: MICAFUNGIN SODIUM 100 MG in IV NS 0.9% 100 ML IV SCH (17:20)
[2016-12-13] MEDS: IV NS 0.9% 250 ML IV PRN (17:22)
--- NOTE | 2016-12-13 17:45 | NUR ---
ICU/RN: PT WITH LARGE AMOUNT OF DARK BROWN LOOSE STOOL. WOUND CARE RENDERED. BED BATH AND ORAL CARE PROVIDED. R NGT NOTED TO BE CLOGGED. NEW NGT INSERTED INTO L NARE. VERIFIED PLACEMENT VIA AUSCULTATION WITH 2ND RN, BRYNN.
--- NOTE | 2016-12-13 19:10 | NUR ---
ICU/RN: PT RESTING IN BED COMFORTABLY, NO S/S ACUTE DISTRESS, BREATHING EVEN AND UNLABORED ON CURRENT VENT SETTINGS. TOLERATING GTF. ST 110'S ON MONITOR. COOLING MEASURES IN PLACE. CARE ENDORSED TO PM RN FOR SONI.
[2016-12-13] MEDS: PANTOPRAZOLE 40 MG VIAL IV SCH (19:54)
--- NOTE | 2016-12-13 20:00 | NUR ---
NEON ELECTRICIAN NOTES RECEIVED PT IN BED, AWAKE, A/O X4. HX OF STROKE X2 PER AM RN. TELE READS ST AT 120 BPM. ON VENT VIA ETT WITH SETTINGS OF AC 12 TV 550 FIO2 50% PEEP 8. ORDERS TO TITRATE PEEP TO [address] RIGHT NGT IN PLACE RUNNING NOVASOURCE AT 40 ML/HR, NO GASTRIC RESIDUAL. NINA MIDLINE AND MILAGROS PICC, RUNNING NS AT TKO. LEFT FEMORAL HD CATH, DRESSING INTACT. RIGHT EAR DTI PRESENT WITH MEPILEX IN PLACE. MILAGROS SKIN TEAR PRESENT, COVERED WITH TEGADERM. ON KCI MATTRESS, SIDE RAILS X4 FOR PT SAFETY. HOB ELEVATED, CALL LIGHT WITHIN REACH OF RIGHT HAND. FAMILY AT BEDSIDE. PT WARM TO TOUCH BUT TEMP IS WNL, OPERATING FAN IN ROOM WITH SPEED 3 DIRECTED ONTO PATIENT PER REQUEST.
--- NOTE | 2016-12-13 20:03 | NUR ---
PEEP dropped from 8 to 6 per md orders as tolerated.
[2016-12-13] MEDS: CLONIDINE HCL 0.1 MG TABLET PO PRN (23:41)
--- NOTE | 2016-12-13 23:50 | NUR ---
MANAGER FINANCIAL PLANNING NOTES PT'S TEMP IS MILDLY ELEVATED AT 99.8 AND PT EXPRESSES FEELING HOT AND IS DIAPHORETIC DESPITE COOLING MEASURES. TYLENOL ADMINISTERED.
[2016-12-14] VITALS (57 sets, daily range): BP systolic 91–155; BP diastolic 29–65
[2016-12-14] MEDS: ALBUTEROL FS 2.5 MG/3 ML VIAL.NEB NEB SCH ×4 (01:13→19:57)
[2016-12-14] MEDS: IPRATROPIUM NEB FS 0.5 MG/2.5 ML AMPUL.NEB NEB SCH ×4 (01:13→19:57)
[2016-12-14] MEDS: MORPHINE SULFATE INJ 2 MG/ML DISP.SYRIN IV PRN (03:27)
--- NOTE | 2016-12-14 03:30 | NUR ---
BALE COVERER NOTES PT EXPERIENCING PAIN AT LEFT CHEST. 2MG MORPHINE GIVEN.
[2016-12-14 05:15] LABS: BASOPHILS # (AUTO) 0.1 /CMM (0.0-0.2); BASOPHILS % (AUTO) 0.6 % (0.0-2.0); EOSINOPHILS # (AUTO) 0.1 /CMM (0.0-0.7); EOSINOPHILS % (AUTO) 0.3 % (0.0-6.0); HEMATOCRIT 25 % (39-51); HEMOGLOBIN 8.1 g/dL (13.5-17.5); LYMPHOCYTES # (AUTO) 1.1 /CMM (0.8-4.8); LYMPHOCYTES % (AUTO) 6.1 % (20.0-44.0); MEAN CORPUSCULAR HEMOGLOBIN 28 PG (26.0-33.0); MEAN CORPUSCULAR HGB CONC 33 g/dl (31.0-36.0); MEAN CORPUSCULAR VOLUME 85 fL (80-96); MONOCYTES % (AUTO) 5.4 % (2.0-12.0); NEUTROPHILS # (AUTO) 15.6 /CMM (1.8-8.9); NEUTROPHILS % (AUTO) 87.6 % (43.0-81.0); PLATELET COUNT (AUTO) 251 /CMM (150-450); RDW COEFFICIENT OF VARIATION 17.7 (11.5-15.0); RED BLOOD CELL COUNT(AUTO) 2.93 MIL/uL (4.5-6.0); WHITE BLOOD COUNT (AUTO) 17.8 K/uL (4.3-11.0)
[2016-12-14] MEDS: BLOOD SUGAR DIAGNOSTIC 1 EACH STRIP IN SCH ×3 (05:15→17:06)
[2016-12-14] MEDS: PIPERACILLIN /TAZOBACTAM 2.25 G in IV D5W 50 ML IV SCH ×3 (05:15→20:28)
[2016-12-14] MEDS: INSULIN REGULAR, HUMAN 100 UNIT/ML 3 ML VIAL SQ PRN ×3 (05:27→18:20)
[2016-12-14] MEDS ORDERED: MORPHINE SULFATE INJ 2 MG/ML DISP.SYRIN IV ONE (05:30)
--- NOTE | 2016-12-14 05:30 | NUR ---
CODE NUMBER STAMPER NOTES PT'S CHEST PAIN WAS NOT RELIEVED WITH 2MG MORPHINE. EKG AND TROPONIN LEVEL ORDERED. MADE SOFIA THOMPSON AWARE. ORDER 2MG MORPHINE ONE TIME NOW.
[2016-12-14 05:41] LABS: CALCIUM, SERUM 8.2 mg/dL (8.5-10.1); CREATININE 5.3 mg/dL (0.6-1.3); MAGNESIUM 2.6 mg/dL (1.8-2.4); PHOSPHORUS 5.8 mg/dL (2.5-4.9); POTASSIUM 5.1 mmol/L (3.5-5.1)
[2016-12-14] MEDS ORDERED: IV SET PRIMARY PUMP SET 1 EA INFUS.SET MC ONE (07:16)
[2016-12-14] MEDS: PROPOFOL 100 ML IV PRN ×5 (07:23→20:30)
--- NOTE | 2016-12-14 07:30 | NUR ---
ICU/RN: PT RECEIVED, INTUBATED, DIAPHORETIC, RR 34-38, ST 110'S. PT CO CHEST DISCOMFORT WHILE AWAKE. PT PLACED BACK ON SEDATION ORDERED; TITRATED UNTIL PT COMFORTABLE.
[2016-12-14] MEDS: ACETAMINOPHEN 650 MG/20.3 ML UDC NG PRN (08:30)
--- NOTE | 2016-12-14 08:30 | NUR ---
ICU/RN: DR FUENTES ROUNDS; UPDATED ON OVERNIGHT EVENTS, EKG AND TROPONIN RESULTS. PER MD, OK TO KEEP SEDATED TO ALLEVIATE RESPIRATORY DISTRESS. ENTRY LEVEL ADMINISTRATIVE ASSISTANT TO F/U WITH CM REGARDING TRANSFER.
[2016-12-14] MEDS: LACTOBACILLUS RHAMNOSUS GG 1 EACH CAP.SPRINK PO SCH ×2 (08:31→16:58)
[2016-12-14] MEDS: ASPIRIN 81 MG TAB.CHEW NG SCH (08:31)
[2016-12-14] MEDS: DOCUSATE SODIUM LIQ 100 MG/10 ML UDC GT SCH ×2 (08:31→17:00)
[2016-12-14] MEDS: NEOMY SULF/BACITRAC ZN/POLY 15 GM TUBE TP SCH ×2 (08:31→17:06)
[2016-12-14] MEDS: LINEZOLID RTU BAG 600 MG in PREMIX 1 EA IV SCH ×2 (08:31→20:28)
[2016-12-14] MEDS: CLOTRIMAZOLE 1% 15 GM TUBE TP SCH ×2 (08:31→17:06)
--- NOTE | 2016-12-14 09:00 | NUR ---
ICU/RN: DR WONG AT THE BEDSIDE UPDATED ON PT STATUS. PLACED BACK ON SEDATION; OK TO CONT CURRENT VENT SETTINGS WITH 50% FIO2 AND PEEP 6.
--- NOTE | 2016-12-14 10:30 | NUR ---
ICU/RN: DR BARROW NOTIFIED OF FEVER; UNABLE TO PERFORM CT DT PT INSTABILITY AND CT SCAN UNDER MAINTENANCE.
--- NOTE | 2016-12-14 10:45 | NUR ---
ICU/RN: DR BLAKE ROUNDS; UPDATED ON HEAD CT RESULTS. PER MD MORRIS TO RESUME ASA.
--- NOTE | 2016-12-14 15:00 | NUR ---
ICU/RN: WOUND CARE, BED BATH RENDERED, PT TOLERATED WELL. COOLING MEASURES IN PLACE. L LATERAL FOOT SUSPECTED DTI NOTED. SEE PAPER CHART.
[2016-12-14] MEDS: RENAL NOVASOURCE 1,000 ML BOTTLE GT PRN (16:58)
[2016-12-14] MEDS: IV NS 0.9% 250 ML IV PRN (16:58)
[2016-12-14] MEDS: Z GUARD REMEDY 2 OZ OINT TP PRN (17:05)
--- NOTE | 2016-12-14 17:45 | NUR ---
ICU/RN: HD HD COMPLETED WITH 1.5 L OUT. UPON INITIATION OF HD PT NOTED TO BE DIAPHORECTIC, TACHYPNEIC - REQUIRED TITRATION OF DIPRIVAN TO 70MCG/MIN PER PARAMETERS FOR PT COMFORT. BP MONITORED CLOSELY. PT SBP POST HD IN 90'S, HR 95-105. NO DISTRESS NOTED.
[2016-12-14] MEDS ORDERED: SECONDARY IV SET 1 EA INFUS.SET MC ONE (17:55)
[2016-12-14] MEDS: MICAFUNGIN SODIUM 100 MG in IV NS 0.9% 100 ML IV SCH (17:56)
[2016-12-14] MEDS: PANTOPRAZOLE 40 MG VIAL IV SCH (19:55)
--- NOTE | 2016-12-14 20:00 | NUR ---
OFFC SPEC NOTES RECEIVED PT IN BED, SEDATED ON DIPRIVAN. HX OF STROKE X2 PER AM RN. TELE READS ST AT 107 BPM. ON VENT VIA ETT WITH SETTINGS OF AC 12 TV 550 FIO2 50% PEEP 6. RIGHT NGT IN PLACE RUNNING NOVASOURCE AT 40 ML/HR, NO GASTRIC RESIDUAL. NINA MIDLINE AND MILAGROS PICC, RUNNING NS AT TKO. LEFT FEMORAL HD CATH, DRESSING INTACT. RIGHT EAR DTI PRESENT WITH MEPILEX IN PLACE. MILAGROS SKIN TEAR PRESENT, COVERED WITH TEGADERM. ON KCI MATTRESS, SIDE RAILS X4 FOR PT SAFETY. HOB ELEVATED. FAMILY AT BEDSIDE. PT WARM TO TOUCH BUT TEMP IS WNL, OPERATING FAN IN ROOM WITH SPEED 3 DIRECTED ONTO PATIENT PER REQUEST.
[2016-12-15] VITALS (67 sets, daily range): BP systolic 77–128; BP diastolic 25–93
[2016-12-15] MEDS: INSULIN REGULAR, HUMAN 100 UNIT/ML 3 ML VIAL SQ PRN ×4 (00:53→17:47)
[2016-12-15] MEDS: IPRATROPIUM NEB FS 0.5 MG/2.5 ML AMPUL.NEB NEB SCH ×4 (00:59→19:50)
[2016-12-15] MEDS: ALBUTEROL FS 2.5 MG/3 ML VIAL.NEB NEB SCH ×4 (00:59→19:50)
[2016-12-15] MEDS: BLOOD SUGAR DIAGNOSTIC 1 EACH STRIP IN SCH ×5 (00:59→23:58)
[2016-12-15] MEDS: PROPOFOL 100 ML IV PRN ×4 (01:22→22:36)
[2016-12-15] MEDS: ACETAMINOPHEN 650 MG/20.3 ML UDC NG PRN ×2 (03:41→12:56)
[2016-12-15] MEDS: PIPERACILLIN /TAZOBACTAM 2.25 G in IV D5W 50 ML IV SCH ×3 (05:07→21:05)
[2016-12-15 05:41] LABS: CALCIUM, SERUM 7.5 mg/dL (8.5-10.1); CREATININE 4.6 mg/dL (0.6-1.3); MAGNESIUM 2.3 mg/dL (1.8-2.4); PHOSPHORUS 6.1 mg/dL (2.5-4.9); POTASSIUM 4.3 mmol/L (3.5-5.1)
[2016-12-15 05:51] LABS: BASOPHILS # (AUTO) 0.3 /CMM (0.0-0.2); BASOPHILS % (AUTO) 1.4 % (0.0-2.0); EOSINOPHILS # (AUTO) 0.4 /CMM (0.0-0.7); HEMATOCRIT 24 % (39-51); HEMOGLOBIN 7.8 g/dL (13.5-17.5); LYMPHOCYTES # (AUTO) 1.7 /CMM (0.8-4.8); LYMPHOCYTES % (AUTO) 8.2 % (20.0-44.0); MEAN CORPUSCULAR HEMOGLOBIN 28 PG (26.0-33.0); MEAN CORPUSCULAR HGB CONC 33 g/dl (31.0-36.0); MEAN CORPUSCULAR VOLUME 85 fL (80-96); MONOCYTES # (AUTO) 1.2 /CMM (0.1-1.30); MONOCYTES % (AUTO) 5.5 % (2.0-12.0); NEUTROPHILS # (AUTO) 17.6 /CMM (1.8-8.9); NEUTROPHILS % (AUTO) 82.9 % (43.0-81.0); PLATELET COUNT (AUTO) 232 /CMM (150-450); RDW COEFFICIENT OF VARIATION 17.8 (11.5-15.0); RED BLOOD CELL COUNT(AUTO) 2.77 MIL/uL (4.5-6.0); WHITE BLOOD COUNT (AUTO) 21.2 K/uL (4.3-11.0)
[2016-12-15] MEDS ORDERED: IV SET PRIMARY PUMP SET 1 EA INFUS.SET MC ONE ×3 (08:22→22:31)
[2016-12-15] MEDS: DOCUSATE SODIUM LIQ 100 MG/10 ML UDC GT SCH ×2 (08:26→16:10)
[2016-12-15] MEDS: LINEZOLID RTU BAG 600 MG in PREMIX 1 EA IV SCH ×2 (08:26→21:40)
[2016-12-15] MEDS: ASPIRIN 81 MG TAB.CHEW NG SCH (08:27)
[2016-12-15] MEDS: LACTOBACILLUS RHAMNOSUS GG 1 EACH CAP.SPRINK PO SCH ×2 (08:27→16:10)
[2016-12-15] MEDS: CLOTRIMAZOLE 1% 15 GM TUBE TP SCH ×2 (08:28→16:11)
[2016-12-15] MEDS: NEOMY SULF/BACITRAC ZN/POLY 15 GM TUBE TP SCH ×2 (08:28→16:11)
--- NOTE | 2016-12-15 09:43 | NUR ---
WOUND CARE CONSULT: PT PRESENTS WITH LEFT LATERAL FOOT PURPLE INTACT SKIN (SUSPECTED DTI), NO DRAINAGE NOTED. RT OUTER EAR CONTINUES TO PRESENT WITH INTACT DTI, NO DRAINAGE AND LEFT OUTER EAR HAS INTACT SUSPECTED DTI, NO DRAINAGE. RECOMMEND CONTINUE ALL SKIN PROTECTION MEASURES. DISCUSSED WITH NURSING STAFF. PT ON FIRST STEP MATTRESS. PT HAS MULTIPLE CO-MORBIDITES AND REMAINS ON VENTILATOR. MD IN AGREEMENT WITH PLAN OF CARE. Addendum: 12/15/16 at 0946 by STEVE WASSERMAN WNDNU Amended: Links added.
--- NOTE | 2016-12-15 10:38 | NUR ---
Talked with Carlos from Dr. Mcleod's office regarding Dr. Mcleod's plan for tracheostomy. Carlos will ask Dr. Mcleod regading tracheostomy placement and will call back.
--- NOTE | 2016-12-15 14:35 | NUR ---
PT'S BP VERY LOWER, UNSTABLE. ICU WILL CALL WHEN READY.
--- NOTE | 2016-12-15 14:40 | NUR ---
CT chest abdomen and sinus cancelled again due to hypotension. SBP 74/45. 1 unit PRBC pending due to presence of antibody. Per laboratory, need to be sent to [place].
--- NOTE | 2016-12-15 16:00 | NUR ---
Patient blood pressure normalize without pressor or fluids. Off sedation but still obtunded.
[2016-12-15] MEDS: MICAFUNGIN SODIUM 100 MG in IV NS 0.9% 100 ML IV SCH (16:10)
--- NOTE | 2016-12-15 19:30 | NUR ---
Received patient obtunded off sedation moving left arm and leg but right arm and leg flaccid. Patient off left wrist restraints and pulled out NGT.Soft wrist restraint reapplied for safety. Intubated to vent on AC 12,TV 550,FIO2 50%,PEEP 5.Suctioned small amount white secretions. Oral care done.SR/ST per monitor.hemodynamically stable.No acute distress noted.Turned and repositioned
--- NOTE | 2016-12-15 20:00 | NUR ---
NGT right nares FR# 16 inserted without difficulty.Placement verified by 2 RN.No residual noted.NGT feeding Novasource renal restarted at 40 ml/hr.HOB elevated.
[2016-12-15] MEDS: PANTOPRAZOLE 40 MG VIAL IV SCH (20:08)
--- NOTE | 2016-12-15 22:40 | NUR ---
Patient restless and anxious Diprivan drip restarted and will titrate accordingly.
--- NOTE | 2016-12-15 23:12 | NUR ---
RT PEEP dropped from 6 TO 5 per md orders as tolerated.
[2016-12-16] VITALS (72 sets, daily range): BP systolic 101–128; BP diastolic 31–49
--- NOTE | 2016-12-16 | NUR ---
Patient still restless and Diprivan drip titrated up to 20mcg/kg/min.Blood sugar 264 covered per RI SS.Bed bath rendered for comfort and all linens changed.Repositioned to comfort.
[2016-12-16] MEDS: INSULIN REGULAR, HUMAN 100 UNIT/ML 3 ML VIAL SQ PRN ×3 (00:02→17:42)
[2016-12-16] MEDS: IPRATROPIUM NEB FS 0.5 MG/2.5 ML AMPUL.NEB NEB SCH ×4 (02:05→19:43)
[2016-12-16] MEDS: ALBUTEROL FS 2.5 MG/3 ML VIAL.NEB NEB SCH ×4 (02:05→19:43)
--- NOTE | 2016-12-16 03:32 | NUR ---
Called Blood [facility] to follow up on patient 1 unit PRBC.Per Audrey, [facility] did not bring The blood yet.
[2016-12-16] MEDS: PIPERACILLIN /TAZOBACTAM 2.25 G in IV D5W 50 ML IV SCH ×3 (04:30→20:45)
[2016-12-16] MEDS: PROPOFOL 100 ML IV PRN ×4 (04:37→22:38)
[2016-12-16 05:29] LABS: BASOPHILS # (AUTO) 0.2 /CMM (0.0-0.2); EOSINOPHILS # (AUTO) 0.6 /CMM (0.0-0.7); EOSINOPHILS % (AUTO) 2.5 % (0.0-6.0); HEMATOCRIT 24 % (39-51); HEMOGLOBIN 7.6 g/dL (13.5-17.5); LYMPHOCYTES # (AUTO) 1.9 /CMM (0.8-4.8); LYMPHOCYTES % (AUTO) 8.5 % (20.0-44.0); MEAN CORPUSCULAR HEMOGLOBIN 28 PG (26.0-33.0); MEAN CORPUSCULAR HGB CONC 32 g/dl (31.0-36.0); MEAN CORPUSCULAR VOLUME 86 fL (80-96); MONOCYTES # (AUTO) 1.1 /CMM (0.1-1.30); MONOCYTES % (AUTO) 4.9 % (2.0-12.0); NEUTROPHILS % (AUTO) 83.1 % (43.0-81.0); PLATELET COUNT (AUTO) 208 /CMM (150-450); RED BLOOD CELL COUNT(AUTO) 2.77 MIL/uL (4.5-6.0); WHITE BLOOD COUNT (AUTO) 22.8 K/uL (4.3-11.0)
[2016-12-16 05:32] LABS: CALCIUM, SERUM 7.7 mg/dL (8.5-10.1); CREATININE 4.1 mg/dL (0.6-1.3)
[2016-12-16 05:36] LABS: INR 0.96 (0.87-1.13); PROTHROMBIN TIME 10.3 SECS (9.5-12.7)
[2016-12-16] MEDS: BLOOD SUGAR DIAGNOSTIC 1 EACH STRIP IN SCH ×4 (06:00→23:56)
--- NOTE | 2016-12-16 06:10 | NUR ---
Follow up call to Blood Bank,per Audrey still blood not arrived from [facility].Patient remains sedated with Diprivan drip @ 40 mcg.All due meds given.Accu check done BS 197.No coverage given.Remains NPO for trach today.Pre op check list initiated.Repositioned.All needs met.No acute distress noted.
[2016-12-16 06:19] LABS: BAND % (MANUAL) 2 % (0.0-5.0); EOSINOPHILS % (MANUAL) 1 % (0-4); LYMPHOCYTES % (MANUAL) 5 % (16-48); METAMYELOCYTES % 2 % (0-0); MONOCYTES % (MANUAL) 3 % (0-11.0); MYELOCYTES % 1 % (0-0); NEUTROPHILS % (MANUAL) 86 (42-76)
[2016-12-16] MEDS ORDERED: LIDOCAINE HCL/PF 1% 30 ML SDV ONE (07:23)
--- NOTE | 2016-12-16 07:37 | NUR ---
RT PT RECEIVED ORALLY INTUBATED WITH A 7.5 ETT SECURED AT 22CM AT THE LIP LINE. PT IS RESPONDS TO STIMULI WHEN SUCTIONED. VENT ALARMS ARE SET AND AUDIBLE WITH BVM BY BEDSIDE. FIELD SALES MANAGER CUFF PRESSURE NOTED. VENT IS PLUGGED INTO RED OUTLET. NO RESPIRATORY DISTRESS NOTED AT THIS TIME, WILL CONTINUE TO MONITOR. Addendum: 12/16/16 at 1754 by PRATIMA CASTELLANOS RT Amended: Links added.
--- NOTE | 2016-12-16 07:40 | NUR ---
RADIO OFFICER: pt.is sedated with 40mcg/kg/min Diprivan gtt well, reactive for light pain stimuli, consents for surgery/anesthesia are in chart, SR, SBP over 100, O2 sat. WNL, one PRBC transfusion order is active, waiting unit from [facility], O
[2016-12-16] MEDS ORDERED: MIDAZOLAM HCL 2 MG/2ML VIAL ONE (07:59)
[2016-12-16] MEDS ORDERED: ROCURONIUM BROMIDE 50 MG/5 ML ONE (07:59)
--- NOTE | 2016-12-16 08:00 | NUR ---
HOSPICE CASE MANAGER: Anesthesiologist updated with pt.condition, history, sedation level, labs, H/H, meds, consent, NPO, spoke with pt.family
--- NOTE | 2016-12-16 08:25 | NUR ---
MATH PROFESSOR: pt.is transferred to OR
[2016-12-16] MEDS ORDERED: SEVOFLURANE 250 ML BOTTLE IH ONE (08:26)
--- NOTE | 2016-12-16 09:05 | NUR ---
CYTOLOGIST: pt.is back from OR, by OR nurse report: shaye Fleming#8, f/u order: resume all arders, trach care, VSS, sedation restarted with 5 mcg Diprivan
[2016-12-16] MEDS: ASPIRIN 81 MG TAB.CHEW NG SCH (09:08)
[2016-12-16] MEDS: LINEZOLID RTU BAG 600 MG in PREMIX 1 EA IV SCH ×2 (09:08→21:17)
[2016-12-16] MEDS: LACTOBACILLUS RHAMNOSUS GG 1 EACH CAP.SPRINK PO SCH ×2 (09:08→16:25)
[2016-12-16] MEDS: NEOMY SULF/BACITRAC ZN/POLY 15 GM TUBE TP SCH ×2 (09:11→16:26)
[2016-12-16] MEDS: Z GUARD REMEDY 2 OZ OINT TP PRN (09:11)
[2016-12-16] MEDS: CLOTRIMAZOLE 1% 15 GM TUBE TP SCH ×2 (09:11→16:25)
[2016-12-16] MEDS: DOCUSATE SODIUM LIQ 100 MG/10 ML UDC GT SCH ×2 (09:13→16:25)
[2016-12-16] MEDS: RENAL NOVASOURCE 1,000 ML BOTTLE GT PRN (09:15)
--- NOTE | 2016-12-16 09:27 | NUR ---
RT PT BROUGHT BACK FROM OR TRACHED WITH A SHILEY 8, PLACED PT BACK ON VENT ON PREVIOUS SETTINGS. EQUAL BILATERAL BREATHE SOUNDS AND CHEST RISE. NO RESPIRATORY DISTRESS NOTED, WILL CONTINUE TO MONITOR. Addendum: 12/16/16 at 0929 by PRATIMA CASTELLANOS RT Amended: Links added.
--- NOTE | 2016-12-16 10:00 | NUR ---
FUR LINER: is in room, updated with pt.s/p trach/current condition, VS, I/O, 12/15/16 HD, meds, see new orders
[2016-12-16] MEDS ORDERED: IV SET PRIMARY PUMP SET 1 EA INFUS.SET MC ONE ×2 (10:07→20:03)
--- NOTE | 2016-12-16 10:30 | NUR ---
HOSPICE CLINICAL SUPERVISOR: is in room to see pt., notified re new trach, suction amount, sedation level/previous activity level, VS, I/O, NGTF, see new orders
[2016-12-16] MEDS: ACETAMINOPHEN 650 MG/20.3 ML UDC NG PRN ×2 (11:05→18:50)
--- NOTE | 2016-12-16 11:10 | NUR ---
DIRECTOR OF SCOUT WORK: is in room, updated with pt.current condition, new trach, VS, T 100.7 now, I/O, NGTF, labs, meds, skin problems, sedation level, ordered BCx3 from PICC, HD cath, peripheral, SputumC, see new orders
[2016-12-16] MEDS ORDERED: SECONDARY IV SET 1 EA INFUS.SET MC ONE (11:45)
[2016-12-16] MEDS: ALBUMIN 25% 25 GM in PREMIX 1 EA IV PRN (12:00)
--- NOTE | 2016-12-16 12:00 | NUR ---
SHEET WRITER: called to blood back, still waiting for one PRBC from [facility], HD nurse notified re pt.status, VS, labs, HD started
--- NOTE | 2016-12-16 13:09 | NUR ---
ENERGY TRADING ANALYST: CHARLOTTE Abbott is in room, updated with pt.neuro status, current condition, VS, IVF, NPO, labs, K+ replacement order, I/O, T101 episode, microbiology results, wrists restrains, see new orders
--- NOTE | 2016-12-16 13:10 | NUR ---
EVALUATION ANALYST: previous note is error
--- NOTE | 2016-12-16 13:15 | NUR ---
GLASS CYLINDER FLANGER: CHARLOTTE Abbott updated with pt.current condition, new trach, VS, sedation level, HD, NGTF, I/O, BS, still waiting for one PRBC unit from [facility], see new orders
[2016-12-16] MEDS ORDERED: IV NS 0.9% 250 ML IV ONE (16:19)
[2016-12-16] MEDS ORDERED: BLOOD IV SET 1 EA INFUS.SET MC ONE (16:19)
--- NOTE | 2016-12-16 17:09 | NUR ---
DRAIN TILE PRESS OPERATOR: pt.is sedated well, reactive for light pain stimuli, R.leg, arm trace activity+, continue titrate sedation, rest, no grimacing, SBP over 100, SR/ST [id number], O2sat. WNL, trach site care done, no acute bleeding, dressing changed, tolerated well for blood transfusion, skin care done/dressings changed, pt.family is in room, updated with orders, POC
--- NOTE | 2016-12-16 19:30 | NUR ---
Received patient resting vs stable.Hemodynamically stable.ST 104.Sedated on Diprivan drip at 30 mcg and will titrate accordingly.With tach to vent on same prescribed settings well tolerated.SPO2 100%.Trach site with dressing C/D/I.No s/s of pain.R nares NGT with feeding infusing.Placement verified and with 5 ml residual noted.HOB elevated.No acute distress noted.Turned and repositioned to comfort.
--- NOTE | 2016-12-16 20:16 | NUR ---
RT NOTE PT RECEIVED MECHANICALLY VENTILATED VIA SHILEY 8 TRACH TUBE. SETTINGS PRESCRIBED. ALARMS SET PER PROTOCOL AND AUDIBLE. AMBU BAG AT BEDSIDE. HOUSEKEEPING ATTENDANT PERFORMED. BILATERAL CHEST RISE NOTED. NO DISTRESS NOTED WILL CONTINUE TO MONITOR. Addendum: 12/16/16 at 2019 by JAMES ALEMAN RT Amended: Links added.
[2016-12-16] MEDS: IV NS 0.9% 250 ML IV PRN (20:45)
--- NOTE | 2016-12-16 22:00 | NUR ---
Patient family visiting and updated of patient status and plan of care.Made mentioned about PEG placement.Per she is in agreement for peg placement.But first she has to talk to her niece who speaks Romanian.
[2016-12-17] VITALS (52 sets, daily range): BP systolic 101–138; BP diastolic 28–56
[2016-12-17] MEDS ORDERED: INSULIN REGULAR, HUMAN 100 UNIT/ML 3 ML VIAL SQ ONE
[2016-12-17] MEDS ORDERED: DEXTROSE 50%-WATER 50 ML DISP.SYRIN IV PRN
--- NOTE | 2016-12-17 00:15 | NUR ---
Patient resting .VS stable.ST 103.Blood sugar 404.No distress noted.SOFIA,Todd Glover notified. Orders received and carried out.Regular insulin 20 units SQ total given.Changed accu check Q 4 hrs aggressive sliding scale.
[2016-12-17] MEDS: BLOOD SUGAR DIAGNOSTIC 1 EACH STRIP IN SCH ×6 (01:02→20:34)
[2016-12-17] MEDS: IPRATROPIUM NEB FS 0.5 MG/2.5 ML AMPUL.NEB NEB SCH ×4 (01:20→19:48)
[2016-12-17] MEDS: ALBUTEROL FS 2.5 MG/3 ML VIAL.NEB NEB SCH ×4 (01:20→19:48)
--- NOTE | 2016-12-17 01:20 | NUR ---
Blood sugar checked BS 423.DNP,Todd Glover notified with order to give 20 units RI per SS. and to changed feeding to Glytrol.
[2016-12-17] MEDS: INSULIN REGULAR, HUMAN 100 UNIT/ML 3 ML VIAL SQ PRN ×5 (01:23→20:33)
[2016-12-17] MEDS ORDERED: GLYTROL 1,000 ML BAG GT PRN (01:30)
[2016-12-17] MEDS ORDERED: GLYTROL 1,000 ML BAG ONE (02:38)
[2016-12-17] MEDS: PIPERACILLIN /TAZOBACTAM 2.25 G in IV D5W 50 ML IV SCH ×3 (04:33→20:24)
[2016-12-17] MEDS: PROPOFOL 100 ML IV PRN ×3 (04:33→17:19)
[2016-12-17 04:49] LABS: BASOPHILS # (AUTO) 0.1 /CMM (0.0-0.2); BASOPHILS % (AUTO) 0.5 % (0.0-2.0); EOSINOPHILS # (AUTO) 0.3 /CMM (0.0-0.7); EOSINOPHILS % (AUTO) 2.1 % (0.0-6.0); HEMATOCRIT 22 % (39-51); HEMOGLOBIN 7.3 g/dL (13.5-17.5); LYMPHOCYTES # (AUTO) 1.3 /CMM (0.8-4.8); MEAN CORPUSCULAR HEMOGLOBIN 29 PG (26.0-33.0); MEAN CORPUSCULAR HGB CONC 33 g/dl (31.0-36.0); MEAN CORPUSCULAR VOLUME 86 fL (80-96); MONOCYTES # (AUTO) 0.6 /CMM (0.1-1.30); MONOCYTES % (AUTO) 4.1 % (2.0-12.0); NEUTROPHILS # (AUTO) 13.6 /CMM (1.8-8.9); NEUTROPHILS % (AUTO) 85.3 % (43.0-81.0); PLATELET COUNT (AUTO) 181 /CMM (150-450); RDW COEFFICIENT OF VARIATION 18.2 (11.5-15.0); RED BLOOD CELL COUNT(AUTO) 2.55 MIL/uL (4.5-6.0); WHITE BLOOD COUNT (AUTO) 15.9 K/uL (4.3-11.0)
[2016-12-17 04:58] LABS: CALCIUM, SERUM 7.5 mg/dL (8.5-10.1); CREATININE 4.5 mg/dL (0.6-1.3); MAGNESIUM 2.4 mg/dL (1.8-2.4); PHOSPHORUS 6.2 mg/dL (2.5-4.9); POTASSIUM 4.2 mmol/L (3.5-5.1)
--- NOTE | 2016-12-17 06:30 | NUR ---
Patient resting .VS stable.SR .Tolerating NGT feeding.Patient latest Blood sugar 164 and coverage given per RI SS.All due meds given.NAD noted.Turned and repositioned.Needs met.
--- NOTE | 2016-12-17 08:00 | NUR ---
DR. GWENDOLYN SONG AND CLINT DANIEL FOREIGN TRADE TEACHER ON THE UNIT TO EVAL THE PATIENT. THEY BOTH AGREE AND ORDER FOR 1 UNIT PRBC WITH HD. ORDERS IN PLACE.
[2016-12-17] MEDS: LACTOBACILLUS RHAMNOSUS GG 1 EACH CAP.SPRINK PO SCH ×2 (08:07→16:27)
[2016-12-17] MEDS: ASPIRIN 81 MG TAB.CHEW NG SCH (08:07)
[2016-12-17] MEDS: DOCUSATE SODIUM LIQ 100 MG/10 ML UDC GT SCH ×2 (08:07→16:27)
[2016-12-17] MEDS: LINEZOLID RTU BAG 600 MG in PREMIX 1 EA IV SCH ×2 (08:09→20:28)
[2016-12-17] MEDS: ACETAMINOPHEN 650 MG/20.3 ML UDC NG PRN ×2 (08:09→16:27)
[2016-12-17] MEDS: CLOTRIMAZOLE 1% 15 GM TUBE TP SCH ×2 (08:13→16:39)
[2016-12-17] MEDS: NEOMY SULF/BACITRAC ZN/POLY 15 GM TUBE TP SCH ×2 (08:13→16:39)
[2016-12-17] MEDS: GLYTROL 1,000 ML BAG GT PRN (08:17)
--- NOTE | 2016-12-17 10:22 | NUR ---
CT SCAN ON HOLD FOR NOW. RN WILL FIND OUT IF IT IS CHEST, ABD. & PEL. VS. JUST ABD.& PEL. RN WILL CALL.
[2016-12-17] MEDS ORDERED: PHENYLEPHRINE 40 MG in IV D5W 250 ML IV PRN ×2 (10:30→16:00)
--- NOTE | 2016-12-17 10:52 | NUR ---
TRANSPORTING PT FOR CT. CONSENT TELEPHONE ORDER SIGNED, BY FAMILY MEMBER CURTIS GARDINER (ON FACESHEET).
[2016-12-17] MEDS ORDERED: IOHEXOL-300 100 ML VIAL IV ONE ×2 (10:54→10:58)
[2016-12-17] MEDS ORDERED: CT SWABBABLE VALVE TRANS SET 1 EA INFUS.SET MC ONE (10:54)
[2016-12-17] MEDS ORDERED: IV NS 0.9% 250 ML IV ONE (10:54)
--- NOTE | 2016-12-17 11:50 | NUR ---
PT TAKEN TO CT W/ RN. PT BAGGED W/ 100% FIO2 VIA AMBUBAG; PULSE OX AND HR MONITOR AT BEDSIDE. PT PLACED ON HT70 CT VENT W/ ORDERED SETTINGS. NO SIGNS OF RESP DISTRESS NOTED ON TRANSPORT AND RETURN TO ICU. PT PLACED BACK ON PRIOR VENT SETTINGS.
--- NOTE | 2016-12-17 14:13 | NUR ---
ABNORMAL CT FINDINGS OF SINUS AREA REPORTED TO Gary ORTIZ DR AND DR SONG
--- NOTE | 2016-12-17 15:53 | NUR ---
DISCUSSED WITH MARCI MONITORING SPECIALIST WORKING WITH DR. BARROW, STANDING ORDERS IN FOR URINE SAMPLE IF PT IS SPIKING FEVERS. SHE SAYS ITS OKAY TO STRAIGHT CATH TO OBTAIN SAMPLE. STRAIGHT CATHED THE PT AND VERY SMALL AMOUNT OF URINE OBTAINED. COLLECTED AND SENT TO THE LAB. MARCI ALSO ORDERS FOR BLOOD CULTURES OF THE HD CATHETER WHEN HE HAS HD FOR TODAY. HD NURSE STATES SHE WILL COME AT 1800.
[2016-12-17] MEDS ORDERED: LEVOFLOXACIN 500 MG /D5W 100ML 500 MG in PREMIX 1 EA IV SCH (16:00)
[2016-12-17] MEDS ORDERED: SECONDARY IV SET 1 EA INFUS.SET MC ONE (16:23)
[2016-12-17 17:37] LABS: APPEARANCE,URINE CLOUDY (CLEAR); BILIRUBIN,URINE NEGATIVE (NEGATIVE); BLOOD, URINE 2+ Ery/uL (NEGATIVE); COLOR,URINE YELLOW (YELLOW); KETONES,URINE NEGATIVE (NEGATIVE); LEUKOCYTE ESTERASE ,URINE TRACE (NEGATIVE); NITRITE, URINE NEGATIVE (NEGATIVE); PROTEIN,URINE 3+ mg/dl (NEGATIVE); UGLUCOSE TRACE mg/dL (NEGATIVE); UROBILINOGEN,URINE 0.2 EU/dL (0.2)
[2016-12-17 17:42] LABS: BACTERIA,URINE 2+ /HPF (None Seen); SPERM,URINE Few /HPF (None Seen); SQUAMOUS EPITHELIAL CELL,UR 0-2 /HPF (None Seen)
[2016-12-17] MEDS ORDERED: BLOOD IV SET 1 EA INFUS.SET MC ONE (18:10)
[2016-12-17] MEDS ORDERED: IV SET PRIMARY PUMP SET 1 EA INFUS.SET MC ONE (20:13)
--- NOTE | 2016-12-17 20:21 | NUR ---
RT NOTE PT RECEIVED MECHANICALLY VENTILATED VIA SHILEY 8 CUFFED TRACH TUBE. VENT SETTINGS PRESCRIBED. ALARMS SET PER PROTOCOL AND AUDIBLE. AMBU BAG AT BEDSIDE. VENT PLUGGED IN TO RED OUTLET. PT SEDATED. BILATERAL CHEST RISE NOTED. NO DISTRESS NOTED. WILL CONTINUE TO MONITOR. Addendum: 12/17/16 at 2022 by JAMES ALEMAN RT Amended: Links added.
[2016-12-17] MEDS: PANTOPRAZOLE 40 MG/PACK PACK GT SCH (20:23)
[2016-12-18] VITALS (62 sets, daily range): BP systolic 84–126; BP diastolic 28–47
[2016-12-18] MEDS: ALBUTEROL FS 2.5 MG/3 ML VIAL.NEB NEB SCH ×4 (01:16→19:36)
[2016-12-18] MEDS: IPRATROPIUM NEB FS 0.5 MG/2.5 ML AMPUL.NEB NEB SCH ×4 (01:16→19:36)
[2016-12-18] MEDS ORDERED: IV SET PRIMARY PUMP SET 1 EA INFUS.SET MC ONE ×3 (01:23→20:20)
[2016-12-18] MEDS: IV NS 0.9% 250 ML IV PRN (01:27)
[2016-12-18] MEDS: PROPOFOL 100 ML IV PRN (01:27)
[2016-12-18] MEDS: INSULIN REGULAR, HUMAN 100 UNIT/ML 3 ML VIAL SQ PRN ×6 (01:52→20:25)
[2016-12-18] MEDS: BLOOD SUGAR DIAGNOSTIC 1 EACH STRIP IN SCH ×6 (01:53→20:11)
[2016-12-18 04:52] LABS: BASOPHILS % (AUTO) 0.1 % (0.0-2.0); EOSINOPHILS # (AUTO) 0.3 /CMM (0.0-0.7); EOSINOPHILS % (AUTO) 2.1 % (0.0-6.0); HEMATOCRIT 22 % (39-51); HEMOGLOBIN 7.4 g/dL (13.5-17.5); LYMPHOCYTES # (AUTO) 0.7 /CMM (0.8-4.8); LYMPHOCYTES % (AUTO) 5.5 % (20.0-44.0); MEAN CORPUSCULAR HEMOGLOBIN 28 PG (26.0-33.0); MEAN CORPUSCULAR HGB CONC 33 g/dl (31.0-36.0); MEAN CORPUSCULAR VOLUME 85 fL (80-96); MONOCYTES # (AUTO) 0.5 /CMM (0.1-1.30); MONOCYTES % (AUTO) 3.8 % (2.0-12.0); NEUTROPHILS # (AUTO) 11.7 /CMM (1.8-8.9); NEUTROPHILS % (AUTO) 88.5 % (43.0-81.0); PLATELET COUNT (AUTO) 122 /CMM (150-450); RDW COEFFICIENT OF VARIATION 18.4 (11.5-15.0); RED BLOOD CELL COUNT(AUTO) 2.61 MIL/uL (4.5-6.0); WHITE BLOOD COUNT (AUTO) 13.2 K/uL (4.3-11.0)
[2016-12-18 05:06] LABS: CALCIUM, SERUM 7.9 mg/dL (8.5-10.1); CREATININE 4.4 mg/dL (0.6-1.3); MAGNESIUM 2.4 mg/dL (1.8-2.4); PHOSPHORUS 7.8 mg/dL (2.5-4.9); POTASSIUM 4.8 mmol/L (3.5-5.1)
[2016-12-18] MEDS ORDERED: ALBUMIN 25% 100 ML IV ONE (05:58)
--- NOTE | 2016-12-18 06:00 | NUR ---
CLASSIFYING MACHINE OPERATOR - REC'D PT. AT START OF SHIFT ON DIPRIVAN GTT. AT 30 MCG/KG/MIN. PT'S FAMILY WAS AT BS AT [facility]. PT'S UPSET AT SITE OF NECK SWELLING FROM NEW TRACH. RN EXPLAINED TO PT. THE RATIONALE OF EDEMA AROUND NEW TRACH SITE. COPIOUS AMTS OF BLOODY SX'S AT TRACH SITE. RT. SIDE OF BODY IS STRONGER THAN LEFT. ALL PORTS TO PICC,MIDLINE & PIV'S ARE PATENT TO FLUSH. DIALYSIS WAS DONE LAST NIGHT W/1.7L REMOVED. HD ANAY URBINA WAS HERE AT 05:30 TO PERFORM ANOTHER HD. ALBUMIN 100CC WAS ADM. W/THIS AM HD. COMP. BEDBATH ADM. AT 3AM W/SKIN PICS TAKEN & DOCUMENTED. RT. MALATHI SNIDERT HAS GLYTROL INFUSING AT 40CC/HR. NO RESID. ANURIC CONT.POC.
[2016-12-18] MEDS: PIPERACILLIN /TAZOBACTAM 2.25 G in IV D5W 50 ML IV SCH ×3 (07:24→20:10)
--- NOTE | 2016-12-18 08:00 | NUR ---
PT RECEIVED TRACHED ON MECHANICAL VENT W/ SETTINGS PER MD. VENT IN RED OUTLET, AMBUBAG AT BEDSIDE, VENT ALARMS CHECKED AND AUDIBLE. PT SX'ED AND LAVAGED PRN. NO RESP DISTRESS NOTED AT THIS TIME. PLAN IS TO CONTINUE CARE W/ CURRENT MD ORDERS AND MONITOR FOR CHANGES. Addendum: 12/18/16 at 0955 by GOLDY SPAULDING RT Amended: Links added.
[2016-12-18] MEDS: ASPIRIN 81 MG TAB.CHEW NG SCH (08:47)
[2016-12-18] MEDS: LACTOBACILLUS RHAMNOSUS GG 1 EACH CAP.SPRINK PO SCH ×2 (08:47→16:04)
[2016-12-18] MEDS: DOCUSATE SODIUM LIQ 100 MG/10 ML UDC GT SCH ×2 (08:48→16:04)
[2016-12-18] MEDS: LINEZOLID RTU BAG 600 MG in PREMIX 1 EA IV SCH ×2 (08:49→20:11)
[2016-12-18] MEDS ORDERED: SECONDARY IV SET 1 EA INFUS.SET MC ONE (08:55)
[2016-12-18] MEDS: CLOTRIMAZOLE 1% 15 GM TUBE TP SCH ×2 (09:03→16:04)
[2016-12-18] MEDS: NEOMY SULF/BACITRAC ZN/POLY 15 GM TUBE TP SCH ×2 (09:03→16:05)
--- NOTE | 2016-12-18 10:54 | NUR ---
NEW TYPE AND SCREEN ORDERED DUE TO EXPIRATION OF OLD TYPE AND SCREEN. CLINT ORDERS 1 UNIT PRBC WHICH THEY WILL REQUEST FOR WITH THE NEW TYPE AND SCREEN.
--- NOTE | 2016-12-18 13:54 | NUR ---
I RELAYED TO CLINT DANIEL THAT DR. BARROW RECOMMENDS GTUBE PLACEMENT (NG TUBE PUTS STRESS ON SINUSES WHICH HAVE THE ABCESS AND OSTEOMYELITIS SEE LAST SINUS CT 12/17/16). CLINT STATES THAT HE WILL CONTACT DR. WORTHY ABOUT POSSIBLE GTUBE PLACEMENT AND HE ALREADY SPOKE WITH THE DRNubia REGARDING GI BLEED, NO PLAN FOR EGD AT THIS TIME.
--- NOTE | 2016-12-18 17:42 | NUR ---
UTILIZED MALAWIAN SPEAKING RN TO EXPLAIN TO THE PTS THE CURRENT CONDITION OF THE PATIENT REGARDING, THE GROWTH ON HER MITRAL VALVE AT THIS POINT WE ARE TRYING TO TREAT HIS RECURRENT INFECTIONS AND FIND A BED AND SURGEON FOR THE PROCEDURE. I ALSO TOLD HER THAT THE PATIENT MAY NEED A GTUBE SOON BECAUSE OF THE SINUS ABCESS AND THE NG TUBE CANNOT STAY IN PLACE FOR LONG. WE ARE CURRENTLY AWAITING FOR GI CONSULT TO COME IN, DR. WORTHY WAS NOTIFIED BY CLINT DANIEL TODAY.
[2016-12-18] MEDS: PANTOPRAZOLE 40 MG/PACK PACK GT SCH (19:18)
--- NOTE | 2016-12-18 20:00 | NUR ---
FOIL OPERATOR - NOTES - RECEIVED PT AWAKE ANSWERS SIMPLE QUESTIONS W NODS. PT'S FAMILY WAS AT BEDSIDE. PT HAS MODERATE AMTS OF BLOODY SX'S AT TRACH SITE. RT. SIDE OF BODY IS STRONGER THAN LEFT. ALL PORTS TO PICC, MIDLINE ARE PATENT TO FLUSH. RIGHT NARE NGT HAS GLYTROL INFUSING AT 40CC/HR. NO RESID. ANURIC CONT.POC.
[2016-12-18] MEDS: ACETAMINOPHEN 650 MG/20.3 ML UDC NG PRN (20:52)
[2016-12-19] VITALS (80 sets, daily range): BP systolic 84–126; BP diastolic 30–61
[2016-12-19] MEDS: BLOOD SUGAR DIAGNOSTIC 1 EACH STRIP IN SCH ×6 (01:01→21:45)
[2016-12-19] MEDS: INSULIN REGULAR, HUMAN 100 UNIT/ML 3 ML VIAL SQ PRN ×5 (01:05→21:56)
[2016-12-19] MEDS ORDERED: BLOOD IV SET 1 EA INFUS.SET MC ONE (01:30)
[2016-12-19] MEDS: IPRATROPIUM NEB FS 0.5 MG/2.5 ML AMPUL.NEB NEB SCH ×5 (01:30→20:13)
[2016-12-19] MEDS: ALBUTEROL FS 2.5 MG/3 ML VIAL.NEB NEB SCH ×5 (01:30→20:13)
[2016-12-19] MEDS: IV NS 0.9% 250 ML IV PRN (01:37)
[2016-12-19 05:11] LABS: BASOPHILS % (AUTO) 0.4 % (0.0-2.0); EOSINOPHILS # (AUTO) 0.5 /CMM (0.0-0.7); EOSINOPHILS % (AUTO) 3.5 % (0.0-6.0); HEMATOCRIT 23 % (39-51); HEMOGLOBIN 7.5 g/dL (13.5-17.5); LYMPHOCYTES # (AUTO) 0.8 /CMM (0.8-4.8); LYMPHOCYTES % (AUTO) 5.8 % (20.0-44.0); MEAN CORPUSCULAR HEMOGLOBIN 28 PG (26.0-33.0); MEAN CORPUSCULAR HGB CONC 33 g/dl (31.0-36.0); MEAN CORPUSCULAR VOLUME 85 fL (80-96); MONOCYTES # (AUTO) 0.5 /CMM (0.1-1.30); MONOCYTES % (AUTO) 3.6 % (2.0-12.0); NEUTROPHILS # (AUTO) 11.5 /CMM (1.8-8.9); NEUTROPHILS % (AUTO) 86.7 % (43.0-81.0); PLATELET COUNT (AUTO) 107 /CMM (150-450); RDW COEFFICIENT OF VARIATION 17.4 (11.5-15.0); RED BLOOD CELL COUNT(AUTO) 2.68 MIL/uL (4.5-6.0); WHITE BLOOD COUNT (AUTO) 13.2 K/uL (4.3-11.0)
[2016-12-19 05:33] LABS: CALCIUM, SERUM 7.9 mg/dL (8.5-10.1); CREATININE 4.6 mg/dL (0.6-1.3); MAGNESIUM 2.3 mg/dL (1.8-2.4)
[2016-12-19] MEDS: PIPERACILLIN /TAZOBACTAM 2.25 G in IV D5W 50 ML IV SCH ×3 (05:40→21:46)
[2016-12-19] MEDS: DOCUSATE SODIUM LIQ 100 MG/10 ML UDC GT SCH ×2 (08:14→16:52)
[2016-12-19] MEDS: ASPIRIN 81 MG TAB.CHEW NG SCH (08:14)
[2016-12-19] MEDS: LINEZOLID RTU BAG 600 MG in PREMIX 1 EA IV SCH ×2 (08:14→21:46)
[2016-12-19] MEDS: NEOMY SULF/BACITRAC ZN/POLY 15 GM TUBE TP SCH ×2 (08:15→16:53)
[2016-12-19] MEDS: LACTOBACILLUS RHAMNOSUS GG 1 EACH CAP.SPRINK PO SCH ×2 (08:15→16:52)
[2016-12-19] MEDS: CLOTRIMAZOLE 1% 15 GM TUBE TP SCH ×2 (08:16→16:53)
--- NOTE | 2016-12-19 10:00 | NUR ---
PT SPIKING, FEVER, COOLING MEASURES IMPLEMENTED, MEDS GIVEN, WILL REASSESS TEMP LATER
--- NOTE | 2016-12-19 12:00 | NUR ---
PT SEEN BY DR SOL AND ANESTHESIA, WILL DO PEG PLACEMENT TOMORROW MORNING, CONSENT OBTAINED FROM , WILL PLACE NPO AFTER MIDNIGHT
--- NOTE | 2016-12-19 15:30 | NUR ---
HD STARTED, VSS, PT IN NO ACUTE DISTRESS
[2016-12-19] MEDS ORDERED: LEVOFLOXACIN 250 MG /D5W 50 ML 250 MG in PREMIX 1 EA IV SCH (16:00)
--- NOTE | 2016-12-19 16:00 | NUR ---
ICU/RN- RECEIVED PT. SLEEPING, ON THE VENT PER TRACH, ON AC MODE. SATS.-100%. EKG SR W/ HR-84/MIN. BP-100/37. FAMILY AT THE BEDSIDE. W/ ONGOING HD BY HD RN PAIGE. NOT IN ANY DISTRESS.W/ ON GOING TUBE FEEDS.
--- NOTE | 2016-12-19 17:00 | NUR ---
ICU/RN- CONSENT FOR PEG AND ANESTHESIA OBTAINED FROM THE . W/ S OMEGA RN INTERPRETED IN CHINESE. VERBALIZED UNDERSTANDING.
--- NOTE | 2016-12-19 17:30 | NUR ---
ICU/RN- HD DONE.PT. TOLERATED PROCEDURE WELL. NET LOSS IS ZERO.PT. HAD MODERATE AMOUNT OF BLACKISH COLOR DIARRHEA. PT. CLEANSED. KEPT WARM AND DRY.NOTED DTI ON THE LEFT AND MID BUTTOCK.PHOTO WAS TAKEN. MEPILEX APPLIED TO AREA.CONTINUE TO REPOSITION PT. TO SIDE Q 2HRS AND PRN.
--- NOTE | 2016-12-19 19:00 | NUR ---
ICU/RN- CONDITION UNCHANGED, REPORT GIVEN TO ANAY POTTER .
--- NOTE | 2016-12-19 20:12 | NUR ---
LINE DIRECTOR. INITIAL ASSESSMENT. RECEIVED THE PT REST ON THE BED. AWAKE, LETHARGIC TRACH TO VENT CONNECTED. SHILEY #8,AC 12,TV 550,FIO2 45%, PEEP 5. SAT 98%. PUNCHBOARD STUFFER SHOWING NSR. AFEBRILE. IV LT UPPER ARM PICC LINE. SALINE LOCK. LT FEMORAL HD CATH. LT NARE NGT. GLYTROL 40 ML/H. HOB ELEVATED. TURN AND REPOSITION Q2H. WILL CONTINUE TO MONITOR VITALS.
[2016-12-19] MEDS: PANTOPRAZOLE 40 MG/PACK PACK GT SCH (21:46)
[2016-12-20] VITALS (7 sets, daily range): BP systolic 90–130; BP diastolic 30–77
--- NOTE | 2016-12-20 00:27 | NUR ---
OPAL MINER. TRANSFER THE PT TO [facility] ROOM 114 BED 1. REPORT GIVEN TO MAGGIE CUEVA.
--- NOTE | 2016-12-20 00:30 | NUR ---
RN NOTES RECEIVED REPORT FROM METAL INSPECTOR CURTIS FOR THE PATIENT'S CONTINUITY OF CARE
--- NOTE | 2016-12-20 00:32 | NUR ---
COUNTERSINKER BALANCE SCREW HOLE. PT IS NPO. FROM 0000. FOR GT PLACEMENT.
[2016-12-20] MEDS: BLOOD SUGAR DIAGNOSTIC 1 EACH STRIP IN SCH ×6 (00:52→20:54)
[2016-12-20] MEDS: INSULIN REGULAR, HUMAN 100 UNIT/ML 3 ML VIAL SQ PRN ×2 (00:55→21:10)
--- NOTE | 2016-12-20 01:00 | NUR ---
RN NOTES PT ARRIVED IN ROOM WITH BED, A/O X1, ABLE TO MOUTHS WORDS. ON VENT, SHILEY 8, AC 12, TV 550, 45% FIO2, PEEP 5, SATURATING 100%. CURRENTLY SINUS RHYTHM ON THE MONITOR, HR 80'S. LEFT NARE NGT CLAMPED, NPO AFTER MIDNIGHT. ANURIC, ON DIAPERS ONLY. RIGHT UPPER ARM MIDLINE, LEFT UPPER ARM PICC, FLUSHED AND PATENT, NO S/S OF INFILTRATION/INFECTION, DRESSINGS CDI. LEFT FEMORAL HD CATH INTACT. BED LOW AND LOCKED, SIDERAILS UP, CALL LIGHT WITHIN REACH. WILL MONITOR
[2016-12-20] MEDS: ALBUTEROL FS 2.5 MG/3 ML VIAL.NEB NEB SCH ×4 (01:44→20:23)
[2016-12-20] MEDS: IPRATROPIUM NEB FS 0.5 MG/2.5 ML AMPUL.NEB NEB SCH ×4 (01:44→20:23)
[2016-12-20] MEDS ORDERED: IV NS 0.9% 250 ML IV ONE (04:01)
[2016-12-20] MEDS ORDERED: IV SET PRIMARY PUMP SET 1 EA INFUS.SET MC ONE (04:01)
[2016-12-20] MEDS ORDERED: SECONDARY IV SET 1 EA INFUS.SET MC ONE ×2 (04:01→21:10)
[2016-12-20] MEDS: PIPERACILLIN /TAZOBACTAM 2.25 G in IV D5W 50 ML IV SCH ×3 (04:17→20:54)
--- NOTE | 2016-12-20 06:30 | NUR ---
RN CLOSING NOTES PT REMAINS STABLE OF THE MOMENT. DUE MEDS GIVEN, AM CARE PROVIDED. WILL ENDORSE TO AM RN
[2016-12-20 06:47] LABS: BASOPHILS % (AUTO) 0.2 % (0.0-2.0); EOSINOPHILS # (AUTO) 0.3 /CMM (0.0-0.7); EOSINOPHILS % (AUTO) 3.6 % (0.0-6.0); HEMATOCRIT 23 % (39-51); HEMOGLOBIN 7.6 g/dL (13.5-17.5); LYMPHOCYTES # (AUTO) 0.7 /CMM (0.8-4.8); MEAN CORPUSCULAR HEMOGLOBIN 28 PG (26.0-33.0); MEAN CORPUSCULAR HGB CONC 33 g/dl (31.0-36.0); MEAN CORPUSCULAR VOLUME 85 fL (80-96); MONOCYTES # (AUTO) 0.3 /CMM (0.1-1.30); MONOCYTES % (AUTO) 3.3 % (2.0-12.0); NEUTROPHILS # (AUTO) 8.1 /CMM (1.8-8.9); NEUTROPHILS % (AUTO) 85.9 % (43.0-81.0); PLATELET COUNT (AUTO) 125 /CMM (150-450); RDW COEFFICIENT OF VARIATION 17.3 (11.5-15.0); WHITE BLOOD COUNT (AUTO) 9.5 K/uL (4.3-11.0)
[2016-12-20 07:03] LABS: CALCIUM, SERUM 7.6 mg/dL (8.5-10.1); CREATININE 4.2 mg/dL (0.6-1.3); MAGNESIUM 2.3 mg/dL (1.8-2.4)
[2016-12-20 07:04] LABS: PHOSPHORUS 8.5 mg/dL (2.5-4.9)
--- NOTE | 2016-12-20 08:00 | NUR ---
TUBE COATER RECEIVED PT IN BED AWAKE ALERT LETHARGIC FOLLOWS COMMANDS RECENTLY TRACHED SITE SCABS PRESENT AND MINOR BLOOD TINGED DISCHARGE, PT ON VENT SETTINGS NOTED, ABD SOFT ACTIVE BOWL SOUNDS, SR ON TELE SBP STABLE, IV ACCESS PATENT PITTING EDEMA ON EXTREMITIES NOTED, PT HAS HD CATH, OR TEAM AT BEDSIDE FOR NEW PEG PLACEMENT WILL CONTINUE TO MONITOR.
--- NOTE | 2016-12-20 08:01 | NUR ---
WOUND CARE CONSULT: PT NOT SEEN YET FOR SKIN ASSESSMENT DUE TO PT JUST BACK FROM SURGICAL PROCEDURE. PHOTO DOCUMENTATION SHOWS PURPLE INTACT SKIN TO LEFT MEDIAL AND LOWER BUTTOCK. OFFLOAD AREA. DISCUSSED WITH NURSING STAFF. PT ON FIRST STEP MATTRESS. ALL SKIN PROTECTION MEASURES IN PLACE AND DISCUSSED WITH NURSING STAFF. WILL SEE PT PT CONDITION PERMITS. MD IN AGREEMENT WITH PLAN OF CARE.
[2016-12-20] MEDS: ASPIRIN 81 MG TAB.CHEW NG SCH (08:11)
[2016-12-20] MEDS: DOCUSATE SODIUM LIQ 100 MG/10 ML UDC GT SCH ×2 (08:11→16:01)
[2016-12-20] MEDS: CLOTRIMAZOLE 1% 15 GM TUBE TP SCH ×2 (08:12→16:01)
[2016-12-20] MEDS: LACTOBACILLUS RHAMNOSUS GG 1 EACH CAP.SPRINK PO SCH ×2 (08:12→16:01)
[2016-12-20] MEDS: LINEZOLID RTU BAG 600 MG in PREMIX 1 EA IV SCH ×2 (08:12→21:52)
[2016-12-20] MEDS: NEOMY SULF/BACITRAC ZN/POLY 15 GM TUBE TP SCH ×2 (08:13→16:01)
--- NOTE | 2016-12-20 09:26 | NUR ---
QUANTITATIVE RESEARCHER PEGG PLACED SUCCESSFULLY BY MD MORRIS TO USE FOR FEEDING AND MEDS, PT TOLERATED WELL VS STABLE WILL CONTINUE TO MONITOR TURNED AND REPOSITION IN BED FALL PRECAUTIONS TAKEN OFF LOADED ALL EXTREMITIES.
--- NOTE | 2016-12-20 10:57 | NUR ---
WOUND CARE CONSULT: PT SEEN FOR SACRAL SUSPECTED DEEP TISSUE INJURY WHICH EXTENDS TO BUTTOCKS WITH PURPLE INTACT SKIN. 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 PEG INSERTED TODAY. RECOMMENDATIONS MADE FOR SKIN PROTECTION AND WOUND CARE. DISCUSSED WITH NURSING STAFF. PT ON FIRST STEP MATTRESS. ALL SKIN PROTECTION MEASURES IN PLACE. WILL SEE PRN. ANDRES IN AGREEMENT WITH PLAN OF CARE. Addendum: 12/20/16 at 1059 by STEVE WASSERMAN WNDNU Amended: Links added.
[2016-12-20] MEDS: GLYTROL 1,000 ML BAG GT PRN (14:38)
[2016-12-20] MEDS: ACETAMINOPHEN 650 MG/20.3 ML UDC NG PRN (16:01)
[2016-12-20] MEDS: IV NS 0.9% 250 ML IV PRN (20:54)
[2016-12-20] MEDS: PANTOPRAZOLE 40 MG/PACK PACK GT SCH (20:54)
[2016-12-21] VITALS: BP_SYST 113; BP_DIAS 27; BP_DIAS 37
[2016-12-21] MEDS: BLOOD SUGAR DIAGNOSTIC 1 EACH STRIP IN SCH ×6 (01:01→20:48)
[2016-12-21] MEDS: INSULIN REGULAR, HUMAN 100 UNIT/ML 3 ML VIAL SQ PRN ×3 (01:02→20:50)
[2016-12-21] MEDS: IPRATROPIUM NEB FS 0.5 MG/2.5 ML AMPUL.NEB NEB SCH ×4 (02:04→19:51)
[2016-12-21] MEDS: ALBUTEROL FS 2.5 MG/3 ML VIAL.NEB NEB SCH ×4 (02:04→19:51)
[2016-12-21 04:00] VITALS: BP 110/38
[2016-12-21] MEDS: PIPERACILLIN /TAZOBACTAM 2.25 G in IV D5W 50 ML IV SCH (05:13)
[2016-12-21] MEDS: MORPHINE SULFATE INJ 2 MG/ML DISP.SYRIN IV PRN (05:24)
--- NOTE | 2016-12-21 06:29 | NUR ---
RN NOTES PATIENT ALERT AND ORIENTED. TOLERATES GT FEEDING AT 30ML/HR. REMAINS VENT DEPENDENT WITH SETTING UNCHANGED. REPOSITIONED EVERY 2HRS. CALL LIGHT WITHIN REACH. NEEDS ATTENDED
--- NOTE | 2016-12-21 07:30 | NUR ---
RN AM NOTES PATIENT ALERT AND ORIENTED X 1, WITH THOMAS #8, VENT DEPENDENT WITH SETTINGS ORDERED. CURRENT GTF GT FEEDING AT 30ML/HR. TOLERATING WELL. NO SIGNS OF PAIN. SEE NURSING FLOWSHEET FOR SKIN ISSUES. WILL DO PERFORMED WOUND TREATMENT IN A WHILE. WILL REPOSITION EVERY 2HRS. CALL LIGHT WITHIN REACH. WILL CONT TO MONITOR. Addendum: 12/21/16 at 1439 by RACQUEL LOPEZ RN TELEMETRY READS SR HR 87.
[2016-12-21 07:33] LABS: BASOPHILS # (AUTO) 0.1 /CMM (0.0-0.2); BASOPHILS % (AUTO) 0.9 % (0.0-2.0); EOSINOPHILS # (AUTO) 0.3 /CMM (0.0-0.7); EOSINOPHILS % (AUTO) 3.4 % (0.0-6.0); HEMATOCRIT 23 % (39-51); HEMOGLOBIN 7.5 g/dL (13.5-17.5); LYMPHOCYTES # (AUTO) 0.5 /CMM (0.8-4.8); MEAN CORPUSCULAR HEMOGLOBIN 28 PG (26.0-33.0); MEAN CORPUSCULAR HGB CONC 32 g/dl (31.0-36.0); MEAN CORPUSCULAR VOLUME 85 fL (80-96); MONOCYTES # (AUTO) 0.4 /CMM (0.1-1.30); MONOCYTES % (AUTO) 4.6 % (2.0-12.0); NEUTROPHILS # (AUTO) 6.9 /CMM (1.8-8.9); NEUTROPHILS % (AUTO) 85.1 % (43.0-81.0); PLATELET COUNT (AUTO) 111 /CMM (150-450); RDW COEFFICIENT OF VARIATION 18.1 (11.5-15.0); RED BLOOD CELL COUNT(AUTO) 2.71 MIL/uL (4.5-6.0); WHITE BLOOD COUNT (AUTO) 8.1 K/uL (4.3-11.0)
[2016-12-21 07:35] LABS: CALCIUM, SERUM 7.4 mg/dL (8.5-10.1); CREATININE 4.3 mg/dL (0.6-1.3); MAGNESIUM 2.3 mg/dL (1.8-2.4); POTASSIUM 4.6 mmol/L (3.5-5.1)
[2016-12-21 07:48] LABS: PHOSPHORUS 9.5 mg/dL (2.5-4.9)
[2016-12-21 08:00] VITALS: BP 107/37
--- NOTE | 2016-12-21 08:00 | NUR ---
MS RN NOTES PT WITH MILAGROS PICC LINE, NINA MIDLINE AND LEFT FEMORAL CATH. CDI DRESSINGS TO EACH SITES.
[2016-12-21] MEDS: DOCUSATE SODIUM LIQ 100 MG/10 ML UDC GT SCH ×2 (09:12→16:19)
[2016-12-21] MEDS: LACTOBACILLUS RHAMNOSUS GG 1 EACH CAP.SPRINK PO SCH ×2 (09:12→16:19)
[2016-12-21] MEDS: ASPIRIN 81 MG TAB.CHEW NG SCH (09:12)
[2016-12-21] MEDS: NEOMY SULF/BACITRAC ZN/POLY 15 GM TUBE TP SCH ×2 (09:13→16:20)
--- NOTE | 2016-12-21 09:15 | NUR ---
SKIDWAY MAN NOTES PER R.T. PATIENT WITH BLOOD TINGE DRAINAGE TO TRACH SITE. NO SUCTIONING APPLIED. DR. WONG AWARE AT BEDSIDE.
[2016-12-21] MEDS: LINEZOLID RTU BAG 600 MG in PREMIX 1 EA IV SCH (09:18)
[2016-12-21] MEDS: CLOTRIMAZOLE 1% 15 GM TUBE TP SCH ×2 (09:20→16:20)
--- NOTE | 2016-12-21 09:30 | NUR ---
QUALITY ENGINEERING MANAGER NOTES ADMINISTERED DUE MEDS. ACCUCHECK. BS 107 MG/DL. NO INSULIN COVERAGE. ZYVOX IV STARTED.
--- NOTE | 2016-12-21 10:00 | NUR ---
SIZER HAND NOTES HD COMPLETED WITH 1.5 LITERS OUT.
[2016-12-21 12:00] VITALS: BP 125/35
--- NOTE | 2016-12-21 12:50 | NUR ---
ZOO CARETAKER NOTES ACCUCHECK. BS 193MG/DL. 4 UNITS HUM R INSULIN GIVEN PER SS.
[2016-12-21] MEDS: GLYTROL 1,000 ML BAG GT PRN (15:29)
[2016-12-21] MEDS: IV NS 0.9% 250 ML IV PRN (15:46)
[2016-12-21] MEDS: LEVOFLOXACIN 250 MG /D5W 50 ML 250 MG in PREMIX 1 EA IV SCH (15:46)
--- NOTE | 2016-12-21 15:46 | NUR ---
RN NOTES STARTED ROXANNA IV.
[2016-12-21] MEDS ORDERED: SECONDARY IV SET 1 EA INFUS.SET MC ONE (15:47)
[2016-12-21 16:00] VITALS: BP 110/30
[2016-12-21] MEDS: Z GUARD REMEDY 2 OZ OINT TP PRN (16:20)
--- NOTE | 2016-12-21 16:29 | NUR ---
DEPUTY DIRECTOR OF NURSING NOTES ACCUCHECK. BS 125\MG/DL. NO INSULIN COVERAGE AT THIS TIME.
[2016-12-21] MEDS: SEVELAMER CARBONATE 0.8 GM POWD.PACK GT SCH (18:20)
--- NOTE | 2016-12-21 18:51 | NUR ---
RN CLOSING NOTES PT RESTING IN BED COMFORTABLY. ALERT AND ORIENTED X 1, WITH SHILEY #8, VENT DEPENDENT WITH SETTINGS ORDERED. CURRENT GTF GT FEEDING AT 30ML/HR. TOLERATING WELL. NO SIGNS OF PAIN. PERFORMED PRESCRIBED WOUND TREATMENT EARLIER. REPOSITIONED Q 2 HOURS. PM CARE DONE. ALL NEEDS MET. NO OTHER SIGNIFICANT CHANGE IN CONDITION. SR ON TELEMETRY. WILL ENDORSE TO NEXT SHIFT FOR SONI.
--- NOTE | 2016-12-21 19:30 | NUR ---
ADMINISTRATIVE SUPPORT CLERK: RECEIVED PT ALERT AND AWAKE. ABLE TO MOUTH WORDS AND FOLLOW SIMPLE COMMANDS. ON MECH VENT VIA TRACH AND TOLERATING VENT SETTINGS ORDERED. NO ACUTE DISTRESS. NO C/O PAIN. TOLERATING GTF WT 5CC RESIDUAL. WILL INCREASE RATE TO MAX. GOAL OF 40ML/HR. SR ON TELE MONITOR. PER DAY SHIFT RN ENDORSEMENT IS AWARE OF HGB=7.5/ HCT=23 WT NO NEW ORDER. NO ACTIVE BLEEDING AT THIS TIME. SAFETY PRECAUTION NOTED. WILL CONTINUE TO MONITOR.
[2016-12-21 20:00] VITALS: BP 106/33
[2016-12-21] MEDS: PANTOPRAZOLE 40 MG/PACK PACK GT SCH (20:39)
[2016-12-21] MEDS ORDERED: CEFAZOLIN 1 GM in IV NS 0.9% 50 ML IV SCH (21:00)
[2016-12-22] VITALS: BP 114/32
[2016-12-22] MEDS: IPRATROPIUM NEB FS 0.5 MG/2.5 ML AMPUL.NEB NEB SCH ×4 (00:47→20:04)
[2016-12-22] MEDS: ALBUTEROL FS 2.5 MG/3 ML VIAL.NEB NEB SCH ×4 (00:47→20:04)
[2016-12-22] MEDS: BLOOD SUGAR DIAGNOSTIC 1 EACH STRIP IN SCH ×6 (01:00→21:12)
[2016-12-22] MEDS: INSULIN REGULAR, HUMAN 100 UNIT/ML 3 ML VIAL SQ PRN ×5 (01:02→21:11)
[2016-12-22 04:00] VITALS: BP 115/39
--- NOTE | 2016-12-22 06:35 | NUR ---
CO SUPERVISOR GROUNDS AND LANDSCAPE: NO SONI DURING THE SHIFT. NO ACUTE DISTRESS, NO C/O PAIN. VS WITHIN HIS BASELINE. TOLERATING GTF WT NO RESIDUAL. ALL NEEDS MET. WILL ENDORSE TO DAY SHIFT FOR CONTINUITY OF CARE.
--- NOTE | 2016-12-22 07:25 | NUR ---
RN INITIAL NOTES PT IN BED, A/O X2, MOUTHS WORDS, ANSWERS QUESTIONS APPROPRIATELY, HOB ELEVATED 35 DEGREES, ON MECH VENT SHILEY #8, AC 12, TV 550, FIO2 45%, PEEP 5, TOLERATING WELL. ON TELE MONITOR WITH SR 70'S, DENIES CHEST PAIN. PT IS ANURIC WITH DIAPER. PTS DBP IS USUALLY LOW IN 30'S-40'S, AND MD'S ARE OKAY WITH SBP IN 80'S. PT HAS BILATERAL EAR DTI, PERINEAL/BUTTOCK/SACRAL DTI, ALL DRESSINGS CDI. PT HAS GTF RUNNING GLYTROL @ 40 CC/HR, TOLERATING WELL, NO RESIDUAL. IV ON MILAGROS PICC, NINA MIDLINE 18G, LEFT FEMORAL HD CATH, CDI, NO SIGNS OF INFECTION/INFILTRATION. CALL LIGHT WITHIN EASY REACH, SAFETY MEASURES MAINTAINED, WILL CONTINUE TO MONITOR AND FOLLOW MD ORDERS.
[2016-12-22 07:28] LABS: BASOPHILS % (AUTO) 0.6 % (0.0-2.0); EOSINOPHILS # (AUTO) 0.2 /CMM (0.0-0.7); EOSINOPHILS % (AUTO) 3.7 % (0.0-6.0); HEMATOCRIT 24 % (39-51); HEMOGLOBIN 7.8 g/dL (13.5-17.5); LYMPHOCYTES # (AUTO) 0.7 /CMM (0.8-4.8); MEAN CORPUSCULAR HEMOGLOBIN 28 PG (26.0-33.0); MEAN CORPUSCULAR HGB CONC 33 g/dl (31.0-36.0); MEAN CORPUSCULAR VOLUME 85 fL (80-96); MONOCYTES # (AUTO) 0.4 /CMM (0.1-1.30); MONOCYTES % (AUTO) 6.5 % (2.0-12.0); NEUTROPHILS # (AUTO) 5.3 /CMM (1.8-8.9); NEUTROPHILS % (AUTO) 79.2 % (43.0-81.0); PLATELET COUNT (AUTO) 179 /CMM (150-450); RDW COEFFICIENT OF VARIATION 18.2 (11.5-15.0); RED BLOOD CELL COUNT(AUTO) 2.77 MIL/uL (4.5-6.0); WHITE BLOOD COUNT (AUTO) 6.7 K/uL (4.3-11.0)
--- NOTE | 2016-12-22 07:41 | NUR ---
Received male luc pt on mechanical vent. Vent is plugged into a red outlet, alarms are set and audible. BVM is at bedside. Addendum: 12/22/16 at 0742 by SARITA MOERJON RT Amended: Links added.
[2016-12-22 07:45] LABS: CALCIUM, SERUM 7.5 mg/dL (8.5-10.1); CREATININE 4.4 mg/dL (0.6-1.3); MAGNESIUM 2.4 mg/dL (1.8-2.4)
[2016-12-22 07:51] LABS: PHOSPHORUS 9.5 mg/dL (2.5-4.9)
[2016-12-22 08:00] VITALS: BP 114/35
[2016-12-22] MEDS: SEVELAMER CARBONATE 0.8 GM POWD.PACK GT SCH ×3 (08:45→17:49)
[2016-12-22] MEDS: NEOMY SULF/BACITRAC ZN/POLY 15 GM TUBE TP SCH ×2 (08:45→16:25)
[2016-12-22] MEDS: LACTOBACILLUS RHAMNOSUS GG 1 EACH CAP.SPRINK PO SCH ×2 (08:45→16:21)
[2016-12-22] MEDS: DOCUSATE SODIUM LIQ 100 MG/10 ML UDC GT SCH ×2 (08:45→16:21)
[2016-12-22] MEDS: ASPIRIN 81 MG TAB.CHEW NG SCH (08:45)
[2016-12-22] MEDS: CLOTRIMAZOLE 1% 15 GM TUBE TP SCH ×2 (08:46→16:26)
[2016-12-22 12:00] VITALS: BP 114/35
[2016-12-22] MEDS ORDERED: SECONDARY IV SET 1 EA INFUS.SET MC ONE (12:56)
[2016-12-22] MEDS: NAFCILLIN 2 G in IV D5W 50 ML IV SCH ×2 (13:03→17:50)
[2016-12-22 16:00] VITALS: BP 118/39
[2016-12-22] MEDS: GLYTROL 1,000 ML BAG GT PRN (17:59)
[2016-12-22] MEDS: IV NS 0.9% 250 ML IV PRN (17:59)
--- NOTE | 2016-12-22 19:07 | NUR ---
RN CLOSING NOTES PT IN STABLE CONDITION, TOLERATING MECH VENT WELL, NO PAIN, IV CDI, NO SIGNS OF INFECTION/INFILTRATION, ALL MD ORDERS CARRIED OUT, VSS, AFEBRILE, AT BEDSIDE, CALL LIGHT WITHIN EASY REACH, SAFETY MEASURES MAINTAINED, REPORT GIVEN TO NIGHT NURSE FOR SONI.
[2016-12-22 20:00] VITALS: BP 108/35
--- NOTE | 2016-12-22 20:00 | NUR ---
RN INITIAL NOTE; PT ON THE BED RESTING WITHOUT ANY DISTRESS , A/O X 1 , ON MECH VENT , SETTING ORDERED. SR WITH HR 70s ON TELE MONITOR . MILAGROS PICC LINE INTACT AND PATENT, NINA MIDLINE AND LEFT FEMORAL HD CATH INTACT. DENIED ANY PAIN AT THIS TIME . PT IS ANURIC, BED IN THE LOWEST/LOCKED POSITION , SAFETY MEASURES APPLIED . WILL CONTINUE OT MONITOR .
[2016-12-22] MEDS: PANTOPRAZOLE 40 MG/PACK PACK GT SCH (20:42)
[2016-12-23] VITALS: BP 114/42
[2016-12-23] MEDS: NAFCILLIN 2 G in IV D5W 50 ML IV SCH ×4 (00:23→17:10)
[2016-12-23] MEDS: BLOOD SUGAR DIAGNOSTIC 1 EACH STRIP IN SCH ×6 (00:26→20:35)
[2016-12-23] MEDS: ALBUTEROL FS 2.5 MG/3 ML VIAL.NEB NEB SCH ×4 (01:12→20:11)
[2016-12-23] MEDS: IPRATROPIUM NEB FS 0.5 MG/2.5 ML AMPUL.NEB NEB SCH ×4 (01:12→20:11)
[2016-12-23 04:00] VITALS: BP 112/39
[2016-12-23] MEDS: INSULIN REGULAR, HUMAN 100 UNIT/ML 3 ML VIAL SQ PRN ×3 (04:10→17:08)
--- NOTE | 2016-12-23 07:00 | NUR ---
RN NOTE; RECEIVED PT ON BED, A/Ox1, VENT DEPENDENT , TOLERATING CURRENT VENT SETTING WELL, ON TELE SR HR IN 70'S , MILAGROS PICC LINE INTACT AND PATENT, R UA MIDLINE AND LEFT FEMORAL HD CATH INTACT. RECEIVING HD AT THIS TIME, NO DISTRESS NOTED,PT IS ANURIC, BED IN LOWEST AND LOCKED POSITION , SAFETY MEASURES APPLIED . SR UP x3, WILL CONTINUE OT MONITOR PT CLOSELY AND NOTIFY MD FOR ANY SIGNIFICANT CHANGES.
--- NOTE | 2016-12-23 07:08 | NUR ---
RN EOS NOTE; PT REMAINED STABLE DURING THE SHIFT, NO ANY DISTRESS NOTED. IV SITE , HD CATH INTACT . KEPT CLEAN AND DRY .ALL NEEDS ATTENDED PROMPTLY. CALL LIGHT WITHIN REACH. ENDORSED TO NEXT SHIFT RN FOR CONTINUITY OF CARE.
[2016-12-23 08:00] VITALS: BP 118/38
[2016-12-23] MEDS: DOCUSATE SODIUM LIQ 100 MG/10 ML UDC GT SCH ×2 (09:57→17:06)
[2016-12-23] MEDS: SEVELAMER CARBONATE 0.8 GM POWD.PACK GT SCH ×3 (09:57→17:06)
[2016-12-23] MEDS: LACTOBACILLUS RHAMNOSUS GG 1 EACH CAP.SPRINK PO SCH ×2 (09:57→17:06)
[2016-12-23] MEDS: ASPIRIN 81 MG TAB.CHEW NG SCH (09:57)
[2016-12-23] MEDS: CLOTRIMAZOLE 1% 15 GM TUBE TP SCH ×2 (10:01→17:08)
[2016-12-23] MEDS: NEOMY SULF/BACITRAC ZN/POLY 15 GM TUBE TP SCH ×2 (10:01→17:10)
[2016-12-23 12:00] VITALS: BP 127/37
[2016-12-23] MEDS: LEVOFLOXACIN 250 MG /D5W 50 ML 250 MG in PREMIX 1 EA IV SCH (15:17)
[2016-12-23] MEDS: ACETAMINOPHEN 650 MG/20.3 ML UDC NG PRN (15:32)
[2016-12-23 16:00] VITALS: BP 123/39
--- NOTE | 2016-12-23 16:00 | NUR ---
RN NOTES T=100.2 JOSESITO CLINICAL NURSING INTERN NOTIFIED, TYLENOL GIVEN , CONTINUE TO MONITOR .
--- NOTE | 2016-12-23 18:43 | NUR ---
RN NOTES TRACH CARE DONE , RESPIRATION EVEN AND UNLABORED, T=98.6. PT STABLE AT THIS TIME , TOLERATING TF WELL NO RESIDUAL NOTED, FAMILY AT THE BEDSIDE , NO SIGNIFICANT CHANGES NOTED ON THIS SHIFT .
--- NOTE | 2016-12-23 19:30 | NUR ---
RN INITIAL NOTE RECEIVED PT IN NO ACUTE DISTRESS IN BED. PT IS A/O X 1 AND CAN OPEN EYES BUT IS NON VERBAL. PT IS ON MECHANICAL VENT VIA TRACH. TRACH SITE IS C/D/I. PT TOLERATING VENT SETTING WELL WITH O2 SAT @ 100%. PT IS ON TELE WITH SR ON THE MONITOR. PT HAS G TUBE THAT IS CLEAN DRY INTACT AND PATENT WITH WATER FLUSH. PT HAS MILAGROS PICC LINE THAT IS CLEAN DRY INTACT AND PATENT WITH SALINE FLUSH. BED IN LOW LOCK POSITION WITH RIALS UP X 2. CALL LIGHT WITHIN REACH AND ALL SAFETY MEASURES ENSURED AND CARRIED OUT. WILL CONTINUE TO MONITOR FOR ANY CHANGES IN CONDITION.
[2016-12-23 20:00] VITALS: BP 131/85
[2016-12-23] MEDS: PANTOPRAZOLE 40 MG/PACK PACK GT SCH (20:35)
[2016-12-24] VITALS: BP 140/36
[2016-12-24] MEDS: NAFCILLIN 2 G in IV D5W 50 ML IV SCH ×4 (00:38→17:50)
[2016-12-24] MEDS: BLOOD SUGAR DIAGNOSTIC 1 EACH STRIP IN SCH ×6 (00:42→21:00)
[2016-12-24] MEDS: INSULIN REGULAR, HUMAN 100 UNIT/ML 3 ML VIAL SQ PRN ×2 (00:43→17:01)
[2016-12-24] MEDS: IPRATROPIUM NEB FS 0.5 MG/2.5 ML AMPUL.NEB NEB SCH ×4 (01:20→19:53)
[2016-12-24] MEDS: ALBUTEROL FS 2.5 MG/3 ML VIAL.NEB NEB SCH ×4 (01:20→19:53)
[2016-12-24 04:00] VITALS: BP 125/36
--- NOTE | 2016-12-24 07:01 | NUR ---
RN CLOSING NOTE PT REMAINS IN NO ACUTE DISTRESS IN BED. PT DID NOT HAVE ANY SIGNIFICANT CHANGE IN CONDITION DURING SHIFT. PT TOLERATED VENT SETTING WELL. ALL NEEDS MET ALL ORDERS CARRIED OUT. WILL ENDORSE TO AM RN FOR CONTINUITY OF CARE.
--- NOTE | 2016-12-24 07:10 | NUR ---
RN INITIAL NOTE REPORT RECEIVED BY PM NURSE PT A/O X2 MOUTH WORDS MOHAWK SPEAKING . THOMAS # 8 AC 12 TV 550 FI02% 45 PEEP 5. TELE SR. PT GLYTROL @40 ML/HR. IV MILAGROS PICC LINE FLUSHED PATENT AND INTACT. NINA MIDLINE, L FEMORAL HD CATH . PT CLEAN WARM AND DRY. NO C/O PAIN. ALL SAFETY MEASURES IN PLACE. WILL CONTINUE TO MONITOR CLOSELY.
[2016-12-24 07:37] LABS: BASOPHILS # (AUTO) 0.1 /CMM (0.0-0.2); BASOPHILS % (AUTO) 2.3 % (0.0-2.0); EOSINOPHILS # (AUTO) 0.1 /CMM (0.0-0.7); EOSINOPHILS % (AUTO) 3.1 % (0.0-6.0); HEMATOCRIT 24 % (39-51); HEMOGLOBIN 7.9 g/dL (13.5-17.5); LYMPHOCYTES # (AUTO) 0.9 /CMM (0.8-4.8); LYMPHOCYTES % (AUTO) 19.2 % (20.0-44.0); MEAN CORPUSCULAR HEMOGLOBIN 28 PG (26.0-33.0); MEAN CORPUSCULAR HGB CONC 32 g/dl (31.0-36.0); MEAN CORPUSCULAR VOLUME 85 fL (80-96); MONOCYTES # (AUTO) 0.6 /CMM (0.1-1.30); MONOCYTES % (AUTO) 13.1 % (2.0-12.0); NEUTROPHILS % (AUTO) 62.3 % (43.0-81.0); PLATELET COUNT (AUTO) 240 /CMM (150-450); RDW COEFFICIENT OF VARIATION 18.6 (11.5-15.0); RED BLOOD CELL COUNT(AUTO) 2.86 MIL/uL (4.5-6.0); WHITE BLOOD COUNT (AUTO) 4.8 K/uL (4.3-11.0)
[2016-12-24] MEDS ORDERED: IV SET PRIMARY PUMP SET 1 EA INFUS.SET MC ONE (07:47)
[2016-12-24 07:51] LABS: CALCIUM, SERUM 7.9 mg/dL (8.5-10.1); CREATININE 3.8 mg/dL (0.6-1.3); MAGNESIUM 2.6 mg/dL (1.8-2.4); PHOSPHORUS 7.3 mg/dL (2.5-4.9); POTASSIUM 4.9 mmol/L (3.5-5.1)
[2016-12-24 08:00] VITALS: BP 141/28
[2016-12-24] MEDS: DOCUSATE SODIUM LIQ 100 MG/10 ML UDC GT SCH ×2 (08:08→16:55)
[2016-12-24] MEDS: LACTOBACILLUS RHAMNOSUS GG 1 EACH CAP.SPRINK PO SCH ×2 (08:08→16:57)
[2016-12-24] MEDS: ASPIRIN 81 MG TAB.CHEW NG SCH (08:08)
[2016-12-24] MEDS: SEVELAMER CARBONATE 0.8 GM POWD.PACK GT SCH ×3 (08:08→17:01)
[2016-12-24] MEDS: CLOTRIMAZOLE 1% 15 GM TUBE TP SCH ×2 (08:09→17:02)
[2016-12-24] MEDS: NEOMY SULF/BACITRAC ZN/POLY 15 GM TUBE TP SCH ×2 (08:09→17:02)
[2016-12-24] MEDS ORDERED: IV NS 0.9% 500 ML IV ONE (10:34)
[2016-12-24] MEDS ORDERED: IV NS 0.9% 250 ML IV ONE (11:02)
[2016-12-24 12:00] VITALS: BP 140/20
[2016-12-24 16:00] VITALS: BP 145/29
[2016-12-24] MEDS: ACETAMINOPHEN 650 MG/20.3 ML UDC NG PRN (16:56)
[2016-12-24] MEDS: IV NS 0.9% 250 ML IV PRN (17:02)
[2016-12-24] MEDS: GLYTROL 1,000 ML BAG GT PRN (17:50)
[2016-12-24 20:00] VITALS: BP 126/37
[2016-12-24] MEDS: PANTOPRAZOLE 40 MG/PACK PACK GT SCH (20:59)
[2016-12-25] VITALS: BP 126/37
[2016-12-25] MEDS: NAFCILLIN 2 G in IV D5W 50 ML IV SCH ×4 (00:48→18:48)
[2016-12-25] MEDS: BLOOD SUGAR DIAGNOSTIC 1 EACH STRIP IN SCH ×6 (00:48→20:44)
[2016-12-25] MEDS: ALBUTEROL FS 2.5 MG/3 ML VIAL.NEB NEB SCH ×4 (01:10→19:27)
[2016-12-25] MEDS: IPRATROPIUM NEB FS 0.5 MG/2.5 ML AMPUL.NEB NEB SCH ×4 (01:10→19:27)
[2016-12-25 04:00] VITALS: BP 126/37
[2016-12-25] MEDS ORDERED: IV NS 0.9% 250 ML IV ONE (06:04)
--- NOTE | 2016-12-25 07:31 | NUR ---
RN INITIAL NOTE PT WAS RECEIVED IN BED RESTING COMFORTABLY, ALERT. PT HAS TRACH, MOUTH WORDS. SHILEY #8, AC-12, TV -550, FI02-45%, PEEP 5. TOLERATING SETTINGS WELL. NO S/S OF RESPIRATORY DISTRESS OR SOB. SINUS RHYTHM ON TELE MONITOR. GTUBE FLUSHED AND PATENT. RUNNING GLYTROL 40ML/HR. LEFT UPPER MIDLINE FLUSHED AND PATENT. RIGHT UPPER MIDLINE DISCONTINUED. SKIN WARM AND DRY TO TOUCH. SAFETY PRECAUTIONS OBSERVED AT ALL TIMES. BED IN LOCKED, LOW POSITION. ALARMS ON. SIDE RAILS UP. CALL LIGHT WITHIN EASY REACH. WILL CONTINUE TO MONITOR.
[2016-12-25 07:33] LABS: BASOPHILS # (AUTO) 0.1 /CMM (0.0-0.2); BASOPHILS % (AUTO) 2.7 % (0.0-2.0); EOSINOPHILS # (AUTO) 0.1 /CMM (0.0-0.7); EOSINOPHILS % (AUTO) 1.6 % (0.0-6.0); HEMATOCRIT 24 % (39-51); HEMOGLOBIN 7.9 g/dL (13.5-17.5); LYMPHOCYTES # (AUTO) 1.1 /CMM (0.8-4.8); LYMPHOCYTES % (AUTO) 21.7 % (20.0-44.0); MEAN CORPUSCULAR HEMOGLOBIN 27 PG (26.0-33.0); MEAN CORPUSCULAR HGB CONC 32 g/dl (31.0-36.0); MEAN CORPUSCULAR VOLUME 85 fL (80-96); MONOCYTES # (AUTO) 0.7 /CMM (0.1-1.30); PLATELET COUNT (AUTO) 257 /CMM (150-450); RDW COEFFICIENT OF VARIATION 18.5 (11.5-15.0); RED BLOOD CELL COUNT(AUTO) 2.87 MIL/uL (4.5-6.0)
[2016-12-25 07:55] LABS: ALBUMIN 1.9 g/dL (3.4-5.0); BILIRUBIN,TOTAL 1.4 mg/dL (0.2-1.0); CALCIUM, SERUM 7.6 mg/dL (8.5-10.1); CREATININE 5.5 mg/dL (0.6-1.3); MAGNESIUM 2.9 mg/dL (1.8-2.4); POTASSIUM 5.6 mmol/L (3.5-5.1); TOTAL PROTEIN, SERUM 6.7 g/dL (6.4-8.2)
[2016-12-25 08:00] VITALS: BP 103/37
[2016-12-25] MEDS: SEVELAMER CARBONATE 0.8 GM POWD.PACK GT SCH ×3 (08:31→17:10)
[2016-12-25] MEDS: ASPIRIN 81 MG TAB.CHEW NG SCH (08:32)
[2016-12-25] MEDS: LACTOBACILLUS RHAMNOSUS GG 1 EACH CAP.SPRINK PO SCH ×2 (08:32→16:20)
[2016-12-25] MEDS: DOCUSATE SODIUM LIQ 100 MG/10 ML UDC GT SCH ×2 (08:32→16:03)
[2016-12-25] MEDS: MORPHINE SULFATE INJ 2 MG/ML DISP.SYRIN IV PRN ×2 (08:32→16:03)
[2016-12-25] MEDS: CLOTRIMAZOLE 1% 15 GM TUBE TP SCH ×2 (08:33→16:19)
[2016-12-25] MEDS: NEOMY SULF/BACITRAC ZN/POLY 15 GM TUBE TP SCH ×2 (08:33→16:19)
[2016-12-25 08:42] LABS: PHOSPHORUS 10.2 mg/dL (2.5-4.9)
[2016-12-25] MEDS: EPOETIN ALFA (10,000 UNIT) 10,000 UNIT/ML VIAL IV ONE ×2 (09:00→12:46)
[2016-12-25 12:00] VITALS: BP 148/31
--- NOTE | 2016-12-25 14:10 | NUR ---
RN NOTE TRACH CARE DONE BY RT. SUTURE REMOVED. INNER CANULA REPLACED. APPLIED TRACH SCHMIDT. PT STABLE.
[2016-12-25 16:00] VITALS: BP 104/30
[2016-12-25] MEDS: LEVOFLOXACIN 250 MG /D5W 50 ML 250 MG in PREMIX 1 EA IV SCH (16:03)
[2016-12-25] MEDS: INSULIN REGULAR, HUMAN 100 UNIT/ML 3 ML VIAL SQ PRN ×2 (16:18→20:45)
--- NOTE | 2016-12-25 19:08 | NUR ---
RN CLOSING NOTE PT RESTING IN BED COMFORTABLY. ALL MD ORDERS CARRIED OUT. PT KEPT CLEAN AND DRY. SAFETY MEASURES IMPLEMENTED AT ALL TIMES. WILL GIVE REPORT TO PM RN FOR SONI.
[2016-12-25 20:00] VITALS: BP 106/33
[2016-12-25] MEDS: PANTOPRAZOLE 40 MG/PACK PACK GT SCH (20:44)
[2016-12-25] MEDS: ZOLPIDEM TARTRATE 5 MG TABLET PO PRN (22:12)
[2016-12-26] VITALS (7 sets, daily range): BP systolic 91–121; BP diastolic 33–48
[2016-12-26] MEDS: NAFCILLIN 2 G in IV D5W 50 ML IV SCH ×4 (00:24→17:05)
[2016-12-26] MEDS: BLOOD SUGAR DIAGNOSTIC 1 EACH STRIP IN SCH ×6 (00:24→20:11)
[2016-12-26] MEDS: IPRATROPIUM NEB FS 0.5 MG/2.5 ML AMPUL.NEB NEB SCH ×4 (01:29→19:44)
[2016-12-26] MEDS: ALBUTEROL FS 2.5 MG/3 ML VIAL.NEB NEB SCH ×4 (01:29→19:44)
[2016-12-26] MEDS ORDERED: SECONDARY IV SET 1 EA INFUS.SET MC ONE (05:36)
--- NOTE | 2016-12-26 07:10 | NUR ---
RN INITIAL NOTE RECEIVED PT FROM PM NURSE. PT A/O 1 ROMANIAN SPEAKING. THOMAS #8 AC 12 TV 550 [id number]% PEEP 5. TELE SR. GT PLACEMENT CK NO RESIDUAL GLYCOTROL @40 ML/HR PT TOLERATING WELL. PAIN 0/10. TELE SR .IV L FEMORAL HD CATH, MILAGROS PICC LINE PATENT FLUSHED AND INTACT. WILL CONTINUE TO MONITOR CLOSELY. PT CLEAN WARM AND DRY
[2016-12-26] MEDS: SEVELAMER CARBONATE 0.8 GM POWD.PACK GT SCH ×3 (08:32→17:00)
[2016-12-26] MEDS: NEOMY SULF/BACITRAC ZN/POLY 15 GM TUBE TP SCH ×2 (08:33→17:01)
[2016-12-26] MEDS: LACTOBACILLUS RHAMNOSUS GG 1 EACH CAP.SPRINK PO SCH ×2 (08:33→17:00)
[2016-12-26] MEDS: DOCUSATE SODIUM LIQ 100 MG/10 ML UDC GT SCH ×2 (08:33→17:00)
[2016-12-26] MEDS: CLOTRIMAZOLE 1% 15 GM TUBE TP SCH ×2 (08:34→17:01)
[2016-12-26] MEDS: ASPIRIN 81 MG TAB.CHEW NG SCH (08:35)
[2016-12-26] MEDS: IV NS 0.9% 250 ML IV PRN (08:52)
--- NOTE | 2016-12-26 10:37 | NUR ---
WOUND CARE CONSULT/FOLLOW UP: PT PRESENTS WITH INTACT DEEP TISSUE INJURIES TO BILATERAL EARS, NO DRAINAGE OR TENDERNESS NOTED. SACRAL DEEP TISSUE INJURY IN EVOLUTION (EXTENDING TO BUTTOCKS) NOTED TO HAVE SOME PARTIAL THICKNESS OPEN AREAS. PER NURSING STAFF, PT HAS BEEN HAVING LOOSE STOOLS. RECOMMENDATIONS MADE FOR SKIN PROTECTION AND WOUND CARE. DISCUSSED WITH NURSING STAFF. PT ON FIRST STEP MATTRESS. PT NOTED TO HAVE MULTIPLE ORGAN SYSTEM FAILURE AND MULTIPLE CO-MORBIDITIES. FURTHER SKIN BREAKDOWN MAY BE UNAVOIDABLE. ALL SKIN PROTECTION MEASURES ARE IN PLACE AND HAVE BEEN IN PLACE. MD IN AGREEMENT WITH PLAN OF CARE. Addendum: 12/26/16 at 1042 by STEVE WASSERMAN WNDNU Amended: Links added.
[2016-12-26] MEDS: HYDROGEL DRESSING 90 GM TUBE TP SCH (11:00)
[2016-12-26] MEDS: HYDROGEL DRESSING 90 GM TUBE TP PRN (11:52)
[2016-12-26] MEDS: INSULIN REGULAR, HUMAN 100 UNIT/ML 3 ML VIAL SQ PRN ×2 (12:14→17:28)
[2016-12-26] MEDS: GLYTROL 1,000 ML BAG GT PRN (17:07)
--- NOTE | 2016-12-26 19:37 | NUR ---
RN CLOSING NOTE PT A/O 1-2 URUGUAYAN SPEAKING. THOMAS #8 AC 12 TV 550 [id number]% PEEP 5. TELE SR. GT PLACEMENT CK NO RESIDUAL GLYCOTROL @40 ML/HR PT TOLERATING WELL. PAIN 0/10. TELE SR .IV L FEMORAL HD CATH, MILAGROS PICC LINE PATENT FLUSHED AND INTACT. PT AFEBRILE THROUGHOUT SHIFT. ALL MEDICATIONS GIVEN. WOUND TX RENDERED. ALL ORDERS CARRIED OUT. PT CLEAN WARM AND DRY. REPORT GIVEN TO PM NURSE.
--- NOTE | 2016-12-26 20:00 | NUR ---
RN NOTES RECEIVED AWAKE, ALERT, POINTS WITH RIGHT HAND TO COMMUNICATE; TRACH TO VENT WITH CUFF INTACT; LEFT UA PICC DRESSING INTACT,DRY,DRESSING; LT FEM HD CATH NOTED; DIAPER ON; SR ON MONITOR; WITH GTUBE CONNECTED TO TF, TF TOLERATED WELL; SEE SKIN FLOWSHEET FOR SKIN ASSESSMENT; REPOSITIONED WITH HOB AT 30 ANGLE; ARELIS DVT PUMPS ON, BOTH HEELS OFFLOADED; SUCTIONED ORALLY AND TRACHEALLY; DISCUSSED PLAN OF CARE; FAMILY AT BEDSIDE.
[2016-12-26] MEDS: ACETAMINOPHEN 650 MG/20.3 ML UDC NG PRN ×2 (20:04→20:11)
[2016-12-26] MEDS: PANTOPRAZOLE 40 MG/PACK PACK GT SCH (20:04)
--- NOTE | 2016-12-26 21:18 | NUR ---
referral faxed to [facility] [phone]. Also referred to Soheila admin @ [facility] [phone]. Per Soheila, patient will need In Home Operations waiver prior acceptance. IHO/Nursing Facility/Acute hosp waiver application and clinicals faxed to [facility] Care Services in [facility] for eval for approval [phone]. Patient is trach/vent dependent, has GT feedings and currently on HD - was referred to [facility] [phone]. Addendum: 12/26/16 at 2120 by FOX BECERRA RN Amended: Links added.
[2016-12-27] VITALS: BP 111/37
[2016-12-27] MEDS: BLOOD SUGAR DIAGNOSTIC 1 EACH STRIP IN SCH ×6 (00:28→21:13)
[2016-12-27] MEDS: NAFCILLIN 2 G in IV D5W 50 ML IV SCH ×5 (00:28→23:53)
--- NOTE | 2016-12-27 00:45 | NUR ---
RN NOTES PX CONDITION AND NEURO STATUS UNCHANGED; CLEANED PX AND CHANGED GOWN AND BED LINENS, NOTED DIAPER WET OF URINE, CHANGED DRESSING ON SACRAL AREA USING HYDROGEL AND COVERED BY MEPILEX, CHANGED DRESSING ON G TUBE AND TRACH; SUCTIONED ORALLY AND TRACHEALLY.
[2016-12-27] MEDS: IPRATROPIUM NEB FS 0.5 MG/2.5 ML AMPUL.NEB NEB SCH ×4 (00:49→20:10)
[2016-12-27] MEDS: ALBUTEROL FS 2.5 MG/3 ML VIAL.NEB NEB SCH ×4 (00:49→20:10)
[2016-12-27 04:00] VITALS: BP 110/37
--- NOTE | 2016-12-27 04:15 | NUR ---
RN NOTES CONDITION UNCHANGED; DENIED PAIN, SOB, N/V; NOT IN DISTRESS.
[2016-12-27] MEDS: IV NS 0.9% 250 ML IV PRN (05:33)
[2016-12-27] MEDS: GLYTROL 1,000 ML BAG GT PRN (05:34)
--- NOTE | 2016-12-27 06:17 | NUR ---
RN NOTES CONDITION UNCHANGED; REPOSITIONED AND SUCTIONED ORALLY AND TRACHEALLY; PX DENIED PAIN, SOB, N/V; NO BM, DIAPER DRY; NO NEW SKIN BREAKDOWN; PICC INTACT AND PATENT; WILL ENDORSE TO NEXT RN.
[2016-12-27 07:27] LABS: CALCIUM, SERUM 7.7 mg/dL (8.5-10.1); POTASSIUM 6.1 mmol/L (3.5-5.1)
--- NOTE | 2016-12-27 07:35 | NUR ---
RN NOTES RECEIVED PT ASLEEP IN BED, EASILY AROUSABLE DURING CARE, ALERT, POINTS WITH RIGHT HAND TO COMMUNICATE; TRACH TO VENT WITH CUFF INTACT; LEFT UA PICC DRESSING INTACT,DRY,DRESSING; LT FEM HD CATH NOTED; SR ON MONITOR; WITH GTUBE CONNECTED TO TF, TF TOLERATED WELL; REPOSITIONED WITH HOB AT 30 ANGLE;KEPT CLEAN DRY AND COMFORTABLE, CALL LIGHT WITHIN EASY REACH WILL CONTINUE TO MONITOR
[2016-12-27 07:43] LABS: PHOSPHORUS 8.4 mg/dL (2.5-4.9)
--- NOTE | 2016-12-27 07:45 | NUR ---
RN NOTES RECEIVED NOTIFICATION FROM LAB , NICKY, BUN AND PHOSPHORUS CRITICALLY HIGH MD AWARE, DR. MARR, WITH NO NEW ORDERS AT THIS TIME PT TO HAVE DIALYSIS TODAY WILL CONTINUE TO MONITOR
[2016-12-27 08:00] VITALS: BP 86/39
[2016-12-27 08:03] LABS: BASOPHILS # (AUTO) 0.1 /CMM (0.0-0.2); BASOPHILS % (AUTO) 1.2 % (0.0-2.0); EOSINOPHILS % (AUTO) 0.4 % (0.0-6.0); HEMATOCRIT 22 % (39-51); HEMOGLOBIN 7.1 g/dL (13.5-17.5); LYMPHOCYTES % (AUTO) 19.2 % (20.0-44.0); MEAN CORPUSCULAR HEMOGLOBIN 27 PG (26.0-33.0); MEAN CORPUSCULAR HGB CONC 32 g/dl (31.0-36.0); MEAN CORPUSCULAR VOLUME 85 fL (80-96); MONOCYTES # (AUTO) 0.8 /CMM (0.1-1.30); MONOCYTES % (AUTO) 7.5 % (2.0-12.0); NEUTROPHILS # (AUTO) 7.3 /CMM (1.8-8.9); NEUTROPHILS % (AUTO) 71.7 % (43.0-81.0); PLATELET COUNT (AUTO) 307 /CMM (150-450); RDW COEFFICIENT OF VARIATION 18.3 (11.5-15.0); RED BLOOD CELL COUNT(AUTO) 2.62 MIL/uL (4.5-6.0); WHITE BLOOD COUNT (AUTO) 10.2 K/uL (4.3-11.0)
[2016-12-27] MEDS: DOCUSATE SODIUM LIQ 100 MG/10 ML UDC GT SCH ×2 (08:19→17:09)
[2016-12-27] MEDS: LACTOBACILLUS RHAMNOSUS GG 1 EACH CAP.SPRINK PO SCH ×2 (08:19→17:09)
[2016-12-27] MEDS: SEVELAMER CARBONATE 0.8 GM POWD.PACK GT SCH ×3 (08:19→17:10)
[2016-12-27] MEDS: ASPIRIN 81 MG TAB.CHEW NG SCH ×2 (08:19→08:26)
[2016-12-27] MEDS: HYDROGEL DRESSING 90 GM TUBE TP SCH (08:20)
[2016-12-27] MEDS: CLOTRIMAZOLE 1% 15 GM TUBE TP SCH ×2 (08:20→17:13)
[2016-12-27] MEDS: NEOMY SULF/BACITRAC ZN/POLY 15 GM TUBE TP SCH ×2 (08:20→17:13)
[2016-12-27 08:57] LABS: IRON, SERUM 20 ug/dl (50-175); TOTAL IRON BINDING CAPACITY 110 ug/dl (250-450)
[2016-12-27 09:32] LABS: FERRITIN 1181 ng/mL (8-388)
[2016-12-27 12:00] VITALS: BP 94/35
[2016-12-27] MEDS: RENAL NOVASOURCE 1,000 ML BOTTLE GT PRN (12:37)
[2016-12-27] MEDS: INSULIN REGULAR, HUMAN 100 UNIT/ML 3 ML VIAL SQ PRN (12:44)
[2016-12-27 14:38] LABS: BASOPHILS # (AUTO) 0.1 /CMM (0.0-0.2); BASOPHILS % (AUTO) 1.6 % (0.0-2.0); EOSINOPHILS % (AUTO) 0.1 % (0.0-6.0); HEMATOCRIT 21 % (39-51); LYMPHOCYTES # (AUTO) 1.6 /CMM (0.8-4.8); LYMPHOCYTES % (AUTO) 17.2 % (20.0-44.0); MEAN CORPUSCULAR HEMOGLOBIN 27 PG (26.0-33.0); MEAN CORPUSCULAR HGB CONC 32 g/dl (31.0-36.0); MEAN CORPUSCULAR VOLUME 85 fL (80-96); MONOCYTES # (AUTO) 0.6 /CMM (0.1-1.30); MONOCYTES % (AUTO) 6.8 % (2.0-12.0); NEUTROPHILS # (AUTO) 6.8 /CMM (1.8-8.9); NEUTROPHILS % (AUTO) 74.3 % (43.0-81.0); PLATELET COUNT (AUTO) 302 /CMM (150-450); RED BLOOD CELL COUNT(AUTO) 2.53 MIL/uL (4.5-6.0); WHITE BLOOD COUNT (AUTO) 9.1 K/uL (4.3-11.0)
[2016-12-27 14:50] LABS: HEMOGLOBIN 6.8 g/dL (13.5-17.5)
[2016-12-27 16:00] VITALS: BP 89/41
[2016-12-27] MEDS: LEVOFLOXACIN 250 MG /D5W 50 ML 250 MG in PREMIX 1 EA IV SCH (17:12)
[2016-12-27] MEDS ORDERED: SECONDARY IV SET 1 EA INFUS.SET MC ONE (17:18)
--- NOTE | 2016-12-27 19:18 | NUR ---
RN NOTES PT ASLEEP IN BED, EASILY AROUSABLE DURING CARE, ALERT, POINTS WITH RIGHT HAND TO COMMUNICATE; TRACH TO VENT WITH CUFF INTACT; LEFT UA PICC DRESSING INTACT,DRY,DRESSING; LT FEM HD CATH NOTED; SR ON MONITOR; WITH GTUBE CONNECTED TO TF, TF TOLERATED WELL; REPOSITIONED WITH HOB AT 30 ANGLE;KEPT CLEAN DRY AND COMFORTABLE, CALL LIGHT WITHIN EASY REACH WILL CONTINUE TO MONITOR Addendum: 12/27/16 at 1919 by SELVIN FRANK RN RN NOTES WILL CONTINUE TO MONITOR, ENDORSED TO NEXT SHIFT FOR CONTINUITY OF CARE
[2016-12-27 20:00] VITALS: BP 90/35
[2016-12-27] MEDS: PANTOPRAZOLE 40 MG/PACK PACK GT SCH (20:47)
[2016-12-28] VITALS (12 sets, daily range): BP systolic 91–101; BP diastolic 30–41
[2016-12-28] MEDS: BLOOD SUGAR DIAGNOSTIC 1 EACH STRIP IN SCH ×6 (01:06→20:52)
[2016-12-28] MEDS: INSULIN REGULAR, HUMAN 100 UNIT/ML 3 ML VIAL SQ PRN ×5 (01:08→20:57)
[2016-12-28] MEDS: ALBUTEROL FS 2.5 MG/3 ML VIAL.NEB NEB SCH ×4 (01:39→20:08)
[2016-12-28] MEDS: IPRATROPIUM NEB FS 0.5 MG/2.5 ML AMPUL.NEB NEB SCH ×4 (01:39→20:08)
[2016-12-28] MEDS: NAFCILLIN 2 G in IV D5W 50 ML IV SCH ×3 (04:48→17:11)
[2016-12-28 06:09] LABS: CALCIUM, SERUM 7.5 mg/dL (8.5-10.1); CREATININE 5.3 mg/dL (0.6-1.3); POTASSIUM 4.8 mmol/L (3.5-5.1)
[2016-12-28 06:14] LABS: BASOPHILS # (AUTO) 0.1 /CMM (0.0-0.2); BASOPHILS % (AUTO) 1.3 % (0.0-2.0); HEMATOCRIT 21 % (39-51); LYMPHOCYTES # (AUTO) 1.5 /CMM (0.8-4.8); LYMPHOCYTES % (AUTO) 14.7 % (20.0-44.0); MEAN CORPUSCULAR HEMOGLOBIN 27 PG (26.0-33.0); MEAN CORPUSCULAR HGB CONC 32 g/dl (31.0-36.0); MEAN CORPUSCULAR VOLUME 86 fL (80-96); MONOCYTES # (AUTO) 0.6 /CMM (0.1-1.30); MONOCYTES % (AUTO) 6.1 % (2.0-12.0); NEUTROPHILS # (AUTO) 7.8 /CMM (1.8-8.9); NEUTROPHILS % (AUTO) 77.9 % (43.0-81.0); PLATELET COUNT (AUTO) 299 /CMM (150-450); RDW COEFFICIENT OF VARIATION 17.9 (11.5-15.0); RED BLOOD CELL COUNT(AUTO) 2.49 MIL/uL (4.5-6.0)
[2016-12-28 06:24] LABS: HEMOGLOBIN 6.8 g/dL (13.5-17.5)
[2016-12-28] MEDS: RENAL NOVASOURCE 1,000 ML BOTTLE GT PRN (06:25)
[2016-12-28 07:14] LABS: LYMPHOCYTES % (MANUAL) 14 % (16-48); MONOCYTES % (MANUAL) 5 % (0-11.0); NEUTROPHILS % (MANUAL) 81 (42-76)
--- NOTE | 2016-12-28 07:30 | NUR ---
initial note patient resting in bed, able to follow command, denies pain at this time. non verbal. trach patent, mech vent at ordered settings. RT at bed side. GT patent, no residuals, non-leaking. tele monitor reading SR 80s. Gt feeding [employer]. MILAGROS picc patent, dressing cdi. plan to admin 1unit PRBC, called lab, still not ready. plan to collect stool sample today. discussed plan of care. repositioned patient in functional alignment. call light inr each.
--- NOTE | 2016-12-28 07:38 | NUR ---
pt blood not ready was sent out to blood bank due to antibodies,awaiting for transfusion per order. pt vss,afebriel overnight ,resting comfortably ,no acute distress.no changes overnight kept clean and dry.tolerating feeding, continue with antibiotics.
[2016-12-28] MEDS: SEVELAMER CARBONATE 0.8 GM POWD.PACK GT SCH ×3 (08:26→17:12)
[2016-12-28] MEDS: DOCUSATE SODIUM LIQ 100 MG/10 ML UDC GT SCH ×2 (08:26→17:11)
[2016-12-28] MEDS: LACTOBACILLUS RHAMNOSUS GG 1 EACH CAP.SPRINK PO SCH ×2 (08:26→17:11)
[2016-12-28] MEDS: HYDROGEL DRESSING 90 GM TUBE TP SCH (08:27)
[2016-12-28] MEDS: HYDROGEL DRESSING 90 GM TUBE TP PRN (08:27)
[2016-12-28] MEDS: NEOMY SULF/BACITRAC ZN/POLY 15 GM TUBE TP SCH ×2 (08:27→17:11)
[2016-12-28] MEDS: CLOTRIMAZOLE 1% 15 GM TUBE TP SCH ×2 (08:27→17:11)
[2016-12-28] MEDS ORDERED: SECONDARY IV SET 1 EA INFUS.SET MC ONE (08:53)
[2016-12-28] MEDS: ALBUMIN 25% 25 GM in PREMIX 1 EA IV PRN (08:58)
--- NOTE | 2016-12-28 12:50 | NUR ---
CALLED BLOOD BANK, BLOOD NOT READY YET. INFORMED DR. MARR. CLARIFICATION FOR ORDER- TO ADMIN 1 UNIT.
[2016-12-28] MEDS ORDERED: IV NS 0.9% 250 ML IV ONE (17:37)
[2016-12-28] MEDS ORDERED: BLOOD IV SET 1 EA INFUS.SET MC ONE (17:37)
--- NOTE | 2016-12-28 19:30 | NUR ---
RN INITIAL NOTES RECEIVED PATIENT IN BED, AWAKE, ALERT AND ORIENTED X3, SWEDISH SPEAKING. TRACH MIDLINE AND INTACT, ON MECHANICAL VENT AT PRESCRIBED SETTINGS, TOLERATED WELL, NO S/S OF RESPIRATORY DISTRESS NOTED. GT PATENT AND INTACT, ONGOING TUBE FEEDINGS PRESCRIBED, TOLERATED WELL, NO GASTRIC RESIDUALS AT THIS TIME. MILAGROS PICC PATENT AND INTACT, FLUSHED WITH NS, ONGOING BLOOD TRANSFUSION, TOLERATING WELL, FREE FROM ANY S/S OF BLOOD TRANSFUSION REACTION
--- NOTE | 2016-12-28 20:06 | NUR ---
CLOSING NOTE ENDORSED TO NIGHT NURSE PATIENT CONDITION. BLOOD STILL INFUSING AT THIS TIME, NO ADVERSE REACTIONS, VS STABLE. FAMILY AT BED SIDE. BREATHING WITH MECH VENT WNL, TRACH PATENT, SUCTIONED PRN. LOC WNL. GT PATENT, NO RESIDUALS. NO BLEEDING NOTED. ENDORSED TO NIGHT NURSE TO OBTAIN STOOL SAMPLE. CALL LIGHT IN REACH.
[2016-12-28] MEDS: PANTOPRAZOLE 40 MG/PACK PACK GT SCH (20:52)
--- NOTE | 2016-12-28 21:15 | NUR ---
RN NOTES BLOOD TRANSFUSION COMPLETED. PATIENT TOLERATED PROCEDURE WELL, VS WNL COMPARED TO BASELINE. NO S/S OF BLOOD TRANSFUSION REACTION NOTED. WILL CONTINUE TO CLOSELY MONITOR
[2016-12-29] VITALS (7 sets, daily range): BP systolic 90–106; BP diastolic 39–48
[2016-12-29] MEDS: BLOOD SUGAR DIAGNOSTIC 1 EACH STRIP IN SCH ×6 (00:37→20:05)
[2016-12-29] MEDS: NAFCILLIN 2 G in IV D5W 50 ML IV SCH ×4 (00:37→17:22)
[2016-12-29] MEDS ORDERED: IV SET PRIMARY PUMP SET 1 EA INFUS.SET MC ONE (00:39)
[2016-12-29] MEDS: INSULIN REGULAR, HUMAN 100 UNIT/ML 3 ML VIAL SQ PRN ×3 (00:48→08:14)
[2016-12-29] MEDS: IV NS 0.9% 250 ML IV PRN (00:49)
[2016-12-29] MEDS: ALBUTEROL FS 2.5 MG/3 ML VIAL.NEB NEB SCH ×4 (01:34→20:00)
[2016-12-29] MEDS: IPRATROPIUM NEB FS 0.5 MG/2.5 ML AMPUL.NEB NEB SCH ×4 (01:34→19:59)
[2016-12-29 03:08] LABS: BASOPHILS # (AUTO) 0.1 /CMM (0.0-0.2); BASOPHILS % (AUTO) 0.8 % (0.0-2.0); EOSINOPHILS % (AUTO) 0.1 % (0.0-6.0); HEMATOCRIT 24 % (39-51); HEMOGLOBIN 7.6 g/dL (13.5-17.5); LYMPHOCYTES % (AUTO) 16.7 % (20.0-44.0); MEAN CORPUSCULAR HEMOGLOBIN 28 PG (26.0-33.0); MEAN CORPUSCULAR HGB CONC 32 g/dl (31.0-36.0); MEAN CORPUSCULAR VOLUME 86 fL (80-96); MONOCYTES # (AUTO) 0.6 /CMM (0.1-1.30); MONOCYTES % (AUTO) 5.1 % (2.0-12.0); NEUTROPHILS # (AUTO) 9.1 /CMM (1.8-8.9); NEUTROPHILS % (AUTO) 77.3 % (43.0-81.0); PLATELET COUNT (AUTO) 320 /CMM (150-450); RDW COEFFICIENT OF VARIATION 17.4 (11.5-15.0); RED BLOOD CELL COUNT(AUTO) 2.75 MIL/uL (4.5-6.0); WHITE BLOOD COUNT (AUTO) 11.8 K/uL (4.3-11.0)
[2016-12-29 03:23] LABS: CALCIUM, SERUM 7.4 mg/dL (8.5-10.1); CREATININE 4.7 mg/dL (0.6-1.3); POTASSIUM 4.4 mmol/L (3.5-5.1)
[2016-12-29] MEDS: RENAL NOVASOURCE 1,000 ML BOTTLE GT PRN (06:09)
--- NOTE | 2016-12-29 07:30 | NUR ---
initial note patient resting in bed, able to follow command, denies pain at this time. non verbal, mouths words. trach patent, mech vent at ordered settings. GT patent, no residuals, non-leaking. tele monitor reading SR 80s. Gt feeding [employer]. MILAGROS picc patent, HD L femoral cath dressing cdi. dressing CDI. discussed plan of care. repositioned patient in functional alignment. provided needs. call light in reach.
--- NOTE | 2016-12-29 07:50 | NUR ---
PATIENT REC'D TRACHED ON [facility] VENT CUATE WELL. PER DR ZAZUETA ORDER PATIENT PLACED ON VENT WEANING MODE SIMV 4, PS 12. RN NOTIFIED. VENT ALARMS CHECKED + AUDIBLE. ANILA SARMIENTO AT [facility]. NO DISTRESS AT THIS TIME. Addendum: 12/29/16 at 0751 by SARBJIT DE LA CRUZ RT Amended: Links added.
[2016-12-29] MEDS: CLOTRIMAZOLE 1% 15 GM TUBE TP SCH ×2 (08:08→17:18)
[2016-12-29] MEDS: LACTOBACILLUS RHAMNOSUS GG 1 EACH CAP.SPRINK PO SCH ×2 (08:08→17:16)
[2016-12-29] MEDS: HYDROGEL DRESSING 90 GM TUBE TP SCH (08:08)
[2016-12-29] MEDS: SEVELAMER CARBONATE 0.8 GM POWD.PACK GT SCH ×3 (08:08→17:17)
[2016-12-29] MEDS: DOCUSATE SODIUM LIQ 100 MG/10 ML UDC GT SCH ×2 (08:08→17:17)
[2016-12-29] MEDS: NEOMY SULF/BACITRAC ZN/POLY 15 GM TUBE TP SCH ×2 (08:09→17:18)
[2016-12-29 09:19] LABS: ABG BASE EXCESS 6.8 mmol/L; ABG OXYGEN SATURATION 97.8 % (92.0-98.5); ABG PCO2 47.6 mmHg (35.0-45.0); ABG PH 7.441 (7.350-7.450); ABG PO2 117.1 mmHg (75.0-100.0); AaDO2 149.6 mmHg; COHb 1.7 % (0.5-1.5); O2Hb 95.2 % (94.0-97.0); PEEP,BG 5 cm H2O; SITE, ABG Right Femoral; VENT MODE, BG SIMV 4/ PS 12; VT, ABG 550 mL
--- NOTE | 2016-12-29 15:32 | NUR ---
dr. carranza aware of ABG results and Dr. Fournier aware of WBC
[2016-12-29] MEDS: LEVOFLOXACIN 250 MG /D5W 50 ML 250 MG in PREMIX 1 EA IV SCH (15:47)
[2016-12-29] MEDS: ONDANSETRON HCL/PF 4 MG/2 ML VIAL IVP PRN (17:18)
[2016-12-29] MEDS: ACETAMINOPHEN 650 MG/20.3 ML UDC NG PRN (17:27)
[2016-12-29] MEDS: PANTOPRAZOLE 40 MG/PACK PACK GT SCH (19:21)
--- NOTE | 2016-12-29 19:28 | NUR ---
closing note left patient in stable condition. breathing and LOC at base line. no residuals noted in GT at change of shift. feeding continuous. nausea and abd pain resolved after Zofran and Tylenol administered. no complications at PICC line site. no new wounds noted. provided prn adl care and prn suctioning promptly this shift. repositioned q2 hours. tolerated SIMV vent mode. family at bed side. call light in reach.
[2016-12-30] VITALS: BP_SYST 102; BP_SYST 104; BP_SYST 94; BP_DIAS 39; BP_DIAS 40; BP_DIAS 67
[2016-12-30] MEDS: BLOOD SUGAR DIAGNOSTIC 1 EACH STRIP IN SCH ×6 (00:24→20:57)
[2016-12-30] MEDS: NAFCILLIN 2 G in IV D5W 50 ML IV SCH ×5 (00:24→23:40)
[2016-12-30] MEDS: ZOLPIDEM TARTRATE 5 MG TABLET PO PRN (00:27)
[2016-12-30] MEDS: INSULIN REGULAR, HUMAN 100 UNIT/ML 3 ML VIAL SQ PRN ×5 (00:27→21:04)
[2016-12-30] MEDS: ALBUTEROL FS 2.5 MG/3 ML VIAL.NEB NEB SCH ×4 (01:50→19:39)
[2016-12-30] MEDS: IPRATROPIUM NEB FS 0.5 MG/2.5 ML AMPUL.NEB NEB SCH ×4 (01:50→19:39)
[2016-12-30 04:00] VITALS: BP 90/37
--- NOTE | 2016-12-30 07:00 | NUR ---
RN NOTES RECEIVED PT ON BED, A/Ox1 , VENT DEPENDENT, TRACH CARE DONE, TOLERATING CURRENT SETTING WELL, NO SOB NOTED, ON TF NOVASOURCE AT 40CC/HR , TOLERATING WELL, NO RESIDUAL NOTED AT THIS TIME, ON TELE SR , L UPPER ARM PICC LINE AN L FEMORAL HD CATH SITE CDI, SR UP x3, CALL LIGHT WITHIN EASY REACH, CONTINUE TO MONITOR PT CLOSELY AND NOTIFY MD FOR ANY SIGNIFICANT CHANGES
[2016-12-30 08:00] VITALS: BP 122/68
[2016-12-30] MEDS: DOCUSATE SODIUM LIQ 100 MG/10 ML UDC GT SCH ×2 (08:10→16:57)
[2016-12-30] MEDS: SEVELAMER CARBONATE 0.8 GM POWD.PACK GT SCH ×3 (08:10→17:00)
[2016-12-30] MEDS: LACTOBACILLUS RHAMNOSUS GG 1 EACH CAP.SPRINK PO SCH ×2 (08:10→16:58)
[2016-12-30] MEDS: NEOMY SULF/BACITRAC ZN/POLY 15 GM TUBE TP SCH ×2 (08:13→16:59)
[2016-12-30] MEDS: HYDROGEL DRESSING 90 GM TUBE TP SCH (08:13)
[2016-12-30] MEDS: CLOTRIMAZOLE 1% 15 GM TUBE TP SCH ×2 (08:13→16:58)
--- NOTE | 2016-12-30 15:30 | NUR ---
RN NOTES PT ON 60% COOL AEROSOL , TOLERATING WELL, NO DISTRESS NOTED, DR WONG NOTIFIED , CONTINUE TO MONITOR .
--- NOTE | 2016-12-30 15:30 | NUR ---
RN NOTES DR WONG NOTIFIED REGARDING ABG RESULTS .
[2016-12-30 15:44] LABS: ABG BASE EXCESS 1.3 mmol/L; ABG OXYGEN SATURATION 96.2 % (92.0-98.5); ABG PCO2 46.7 mmHg (35.0-45.0); ABG PH 7.376 (7.350-7.450); ABG PO2 86.5 mmHg (75.0-100.0); AaDO2 289.9 mmHg; COHb 1.4 % (0.5-1.5); MetHb 0.4 % (0.0-1.5); O2Hb 94.5 % (94.0-97.0); SITE, ABG Right Radial; VENT MODE, BG 60 COOL AEROSOL
[2016-12-30 16:00] VITALS: BP 133/80
[2016-12-30] MEDS: RENAL NOVASOURCE 1,000 ML BOTTLE GT PRN (16:57)
--- NOTE | 2016-12-30 18:49 | NUR ---
RN NOTES PT TOLERATING COOL AEROSOL WELL, TRACH CARE DONE, NO SOB NOTED, TF NOVASOURCE AT 40CC/HR RUNNING VIA GT , NO RESIDUAL NOTED, L FEMORAL HD CATH AND L UPPER ARM PICC LINE SITE CDI, NO SIGNIFICANT CHANGES NOTED ON THIS SHIFT
--- NOTE | 2016-12-30 19:35 | NUR ---
CELL ATTENDANT INITIAL NOTES PT IS IN BED, HOB ELEVATED, A/O X2, KHMER, TRACH INTACT, ON COOL AEROSOL, TOLERATING IT WELL, GTFEEDING CONTINOUS SETTING, NO RESIDUAL NOTED, PLACEMENT CHECKED. ON TELE MONITOR SR. PT WAS TURNED AND REPOSITIONED, BED LOCKED AND IN LOWEST POSITION, CALL LIGHTS WITHIN REACH.
[2016-12-30 20:00] VITALS: BP 106/37
[2016-12-30] MEDS: PANTOPRAZOLE 40 MG/PACK PACK GT SCH (20:53)
[2016-12-30] MEDS ORDERED: SECONDARY IV SET 1 EA INFUS.SET MC ONE (23:34)
[2016-12-31] VITALS: BP 107/39
[2016-12-31] MEDS: BLOOD SUGAR DIAGNOSTIC 1 EACH STRIP IN SCH ×6 (00:29→20:53)
[2016-12-31] MEDS: INSULIN REGULAR, HUMAN 100 UNIT/ML 3 ML VIAL SQ PRN ×4 (00:32→17:41)
[2016-12-31] MEDS: ALBUTEROL FS 2.5 MG/3 ML VIAL.NEB NEB SCH ×4 (02:04→19:45)
[2016-12-31] MEDS: IPRATROPIUM NEB FS 0.5 MG/2.5 ML AMPUL.NEB NEB SCH ×4 (02:04→19:45)
[2016-12-31 04:00] VITALS: BP_SYST 105; BP_SYST 108; BP_DIAS 45
[2016-12-31] MEDS ORDERED: IV NS 0.9% 250 ML IV ONE (05:06)
[2016-12-31] MEDS: RENAL NOVASOURCE 1,000 ML BOTTLE GT PRN ×2 (05:36→14:12)
[2016-12-31] MEDS: NAFCILLIN 2 G in IV D5W 50 ML IV SCH ×4 (05:41→23:33)
[2016-12-31 06:30] LABS: CALCIUM, SERUM 7.8 mg/dL (8.5-10.1); CREATININE 5.5 mg/dL (0.6-1.3); POTASSIUM 5.1 mmol/L (3.5-5.1)
[2016-12-31 06:38] LABS: BASOPHILS # (AUTO) 0.2 /CMM (0.0-0.2); BASOPHILS % (AUTO) 1.4 % (0.0-2.0); HEMATOCRIT 24 % (39-51); HEMOGLOBIN 7.8 g/dL (13.5-17.5); LYMPHOCYTES # (AUTO) 1.9 /CMM (0.8-4.8); LYMPHOCYTES % (AUTO) 14.5 % (20.0-44.0); MEAN CORPUSCULAR HEMOGLOBIN 28 PG (26.0-33.0); MEAN CORPUSCULAR HGB CONC 32 g/dl (31.0-36.0); MEAN CORPUSCULAR VOLUME 87 fL (80-96); MONOCYTES # (AUTO) 0.7 /CMM (0.1-1.30); MONOCYTES % (AUTO) 5.7 % (2.0-12.0); NEUTROPHILS # (AUTO) 10.1 /CMM (1.8-8.9); NEUTROPHILS % (AUTO) 78.4 % (43.0-81.0); PLATELET COUNT (AUTO) 371 /CMM (150-450); RDW COEFFICIENT OF VARIATION 17.8 (11.5-15.0); RED BLOOD CELL COUNT(AUTO) 2.81 MIL/uL (4.5-6.0); WHITE BLOOD COUNT (AUTO) 12.9 K/uL (4.3-11.0)
--- NOTE | 2016-12-31 07:15 | NUR ---
RN INITIAL NOTE PT RECEIVED IN BED. AWAKE AND ALERT. MOUTHS WORDS. ABLE TO MAKE NEEDS KNOWN. NO S/S OF PAIN OR DISCOMFORT. PT HAS TRACH TPIECE COOL AEROSOL. SHILEY #8, FI02 60%, RESPIRATIONS ARE EVEN AND UNLABORED. NO S/S OF RESPIRATORY DISTRESS OR SOB. TOLERATING SETTINGS WELL. GTUBE PATENT RUNNING NOVASOURCE AT 40ML/HR. SKIN IS WARM AND DRY TO TOUCH. IV SITE FLUSHED AND PATENT. DRESSING C/D/I. SAFETY PRECAUTIONS IMPLEMENTED. BED IN LOCKED, LOW POSITION WITH TWO SIDE RAILS UP. CALL LIGHT AND BELONGINGS WITHIN EASY REACH. WILL CONTINUE TO MONITOR.
--- NOTE | 2016-12-31 07:35 | NUR ---
DATA SOFTWARE ENGINEER INITIAL NOTES PT IS IN BED, DIALYSIS NURSE AT BEDSIDE, NO ACUTE DISTRESS NOTED. ON COOL AEROSOL, 60% FI02, 10LPM, SATURATING AT100%, GT PLACEMENT CHECKED AND PATENT, HOB OF ELEVATED, NO RESIDUAL NOTED. IV SITES FLUSHED AND PATENT, NO S/SX OF INFECTION/INFILTRATION NOTED. BED LOCKED AND IN LOWEST POSITION, CALL LIGHTS WITHIN REACH
--- NOTE | 2016-12-31 07:36 | NUR ---
INSPECTION AND TESTING SUPERVISOR CLOSING NOTES NO SIGNIFICANT CHANGES OVERNIGHT, ON COOL AEROSOL, TOLERATING IT WELL. TRACH CARE PROVIDED, NO S/SX OF RESPIRATORY DISTRESS NOTED, ON GT CONTINUOUS FEEDING, ASPIRATION PRECAUTION, IV SITES CDI, WOUND TREATMENT DONE, KEPT CLEAN AND DRY, TURNED AND REPOSITIONED, CALL LIGHT WITHIN REACH. ENDORSED TO THE AM NURSE FOR CONTINUATION OF CARE.
[2016-12-31 08:00] VITALS: BP 105/35
[2016-12-31] MEDS: DOCUSATE SODIUM LIQ 100 MG/10 ML UDC GT SCH ×2 (08:50→17:31)
[2016-12-31] MEDS: CLOTRIMAZOLE 1% 15 GM TUBE TP SCH ×2 (08:51→17:42)
[2016-12-31] MEDS: HYDROGEL DRESSING 90 GM TUBE TP SCH (08:51)
[2016-12-31] MEDS: LACTOBACILLUS RHAMNOSUS GG 1 EACH CAP.SPRINK PO SCH ×2 (08:51→17:31)
[2016-12-31] MEDS: SEVELAMER CARBONATE 0.8 GM POWD.PACK GT SCH ×3 (08:51→17:42)
[2016-12-31] MEDS: NEOMY SULF/BACITRAC ZN/POLY 15 GM TUBE TP SCH ×2 (08:51→17:42)
[2016-12-31 12:00] VITALS: BP 94/37
[2016-12-31 16:00] VITALS: BP_SYST 112; BP_SYST 94; BP_DIAS 38; BP_DIAS 57
[2016-12-31] MEDS: LEVOFLOXACIN 250 MG /D5W 50 ML 250 MG in PREMIX 1 EA IV SCH (16:00)
--- NOTE | 2016-12-31 17:00 | NUR ---
RN NOTE ANDONIAN ORDERED UA/ URINE CULTURE. IN/OUT CATHETER PERFORMED WITH INSUFFICIENT OUTPUT. MADE AWARE. ALSO INFORMED BIOFUELS OPERATIONS MANAGER, DR RAI
[2016-12-31] MEDS ORDERED: ALTEPLASE CATHFLO 2 MG/VIAL XX ONE (19:00)
--- NOTE | 2016-12-31 19:11 | NUR ---
RN CLOSING NOTE ALL MD ORDERS CARRIED OUT. PT KEPT CLEAN AND DRY. SAFETY PRECAUTIONS IN PLACE AT ALL TIMES WILL GIVE REPORT TO PM RN FOR SONI.
[2016-12-31 20:00] VITALS: BP 89/42
[2016-12-31] MEDS: PANTOPRAZOLE 40 MG/PACK PACK GT SCH (20:53)
[2016-12-31] MEDS: ZOLPIDEM TARTRATE 5 MG TABLET PO PRN (23:59)
[2017-01-01] VITALS: BP 91/34
[2017-01-01] MEDS: INSULIN REGULAR, HUMAN 100 UNIT/ML 3 ML VIAL SQ PRN ×4 (00:11→17:10)
[2017-01-01] MEDS: ALBUTEROL FS 2.5 MG/3 ML VIAL.NEB NEB SCH ×4 (00:49→19:35)
[2017-01-01] MEDS: IPRATROPIUM NEB FS 0.5 MG/2.5 ML AMPUL.NEB NEB SCH ×4 (00:49→19:35)
[2017-01-01 04:00] VITALS: BP 97/34
[2017-01-01] MEDS ORDERED: IV NS 0.9% 250 ML IV ONE ×2 (04:36→19:54)
[2017-01-01] MEDS: BLOOD SUGAR DIAGNOSTIC 1 EACH STRIP IN SCH ×6 (05:28→21:04)
[2017-01-01] MEDS: NAFCILLIN 2 G in IV D5W 50 ML IV SCH ×5 (05:28→23:37)
[2017-01-01 06:54] LABS: BASOPHILS # (AUTO) 0.2 /CMM (0.0-0.2); BASOPHILS % (AUTO) 1.8 % (0.0-2.0); EOSINOPHILS # (AUTO) 0.1 /CMM (0.0-0.7); EOSINOPHILS % (AUTO) 1.3 % (0.0-6.0); HEMATOCRIT 21 % (39-51); LYMPHOCYTES # (AUTO) 1.6 /CMM (0.8-4.8); LYMPHOCYTES % (AUTO) 14.2 % (20.0-44.0); MEAN CORPUSCULAR HEMOGLOBIN 27 PG (26.0-33.0); MEAN CORPUSCULAR HGB CONC 32 g/dl (31.0-36.0); MEAN CORPUSCULAR VOLUME 86 fL (80-96); MONOCYTES # (AUTO) 0.7 /CMM (0.1-1.30); MONOCYTES % (AUTO) 6.2 % (2.0-12.0); NEUTROPHILS # (AUTO) 8.5 /CMM (1.8-8.9); NEUTROPHILS % (AUTO) 76.5 % (43.0-81.0); PLATELET COUNT (AUTO) 340 /CMM (150-450); RDW COEFFICIENT OF VARIATION 18.2 (11.5-15.0); RED BLOOD CELL COUNT(AUTO) 2.49 MIL/uL (4.5-6.0); WHITE BLOOD COUNT (AUTO) 11.1 K/uL (4.3-11.0)
[2017-01-01 07:02] LABS: CALCIUM, SERUM 7.7 mg/dL (8.5-10.1); CREATININE 4.5 mg/dL (0.6-1.3); MAGNESIUM 2.8 mg/dL (1.8-2.4); PHOSPHORUS 3.9 mg/dL (2.5-4.9); POTASSIUM 4.4 mmol/L (3.5-5.1)
--- NOTE | 2017-01-01 07:15 | NUR ---
RN INITIAL NOTE PT RECEIVED IN BED, ASLEEP. PT HAS THOMAS BRITTON #8. T-PIECE WITH COOL AEROSOL, 10L O2. SATING WELL. GTUBE, FLUSHED, PATENT. NOVASOURCE RUNNING AT 60ML HOUR. PICC LINE FLUSHED AND PATENT. DRESSING C/D/I. SKIN IS WARM AND DRY TO TOUCH. SAFETY MEASURES IMPLEMENTED. BED IN LOCKED, LOW POSITION WITH TWO SIDE RAILS UP. CALL LIGHT AND BELONGINGS WITHIN REACH. WILL CONTINUE TO MONITOR.
[2017-01-01 07:33] LABS: HEMOGLOBIN 6.8 g/dL (13.5-17.5)
--- NOTE | 2017-01-01 07:59 | NUR ---
LUMBER CHAIN OFFBEARER CLOSING NOTES NO SIGNIFICANT CHANGES OVERNIGHT, ON COOL AEROSOL 10.0L FI02 60% SATURATING 100% TOLERATING IT WELL, NO RESPIRATORY DISTRESS NOTED. GT FEEDING @60ML/HR, TOLERATING IT WELL, WOUND TREATMENT PROVIDED, KEPT CLEAN AND DRY, TURNED AND REPOSITIONED Q2H. ALL MEDS GIVEN ORDERED. BED LOCKED AND IN LOWEST POSITION, CALL LIGHT WITHIN REACH, ENDORSED TO THE AM NURSE FOR CONTINUATION OF CARE
[2017-01-01 08:00] VITALS: BP 88/39
[2017-01-01] MEDS: DOCUSATE SODIUM LIQ 100 MG/10 ML UDC GT SCH ×2 (08:10→17:07)
[2017-01-01] MEDS: SEVELAMER CARBONATE 0.8 GM POWD.PACK GT SCH ×3 (08:10→17:07)
[2017-01-01] MEDS: LACTOBACILLUS RHAMNOSUS GG 1 EACH CAP.SPRINK PO SCH ×2 (08:11→17:07)
[2017-01-01 08:19] LABS: BASOPHILS % (MANUAL) 1 % (0.0-2.0); EOSINOPHILS % (MANUAL) 2 % (0-4); LYMPHOCYTES % (MANUAL) 12 % (16-48); MONOCYTES % (MANUAL) 4 % (0-11.0); NEUTROPHILS % (MANUAL) 81 (42-76)
[2017-01-01] MEDS: ACETAMINOPHEN 650 MG/20.3 ML UDC NG PRN (08:22)
[2017-01-01] MEDS: MORPHINE SULFATE INJ 2 MG/ML DISP.SYRIN IV PRN (08:23)
[2017-01-01] MEDS: NEOMY SULF/BACITRAC ZN/POLY 15 GM TUBE TP SCH ×2 (09:00→17:07)
[2017-01-01] MEDS: HYDROGEL DRESSING 90 GM TUBE TP SCH (09:00)
[2017-01-01] MEDS: CLOTRIMAZOLE 1% 15 GM TUBE TP SCH ×2 (09:00→17:07)
[2017-01-01] MEDS ORDERED: EPOETIN ALFA (10,000 UNIT) 10,000 UNIT/ML VIAL SQ ONE (10:30)
[2017-01-01] MEDS: RENAL NOVASOURCE 1,000 ML BOTTLE GT PRN (11:30)
[2017-01-01 16:00] VITALS: BP 127/38
--- NOTE | 2017-01-01 19:21 | NUR ---
RN INITIAL NOTES PT IS IN BED, HOB ELEVATED, NO ACUTE DISTRESS NOTED. ON COOL AEROSOL, 60% FI02, 10LPM, TOLERATING IT WELL, ON CONTINUOUS FEEDING NOVASOURCE @60CC/HR, PLACEMENT CHECKED, NO RESIDUAL NOTED. ON SCHEDULE FOR DIALYSIS AT PM, PICC L UPPER ARM, FLUSHED AND PATENT R FEMORAL HD CATH, CLEAN AND INTACT, NO S/SX OF INFECTION/INFILTRATION NOTED. BED LOCKED AND IN LOWEST POSITION, CALL LIGHTS WITHIN REACH
[2017-01-01] MEDS ORDERED: BLOOD IV SET 1 EA INFUS.SET MC ONE (19:55)
[2017-01-01 20:00] VITALS: BP 91/36
[2017-01-01] MEDS: PANTOPRAZOLE 40 MG/PACK PACK GT SCH (20:59)
--- NOTE | 2017-01-01 21:03 | NUR ---
ALL [facility] CLEARED FOR PT SAFETY
[2017-01-02] VITALS (11 sets, daily range): BP systolic 85–114; BP diastolic 35–60
[2017-01-02] MEDS: BLOOD SUGAR DIAGNOSTIC 1 EACH STRIP IN SCH ×6 (01:06→21:50)
[2017-01-02] MEDS: ZOLPIDEM TARTRATE 5 MG TABLET PO PRN (01:06)
[2017-01-02] MEDS: INSULIN REGULAR, HUMAN 100 UNIT/ML 3 ML VIAL SQ PRN ×6 (01:11→21:52)
[2017-01-02] MEDS: IPRATROPIUM NEB FS 0.5 MG/2.5 ML AMPUL.NEB NEB SCH ×5 (01:50→20:33)
[2017-01-02] MEDS: ALBUTEROL FS 2.5 MG/3 ML VIAL.NEB NEB SCH ×5 (01:50→20:33)
[2017-01-02] MEDS ORDERED: IV NS 0.9% 250 ML IV ONE ×2 (02:09→12:45)
[2017-01-02] MEDS ORDERED: BLOOD IV SET 1 EA INFUS.SET MC ONE (02:09)
[2017-01-02] MEDS ORDERED: IV SET PRIMARY PUMP SET 1 EA INFUS.SET MC ONE ×3 (04:33→12:45)
[2017-01-02] MEDS: NAFCILLIN 2 G in IV D5W 50 ML IV SCH ×3 (05:16→17:12)
--- NOTE | 2017-01-02 07:30 | NUR ---
RN INITIAL NOTE PT AOX3, DOES NOT TALK BUT ABLE TO ANSWERE YES/NO, ON COOL AEROSOL, SATURATING 100%, NO SOB, PICC LINE IN PLACE, TKO, 2 PORTS PATENT, NO BLOOD RETURN, PT ON HD AND GT FEEDING ORDERED, TOLERATING WELL, NO RESIDUAL, LABS WNL, S/P 1 UNIT OF PRBCS WOUND CARE DONE ORDERED, KEPT CLEAN AND DRY, TURNED AND REPOSITIONED Q2H, HEELS ELEVATED, ON [employer]CI MATTRESS, EDUCATION DONE PER PT VERBALIZED UNDERSTANDING, SAFETY MAINTAINED, BED IN LOW AND LOCKED POSITION, CALL LIGHT WITHIN REACH, WILL CONTINUE TO MONITOR.
--- NOTE | 2017-01-02 07:40 | NUR ---
RN CLOSING NOTES NO SIGNIFICANT CHANGES OVERNIGHT, ON COOL AEROSOL 10.0L FI02 60%, NO SOB, NO RESPIRATORY DISTRESS NOTED TOLERATING IT WELL, GT FEEDING TOLERATING IT WELL. TRANSFUSED BLOOD 1 UNIT OF PRBC, NO ALLERGIC REACTION, MONITORED PT CLOSELY. WOUND TREATMENT PROVIDED, TURNED AND REPOSITIONED Q2H. ALL MEDS GIVEN ORDERED. BED LOCKED AND IN LOWEST POSITION, CALL LIGHT WITHIN REACH, ENDORSED TO THE AM NURSE FOR CONTINUATION OF CARE
[2017-01-02 07:44] LABS: BASOPHILS # (AUTO) 0.2 /CMM (0.0-0.2); BASOPHILS % (AUTO) 1.6 % (0.0-2.0); HEMATOCRIT 26 % (39-51); HEMOGLOBIN 8.4 g/dL (13.5-17.5); LYMPHOCYTES # (AUTO) 1.8 /CMM (0.8-4.8); LYMPHOCYTES % (AUTO) 15.2 % (20.0-44.0); MEAN CORPUSCULAR HEMOGLOBIN 27 PG (26.0-33.0); MEAN CORPUSCULAR HGB CONC 32 g/dl (31.0-36.0); MEAN CORPUSCULAR VOLUME 84 fL (80-96); MONOCYTES # (AUTO) 0.9 /CMM (0.1-1.30); NEUTROPHILS # (AUTO) 9.3 /CMM (1.8-8.9); NEUTROPHILS % (AUTO) 76.2 % (43.0-81.0); PLATELET COUNT (AUTO) 330 /CMM (150-450); RDW COEFFICIENT OF VARIATION 19.1 (11.5-15.0); RED BLOOD CELL COUNT(AUTO) 3.11 MIL/uL (4.5-6.0); WHITE BLOOD COUNT (AUTO) 12.2 K/uL (4.3-11.0)
[2017-01-02] MEDS: SEVELAMER CARBONATE 0.8 GM POWD.PACK GT SCH ×3 (09:36→17:06)
[2017-01-02] MEDS: DOCUSATE SODIUM LIQ 100 MG/10 ML UDC GT SCH ×2 (09:37→17:06)
[2017-01-02] MEDS: LACTOBACILLUS RHAMNOSUS GG 1 EACH CAP.SPRINK PO SCH ×2 (09:37→17:06)
[2017-01-02] MEDS: CLOTRIMAZOLE 1% 15 GM TUBE TP SCH ×2 (09:41→17:07)
[2017-01-02] MEDS: NEOMY SULF/BACITRAC ZN/POLY 15 GM TUBE TP SCH ×2 (09:41→17:08)
[2017-01-02] MEDS: HYDROGEL DRESSING 90 GM TUBE TP SCH (09:41)
[2017-01-02] MEDS ORDERED: SECONDARY IV SET 1 EA INFUS.SET MC ONE (13:07)
[2017-01-02] MEDS: RENAL NOVASOURCE 1,000 ML BOTTLE GT PRN (17:22)
[2017-01-02] MEDS: ACETAMINOPHEN 650 MG/20.3 ML UDC NG PRN (20:53)
[2017-01-02] MEDS: PANTOPRAZOLE 40 MG/PACK PACK GT SCH (20:54)
[2017-01-03] VITALS: BP 129/68
[2017-01-03] MEDS: NAFCILLIN 2 G in IV D5W 50 ML IV SCH ×4 (00:25→17:25)
[2017-01-03] MEDS: MORPHINE SULFATE INJ 2 MG/ML DISP.SYRIN IV PRN ×4 (00:28→20:39)
[2017-01-03] MEDS: INSULIN REGULAR, HUMAN 100 UNIT/ML 3 ML VIAL SQ PRN ×4 (01:58→20:56)
[2017-01-03] MEDS: BLOOD SUGAR DIAGNOSTIC 1 EACH STRIP IN SCH ×6 (01:59→20:40)
[2017-01-03] MEDS: IPRATROPIUM NEB FS 0.5 MG/2.5 ML AMPUL.NEB NEB SCH ×4 (02:09→19:56)
[2017-01-03] MEDS: ALBUTEROL FS 2.5 MG/3 ML VIAL.NEB NEB SCH ×4 (02:09→19:56)
[2017-01-03 04:00] VITALS: BP 117/45
--- NOTE | 2017-01-03 06:42 | NUR ---
RN CLOSING NOTE PT REMAINS IN NO ACUTE DISTRESS IN BED. PT DID NOT HAVE ANY SIGNIFICANT CHANGE IN CONDITION. WILL ENDORSE TO AM RN FOR CONTINUITY OF CARE.
--- NOTE | 2017-01-03 07:12 | NUR ---
RN INITIAL NOTE PT RECEIVED IN BED, SLEEPING. PT ON COOL AEROSOL, SATING AT 100%. RESPIRATIONS ARE EVEN AND UNLABORED. NO S/S OF RESPIRATORY DISTRESS OR SOB. LEFT UPPER ARM PICC LINE IN PLACE, FLUSHED, PATENT. DRESSING C/D/I. PT ON GTUBE FEEDING AND HD, ORDERED. NOVASOURCE RUNNING AT 40ML/HR TOLERATING WELL. NO RESIDUALS. ON KCI MATTRESS. SKIN IS WARM AND DRY TO TOUCH. SAFETY MEASURES IMPLEMENTED AT ALL TIMES, BED IN LOCKED LOW POSITION, TWO SIDE RAILS UP. CALL LIGHT WITHIN REACH WILL MONITOR CLOSELY.
[2017-01-03 08:00] VITALS: BP 107/38
[2017-01-03] MEDS: LACTOBACILLUS RHAMNOSUS GG 1 EACH CAP.SPRINK PO SCH ×2 (08:40→17:25)
[2017-01-03] MEDS: DOCUSATE SODIUM LIQ 100 MG/10 ML UDC GT SCH ×2 (08:40→17:25)
[2017-01-03] MEDS: SEVELAMER CARBONATE 0.8 GM POWD.PACK GT SCH ×3 (08:40→17:25)
[2017-01-03] MEDS: CLOTRIMAZOLE 1% 15 GM TUBE TP SCH ×2 (08:53→17:25)
[2017-01-03] MEDS: NEOMY SULF/BACITRAC ZN/POLY 15 GM TUBE TP SCH ×2 (08:53→17:27)
[2017-01-03] MEDS: HYDROGEL DRESSING 90 GM TUBE TP SCH (08:53)
[2017-01-03 16:00] VITALS: BP 105/32
--- NOTE | 2017-01-03 19:02 | NUR ---
RN CLOSING NOTE PT RESTING IN BED COMFORTABLY. ALL MD ORDERS CARRIED OUT. PT KEPT CLEAN AND DRY. SAFETY PRECAUTIONS IN PLACE AT ALL TIMES. WILL GIVE REPORT TO PM RN FOR SONI.
--- NOTE | 2017-01-03 19:40 | NUR ---
RN NOTES RECIEVED PATIENT AWAKE IN BED AOX2, NO C/O OF SOB, SUCTIONED WEII TOLERATED, HOB ELEVATED, C/O OF CP[ 6/10, V/S OBTAINED WITHIN NORMAL RANGE, CLEAN AND DRY ,WELL REPOSITIONED, GT PLACED CHECKED WELL FLUSHED, ALL NEEDS ATTENDED AT THIS TIME, CALL LIGHT WITHIN REACH.
[2017-01-03 20:00] VITALS: BP 105/40
[2017-01-03] MEDS: PANTOPRAZOLE 40 MG/PACK PACK GT SCH (20:38)
--- NOTE | 2017-01-03 23:30 | NUR ---
RN NOTES: PATIENT COMPLAINING OF CHEST PAIN DESCRIBED HEAVY. INFORMED PHIL CLAROS DIRECTOR FEDERAL FUNCTIONAL ARCHITECT AND ORDERED STAT EKG AND TROPONIN. 01/04/17 0030 RESULTS IN, RELAYED TO FUNCTIONAL ARCHITECT PHIL FARMER EKG RESULT (EKG IS ST AT 100) AND TROPONIN LEVEL: 0.107. NO NEW ORDERS GIVEN. PT CALM AT THIS TIME DENIES PAIN AT THIS TIME. CONTINUOUSLY MONITORED PT.
[2017-01-04] VITALS: BP 129/68
[2017-01-04] MEDS: MORPHINE SULFATE INJ 2 MG/ML DISP.SYRIN IV PRN ×5 (00:59→20:50)
[2017-01-04] MEDS: NAFCILLIN 2 G in IV D5W 50 ML IV SCH ×4 (01:00→17:03)
[2017-01-04] MEDS: BLOOD SUGAR DIAGNOSTIC 1 EACH STRIP IN SCH ×6 (01:00→20:51)
[2017-01-04] MEDS: INSULIN REGULAR, HUMAN 100 UNIT/ML 3 ML VIAL SQ PRN ×3 (01:33→20:52)
[2017-01-04] MEDS: IPRATROPIUM NEB FS 0.5 MG/2.5 ML AMPUL.NEB NEB SCH ×4 (01:34→19:50)
[2017-01-04] MEDS: ALBUTEROL FS 2.5 MG/3 ML VIAL.NEB NEB SCH ×4 (01:34→19:50)
[2017-01-04] MEDS: RENAL NOVASOURCE 1,000 ML BOTTLE GT PRN (06:14)
[2017-01-04] MEDS: IV NS 0.9% 250 ML IV PRN (06:25)
--- NOTE | 2017-01-04 06:59 | NUR ---
RN NOTES PT CLEAN AND DRY WELL REPOSITIONED, WITH PAIN MANAGEMENT ORDERED Q4HRS,APPEARS COMFORTABLE AT THIS TIME, DENIES ANY PAIN.
[2017-01-04 08:00] VITALS: BP 97/39
[2017-01-04] MEDS: SEVELAMER CARBONATE 0.8 GM POWD.PACK GT SCH ×3 (08:50→16:59)
[2017-01-04] MEDS: DOCUSATE SODIUM LIQ 100 MG/10 ML UDC GT SCH ×2 (08:52→16:58)
[2017-01-04] MEDS: LACTOBACILLUS RHAMNOSUS GG 1 EACH CAP.SPRINK PO SCH ×2 (08:52→16:59)
[2017-01-04] MEDS: CLOTRIMAZOLE 1% 15 GM TUBE TP SCH ×2 (09:29→16:59)
[2017-01-04] MEDS: NEOMY SULF/BACITRAC ZN/POLY 15 GM TUBE TP SCH ×2 (09:29→16:59)
[2017-01-04] MEDS: HYDROGEL DRESSING 90 GM TUBE TP SCH (09:29)
[2017-01-04] MEDS: ACETAMINOPHEN 650 MG/20.3 ML UDC NG PRN (10:53)
[2017-01-04 12:15] LABS: BASOPHILS # (AUTO) 0.1 /CMM (0.0-0.2); BASOPHILS % (AUTO) 0.9 % (0.0-2.0); EOSINOPHILS # (AUTO) 0.3 /CMM (0.0-0.7); EOSINOPHILS % (AUTO) 2.5 % (0.0-6.0); HEMATOCRIT 23 % (39-51); HEMOGLOBIN 7.4 g/dL (13.5-17.5); LYMPHOCYTES # (AUTO) 1.6 /CMM (0.8-4.8); LYMPHOCYTES % (AUTO) 12.7 % (20.0-44.0); MEAN CORPUSCULAR HEMOGLOBIN 27 PG (26.0-33.0); MEAN CORPUSCULAR HGB CONC 32 g/dl (31.0-36.0); MEAN CORPUSCULAR VOLUME 84 fL (80-96); MONOCYTES # (AUTO) 0.8 /CMM (0.1-1.30); MONOCYTES % (AUTO) 6.3 % (2.0-12.0); NEUTROPHILS # (AUTO) 9.8 /CMM (1.8-8.9); NEUTROPHILS % (AUTO) 77.6 % (43.0-81.0); PLATELET COUNT (AUTO) 373 /CMM (150-450); RDW COEFFICIENT OF VARIATION 19.4 (11.5-15.0); RED BLOOD CELL COUNT(AUTO) 2.75 MIL/uL (4.5-6.0); WHITE BLOOD COUNT (AUTO) 12.6 K/uL (4.3-11.0)
[2017-01-04 16:00] VITALS: BP 113/44
--- NOTE | 2017-01-04 19:15 | NUR ---
RN INITIAL NOTES RECEIVED PATIENT IN BED, AWAKE AND ALERT. PATIENT ABLE TO MOUTH WORDS, PATIENT COMPLAINING OF PAIN, UNABLE TO DESCRIBE FURTHER. PATIENT REQUESTING FOR PAIN MEDICATION, WILL CHECK MED LIST FOR PAIN MANAGEMENT. WITH TRACH ON COOL AEROSOL, FI02 AT 35%, PATIENT WITH 100% OF SATURATION. AIRWAY SUCTIONED NEEDED. GT PLACEMENT VERIFIED, NO GASTRIC RESIDUAL NOTED, FEEDING INFUSING WELL ORDERED. MILAGROS PICC LINE FLUSHED AND KEPT PATENT, ON TKO, NO BLOOD RETURN OBSERVED. R FEMORAL HD CATH WITH DRESSING INTACT, NO DRAINAGE. PATIENT REPOSITIONED FOR COMFORT. SAFETY AND COMFORT ENSURED. BED IN LOW AND LOCKED POSITION. CALL LIGHT IN REACH. WILL MONITOR.
[2017-01-04 20:00] VITALS: BP 101/54
[2017-01-04] MEDS: PANTOPRAZOLE 40 MG/PACK PACK GT SCH (20:49)
--- NOTE | 2017-01-04 21:00 | NUR ---
RN NOTES PATIENT SLEEPING COMFORTABLY IN BED, NO DISTRESS AND NO ACUTE SIGNS OF PAIN. POST MORPHINE 2MG IVP ADMINISTRATION.
[2017-01-05] MEDS: BLOOD SUGAR DIAGNOSTIC 1 EACH STRIP IN SCH ×6 (00:31→21:44)
[2017-01-05] MEDS: NAFCILLIN 2 G in IV D5W 50 ML IV SCH ×4 (00:32→17:19)
[2017-01-05] MEDS: INSULIN REGULAR, HUMAN 100 UNIT/ML 3 ML VIAL SQ PRN ×6 (00:32→21:48)
[2017-01-05] MEDS: MORPHINE SULFATE INJ 2 MG/ML DISP.SYRIN IV PRN ×6 (00:34→21:35)
[2017-01-05] MEDS: ACETAMINOPHEN 650 MG/20.3 ML UDC NG PRN (01:13)
[2017-01-05] MEDS: ALBUTEROL FS 2.5 MG/3 ML VIAL.NEB NEB SCH ×4 (01:16→19:44)
[2017-01-05] MEDS: IPRATROPIUM NEB FS 0.5 MG/2.5 ML AMPUL.NEB NEB SCH ×4 (01:16→19:44)
[2017-01-05 04:00] VITALS: BP 102/50
[2017-01-05] MEDS: RENAL NOVASOURCE 1,000 ML BOTTLE GT PRN (04:58)
[2017-01-05] MEDS: IV NS 0.9% 250 ML IV PRN (04:59)
--- NOTE | 2017-01-05 06:35 | NUR ---
RN CLOSING NOTES PATIENT IN BED, SLEEPING COMFORTABLY. PATIENT NOT IN ANY DISTRESS. TOLERATING O2 THERAPY VIA TPIECE ON TRACH AT 35% FIO2, SATURATING WELL AT 99%. PATIENT MEDICATED FOR PAIN NEEDED PER PATIENT'S REQUESTS WITH HELP FOR THE PATIENT. PATIENT'S VS KEPT STABLE, NO HYPO/HYPERTENSION NOTED. NO RESPIRATORY AND CARDIAC DISTRESS. ALL DUE MEDS GIVEN ORDERED. WOUND TREATMENT RENDERED ORDERED. TRACH CARE DONE. AIRWAY SUCTIONED NEEDED. PATIENT'S NEEDS ANTICIPATED AND MET. SAFETY AND COMFORT ENSURED. BED IN LOW AND LOCKED POSITION. CALL LIGHT IN REACH. WILL ENDORSE ACCORDINGLY FOR CONTINUITY OF CARE.
--- NOTE | 2017-01-05 07:10 | NUR ---
RN INITIAL NOTE RECEIVED PT FROM PM NURSE. PT A/O X2 GHANAIAN SPEAKING ABLE TO MOUTH WORDS. THOMAS #8 [id number]% COOL AEROSOL. GT PLACEMENT CK NO RESIDUAL NOVASOURCE 60ML/HR. IV MILAGROS PICC LINE NS@TKO PATENT FLUSHED AND INTACT. R FEMORAL HD CATH. ALL SAFETY MEASURES IN PLACE. WILL CONTINUE TO MONITOR CLOSELY.
[2017-01-05 08:09] LABS: BASOPHILS # (AUTO) 0.1 /CMM (0.0-0.2); BASOPHILS % (AUTO) 1.1 % (0.0-2.0); CALCIUM, SERUM 7.8 mg/dL (8.5-10.1); CREATININE 5.6 mg/dL (0.6-1.3); EOSINOPHILS # (AUTO) 0.2 /CMM (0.0-0.7); EOSINOPHILS % (AUTO) 1.1 % (0.0-6.0); HEMATOCRIT 22 % (39-51); HEMOGLOBIN 7.3 g/dL (13.5-17.5); LYMPHOCYTES # (AUTO) 1.6 /CMM (0.8-4.8); LYMPHOCYTES % (AUTO) 11.5 % (20.0-44.0); MEAN CORPUSCULAR HEMOGLOBIN 28 PG (26.0-33.0); MEAN CORPUSCULAR HGB CONC 33 g/dl (31.0-36.0); MEAN CORPUSCULAR VOLUME 85 fL (80-96); MONOCYTES # (AUTO) 0.9 /CMM (0.1-1.30); MONOCYTES % (AUTO) 6.3 % (2.0-12.0); NEUTROPHILS # (AUTO) 11.1 /CMM (1.8-8.9); PLATELET COUNT (AUTO) 369 /CMM (150-450); POTASSIUM 5.3 mmol/L (3.5-5.1); RDW COEFFICIENT OF VARIATION 21.1 (11.5-15.0); RED BLOOD CELL COUNT(AUTO) 2.62 MIL/uL (4.5-6.0); WHITE BLOOD COUNT (AUTO) 13.9 K/uL (4.3-11.0)
[2017-01-05] MEDS: SEVELAMER CARBONATE 0.8 GM POWD.PACK GT SCH ×3 (08:59→17:04)
[2017-01-05] MEDS: CLOTRIMAZOLE 1% 15 GM TUBE TP SCH ×2 (08:59→17:14)
[2017-01-05] MEDS: DOCUSATE SODIUM LIQ 100 MG/10 ML UDC GT SCH ×2 (08:59→17:04)
[2017-01-05] MEDS: HYDROGEL DRESSING 90 GM TUBE TP PRN (09:00)
[2017-01-05] MEDS: LACTOBACILLUS RHAMNOSUS GG 1 EACH CAP.SPRINK PO SCH ×2 (09:00→17:04)
[2017-01-05] MEDS: NEOMY SULF/BACITRAC ZN/POLY 15 GM TUBE TP SCH ×2 (09:00→17:14)
[2017-01-05] MEDS: Z GUARD REMEDY 2 OZ OINT TP PRN (09:00)
[2017-01-05] MEDS: HYDROGEL DRESSING 90 GM TUBE TP SCH (09:01)
[2017-01-05 12:00] VITALS: BP 108/41
--- NOTE | 2017-01-05 13:00 | NUR ---
RN NOTE SPOKE TO DR. MARR HGB 7.3 WILL ORDER CBC @ 1900 IF HGB LESS THAN 7 CALL DIRECTOR DIGITAL SALES FOR ORDER OF PRBC. AWARE OF CP.
[2017-01-05] MEDS ORDERED: ALTEPLASE CATHFLO 2 MG/VIAL IV ONE (17:30)
[2017-01-05 18:59] LABS: BASOPHILS # (AUTO) 0.1 /CMM (0.0-0.2); BASOPHILS % (AUTO) 0.7 % (0.0-2.0); EOSINOPHILS # (AUTO) 0.3 /CMM (0.0-0.7); EOSINOPHILS % (AUTO) 1.7 % (0.0-6.0); HEMATOCRIT 24 % (39-51); HEMOGLOBIN 7.9 g/dL (13.5-17.5); LYMPHOCYTES # (AUTO) 2.6 /CMM (0.8-4.8); LYMPHOCYTES % (AUTO) 15.3 % (20.0-44.0); MEAN CORPUSCULAR HEMOGLOBIN 28 PG (26.0-33.0); MEAN CORPUSCULAR HGB CONC 33 g/dl (31.0-36.0); MEAN CORPUSCULAR VOLUME 85 fL (80-96); MONOCYTES # (AUTO) 0.9 /CMM (0.1-1.30); MONOCYTES % (AUTO) 5.5 % (2.0-12.0); NEUTROPHILS # (AUTO) 12.8 /CMM (1.8-8.9); NEUTROPHILS % (AUTO) 76.8 % (43.0-81.0); PLATELET COUNT (AUTO) 415 /CMM (150-450); RDW COEFFICIENT OF VARIATION 19.3 (11.5-15.0); WHITE BLOOD COUNT (AUTO) 16.7 K/uL (4.3-11.0)
--- NOTE | 2017-01-05 19:15 | NUR ---
RN INITIAL NOTES PATIENT CURRENTLY RECEIVING HD ORDERED. TOLERATING PROCEDURE WELL AT THIS TIME, NO DISTRESS. TOLERATING O2 THERAPY VIA TRACH ON TPIECE WITH FIO2 OF 35%, SATURATION AT 100%. AIRWAY SUCTIONED NEEDED, THICK, YELLOW SPUTUM SUCTIONED. GTF INFUSING WELL, NO GASTRIC RESIDUAL NOTED. MILAGROS PICC LINE INTACT, ON TKO. WILL MONITOR CLOSELY. PATIENT'S AT BEDSIDE. SAFETY AND COMFORT ENSURED. CALL LIGHT IN REACH.
--- NOTE | 2017-01-05 19:30 | NUR ---
RN NOTES RECEIVED REPORT WITH REGARDS TO THE PATIENT'S H/H LEVEL AND MONITORING ORDERED BY MORNING PMD. PATIENT'S STAT CBC RESULTED. PATIENT'S H/H NOTED TO BE 7.9/24. NO ACUTE SIGNS OF BLEEDING ON PATIENT OBSERVED.
--- NOTE | 2017-01-05 19:58 | NUR ---
RN CLOSING NOTE PT A/O X2 CHILEAN SPEAKING ABLE TO MOUTH WORDS. THOMAS #8 [id number]% COOL AEROSOL. GT PLACEMENT CK NO RESIDUAL NOVASOURCE 60ML/HR. IV MILAGROS PICC LINE NS@TKO PATENT FLUSHED AND INTACT. R FEMORAL HD CATH. ALL SAFETY MEASURES IN PLACE. ALL ORDERS CARRIED OUT ALL MEDICATIONS GIVEN. REPORT GIVEN TO PM NURSE.
[2017-01-05 20:00] VITALS: BP 110/50
--- NOTE | 2017-01-05 21:30 | NUR ---
ANAY NOTES HD COMPLETED, WITH 2L OUTPUT. VS: , 102. PATIENT TOLERATED PROCEDURE WELL, NO HYPOTENSION NOTED. L FEMORAL HD CATH WITH DRESSING INTACT, NO DRAINAGE, NO BLEEDING NOTED. PATIENT'S NEEDS ANTICIPATED AND MET. SAFETY AND COMFORT ENSURED. PATIENT'S AT BEDSIDE. Addendum: 01/05/17 at 2250 by RAN MELO RN VS: 114/50
[2017-01-05] MEDS: PANTOPRAZOLE 40 MG/PACK PACK GT SCH (21:40)
[2017-01-06] MEDS: NAFCILLIN 2 G in IV D5W 50 ML IV SCH ×4 (01:12→17:52)
[2017-01-06] MEDS: BLOOD SUGAR DIAGNOSTIC 1 EACH STRIP IN SCH ×6 (01:12→21:17)
[2017-01-06] MEDS: INSULIN REGULAR, HUMAN 100 UNIT/ML 3 ML VIAL SQ PRN ×5 (01:13→17:24)
[2017-01-06] MEDS: RENAL NOVASOURCE 1,000 ML BOTTLE GT PRN ×2 (01:15→17:25)
[2017-01-06] MEDS: ALBUTEROL FS 2.5 MG/3 ML VIAL.NEB NEB SCH ×4 (01:19→19:58)
[2017-01-06] MEDS: IPRATROPIUM NEB FS 0.5 MG/2.5 ML AMPUL.NEB NEB SCH ×4 (01:19→19:58)
[2017-01-06] MEDS: ACETAMINOPHEN 650 MG/20.3 ML UDC NG PRN (03:26)
[2017-01-06] MEDS: MORPHINE SULFATE INJ 2 MG/ML DISP.SYRIN IV PRN ×3 (03:27→20:03)
[2017-01-06 04:00] VITALS: BP 111/47
[2017-01-06] MEDS: ONDANSETRON HCL/PF 4 MG/2 ML VIAL IVP PRN (05:30)
--- NOTE | 2017-01-06 06:38 | NUR ---
RN CLOSING NOTES PATIENT IN BED, NOT IN ANY DISTRESS. TOLERATING O2 THERAPY VIA TPIECE ON TRACH AT 35% FIO2 WELL, AIRWAY KEPT PATENT. PATIENT MEDICATED FOR PAIN NEEDED WITH MINIMAL HELP FOR PAIN, PATIENT PROVIDED WITH REORIENTATION AND REASSURANCE NEEDED, PATIENT'S AT BEDSIDE AT ALL TIMES WITH HELP FOR THE PATIENT. ALL DUE MEDS GIVEN ORDERED. WOUND TREATMENT RENDERED ORDERED. TRACH CARE DONE. PATIENT'S NEEDS ANTICIPATED AND MET. SAFETY AND COMFORT ENSURED. BED IN LOW AND LOCKED POSITION. CALL LIGHT IN REACH. WILL ENDORSE ACCORDINGLY FOR CONTINUITY OF CARE.
--- NOTE | 2017-01-06 07:00 | NUR ---
RN INITIAL NOTE RECEIVED PT FROM PM NURSE. VIA TRACH ON TPIECE WITH FIO2 OF 35%, SATURATION AT 100%. GTF NOVASOURCE @ 60ML/HR TOLERATING WELL NO RESIDUAL NOTED. MILAGROS PICC LINE INTACT, ON TKO. WILL CONTINUE MONITOR CLOSELY. PATIENT'S AT BEDSIDE. ALL SAFETY MEASURES IN PLACE.
[2017-01-06 07:35] LABS: BASOPHILS # (AUTO) 0.2 /CMM (0.0-0.2); BASOPHILS % (AUTO) 1.2 % (0.0-2.0); EOSINOPHILS # (AUTO) 0.3 /CMM (0.0-0.7); EOSINOPHILS % (AUTO) 1.9 % (0.0-6.0); HEMATOCRIT 24 % (39-51); HEMOGLOBIN 7.8 g/dL (13.5-17.5); LYMPHOCYTES # (AUTO) 1.9 /CMM (0.8-4.8); MEAN CORPUSCULAR HEMOGLOBIN 28 PG (26.0-33.0); MEAN CORPUSCULAR HGB CONC 33 g/dl (31.0-36.0); MEAN CORPUSCULAR VOLUME 85 fL (80-96); MONOCYTES # (AUTO) 0.7 /CMM (0.1-1.30); NEUTROPHILS # (AUTO) 11.7 /CMM (1.8-8.9); NEUTROPHILS % (AUTO) 78.9 % (43.0-81.0); PLATELET COUNT (AUTO) 415 /CMM (150-450); WHITE BLOOD COUNT (AUTO) 14.8 K/uL (4.3-11.0)
[2017-01-06 07:52] LABS: CALCIUM, SERUM 7.9 mg/dL (8.5-10.1); CREATININE 4.2 mg/dL (0.6-1.3); POTASSIUM 4.3 mmol/L (3.5-5.1)
[2017-01-06 08:00] VITALS: BP 96/35
[2017-01-06] MEDS: SEVELAMER CARBONATE 0.8 GM POWD.PACK GT SCH ×3 (08:35→17:21)
[2017-01-06] MEDS: DOCUSATE SODIUM LIQ 100 MG/10 ML UDC GT SCH ×2 (08:35→16:24)
[2017-01-06] MEDS: LACTOBACILLUS RHAMNOSUS GG 1 EACH CAP.SPRINK PO SCH ×2 (08:36→16:24)
[2017-01-06] MEDS: Z GUARD REMEDY 2 OZ OINT TP PRN (08:37)
[2017-01-06] MEDS: NEOMY SULF/BACITRAC ZN/POLY 15 GM TUBE TP SCH ×2 (08:37→16:24)
[2017-01-06] MEDS: CLOTRIMAZOLE 1% 15 GM TUBE TP SCH ×2 (08:37→16:24)
[2017-01-06] MEDS: HYDROGEL DRESSING 90 GM TUBE TP PRN (08:37)
[2017-01-06] MEDS ORDERED: SECONDARY IV SET 1 EA INFUS.SET MC ONE ×2 (11:51→15:54)
[2017-01-06] MEDS ORDERED: IV SET PRIMARY PUMP SET 1 EA INFUS.SET MC ONE (11:52)
[2017-01-06 12:00] VITALS: BP 97/38
[2017-01-06] MEDS: HYDROGEL DRESSING 90 GM TUBE TP SCH (12:18)
[2017-01-06 16:00] VITALS: BP 95/48
[2017-01-06] MEDS: ALBUMIN 25% 25 GM in PREMIX 1 EA IV PRN (16:22)
[2017-01-06] MEDS: IV NS 0.9% 250 ML IV PRN (16:23)
--- NOTE | 2017-01-06 19:30 | NUR ---
RN INITIAL NOTE RECEIVED REPORT FROM WYATT CUEVA. PT IS IN BED, TRACHED COOL AEROSOL 35%. LUNG SOUNDS RHONCHI.PT IS AWAKE, MOUTHS WORDS IN [place]. BOWEL SOUNDS PRESENT WITH GT INTACT. FEEDING RUNNING. IV PATENT AND INTACT. PULSES PRESENT. BED IN LOW LOCKED POSITION. REPOSITIONED FOR COMFORT. WILL CONTINUE TO MONITOR.
--- NOTE | 2017-01-06 19:46 | NUR ---
RN CLOSING NOTE VIA TRACH ON TPIECE WITH FIO2 OF 35%, SATURATION AT 100%. GTF NOVASOURCE @ 40ML/HR TOLERATING WELL NO RESIDUAL NOTED. MILAGROS PICC LINE INTACT, ON TKO. REPORT GIVEN TO PM NURSE FOR SONI. ALL MEDICATIONS GIVEN ALL ORDERS CARRIED OUT. ALL SAFETY MEASURES IN PLACE.
[2017-01-06 20:00] VITALS: BP 97/41
[2017-01-06] MEDS: PANTOPRAZOLE 40 MG/PACK PACK GT SCH (20:04)
[2017-01-06] MEDS: ZOLPIDEM TARTRATE 5 MG TABLET PO PRN (23:41)
[2017-01-07] VITALS (7 sets, daily range): BP systolic 95–155; BP diastolic 41–77
[2017-01-07] MEDS: NAFCILLIN 2 G in IV D5W 50 ML IV SCH ×4 (01:00→18:11)
[2017-01-07] MEDS: BLOOD SUGAR DIAGNOSTIC 1 EACH STRIP IN SCH ×6 (01:01→20:15)
[2017-01-07] MEDS: INSULIN REGULAR, HUMAN 100 UNIT/ML 3 ML VIAL SQ PRN ×5 (01:07→18:22)
[2017-01-07] MEDS: ALBUTEROL FS 2.5 MG/3 ML VIAL.NEB NEB SCH ×4 (01:19→20:18)
[2017-01-07] MEDS: IPRATROPIUM NEB FS 0.5 MG/2.5 ML AMPUL.NEB NEB SCH ×4 (01:19→20:18)
[2017-01-07] MEDS: MORPHINE SULFATE INJ 2 MG/ML DISP.SYRIN IV PRN ×3 (03:02→15:48)
--- NOTE | 2017-01-07 07:10 | NUR ---
RN INITIAL NOTE RECEIVED PT FROM KARYN CHAVES NURSE. PT A/O X2 SERBIAN SPEAKING ABLE TO MOUTH WORDS. THOMAS #8 [id number]% COOL AEROSOL. GT PLACEMENT CK NO RESIDUAL NOVASOURCE 40ML/HR. IV MILAGROS PICC LINE NS@TKO PATENT FLUSHED AND INTACT. R FEMORAL HD CATH. ALL SAFETY MEASURES IN PLACE. WILL CONTINUE TO MONITOR CLOSELY.
[2017-01-07 07:48] LABS: BASOPHILS # (AUTO) 0.1 /CMM (0.0-0.2); BASOPHILS % (AUTO) 0.8 % (0.0-2.0); EOSINOPHILS # (AUTO) 0.2 /CMM (0.0-0.7); EOSINOPHILS % (AUTO) 0.9 % (0.0-6.0); HEMATOCRIT 22 % (39-51); LYMPHOCYTES # (AUTO) 1.7 /CMM (0.8-4.8); LYMPHOCYTES % (AUTO) 10.1 % (20.0-44.0); MEAN CORPUSCULAR HEMOGLOBIN 27 PG (26.0-33.0); MEAN CORPUSCULAR HGB CONC 32 g/dl (31.0-36.0); MEAN CORPUSCULAR VOLUME 86 fL (80-96); MONOCYTES % (AUTO) 6.1 % (2.0-12.0); NEUTROPHILS # (AUTO) 13.4 /CMM (1.8-8.9); NEUTROPHILS % (AUTO) 82.1 % (43.0-81.0); PLATELET COUNT (AUTO) 380 /CMM (150-450); RDW COEFFICIENT OF VARIATION 22.6 (11.5-15.0); RED BLOOD CELL COUNT(AUTO) 2.53 MIL/uL (4.5-6.0); WHITE BLOOD COUNT (AUTO) 16.3 K/uL (4.3-11.0)
[2017-01-07 08:15] LABS: CREATININE 3.7 mg/dL (0.6-1.3); POTASSIUM 4.1 mmol/L (3.5-5.1)
[2017-01-07 08:44] LABS: HEMOGLOBIN 6.9 g/dL (13.5-17.5)
[2017-01-07] MEDS: SEVELAMER CARBONATE 0.8 GM POWD.PACK GT SCH ×3 (08:53→18:09)
[2017-01-07] MEDS: DOCUSATE SODIUM LIQ 100 MG/10 ML UDC GT SCH ×2 (08:53→17:00)
[2017-01-07] MEDS: LACTOBACILLUS RHAMNOSUS GG 1 EACH CAP.SPRINK PO SCH ×2 (08:53→18:35)
[2017-01-07] MEDS: HYDROGEL DRESSING 90 GM TUBE TP SCH (08:54)
[2017-01-07] MEDS: Z GUARD REMEDY 2 OZ OINT TP PRN (08:54)
[2017-01-07 08:55] LABS: BAND % (MANUAL) 6 % (0.0-5.0); LYMPHOCYTES % (MANUAL) 10 % (16-48); METAMYELOCYTES % 1 % (0-0); MONOCYTES % (MANUAL) 3 % (0-11.0); MYELOCYTES % 1 % (0-0); NEUTROPHILS % (MANUAL) 79 (42-76)
[2017-01-07] MEDS: NEOMY SULF/BACITRAC ZN/POLY 15 GM TUBE TP SCH ×2 (08:55→18:36)
[2017-01-07] MEDS: CLOTRIMAZOLE 1% 15 GM TUBE TP SCH ×2 (08:55→18:35)
[2017-01-07] MEDS: IV NS 0.9% 250 ML IV PRN (09:12)
--- NOTE | 2017-01-07 09:28 | NUR ---
RN NOTE CALLED DR. ROSA ISELA CURRIE PT HBG 6.9. AWAITING CALL BACK.
[2017-01-07 09:56] LABS: ABG BASE EXCESS 2.3 mmol/L; ABG OXYGEN SATURATION 89.7 % (92.0-98.5); ABG PCO2 35.8 mmHg (35.0-45.0); ABG PH 7.478 (7.350-7.450); ABG PO2 54.9 mmHg (75.0-100.0); COHb 1.9 % (0.5-1.5); MetHb 1.3 % (0.0-1.5); O2Hb 86.8 % (94.0-97.0); SITE, ABG Left Brachial; VENT MODE, BG COOL AEROSOL
--- NOTE | 2017-01-07 10:03 | NUR ---
PT. WENT ON DISTRESS,RR ON 30'S, HGB 6.9,PENDING BLOOD TRANSFUSION R/T ANTIBODIES,DR. MARR AWARE,ABG RESULTS RELAYED ,PLACED BACK ON VENT,AWAITS PULMONARY.
--- NOTE | 2017-01-07 10:20 | NUR ---
PT PLACED INTO [facility] VENT VIA TRACH DUE TO INCREASED WOB. PT RR 33 - 38 VENT PARAMETERS BELLOW SET PER MD ORDER: AC 12 VT 500 FIO2 50% PEEP +5 VENT PLUGGED INTO RED OUTLET WITH ALARM ON AND AUDIBLE. MATEUS @ BEDSIDE. Addendum: 01/07/17 at 1057 by SANTANA BUTLER RT Amended: Links added.
[2017-01-07] MEDS: LORAZEPAM INJ 2 MG/ML VIAL IV PRN ×2 (11:31→15:30)
--- NOTE | 2017-01-07 11:49 | NUR ---
RN NOTE PER DR. MARR STAT CXR ORDERED.
[2017-01-07] MEDS: RENAL NOVASOURCE 1,000 ML BOTTLE GT PRN (13:30)
[2017-01-07 16:00] LABS: ABG BASE EXCESS -4.2 mmol/L; ABG OXYGEN SATURATION 90.1 % (92.0-98.5); ABG PH 7.241 (7.350-7.450); ABG PO2 66.3 mmHg (75.0-100.0); AaDO2 228.3 mmHg; COHb 1.6 % (0.5-1.5); MetHb 0.8 % (0.0-1.5); O2Hb 87.9 % (94.0-97.0); PEEP,BG 5 cm H2O; SITE, ABG Left Radial; VENT MODE, BG A/C; VT, ABG 500 mL
--- NOTE | 2017-01-07 16:00 | NUR ---
PT. ON RESPIRATORY DISTRESS RR30,CURRENTLY ON VENT, SEEN BY SUSANNA LEE,AWAITS ABG.
--- NOTE | 2017-01-07 16:40 | NUR ---
PT. CALM ,DISTRESS RESOLVING,RR 26,DR. CHRISTIAN RETURNED CALL UPDATED W/ PT. CONDITION NO NEW ORDERS.
--- NOTE | 2017-01-07 17:05 | NUR ---
@1630 VENT CHANGES BELLOW FOR 2 HRS PER JUSTA: FAIZAN 18 VT 550 FIO2 100% PEEP +5 Addendum: 01/07/17 at 1709 by SANTANA BUTLER RT Amended: Links added.
[2017-01-07 18:34] LABS: ABG BASE EXCESS 0.6 mmol/L; ABG OXYGEN SATURATION 99.1 % (92.0-98.5); ABG PCO2 34.9 mmHg (35.0-45.0); ABG PH 7.462 (7.350-7.450); ABG PO2 299.2 mmHg (75.0-100.0); AaDO2 378.9 mmHg; COHb 0.7 % (0.5-1.5); O2Hb 97.4 % (94.0-97.0); PEEP,BG 5 cm H2O; SITE, ABG Left Radial; VT, ABG 550 mL
--- NOTE | 2017-01-07 18:38 | NUR ---
decreased fio2 from 100% to 50% due to pao2 299, spo2 100%. Addendum: 01/07/17 at 1840 by SANTANA BUTLER RT Amended: Links added.
--- NOTE | 2017-01-07 19:36 | NUR ---
RN CLOSING NOTE PT A/O X2 PUERTO RICAN SPEAKING SLEEPING IN BED. VENT SETTING ADJUSTED BY RT THOMAS 8# AV 18 TV550 FI02% 50 PEEP OF 5. PT TOLERATING SETTING NO ACUTE SOB. NINA PICC LINE INTACT. ALL SAFETY MEASURES IN PLACE. REPORT GIVEN TO IZABELLA CUEVA FOR SONI. ALL MEDICATIONS GIVEN ALL ORDERS CARRIED OUT.
--- NOTE | 2017-01-07 20:00 | NUR ---
ROYCE RN NOTES RECEIVED PT IN BED, ASLEEP AND EASILY AROUSABLE. ABLE TO MOUTH WORDS AND REPORT PAIN. DENIES PAIN AT THIS TIME. TELE READS SR AT 79 BPM. ON VENT VIA TRACH AT ORDERED SETTINGS, CUATE WELL. NO S/S OF ACUTE DISTRESS OR SOB. NOVASOURCE GTF RESTARTED AT 40 ML/HR, NO RESIDUAL. MILAGROS PICC RUNNING NS AT TKO. LEFT FEM HD CATH IN PLACE, DRESSING CLEAN AND INTACT. LOW H/H, 2 UNITS PRBC ORDERED, AWAITING LAB. PT TURNED AND REPOSITIONED, SIDE RAILS X3, HOB ELEVATED, CALL LIGHT WITHIN REACH. PT'S AT BESIDE, PT BELONGINGS GIVEN TO TO TAKE HOME (BELONGINGS INCLUDED CELL PHONE, CONSULTANT IN ERGONOMICS AND SAFETY, HEADPHONES, GOLD NECKLACE AND DEBIT CARD).
[2017-01-07] MEDS: PANTOPRAZOLE 40 MG/PACK PACK GT SCH (20:15)
--- NOTE | 2017-01-07 21:49 | NUR ---
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 WENT HOME AT THIS TIME.
[2017-01-08] VITALS (14 sets, daily range): BP systolic 87–122; BP diastolic 38–58
[2017-01-08] MEDS: BLOOD SUGAR DIAGNOSTIC 1 EACH STRIP IN SCH ×6 (00:38→21:15)
[2017-01-08] MEDS: NAFCILLIN 2 G in IV D5W 50 ML IV SCH ×4 (00:38→17:11)
[2017-01-08] MEDS: ALBUTEROL FS 2.5 MG/3 ML VIAL.NEB NEB SCH ×4 (00:53→19:56)
[2017-01-08] MEDS: IPRATROPIUM NEB FS 0.5 MG/2.5 ML AMPUL.NEB NEB SCH ×4 (00:53→19:56)
[2017-01-08] MEDS ORDERED: BLOOD IV SET 1 EA INFUS.SET MC ONE (02:43)
[2017-01-08] MEDS ORDERED: IV NS 0.9% 250 ML IV ONE ×2 (02:43→11:32)
[2017-01-08] MEDS: IV NS 0.9% 250 ML IV PRN (03:26)
[2017-01-08] MEDS: INSULIN REGULAR, HUMAN 100 UNIT/ML 3 ML VIAL SQ PRN ×5 (05:21→21:21)
--- NOTE | 2017-01-08 06:19 | NUR ---
ROYCE RN NOTES AM LABS POSTPONED TILL 0930 DUE TO ONGOING BLOOD TRANSFUSION.
[2017-01-08] MEDS: MORPHINE SULFATE INJ 2 MG/ML DISP.SYRIN IV PRN ×4 (06:47→23:12)
[2017-01-08] MEDS: HYDROGEL DRESSING 90 GM TUBE TP SCH (08:33)
[2017-01-08] MEDS: LACTOBACILLUS RHAMNOSUS GG 1 EACH CAP.SPRINK PO SCH ×2 (08:33→17:11)
[2017-01-08] MEDS: DOCUSATE SODIUM LIQ 100 MG/10 ML UDC GT SCH ×2 (08:33→17:11)
[2017-01-08] MEDS: SEVELAMER CARBONATE 0.8 GM POWD.PACK GT SCH ×3 (08:33→17:11)
[2017-01-08] MEDS: NEOMY SULF/BACITRAC ZN/POLY 15 GM TUBE TP SCH ×2 (08:34→17:12)
[2017-01-08] MEDS: CLOTRIMAZOLE 1% 15 GM TUBE TP SCH ×2 (08:34→17:11)
[2017-01-08 08:47] LABS: BASOPHILS # (AUTO) 0.1 /CMM (0.0-0.2); BASOPHILS % (AUTO) 0.7 % (0.0-2.0); EOSINOPHILS # (AUTO) 0.3 /CMM (0.0-0.7); EOSINOPHILS % (AUTO) 1.8 % (0.0-6.0); HEMATOCRIT 27 % (39-51); HEMOGLOBIN 8.8 g/dL (13.5-17.5); LYMPHOCYTES # (AUTO) 1.5 /CMM (0.8-4.8); LYMPHOCYTES % (AUTO) 9.3 % (20.0-44.0); MEAN CORPUSCULAR HEMOGLOBIN 28 PG (26.0-33.0); MEAN CORPUSCULAR HGB CONC 32 g/dl (31.0-36.0); MEAN CORPUSCULAR VOLUME 86 fL (80-96); MONOCYTES # (AUTO) 0.8 /CMM (0.1-1.30); MONOCYTES % (AUTO) 4.8 % (2.0-12.0); NEUTROPHILS # (AUTO) 13.4 /CMM (1.8-8.9); NEUTROPHILS % (AUTO) 83.4 % (43.0-81.0); PLATELET COUNT (AUTO) 367 /CMM (150-450); RDW COEFFICIENT OF VARIATION 19.9 (11.5-15.0); RED BLOOD CELL COUNT(AUTO) 3.18 MIL/uL (4.5-6.0)
[2017-01-08 09:05] LABS: CALCIUM, SERUM 7.8 mg/dL (8.5-10.1); CREATININE 4.7 mg/dL (0.6-1.3); POTASSIUM 4.6 mmol/L (3.5-5.1)
[2017-01-08] MEDS ORDERED: IOHEXOL-300 100 ML VIAL IV ONE (11:32)
[2017-01-08] MEDS ORDERED: CT SWABBABLE VALVE TRANS SET 1 EA INFUS.SET MC ONE (11:32)
--- NOTE | 2017-01-08 14:30 | NUR ---
RN NOTES DR FUENTES MADE AWARE CT SPINE NOT DONE TODAY DUE TO CONFLICT SCHEDULE WITH HEMODIALYSIS AND CT PROCEDURE. CT WILL BE DONE TOMORROW, SCHEDULE ARRANGED WITH RADIOLOGY AND HEMODIALYSIS NURSE JASON FOR TOMORROW
--- NOTE | 2017-01-08 19:50 | NUR ---
CONSERVATION AGENT INITIAL NOTES PT IS IN BED, A/Ox3, [place] SPEAKING, ABLE TO MAKE NEEDS KNOWN. ON MECHANICAL VENT, TOLERATING CURRENT SETTING, NO RESPIRATORY DISTRESS NOTED. ON GTF CONTINUOUS FEEDING, NO RESIDUAL, PLACEMENT CHECKED. ASPIRATION PRECAUTION, HOB ELEVATED, IV SITES FLUSHED AND PATENT. SIDERAILS UP, BED LOCKED AND LOWEST POSITION. CALL LIGHT WITHIN REACH.
[2017-01-08] MEDS: PANTOPRAZOLE 40 MG/PACK PACK GT SCH (21:01)
[2017-01-08] MEDS: RENAL NOVASOURCE 1,000 ML BOTTLE GT PRN (23:14)
[2017-01-09] VITALS: BP 99/43
[2017-01-09] MEDS: NAFCILLIN 2 G in IV D5W 50 ML IV SCH ×5 (00:47→23:01)
[2017-01-09] MEDS: INSULIN REGULAR, HUMAN 100 UNIT/ML 3 ML VIAL SQ PRN ×3 (00:49→12:19)
[2017-01-09] MEDS: BLOOD SUGAR DIAGNOSTIC 1 EACH STRIP IN SCH ×6 (00:51→20:24)
[2017-01-09] MEDS: IPRATROPIUM NEB FS 0.5 MG/2.5 ML AMPUL.NEB NEB SCH ×4 (01:41→20:06)
[2017-01-09] MEDS: ALBUTEROL FS 2.5 MG/3 ML VIAL.NEB NEB SCH ×4 (01:42→20:06)
[2017-01-09 04:00] VITALS: BP 99/47
[2017-01-09] MEDS: MORPHINE SULFATE INJ 2 MG/ML DISP.SYRIN IV PRN ×3 (04:41→13:57)
--- NOTE | 2017-01-09 07:05 | NUR ---
DINING CHAIR SEAT CUSHION TRIMMER CLOSING NOTES NO SIGNIFICANT CHANGES OVERNIGHT, NO RESPIRATORY DISTRESS NOTED, SR ON TELE MONITOR, TOLERATED CONTINUOUS GTF FEEDING. IV LEFT UPPER ARM PATENT, NO S/SX OF INFECTION OR INFILTRATION. ALL MEDS GIVEN ORDERED, TOLERATED IT WELL. ALL SAFETY MEASURES MAINTAINED. CALL LIGHT WITHIN REACH, WILL ENDORSE TO AM NURSE FOR CONTINUATION OF CARE.
[2017-01-09 07:10] LABS: BASOPHILS # (AUTO) 0.1 /CMM (0.0-0.2); BASOPHILS % (AUTO) 0.6 % (0.0-2.0); EOSINOPHILS # (AUTO) 0.5 /CMM (0.0-0.7); HEMATOCRIT 25 % (39-51); HEMOGLOBIN 8.3 g/dL (13.5-17.5); LYMPHOCYTES # (AUTO) 1.2 /CMM (0.8-4.8); MEAN CORPUSCULAR HEMOGLOBIN 29 PG (26.0-33.0); MEAN CORPUSCULAR HGB CONC 33 g/dl (31.0-36.0); MEAN CORPUSCULAR VOLUME 87 fL (80-96); MONOCYTES # (AUTO) 0.8 /CMM (0.1-1.30); MONOCYTES % (AUTO) 5.6 % (2.0-12.0); NEUTROPHILS # (AUTO) 12.6 /CMM (1.8-8.9); NEUTROPHILS % (AUTO) 82.8 % (43.0-81.0); PLATELET COUNT (AUTO) 320 /CMM (150-450); RDW COEFFICIENT OF VARIATION 21.6 (11.5-15.0); RED BLOOD CELL COUNT(AUTO) 2.91 MIL/uL (4.5-6.0); WHITE BLOOD COUNT (AUTO) 15.2 K/uL (4.3-11.0)
--- NOTE | 2017-01-09 07:30 | NUR ---
RN NOTES RECEIVED PT LAYING IN BED, A/Ox3, VIETNAMESE SPEAKING, ABLE TO MAKE NEEDS KNOWN. TRACHED, ON MECHANICAL VENT, TOLERATING CURRENT SETTING, NO RESPIRATORY DISTRESS NOTED. SUCTIONED FOR AIRWAY CLEARANCE. ONGOING GTF NOVASOURCE@60L/HR NO RESIDUAL NOTED. ASPIRATION PRECAUTION OBSERVED, HOB ELEVATED, IV SITES FLUSHED AND PATENT. KEPT COMFORTABLE. SIDERAILS UP, BED LOCKED AND LOWEST POSITION. AT BEDSIDE. CALL LIGHT WITHIN REACH.
[2017-01-09 07:34] LABS: CREATININE 4.3 mg/dL (0.6-1.3); POTASSIUM 4.3 mmol/L (3.5-5.1)
[2017-01-09 08:00] VITALS: BP 99/49
[2017-01-09] MEDS: LORAZEPAM INJ 2 MG/ML VIAL IV PRN ×2 (08:08→15:36)
[2017-01-09] MEDS: LACTOBACILLUS RHAMNOSUS GG 1 EACH CAP.SPRINK PO SCH ×2 (08:08→16:47)
[2017-01-09] MEDS: DOCUSATE SODIUM LIQ 100 MG/10 ML UDC GT SCH ×2 (08:08→16:47)
[2017-01-09] MEDS: SEVELAMER CARBONATE 0.8 GM POWD.PACK GT SCH ×3 (08:09→17:56)
[2017-01-09] MEDS: HYDROGEL DRESSING 90 GM TUBE TP SCH (08:09)
[2017-01-09] MEDS: NEOMY SULF/BACITRAC ZN/POLY 15 GM TUBE TP SCH ×2 (08:10→16:48)
[2017-01-09] MEDS: CLOTRIMAZOLE 1% 15 GM TUBE TP SCH ×2 (08:10→16:48)
[2017-01-09] MEDS ORDERED: IOHEXOL-300 100 ML VIAL IV ONE (08:27)
[2017-01-09] MEDS ORDERED: IV NS 0.9% 250 ML IV ONE (08:27)
[2017-01-09] MEDS ORDERED: CT SWABBABLE VALVE TRANS SET 1 EA INFUS.SET MC ONE (08:27)
--- NOTE | 2017-01-09 09:15 | NUR ---
RT NOTE: PATIENT TAKEN TO CT AND BACK TO ROOM WITH NO PROBLEMS. PLACED BACK ON VENT. ALARMS VERIFIED AND AUDIBLE. AMBU BAG AT [facility].
--- NOTE | 2017-01-09 09:55 | NUR ---
PT PLACED ON COOL AEROSOL PER DR. WONG ORDERS. CUFF DEFLATED. PLACED ON 40% FIO2 AT 10LPM. NO RESP. DISTRESS NOTED AT THIS TIME. WILL CONTINUE TO MONITOR PT AT THIS TIME. ABG TO BE DONE.
[2017-01-09 12:00] VITALS: BP 99/47
[2017-01-09 15:57] LABS: ABG BASE EXCESS 2.2 mmol/L; ABG OXYGEN SATURATION 94.5 % (92.0-98.5); ABG PCO2 45.2 mmHg (35.0-45.0); ABG PH 7.399 (7.350-7.450); ABG PO2 79.3 mmHg (75.0-100.0); AaDO2 153.9 mmHg; COHb 1.5 % (0.5-1.5); O2Hb 92.1 % (94.0-97.0); SITE, ABG Right Radial; VENT MODE, BG COOL AEROSOL
[2017-01-09 16:00] VITALS: BP 100/43
--- NOTE | 2017-01-09 18:55 | NUR ---
RN NOTES PT RESTING IN BED COMFORTABLY, TOLERATING COOL AEROSOL FIO2 40%, NO DISTRESS NOTED AT THIS TIE. ALL DUE MEDS GIVEN, NEEDS ATTENDED AND MET. ONGOING IVF AT THIS TIME. ENDORSED TO PRETTY CUEVA FOR CONTINUITY OF CARE
--- NOTE | 2017-01-09 19:39 | NUR ---
AQUACULTURE AND FISHERIES PROFESSOR INITIAL NOTES PT IS IN BED, HD NURSE AT BEDSIDE, A/Ox3, CHINESE SPEAKING, ON COOL AEROSOL AND TOLERATING CURRENT SETTING, NO SOB, NO S/SX OF DISTRESS NOTED. ON GTF CONTINUOUS FEEDING AND TOLERATING IT WELL. HOB ELEVATED, IV SITES FLUSHED AND PATENT, BED LOCKED AND LOWEST POSITION. CALL LIGHT WITHIN REACH.
[2017-01-09 20:00] VITALS: BP 107/43
[2017-01-09] MEDS: PANTOPRAZOLE 40 MG/PACK PACK GT SCH (20:24)
[2017-01-09] MEDS: ACETAMINOPHEN 650 MG/20.3 ML UDC NG PRN (22:56)
[2017-01-10] VITALS: BP 101/45
[2017-01-10] MEDS: ALBUTEROL FS 2.5 MG/3 ML VIAL.NEB NEB SCH ×4 (01:17→20:09)
[2017-01-10] MEDS: IPRATROPIUM NEB FS 0.5 MG/2.5 ML AMPUL.NEB NEB SCH ×4 (01:17→20:09)
[2017-01-10] MEDS: BLOOD SUGAR DIAGNOSTIC 1 EACH STRIP IN SCH ×6 (01:28→21:34)
[2017-01-10] MEDS: INSULIN REGULAR, HUMAN 100 UNIT/ML 3 ML VIAL SQ PRN ×5 (01:31→21:37)
[2017-01-10] MEDS ORDERED: SECONDARY IV SET 1 EA INFUS.SET MC ONE ×2 (03:35→09:34)
[2017-01-10 04:00] VITALS: BP 100/41
[2017-01-10] MEDS: ACETAMINOPHEN 650 MG/20.3 ML UDC NG PRN (05:04)
[2017-01-10] MEDS: RENAL NOVASOURCE 1,000 ML BOTTLE GT PRN (05:04)
[2017-01-10] MEDS: NAFCILLIN 2 G in IV D5W 50 ML IV SCH ×3 (05:05→17:14)
[2017-01-10] MEDS: ONDANSETRON HCL/PF 4 MG/2 ML VIAL IVP PRN ×2 (06:19→07:55)
--- NOTE | 2017-01-10 07:07 | NUR ---
TEACHER OF THE VISUALLY IMPAIRED CLOSING NOTES NO SIGNIFICANT CHANGES OVERNIGHT, ON COOL AEROSOL, TOLERATING CURRENT SETTING, NO SOB NOTED, SR ON TELE MONITOR, TOLERATED CONTINUOUS GTF FEEDING. IV LEFT UPPER ARM PATENT, NO S/SX OF INFECTION. ALL MEDS GIVEN ORDERED, TOLERATED IT WELL. ALL SAFETY MEASURES MAINTAINED. CALL LIGHT WITHIN REACH, WILL ENDORSE TO AM NURSE FOR CONTINUATION OF CARE
--- NOTE | 2017-01-10 07:15 | NUR ---
RN INITIAL NOTE PT RESTING IN BED COMFORTABLY. ALERT AND ORIENTED. ABLE TO MAKE NEEDS KNOWN. MOUTHS WORDS. PT HAS SHILEY #8 TRACH, COOL AEROSOL FI02 40%. SATING WELL. NO S/S OF RESPIRATORY DISTRESS OR SOB. SINUS RHYTHM ON TELE MONITOR. HD SCHEDULED FOR TODAY. GTUBE FLUSHED AND PATENT. PLACEMENT VERIFIED. TOLERATING FEEDING WELL. NO RESIDUALS. NOVASOURCE RUNNING AT 40ML/HR. SKIN WARM AND DRY TO TOUCH. LEFT UPPER ARM PICC LINE, FLUSHED AND PATENT. SAFETY PRECAUTIONS IMPLEMENTED. BED IN LOCKED-LOW POSITION, TWO SIDE RAILS UP. CALL LIGHT AND BELONGINGS WITHIN REACH. WILL CONTINUE TO MONITOR.
[2017-01-10 07:24] LABS: BASOPHILS # (AUTO) 0.1 /CMM (0.0-0.2); EOSINOPHILS # (AUTO) 0.2 /CMM (0.0-0.7); EOSINOPHILS % (AUTO) 1.7 % (0.0-6.0); HEMATOCRIT 27 % (39-51); HEMOGLOBIN 8.6 g/dL (13.5-17.5); LYMPHOCYTES # (AUTO) 2.3 /CMM (0.8-4.8); LYMPHOCYTES % (AUTO) 15.7 % (20.0-44.0); MEAN CORPUSCULAR HEMOGLOBIN 28 PG (26.0-33.0); MEAN CORPUSCULAR HGB CONC 32 g/dl (31.0-36.0); MEAN CORPUSCULAR VOLUME 88 fL (80-96); MONOCYTES # (AUTO) 0.9 /CMM (0.1-1.30); MONOCYTES % (AUTO) 6.5 % (2.0-12.0); NEUTROPHILS # (AUTO) 10.9 /CMM (1.8-8.9); NEUTROPHILS % (AUTO) 75.1 % (43.0-81.0); PLATELET COUNT (AUTO) 315 /CMM (150-450); RDW COEFFICIENT OF VARIATION 23.6 (11.5-15.0); RED BLOOD CELL COUNT(AUTO) 3.07 MIL/uL (4.5-6.0); WHITE BLOOD COUNT (AUTO) 14.5 K/uL (4.3-11.0)
[2017-01-10 07:35] LABS: CALCIUM, SERUM 7.9 mg/dL (8.5-10.1); CREATININE 3.9 mg/dL (0.6-1.3); POTASSIUM 4.7 mmol/L (3.5-5.1)
[2017-01-10] MEDS: MORPHINE SULFATE INJ 2 MG/ML DISP.SYRIN IV PRN ×3 (07:55→22:29)
[2017-01-10 08:00] VITALS: BP 91/34
[2017-01-10] MEDS: DOCUSATE SODIUM LIQ 100 MG/10 ML UDC GT SCH ×2 (08:16→16:09)
[2017-01-10] MEDS: SEVELAMER CARBONATE 0.8 GM POWD.PACK GT SCH ×3 (08:16→17:14)
[2017-01-10] MEDS ORDERED: ALBUMIN 25% 12.5 GM/50 ML BOTTLE IV ONE (09:30)
[2017-01-10] MEDS: ALBUMIN 25% 25 GM in PREMIX 1 EA IV PRN (09:46)
[2017-01-10] MEDS: LACTOBACILLUS RHAMNOSUS GG 1 EACH CAP.SPRINK PO SCH ×2 (09:53→16:09)
[2017-01-10] MEDS: CLOTRIMAZOLE 1% 15 GM TUBE TP SCH ×2 (09:53→17:13)
[2017-01-10] MEDS: HYDROGEL DRESSING 90 GM TUBE TP SCH (09:53)
[2017-01-10] MEDS: NEOMY SULF/BACITRAC ZN/POLY 15 GM TUBE TP SCH ×2 (09:53→17:13)
[2017-01-10] MEDS: LORAZEPAM INJ 2 MG/ML VIAL IV PRN (11:00)
[2017-01-10 12:00] VITALS: BP 101/34
[2017-01-10 16:00] VITALS: BP 106/42
--- NOTE | 2017-01-10 19:15 | NUR ---
RN CLOSING NOTE ALL MD ORDERS CARRIED OUT. PATIENT KEPT CLEAN AND DRY. SAFETY PRECAUTIONS IN PLACE AT ALL TIMES. REPORT WILL BE GIVEN TO PM RN FOR SONI
[2017-01-10 20:00] VITALS: BP 105/41
[2017-01-10] MEDS: PANTOPRAZOLE 40 MG/PACK PACK GT SCH (21:34)
--- NOTE | 2017-01-10 23:22 | NUR ---
TELE-1/BLACK LEATHER BUFFER REPORT TO ASHWINI CUEVA FOR CONT OF CARE.
[2017-01-11] VITALS: BP 94/36
[2017-01-11] MEDS: NAFCILLIN 2 G in IV D5W 50 ML IV SCH ×4 (00:39→18:52)
[2017-01-11] MEDS: BLOOD SUGAR DIAGNOSTIC 1 EACH STRIP IN SCH ×6 (00:44→21:00)
[2017-01-11] MEDS: ALBUTEROL FS 2.5 MG/3 ML VIAL.NEB NEB SCH ×4 (01:21→19:58)
[2017-01-11] MEDS: IPRATROPIUM NEB FS 0.5 MG/2.5 ML AMPUL.NEB NEB SCH ×4 (01:21→19:58)
[2017-01-11 04:00] VITALS: BP 103/38
[2017-01-11] MEDS: ONDANSETRON HCL/PF 4 MG/2 ML VIAL IVP PRN (04:24)
[2017-01-11] MEDS: MORPHINE SULFATE INJ 2 MG/ML DISP.SYRIN IV PRN ×3 (04:24→21:25)
[2017-01-11] MEDS: INSULIN REGULAR, HUMAN 100 UNIT/ML 3 ML VIAL SQ PRN (05:39)
[2017-01-11 07:29] LABS: BASOPHILS # (AUTO) 0.1 /CMM (0.0-0.2); BASOPHILS % (AUTO) 0.8 % (0.0-2.0); EOSINOPHILS % (AUTO) 0.2 % (0.0-6.0); HEMATOCRIT 26 % (39-51); HEMOGLOBIN 8.3 g/dL (13.5-17.5); LYMPHOCYTES # (AUTO) 2.4 /CMM (0.8-4.8); LYMPHOCYTES % (AUTO) 16.7 % (20.0-44.0); MEAN CORPUSCULAR HEMOGLOBIN 28 PG (26.0-33.0); MEAN CORPUSCULAR HGB CONC 32 g/dl (31.0-36.0); MEAN CORPUSCULAR VOLUME 88 fL (80-96); MONOCYTES # (AUTO) 0.8 /CMM (0.1-1.30); MONOCYTES % (AUTO) 5.8 % (2.0-12.0); NEUTROPHILS % (AUTO) 76.5 % (43.0-81.0); PLATELET COUNT (AUTO) 273 /CMM (150-450); RDW COEFFICIENT OF VARIATION 23.9 (11.5-15.0); RED BLOOD CELL COUNT(AUTO) 2.93 MIL/uL (4.5-6.0); WHITE BLOOD COUNT (AUTO) 14.4 K/uL (4.3-11.0)
[2017-01-11 07:47] LABS: CALCIUM, SERUM 7.8 mg/dL (8.5-10.1); CREATININE 4.1 mg/dL (0.6-1.3)
[2017-01-11 08:00] VITALS: BP 98/49
[2017-01-11] MEDS: HYDROGEL DRESSING 90 GM TUBE TP SCH (08:24)
[2017-01-11] MEDS: LACTOBACILLUS RHAMNOSUS GG 1 EACH CAP.SPRINK PO SCH ×2 (08:24→18:52)
[2017-01-11] MEDS: DOCUSATE SODIUM LIQ 100 MG/10 ML UDC GT SCH ×2 (08:24→18:52)
[2017-01-11] MEDS: SEVELAMER CARBONATE 0.8 GM POWD.PACK GT SCH ×3 (08:24→18:52)
[2017-01-11] MEDS: CLOTRIMAZOLE 1% 15 GM TUBE TP SCH ×2 (08:25→17:28)
[2017-01-11] MEDS: NEOMY SULF/BACITRAC ZN/POLY 15 GM TUBE TP SCH ×2 (08:25→17:28)
--- NOTE | 2017-01-11 10:00 | NUR ---
dr. corey was notified of KUB results,and clarified about g.t feeding order.no new order received . continue feeding as per order.
[2017-01-11 12:00] VITALS: BP 106/44
[2017-01-11] MEDS: ACETAMINOPHEN 650 MG/20.3 ML UDC NG PRN (12:33)
[2017-01-11] MEDS ORDERED: LEVOFLOXACIN (500MG) 500 MG TABLET GT ONE (12:45)
[2017-01-11 16:00] VITALS: BP 105/49
[2017-01-11] MEDS ORDERED: HEPARIN SODIUM, PORCINE 1,000 UNIT/ML VIAL ONE (16:27)
[2017-01-11] MEDS ORDERED: LIDOCAINE HCL/PF 1% 30 ML SDV ONE (16:27)
--- NOTE | 2017-01-11 18:10 | NUR ---
pt went to O.R for Permacath placement.ALL V.S WNL .All orders noted and carried out.
--- NOTE | 2017-01-11 18:40 | NUR ---
pt cameback from O.R in stable condition.no s/s of distress.Rt. chest wall permacath placed.Breathing even and unlabored.
[2017-01-11] MEDS ORDERED: SECONDARY IV SET 1 EA INFUS.SET MC ONE (18:53)
[2017-01-11] MEDS ORDERED: ANESTHESIA TRAY IN PYXIS 1 EA TRAY MC ONE (18:59)
--- NOTE | 2017-01-11 19:18 | NUR ---
RN CLOSING NOTES PT IN STABLE CONDITION.NO C/O PAIN,NO S/S OF DISTRESS.BREATHING EVEN AND UNLABORED.ALL M.D ORDERS NOTED AND CARRIED OUT.
[2017-01-11 20:00] VITALS: BP 109/44
[2017-01-11] MEDS: PANTOPRAZOLE 40 MG/PACK PACK GT SCH (20:15)
[2017-01-12] VITALS: BP 100/47
[2017-01-12] MEDS: NAFCILLIN 2 G in IV D5W 50 ML IV SCH ×4 (01:00→17:13)
[2017-01-12] MEDS: IPRATROPIUM NEB FS 0.5 MG/2.5 ML AMPUL.NEB NEB SCH ×4 (01:11→19:25)
[2017-01-12] MEDS: ALBUTEROL FS 2.5 MG/3 ML VIAL.NEB NEB SCH ×4 (01:11→19:24)
[2017-01-12] MEDS: BLOOD SUGAR DIAGNOSTIC 1 EACH STRIP IN SCH ×6 (01:28→20:14)
[2017-01-12] MEDS: INSULIN REGULAR, HUMAN 100 UNIT/ML 3 ML VIAL SQ PRN ×5 (01:29→20:15)
[2017-01-12] MEDS ORDERED: IV NS 0.9% 250 ML IV ONE (03:06)
[2017-01-12] MEDS ORDERED: IV SET PRIMARY PUMP SET 1 EA INFUS.SET MC ONE (03:06)
[2017-01-12 04:00] VITALS: BP 107/60
[2017-01-12] MEDS: MORPHINE SULFATE INJ 2 MG/ML DISP.SYRIN IV PRN ×3 (04:02→21:29)
[2017-01-12] MEDS ORDERED: SECONDARY IV SET 1 EA INFUS.SET MC ONE (05:13)
[2017-01-12 06:59] LABS: BASOPHILS # (AUTO) 0.1 /CMM (0.0-0.2); BASOPHILS % (AUTO) 0.9 % (0.0-2.0); HEMATOCRIT 27 % (39-51); HEMOGLOBIN 8.5 g/dL (13.5-17.5); LYMPHOCYTES # (AUTO) 1.6 /CMM (0.8-4.8); LYMPHOCYTES % (AUTO) 10.6 % (20.0-44.0); MEAN CORPUSCULAR HEMOGLOBIN 28 PG (26.0-33.0); MEAN CORPUSCULAR HGB CONC 32 g/dl (31.0-36.0); MEAN CORPUSCULAR VOLUME 89 fL (80-96); MONOCYTES # (AUTO) 0.9 /CMM (0.1-1.30); MONOCYTES % (AUTO) 5.9 % (2.0-12.0); NEUTROPHILS # (AUTO) 12.8 /CMM (1.8-8.9); NEUTROPHILS % (AUTO) 82.6 % (43.0-81.0); PLATELET COUNT (AUTO) 274 /CMM (150-450); RDW COEFFICIENT OF VARIATION 26.4 (11.5-15.0); RED BLOOD CELL COUNT(AUTO) 3.01 MIL/uL (4.5-6.0); WHITE BLOOD COUNT (AUTO) 15.4 K/uL (4.3-11.0)
[2017-01-12 07:29] LABS: CALCIUM, SERUM 8.3 mg/dL (8.5-10.1); CREATININE 3.5 mg/dL (0.6-1.3); POTASSIUM 4.3 mmol/L (3.5-5.1)
--- NOTE | 2017-01-12 07:29 | NUR ---
RN CLOSING NOTE PT REMAINS IN NO ACUTE DISTRESS IN BED. PT DID NOT HAVE ANY SIGNIFICANT CHANGE IN CONDITION DURING SHIFT. ALL NEEDS MET ALL ORDERS CARRIED OUT. WILL ENDORSE CARE TO AM RN FOR CONTINUITY OF CARE.
[2017-01-12 08:00] VITALS: BP 120/50
[2017-01-12] MEDS: LACTOBACILLUS RHAMNOSUS GG 1 EACH CAP.SPRINK PO SCH ×2 (08:49→17:07)
[2017-01-12] MEDS: SEVELAMER CARBONATE 0.8 GM POWD.PACK GT SCH ×3 (08:49→17:07)
[2017-01-12] MEDS: DOCUSATE SODIUM LIQ 100 MG/10 ML UDC GT SCH ×2 (08:58→17:07)
[2017-01-12] MEDS: CLOTRIMAZOLE 1% 15 GM TUBE TP SCH ×2 (09:01→17:10)
[2017-01-12] MEDS: HYDROGEL DRESSING 90 GM TUBE TP PRN (09:01)
[2017-01-12] MEDS: NEOMY SULF/BACITRAC ZN/POLY 15 GM TUBE TP SCH ×2 (09:01→17:10)
[2017-01-12] MEDS: ACETAMINOPHEN 650 MG/20.3 ML UDC NG PRN ×2 (11:29→18:31)
[2017-01-12] MEDS: HYDROGEL DRESSING 90 GM TUBE TP SCH (11:29)
[2017-01-12 12:00] VITALS: BP 127/27
--- NOTE | 2017-01-12 12:30 | NUR ---
RN NOTES PT PICCLINE IS OUT OF PLACE ACCORDING TO CHEST XRAY, SO IV MEDICATION NAFCILLIN SCHEDULED FOR 1200 WAS NOT ADMINISTERED, WAITING FOR MIDLINE, WILL ADMINISTER AFTER MIDLINE PLACEMENT.
--- NOTE | 2017-01-12 12:55 | NUR ---
RN NOTE LEFT FEMORAL HD CATHETER REMOVED, NO BLEEDING OBSERVED, PRESSURE DRESSING INTACT, PT TOLERATED WELL. WILL CONTINUE TO MONITOR FURTHER.
[2017-01-12] MEDS: LEVOFLOXACIN (250MG) 250 MG TABLET GT SCH (13:26)
--- NOTE | 2017-01-12 15:23 | NUR ---
IV TEAM NOTE PER DR. GUARDADO'S ORDERS/NOTE DC OR REPOSITION PICC LINE. UNABLE TO GET A HOLD OF DR. GUARDADO TO RECOMMEND DC AND INSERT MIDLINE. PHIL GILBERT CONTACTED AND HE STATES THE PATIENT MAY NEED GROUP HOME IV ATBX. INFECTIOUS DISEASE MARCI ROSS ON THE FLOOR SHE LOOKS OVER THE CASE AND STATES THAT FROM INFECTIOUS DISEASE STANDPOINT HE DOES NOT NEED A PICC LINE HE WILL BE SWITCHED TO PO/GT ATBX SOON (SEE INFECTIOUS DISEASE NOTE). THIS DISCUSSED WITH HOSPITALIST PHIL AND HE STATES OKAY TO START MIDLINE PER INFECTIOUS DISEASE RECOMMENDATION.
[2017-01-12 16:00] VITALS: BP 103/41
--- NOTE | 2017-01-12 16:00 | NUR ---
RN NOTES PT HAD MID LINE INSERTED IN R UPPER ARM 20 G CECIL PARHAM RN TOLERATED WELL, PICC LINE IS TO BE REMOVED.
--- NOTE | 2017-01-12 19:30 | NUR ---
EXTERNAL RELATIONS MANAGER INITIAL NOTES RECEIVED PATIENT AWAKE, A/OX3, ON TPIECE FIO2 35%. PATIENT MOUTHS WORDS. NO S/S OF PAIN OR DISCOMFORT. LETHARGIC. FAMILY AT BEDSIDE. ON TELE MONITOR SR WITH INVERTED TWAVES. S/P PICC LINE AND LEFT FEMORAL LINE REMOVAL, NO BLEEDING NOTED AT SITE. WITH NINA MIDLINE PATENT, INTACT, TKO. WITH RCW PERMACATH IN PLACE, DRESSING DRY AND INTACT. WITH GTF, NO RESIDUAL NOTED, GT PATENT, INTACT, IN PLACE. HOB KEPT ELEVATED. SIDE RAILS UP AND LOCKED. BED KEPT AT LOWEST POSITION. CALL LIGHT KEPT WITHIN EASY REACH. WILL CONTINUE TO MONITOR.
[2017-01-12 20:00] VITALS: BP 119/49
[2017-01-12] MEDS: PANTOPRAZOLE 40 MG/PACK PACK GT SCH (20:12)
[2017-01-13] VITALS: BP 137/54
--- NOTE | 2017-01-13 | NUR ---
local telephone operator notes patient sleeping comfortably in bed, at bedside. no s/s of pain or discomfort at this time. will continue to monitor.
[2017-01-13] MEDS: NAFCILLIN 2 G in IV D5W 50 ML IV SCH ×4 (00:09→17:05)
[2017-01-13] MEDS: BLOOD SUGAR DIAGNOSTIC 1 EACH STRIP IN SCH ×6 (00:13→20:43)
[2017-01-13] MEDS: INSULIN REGULAR, HUMAN 100 UNIT/ML 3 ML VIAL SQ PRN ×5 (00:14→20:49)
[2017-01-13] MEDS: ACETAMINOPHEN 650 MG/20.3 ML UDC NG PRN ×4 (01:28→22:30)
[2017-01-13] MEDS: ALBUTEROL FS 2.5 MG/3 ML VIAL.NEB NEB SCH ×4 (01:58→19:56)
[2017-01-13] MEDS: IPRATROPIUM NEB FS 0.5 MG/2.5 ML AMPUL.NEB NEB SCH ×4 (01:58→19:56)
--- NOTE | 2017-01-13 02:00 | NUR ---
patient c/o left chest pain, pressure like, non-radiating 02/10. prn tylenol given as ordered. patient requested for only tylenol to be given for pain. will continue to monitor.
[2017-01-13 04:00] VITALS: BP 137/55
[2017-01-13] MEDS: LORAZEPAM INJ 2 MG/ML VIAL IV PRN ×3 (05:03→14:34)
[2017-01-13] MEDS: RENAL NOVASOURCE 1,000 ML BOTTLE GT PRN (05:04)
[2017-01-13] MEDS: IV NS 0.9% 250 ML IV PRN (05:04)
--- NOTE | 2017-01-13 05:20 | NUR ---
patient c/o feeling anxious, requested for medication to calm him down. prn ativan given, will continue to monitor.
--- NOTE | 2017-01-13 06:12 | NUR ---
FRESCO ARTIST CLOSING NOTES NO SIGNIFICANT CHANGES OVERNIGHT. NO EPISODE OF N/V. NO RESPIRATORY DISTRESS NOTED. TOLERATING TPIECE. SUCTIONED NEEDED. TRACH CARE DONE. TOLERATING GTF, NO RESIDUAL NOTED. PATIENT ASLEEP AND CALM. SR WITH INVERTED TWAVES ON TELE MONITOR. AT BEDSIDE. PAIN MANAGED NEEDED. PATIENT REQUESTED FOR TYLENOL ONLY TO BE GIVEN FOR PAIN. PATIENT KEPT CLEAN AND DRY. TURNED AND REPOSITIONED Q2 AND PRN. WOUND TREATMENT DONE ORDERED. HOB KEPT ELEVATED. DVT PUMPS ON. SIDE RAILS UP AND LOCKED. BED KEPT AT LOWEST POSITION. CALL LIGHT KEPT WITHIN EASY REACH. ALL SAFETY MEASURES MET. WILL ENDORSE CONTINUITY OF CARE TO AM NURSE.
[2017-01-13 06:49] LABS: BASOPHILS % (AUTO) 0.2 % (0.0-2.0); EOSINOPHILS # (AUTO) 0.1 /CMM (0.0-0.7); EOSINOPHILS % (AUTO) 0.6 % (0.0-6.0); HEMATOCRIT 28 % (39-51); HEMOGLOBIN 9.1 g/dL (13.5-17.5); LYMPHOCYTES # (AUTO) 2.7 /CMM (0.8-4.8); LYMPHOCYTES % (AUTO) 18.3 % (20.0-44.0); MEAN CORPUSCULAR HEMOGLOBIN 29 PG (26.0-33.0); MEAN CORPUSCULAR HGB CONC 32 g/dl (31.0-36.0); MEAN CORPUSCULAR VOLUME 89 fL (80-96); MONOCYTES # (AUTO) 1.1 /CMM (0.1-1.30); MONOCYTES % (AUTO) 7.5 % (2.0-12.0); NEUTROPHILS # (AUTO) 10.9 /CMM (1.8-8.9); NEUTROPHILS % (AUTO) 73.4 % (43.0-81.0); PLATELET COUNT (AUTO) 284 /CMM (150-450); RDW COEFFICIENT OF VARIATION 26.1 (11.5-15.0); RED BLOOD CELL COUNT(AUTO) 3.18 MIL/uL (4.5-6.0); WHITE BLOOD COUNT (AUTO) 14.8 K/uL (4.3-11.0)
--- NOTE | 2017-01-13 07:01 | NUR ---
RN NOTES RECEIVED PATIENT ON BED , A/OX3, TRACH CARE DONE, ON COOL AEROSOL, FIO2 35%. NO SOB NOTED , ON TELE MONITOR SR WITH INVERTED T WAVES. S/P PICC LINE AND LEFT FEMORAL LINE REMOVAL, R UA MIDLINE AND R CW PERMCATH SITE CLEAN AND DRY, TOLERATING GTF WELL NO RESIDUAL NOTED, HOB KEPT ELEVATED. SIDE RAILS UP AND LOCKED. BED IN LOWEST POSITION. CALL LIGHT KEPT WITHIN EASY REACH. WILL CONTINUE TO MONITOR PT CLOSELY AND NOTIFY MD FOR ANY SIGNIFICANT CHANGES.
[2017-01-13 07:02] LABS: ALBUMIN 1.5 g/dL (3.4-5.0); BILIRUBIN,DIRECT 0.9 mg/dL (0.0-0.2); BILIRUBIN,TOTAL 3.8 mg/dL (0.2-1.0); CALCIUM, SERUM 8.3 mg/dL (8.5-10.1); POTASSIUM 3.7 mmol/L (3.5-5.1); TOTAL PROTEIN, SERUM 6.7 g/dL (6.4-8.2)
[2017-01-13 08:00] VITALS: BP 144/62
[2017-01-13] MEDS: DOCUSATE SODIUM LIQ 100 MG/10 ML UDC GT SCH ×2 (08:15→16:44)
[2017-01-13] MEDS: SEVELAMER CARBONATE 0.8 GM POWD.PACK GT SCH ×3 (08:15→17:05)
[2017-01-13] MEDS: LACTOBACILLUS RHAMNOSUS GG 1 EACH CAP.SPRINK PO SCH ×2 (08:15→16:44)
[2017-01-13] MEDS: NEOMY SULF/BACITRAC ZN/POLY 15 GM TUBE TP SCH ×2 (08:17→16:43)
[2017-01-13] MEDS: HYDROGEL DRESSING 90 GM TUBE TP PRN (08:17)
[2017-01-13] MEDS: HYDROGEL DRESSING 90 GM TUBE TP SCH (08:17)
[2017-01-13] MEDS: Z GUARD REMEDY 2 OZ OINT TP PRN (08:17)
[2017-01-13] MEDS: CLOTRIMAZOLE 1% 15 GM TUBE TP SCH ×2 (08:18→16:44)
[2017-01-13 12:00] VITALS: BP 119/81
--- NOTE | 2017-01-13 12:00 | NUR ---
RN NOTES TRACH CARE DONE, RESPIRATION EVEN AND UNLBORED, FAMILY AT THE BEDSIDE, CONTINUE TO MONITOR .
[2017-01-13 16:00] VITALS: BP 132/46
--- NOTE | 2017-01-13 18:13 | NUR ---
RN NOTES PT STABLE, MEDICATED PER MD ORDER , TOLERATING TF WELL NO RESIDUAL NOTED ,R UPPER ARM MIDLINE AND R CW PERMCATH SITE CLEAN AND DRY, NO SIGNIFICANT CHANGES NOTED ON THIS SHIFT .
[2017-01-13 20:00] VITALS: BP 147/57
[2017-01-13] MEDS: PANTOPRAZOLE 40 MG/PACK PACK GT SCH (20:13)
[2017-01-13] MEDS: MORPHINE SULFATE INJ 2 MG/ML DISP.SYRIN IV PRN (20:18)
--- NOTE | 2017-01-13 21:32 | NUR ---
DUCT MAKER NOTES RECEIVED PT AWAKE IN BED, A/O ABLE TO MAKE NEEDS KNOWN, ON CONTROL CLERK REPAIRS WITH NS,HR 73, NOTED WITH FACIAL GRIMACING, C/O OF CHEST PAIN LEFT SIDE WITH DULL PAIN VERBALIZED /,PRN MORPHINE 1MG,0.5 ML IV GIVE,EFFECTIVE, PT CLEAN AND DRY, WELL REPOSITIONED,ALL NEEDS ATTENDED AT THIS TIME.
[2017-01-13] MEDS: ONDANSETRON HCL/PF 4 MG/2 ML VIAL IVP PRN (22:58)
[2017-01-14] VITALS: BP 108/33
[2017-01-14] MEDS ORDERED: NAFCILLIN 2 G in IV D5W 50 ML IV SCH ×2
[2017-01-14] MEDS: IPRATROPIUM NEB FS 0.5 MG/2.5 ML AMPUL.NEB NEB SCH ×4 (01:53→19:55)
[2017-01-14] MEDS: ALBUTEROL FS 2.5 MG/3 ML VIAL.NEB NEB SCH ×4 (01:53→19:55)
[2017-01-14] MEDS: MORPHINE SULFATE INJ 2 MG/ML DISP.SYRIN IV PRN ×2 (02:52→11:19)
[2017-01-14] MEDS: BLOOD SUGAR DIAGNOSTIC 1 EACH STRIP IN SCH ×6 (02:56→21:59)
[2017-01-14 04:00] VITALS: BP 111/55
[2017-01-14] MEDS: RENAL NOVASOURCE 1,000 ML BOTTLE GT PRN (05:54)
[2017-01-14] MEDS: INSULIN REGULAR, HUMAN 100 UNIT/ML 3 ML VIAL SQ PRN ×5 (05:58→22:09)
[2017-01-14 06:52] LABS: BASOPHILS # (AUTO) 0.1 /CMM (0.0-0.2); BASOPHILS % (AUTO) 0.6 % (0.0-2.0); EOSINOPHILS # (AUTO) 0.2 /CMM (0.0-0.7); EOSINOPHILS % (AUTO) 1.2 % (0.0-6.0); HEMATOCRIT 26 % (39-51); HEMOGLOBIN 8.3 g/dL (13.5-17.5); LYMPHOCYTES # (AUTO) 3.1 /CMM (0.8-4.8); LYMPHOCYTES % (AUTO) 17.1 % (20.0-44.0); MEAN CORPUSCULAR HEMOGLOBIN 29 PG (26.0-33.0); MEAN CORPUSCULAR HGB CONC 32 g/dl (31.0-36.0); MEAN CORPUSCULAR VOLUME 90 fL (80-96); MONOCYTES # (AUTO) 0.9 /CMM (0.1-1.30); NEUTROPHILS # (AUTO) 13.7 /CMM (1.8-8.9); NEUTROPHILS % (AUTO) 76.1 % (43.0-81.0); PLATELET COUNT (AUTO) 270 /CMM (150-450); RED BLOOD CELL COUNT(AUTO) 2.89 MIL/uL (4.5-6.0); WHITE BLOOD COUNT (AUTO) 17.9 K/uL (4.3-11.0)
--- NOTE | 2017-01-14 07:05 | NUR ---
TELE INITIAL NOTE RECEIVED PT A/O X2, ABLE TO MOUTH WORDS AND MAKE NEEDS KNOWN. ON COOL AEROSOL, RESPIRATIONS EVEN AND UNLABORED, NO SOB OR DISTRESS PRESENT, SATURATING AT 95%. TELE MONITOR REVEALS SINUS RHYTHM WITH INVERTED T-WAVES, HR= 85. NINA MIDLINE PRESENT RUNNING NS @ TKO. G-TUBE RUNNING NOVASOURCE @ 60 MLS/HR. SAFETY MEASURES TAKEN: BED LOCKED AND IN LOW POSITION, SIDE RAILS UP X2, BED ALARM ON AND CALL LIGHT WITHIN REACH, WILL CONTINUE TO MONITOR.
[2017-01-14 07:31] LABS: ALBUMIN 1.6 g/dL (3.4-5.0); BILIRUBIN,TOTAL 4.3 mg/dL (0.2-1.0); CALCIUM, SERUM 8.2 mg/dL (8.5-10.1); CREATININE 3.7 mg/dL (0.6-1.3); MAGNESIUM 2.9 mg/dL (1.8-2.4); PHOSPHORUS 2.7 mg/dL (2.5-4.9); POTASSIUM 4.2 mmol/L (3.5-5.1); TOTAL PROTEIN, SERUM 6.9 g/dL (6.4-8.2)
--- NOTE | 2017-01-14 07:41 | NUR ---
POLYGRAPH TECHNICIAN NOTES PT AWAKE, TRACH CARE DONE ,NO C/O OF PAIN COMFORTABLE AT THIS TIME, WITH NORMAL SR [id number], SEEN BY ID AT BED SIDE, SCHEDULED FOR DIALYSIS IN AM KEPT CLEAN AND DRY WELL REPOSITIONED CALL LIGHT WITHIN REACH, ALL NEEDS ATTENDED. Addendum: 01/14/17 at 0751 by KAMRAN HODGES RN POLYGRAPH TECHNICIAN CLOSING NOTES
[2017-01-14 08:00] VITALS: BP 124/45
[2017-01-14] MEDS ORDERED: CEPHALEXIN MONOHYDRATE 500 MG CAPSULE PO SCH (09:00)
[2017-01-14] MEDS: ACETAMINOPHEN 650 MG/20.3 ML UDC NG PRN ×3 (09:11→17:57)
[2017-01-14] MEDS: DOCUSATE SODIUM LIQ 100 MG/10 ML UDC GT SCH ×2 (09:11→16:49)
[2017-01-14] MEDS: LACTOBACILLUS RHAMNOSUS GG 1 EACH CAP.SPRINK PO SCH ×2 (09:11→16:50)
[2017-01-14] MEDS: SEVELAMER CARBONATE 0.8 GM POWD.PACK GT SCH ×3 (09:11→17:27)
[2017-01-14] MEDS: NEOMY SULF/BACITRAC ZN/POLY 15 GM TUBE TP SCH ×2 (09:12→16:50)
[2017-01-14] MEDS: HYDROGEL DRESSING 90 GM TUBE TP SCH (09:12)
[2017-01-14] MEDS: CLOTRIMAZOLE 1% 15 GM TUBE TP SCH ×2 (09:13→16:50)
[2017-01-14] MEDS: CEPHALEXIN MONOHYDRATE 250 MG/5 ML BOTTLE GT SCH ×2 (10:03→21:59)
[2017-01-14] MEDS: LEVOFLOXACIN (250MG) 250 MG TABLET GT SCH (12:16)
[2017-01-14] MEDS ORDERED: EPOETIN ALFA (10,000 UNIT) 10,000 UNIT/ML VIAL SQ ONE (12:30)
--- NOTE | 2017-01-14 15:59 | NUR ---
PT ENDORSED TO JERMAN CUEVA FOR CONTINUITY OF CARE. PT IN NO ACUTE DISTRESS AT THIS TIME.
--- NOTE | 2017-01-14 16:30 | NUR ---
RN ROYCE: is in room, updated with pt.current condition, VS, I/O, O2 sat., GTF, meds, BS, said: ask tomorrow IMD for possible neurologist pt. reevaluation (s/p stroke), possible PT eval., will notify next shift
[2017-01-14 16:41] VITALS: BP 104/34
[2017-01-14 20:00] VITALS: BP 155/43
[2017-01-14] MEDS: PANTOPRAZOLE 40 MG/PACK PACK GT SCH (20:57)
[2017-01-14] MEDS: LORAZEPAM INJ 2 MG/ML VIAL IV PRN (20:58)
[2017-01-14] MEDS ORDERED: CEPHALEXIN MONOHYDRATE 250 MG/5 ML BOTTLE ONE (21:36)
[2017-01-15] MEDS: BLOOD SUGAR DIAGNOSTIC 1 EACH STRIP IN SCH ×6 (01:01→20:40)
[2017-01-15] MEDS: INSULIN REGULAR, HUMAN 100 UNIT/ML 3 ML VIAL SQ PRN ×4 (01:03→20:40)
[2017-01-15] MEDS: IPRATROPIUM NEB FS 0.5 MG/2.5 ML AMPUL.NEB NEB SCH ×4 (01:48→20:09)
[2017-01-15] MEDS: ALBUTEROL FS 2.5 MG/3 ML VIAL.NEB NEB SCH ×4 (01:48→20:09)
[2017-01-15 06:37] LABS: BASOPHILS % (AUTO) 0.1 % (0.0-2.0); EOSINOPHILS % (AUTO) 0.1 % (0.0-6.0); HEMATOCRIT 27 % (39-51); HEMOGLOBIN 8.4 g/dL (13.5-17.5); LYMPHOCYTES # (AUTO) 3.1 /CMM (0.8-4.8); LYMPHOCYTES % (AUTO) 14.8 % (20.0-44.0); MEAN CORPUSCULAR HEMOGLOBIN 29 PG (26.0-33.0); MEAN CORPUSCULAR HGB CONC 32 g/dl (31.0-36.0); MEAN CORPUSCULAR VOLUME 92 fL (80-96); MONOCYTES # (AUTO) 1.4 /CMM (0.1-1.30); MONOCYTES % (AUTO) 6.6 % (2.0-12.0); NEUTROPHILS # (AUTO) 16.2 /CMM (1.8-8.9); NEUTROPHILS % (AUTO) 78.4 % (43.0-81.0); PLATELET COUNT (AUTO) 218 /CMM (150-450); RDW COEFFICIENT OF VARIATION 28.5 (11.5-15.0); RED BLOOD CELL COUNT(AUTO) 2.89 MIL/uL (4.5-6.0); WHITE BLOOD COUNT (AUTO) 20.7 K/uL (4.3-11.0)
--- NOTE | 2017-01-15 06:54 | NUR ---
RN INITIAL NOTE PT REMAINS IN NO ACUTE DISTRESS IN BED. PT IS A/O X 1 AND CAN OPEN EYES BUT IS NON VERBAL. PT IS ON MECHANICAL VENT VIA TRACH. TRACH SITE IS C/D/I. PT TOLERATING VENT SETTING WELL WITH O2 SAT @ 100%. PT HAS G TUBE THAT IS CLEAN DRY INTACT AND PATENT WITH WATER FLUSH. PT HAS NINA MIDLINE THAT IS CLEAN DRY INTACT AND PATENT WITH SALINE FLUSH. BED IN LOW LOCK POSITION WITH RIALS UP X 2. CALL LIGHT WITHIN REACH AND ALL SAFETY MEASURES ENSURED AND CARRIED OUT. WILL ENDORSE TO AM RN FOR CONTINUITY OF CARE.
[2017-01-15 07:07] LABS: CALCIUM, SERUM 8.5 mg/dL (8.5-10.1); CREATININE 3.8 mg/dL (0.6-1.3); POTASSIUM 4.6 mmol/L (3.5-5.1)
[2017-01-15 07:08] LABS: MAGNESIUM 2.9 mg/dL (1.8-2.4); PHOSPHORUS 3.3 mg/dL (2.5-4.9)
[2017-01-15 07:24] LABS: ALBUMIN 1.8 g/dL (3.4-5.0); BILIRUBIN,DIRECT 0.9 mg/dL (0.0-0.2); BILIRUBIN,TOTAL 3.9 mg/dL (0.2-1.0); TOTAL PROTEIN, SERUM 7.4 g/dL (6.4-8.2)
[2017-01-15] MEDS: SEVELAMER CARBONATE 0.8 GM POWD.PACK GT SCH ×3 (07:59→17:45)
[2017-01-15 08:00] VITALS: BP 124/48
[2017-01-15] MEDS: LACTOBACILLUS RHAMNOSUS GG 1 EACH CAP.SPRINK PO SCH ×2 (08:00→17:45)
[2017-01-15] MEDS: DOCUSATE SODIUM LIQ 100 MG/10 ML UDC GT SCH ×2 (08:00→17:45)
[2017-01-15] MEDS: ACETAMINOPHEN 650 MG/20.3 ML UDC NG PRN ×2 (08:00→19:11)
[2017-01-15] MEDS: CEPHALEXIN MONOHYDRATE 250 MG/5 ML BOTTLE GT SCH (08:02)
[2017-01-15] MEDS: ONDANSETRON HCL/PF 4 MG/2 ML VIAL IVP PRN (08:13)
[2017-01-15] MEDS: CLOTRIMAZOLE 1% 15 GM TUBE TP SCH ×2 (08:14→17:48)
[2017-01-15] MEDS: HYDROGEL DRESSING 90 GM TUBE TP SCH (08:14)
[2017-01-15] MEDS: NEOMY SULF/BACITRAC ZN/POLY 15 GM TUBE TP SCH ×2 (08:14→17:48)
--- NOTE | 2017-01-15 08:15 | NUR ---
RN INITIAL NOTE PT RECEIVED IN BED, AWAKE AND ALERT. NO S/S OF PAIN OR DISCOMFORT. REPSIRATIONS ARE EVEN AND UNLABORED. NO S/S OF RESPIRATORY DISTRESS OR SOB. PT HAS THOMAS BRITTON #8, COOL AEROSOL, FI02-35%, 8L 02. TOLERATING SETTINGS WELL. GTUBE, FLUSHED, PATENT. PLACEMENT VERIFIED. RUNNING NOVASOURCE @40ML/HR. NO RESIDUALS. RIGHT UPPER ARM MIDLINE SITE FLUSHED, PATENT. SKIN IS WARM AND DRY TO TOUCH. SAFETY PRECAUTIONS IN PLACE, BED IN LOCKED, LOW POSITION, TWO SIDE RAILS UP. CALL LIGHT WITHIN EASY REACH WILL CONTINUE TO MONITOR.
[2017-01-15] MEDS: LORAZEPAM INJ 2 MG/ML VIAL IV PRN (09:33)
--- NOTE | 2017-01-15 11:00 | NUR ---
RN NOTE ALBUMIN AND 2L NS IV FLUID GIVEN WITH HD
[2017-01-15] MEDS ORDERED: SECONDARY IV SET 1 EA INFUS.SET MC ONE (11:11)
[2017-01-15] MEDS ORDERED: IV NS 0.9% 2,000 ML ONE (11:11)
[2017-01-15] MEDS: ALBUMIN 25% 25 GM in PREMIX 1 EA IV PRN (11:16)
[2017-01-15] MEDS ORDERED: IV NS 0.9% 1,000 ML IV PRN (12:00)
[2017-01-15] MEDS: CEFTAZIDIME 1 G in IV D5W 50 ML IV SCH (14:08)
[2017-01-15] MEDS: LINEZOLID RTU BAG 600 MG in PREMIX 1 EA IV SCH (15:02)
[2017-01-15 16:00] VITALS: BP 134/38
--- NOTE | 2017-01-15 19:24 | NUR ---
RN CLOSING NOTE ALL MD ORDERS CARRIED OUT. PT KEPT CLEAN AND DRY. SAFETY PRECAUTIONS IN PLACE AT ALL TIMES. WILL GIVE REPORT TO PM RN FOR SONI
--- NOTE | 2017-01-15 19:30 | NUR ---
MS RN INITIAL NOTES RECEIVED PATIENT AWAKE A/OX 2, MOUTHS WORDS, USES PEN AND PAPER FOR COMMUNICATION. ON TPIECE 35%. SUCTIONED NEEDED. NO RESPIRATORY DISTRESS NOTED. TOLERATING GTF, GT PATENT, INTACT, IN PLACE. FAMILY AT BEDSIDE. PATIENT C/O 6/10 LEFT CHEST PAIN. SKIN WARM AND DRY TO TOUCH. WITH NINA MIDLINE PATENT, INTACT, TKO. HOB KEPT ELEVATED. SIDE RAILS UP AND LOCKED. BED KEPT AT LOWEST POSITION. CALL LIGHT KEPT WITHIN EASY REACH. WILL CONTINUE TO MONITOR.
[2017-01-15 20:00] VITALS: BP 101/38
[2017-01-15] MEDS: MORPHINE SULFATE INJ 2 MG/ML DISP.SYRIN IV PRN (20:39)
[2017-01-15] MEDS: PANTOPRAZOLE 40 MG/PACK PACK GT SCH (20:40)
[2017-01-16] MEDS: BLOOD SUGAR DIAGNOSTIC 1 EACH STRIP IN SCH ×6 (00:35→20:18)
[2017-01-16] MEDS: INSULIN REGULAR, HUMAN 100 UNIT/ML 3 ML VIAL SQ PRN ×3 (00:37→20:24)
[2017-01-16] MEDS: ALBUTEROL FS 2.5 MG/3 ML VIAL.NEB NEB SCH ×4 (00:50→19:33)
[2017-01-16] MEDS: IPRATROPIUM NEB FS 0.5 MG/2.5 ML AMPUL.NEB NEB SCH ×4 (00:50→19:33)
[2017-01-16] MEDS: ACETAMINOPHEN 650 MG/20.3 ML UDC NG PRN (01:26)
[2017-01-16] MEDS: LINEZOLID RTU BAG 600 MG in PREMIX 1 EA IV SCH ×2 (02:02→14:57)
[2017-01-16 04:00] VITALS: BP 99/38
[2017-01-16] MEDS: RENAL NOVASOURCE 1,000 ML BOTTLE GT PRN (05:36)
--- NOTE | 2017-01-16 06:28 | NUR ---
MS RN CLOSING NOTES NO SIGNIFICANT CHANGES OVERNIGHT. ALL NEEDS ANTICIPATED AND MET. PAIN MANAGED ORDERED. TOLERATED GTF. KEPT CLEAN AND DRY. TURNED AND REPOSITIONED Q2 AND PRN. WOUND TX RENDERED ORDERED. ROOM CHANGED TO [facility]-1. SKIN WARM AND DRY TO TOUCH. HOB KEPT ELEVATED. SIDE RAILS UP AND LOCKED. BED KEPT AT LOWEST POSITION. DVT PUMPS IN PLACE. WILL ENDORSE CONTINUITY OF CARE TO AM NURSE.
[2017-01-16 06:50] LABS: BASOPHILS % (AUTO) 0.2 % (0.0-2.0); EOSINOPHILS # (AUTO) 0.1 /CMM (0.0-0.7); EOSINOPHILS % (AUTO) 0.5 % (0.0-6.0); HEMATOCRIT 26 % (39-51); HEMOGLOBIN 8.3 g/dL (13.5-17.5); LYMPHOCYTES # (AUTO) 3.1 /CMM (0.8-4.8); LYMPHOCYTES % (AUTO) 14.9 % (20.0-44.0); MEAN CORPUSCULAR HEMOGLOBIN 29 PG (26.0-33.0); MEAN CORPUSCULAR HGB CONC 32 g/dl (31.0-36.0); MEAN CORPUSCULAR VOLUME 92 fL (80-96); MONOCYTES # (AUTO) 1.3 /CMM (0.1-1.30); MONOCYTES % (AUTO) 6.2 % (2.0-12.0); NEUTROPHILS % (AUTO) 78.2 % (43.0-81.0); PLATELET COUNT (AUTO) 176 /CMM (150-450); RDW COEFFICIENT OF VARIATION 28.7 (11.5-15.0); RED BLOOD CELL COUNT(AUTO) 2.86 MIL/uL (4.5-6.0); WHITE BLOOD COUNT (AUTO) 20.5 K/uL (4.3-11.0)
[2017-01-16 07:22] LABS: ALBUMIN 1.9 g/dL (3.4-5.0); BILIRUBIN,TOTAL 3.3 mg/dL (0.2-1.0); CALCIUM, SERUM 8.3 mg/dL (8.5-10.1); CREATININE 3.3 mg/dL (0.6-1.3); POTASSIUM 3.6 mmol/L (3.5-5.1)
[2017-01-16 08:00] VITALS: BP 129/35
[2017-01-16 09:03] LABS: BAND % (MANUAL) 2 % (0.0-5.0); LYMPHOCYTES % (MANUAL) 18 % (16-48); MONOCYTES % (MANUAL) 4 % (0-11.0); NEUTROPHILS % (MANUAL) 76 (42-76)
[2017-01-16] MEDS: DOCUSATE SODIUM LIQ 100 MG/10 ML UDC GT SCH ×2 (09:10→16:37)
[2017-01-16] MEDS: SEVELAMER CARBONATE 0.8 GM POWD.PACK GT SCH ×3 (09:10→17:19)
[2017-01-16] MEDS: LACTOBACILLUS RHAMNOSUS GG 1 EACH CAP.SPRINK PO SCH ×2 (09:10→17:19)
[2017-01-16] MEDS: MORPHINE SULFATE INJ 2 MG/ML DISP.SYRIN IV PRN ×3 (09:11→22:27)
[2017-01-16] MEDS: NEOMY SULF/BACITRAC ZN/POLY 15 GM TUBE TP SCH ×2 (09:54→16:38)
[2017-01-16] MEDS: CLOTRIMAZOLE 1% 15 GM TUBE TP SCH ×2 (09:54→16:38)
[2017-01-16] MEDS: HYDROGEL DRESSING 90 GM TUBE TP SCH (09:54)
[2017-01-16] MEDS: LEVOFLOXACIN (250MG) 250 MG TABLET GT SCH (12:11)
[2017-01-16] MEDS: CEFTAZIDIME 1 G in IV D5W 50 ML IV SCH (14:57)
[2017-01-16] MEDS ORDERED: SECONDARY IV SET 1 EA INFUS.SET MC ONE (14:59)
[2017-01-16 16:00] VITALS: BP 139/30
--- NOTE | 2017-01-16 19:30 | NUR ---
MS RN INITIAL NOTES RECEIVED REPORT FROM NURSE OLVERA. RECEIVED PATIENT IN BED, AWAKE A/OX 2, MOUTHS WORDS, USES PEN AND PAPER FOR COMMUNICATION. TRACH MIDLINE AND INTACT, ON TPIECE FIO2 @ 35%, SCANT BLEEDING NOTED @ TRACH SITE DUE TO FREQUENT SUCTIONING. SUCTIONED NEEDED, DRESSING REPLACED. NO RESPIRATORY DISTRESS NOTED AT THIS TIME. TOLERATING GTF WELL, GT PATENT, INTACT, IN PLACE. FAMILY AT BEDSIDE. SKIN WARM AND DRY TO TOUCH. WITH NINA MIDLINE PATENT, INTACT, TKO. HOB KEPT ELEVATED. SIDE RAILS UP X3. BED KEPT AT LOWEST AND LOCKED POSITION. CALL LIGHT KEPT WITHIN EASY REACH. WILL CONTINUE TO MONITOR. WILL MEDICATE FOR PAIN NEEDED
[2017-01-16 20:00] VITALS: BP 127/37
[2017-01-16] MEDS: PANTOPRAZOLE 40 MG/PACK PACK GT SCH (20:18)
[2017-01-17] MEDS: ACETAMINOPHEN 650 MG/20.3 ML UDC NG PRN ×3 (00:57→15:12)
[2017-01-17] MEDS: BLOOD SUGAR DIAGNOSTIC 1 EACH STRIP IN SCH ×6 (00:58→20:49)
[2017-01-17] MEDS: INSULIN REGULAR, HUMAN 100 UNIT/ML 3 ML VIAL SQ PRN ×4 (01:03→20:55)
[2017-01-17] MEDS: IPRATROPIUM NEB FS 0.5 MG/2.5 ML AMPUL.NEB NEB SCH ×4 (01:23→19:55)
[2017-01-17] MEDS: ALBUTEROL FS 2.5 MG/3 ML VIAL.NEB NEB SCH ×4 (01:23→19:55)
[2017-01-17 04:00] VITALS: BP 136/42
[2017-01-17] MEDS: LINEZOLID RTU BAG 600 MG in PREMIX 1 EA IV SCH ×2 (04:13→16:28)
[2017-01-17] MEDS: MORPHINE SULFATE INJ 2 MG/ML DISP.SYRIN IV PRN ×3 (04:14→21:27)
[2017-01-17] MEDS: IV NS 0.9% 250 ML IV PRN (04:17)
[2017-01-17 06:58] LABS: BASOPHILS % (AUTO) 0.1 % (0.0-2.0); EOSINOPHILS % (AUTO) 0.1 % (0.0-6.0); HEMATOCRIT 27 % (39-51); HEMOGLOBIN 8.4 g/dL (13.5-17.5); LYMPHOCYTES % (AUTO) 14.3 % (20.0-44.0); MEAN CORPUSCULAR HEMOGLOBIN 29 PG (26.0-33.0); MEAN CORPUSCULAR HGB CONC 31 g/dl (31.0-36.0); MEAN CORPUSCULAR VOLUME 93 fL (80-96); MONOCYTES # (AUTO) 0.9 /CMM (0.1-1.30); MONOCYTES % (AUTO) 4.2 % (2.0-12.0); NEUTROPHILS # (AUTO) 17.1 /CMM (1.8-8.9); NEUTROPHILS % (AUTO) 81.3 % (43.0-81.0); PLATELET COUNT (AUTO) 172 /CMM (150-450); RDW COEFFICIENT OF VARIATION 30.3 (11.5-15.0); RED BLOOD CELL COUNT(AUTO) 2.88 MIL/uL (4.5-6.0); WHITE BLOOD COUNT (AUTO) 21.1 K/uL (4.3-11.0)
--- NOTE | 2017-01-17 06:58 | NUR ---
RN CLOSING NOTES PATIENT RESTING COMFORTABLY IN BED, VSS. WILL ENDORSE THE PATIENT TO THE AM SHIFT NURSE FOR SONI
--- NOTE | 2017-01-17 07:15 | NUR ---
RN INITIAL NOTE PT RECEIVED IN BED, RESTING. AWAKE AND ALERT. MOUTHS WORDS, WRITES FOR COMMUNICATION. ABLE TO MAKE NEEDS KNOWN. TRACH MIDLINE AND INTACT. THOMAS #8. ON T-PIECE, FI02 35%. SATING WELL. RESPIRATIONS EVEN AND UNLABORED. NO S/S OF RESPIRATORY DISTRESS OR SOB. G-TUBE PATENT, INTACT AND IN PLACE. NOVASOURCE RUNNING AT 40ML/HR. TOLERATING FEEDING WELL. NO RESIDUALS. RIGHT UPPER MIDLINE, FLUSHED, PATENT, BLOOD RETURN NOTED. SKIN IS WARM AND DRY TO TOUCH. SAFETY PRECAUTIONS IMPLEMENTED. BED IN LOCKED, LOW POSITION. TWO SIDE RAILS UP. CALL LIGHT AND BELONGINGS WITHIN REACH. WILL CONTINUE TO MONITOR.
[2017-01-17] MEDS: SEVELAMER CARBONATE 0.8 GM POWD.PACK GT SCH ×3 (07:27→16:29)
[2017-01-17 07:43] LABS: ALBUMIN 1.7 g/dL (3.4-5.0); BILIRUBIN,DIRECT 0.8 mg/dL (0.0-0.2); CREATININE 3.2 mg/dL (0.6-1.3); MAGNESIUM 2.5 mg/dL (1.8-2.4); PHOSPHORUS 2.8 mg/dL (2.5-4.9); POTASSIUM 3.9 mmol/L (3.5-5.1); TOTAL PROTEIN, SERUM 6.9 g/dL (6.4-8.2)
[2017-01-17] MEDS: ONDANSETRON HCL/PF 4 MG/2 ML VIAL IVP PRN (07:59)
[2017-01-17 08:00] VITALS: BP 80/33
[2017-01-17] MEDS: LACTOBACILLUS RHAMNOSUS GG 1 EACH CAP.SPRINK PO SCH ×2 (09:00→16:29)
[2017-01-17] MEDS: DOCUSATE SODIUM LIQ 100 MG/10 ML UDC GT SCH ×2 (09:00→16:28)
[2017-01-17] MEDS: HYDROGEL DRESSING 90 GM TUBE TP SCH (09:23)
[2017-01-17] MEDS: CLOTRIMAZOLE 1% 15 GM TUBE TP SCH ×2 (09:23→16:29)
[2017-01-17] MEDS: NEOMY SULF/BACITRAC ZN/POLY 15 GM TUBE TP SCH ×2 (09:23→16:29)
[2017-01-17] MEDS: LORAZEPAM INJ 2 MG/ML VIAL IV PRN ×2 (09:48→16:29)
[2017-01-17] MEDS ORDERED: SECONDARY IV SET 1 EA INFUS.SET MC ONE (10:49)
[2017-01-17] MEDS: ALBUMIN 25% 25 GM in PREMIX 1 EA IV PRN (10:57)
--- NOTE | 2017-01-17 10:58 | NUR ---
RN NOTE ALBUMIN ADMINISTERED WITH HD
[2017-01-17] MEDS: CEFTAZIDIME 1 G in IV D5W 50 ML IV SCH (14:00)
[2017-01-17 16:00] VITALS: BP 95/41
--- NOTE | 2017-01-17 19:00 | NUR ---
received patient in bed, patient is able to mouth wording for communication and uses the board to write his requests VSS afebrie on the cool aerosol mask over trach Shiley #8 with 8 L FIO2 35% -saturations 95%, no distress noted denies pain at this time . safety precautions in use. continue to monitor
--- NOTE | 2017-01-17 19:14 | NUR ---
RN CLOSING NOTE ALL MD ORDERS CARRIED OUT. PT KEPT CLEAN AND DRY. SAFETY PRECAUTIONS IN PLACE AT ALL TIMES. REPORT WILL BE GIVEN TO PM RN FOR SONI.
[2017-01-17 20:00] VITALS: BP 131/43
[2017-01-17 20:14] VITALS: BP 131/42
[2017-01-17] MEDS: PANTOPRAZOLE 40 MG/PACK PACK GT SCH (20:44)
--- NOTE | 2017-01-17 21:30 | NUR ---
PATIENT C/O GENERALIZED PAIN 04/12- MORPHINE 1 MG IVP GIVEN ORDERED. CONTINUE TO MONITOR
--- NOTE | 2017-01-17 22:00 | NUR ---
PATIENT IS CALM AND DOZING OFF INTERMEDIATE AFTER RECEIVING MORPHINE
[2017-01-18] MEDS: LORAZEPAM INJ 2 MG/ML VIAL IV PRN ×2 (00:19→11:35)
[2017-01-18] MEDS: BLOOD SUGAR DIAGNOSTIC 1 EACH STRIP IN SCH ×6 (00:27→21:03)
[2017-01-18] MEDS: INSULIN REGULAR, HUMAN 100 UNIT/ML 3 ML VIAL SQ PRN ×5 (00:29→17:51)
--- NOTE | 2017-01-18 00:30 | NUR ---
PATIENT IS RESTLESS ANXIOUS - ATIVAN GIVEN ORDERED BS 166- COVERAGE IS GIVEN
[2017-01-18] MEDS: IPRATROPIUM NEB FS 0.5 MG/2.5 ML AMPUL.NEB NEB SCH ×4 (01:47→19:23)
[2017-01-18] MEDS: ALBUTEROL FS 2.5 MG/3 ML VIAL.NEB NEB SCH ×4 (01:47→19:23)
[2017-01-18] MEDS: LINEZOLID RTU BAG 600 MG in PREMIX 1 EA IV SCH ×2 (02:03→15:02)
[2017-01-18 04:00] VITALS: BP 94/56
[2017-01-18 06:46] LABS: BASOPHILS % (AUTO) 0.1 % (0.0-2.0); HEMATOCRIT 28 % (39-51); HEMOGLOBIN 8.5 g/dL (13.5-17.5); LYMPHOCYTES # (AUTO) 2.4 /CMM (0.8-4.8); LYMPHOCYTES % (AUTO) 10.6 % (20.0-44.0); MEAN CORPUSCULAR HEMOGLOBIN 29 PG (26.0-33.0); MEAN CORPUSCULAR HGB CONC 31 g/dl (31.0-36.0); MEAN CORPUSCULAR VOLUME 94 fL (80-96); MONOCYTES # (AUTO) 1.1 /CMM (0.1-1.30); MONOCYTES % (AUTO) 4.8 % (2.0-12.0); NEUTROPHILS # (AUTO) 19.5 /CMM (1.8-8.9); NEUTROPHILS % (AUTO) 84.5 % (43.0-81.0); PLATELET COUNT (AUTO) 153 /CMM (150-450); RDW COEFFICIENT OF VARIATION 31.6 (11.5-15.0); RED BLOOD CELL COUNT(AUTO) 2.92 MIL/uL (4.5-6.0); WHITE BLOOD COUNT (AUTO) 23.1 K/uL (4.3-11.0)
[2017-01-18 07:05] LABS: CALCIUM, SERUM 8.3 mg/dL (8.5-10.1); PHOSPHORUS 4.5 mg/dL (2.5-4.9); POTASSIUM 4.5 mmol/L (3.5-5.1)
--- NOTE | 2017-01-18 07:18 | NUR ---
RN INITIAL NOTES: Rec'd pt awake on bed, A/O x3, mouths words, not in any distress. Pt on trach (Shiley 8) on cool aerosol, FiO2 35%, O2 at 8lpm, saturating at 99%. Pt has patent & intact PEG on continuous tube feeding Novasource at 40 cc/hr, infusing well. Has NINA midline, SL, flushed, patent & intact w/ no signs of infection/ infiltration noted. Has R CW permacath in place & intact. Will turn, reposition & offload heels as per protocol. Provided comfort & safety measures. Call light placed w/in reach. Bed kept low & in locked position. Will continue to monitor.
[2017-01-18 08:00] VITALS: BP 99/32
[2017-01-18] MEDS: SEVELAMER CARBONATE 0.8 GM POWD.PACK GT SCH ×3 (08:52→17:40)
[2017-01-18] MEDS: LACTOBACILLUS RHAMNOSUS GG 1 EACH CAP.SPRINK PO SCH ×2 (08:52→17:40)
[2017-01-18] MEDS: DOCUSATE SODIUM LIQ 100 MG/10 ML UDC GT SCH ×2 (08:52→17:40)
[2017-01-18] MEDS: HYDROGEL DRESSING 90 GM TUBE TP SCH (08:53)
[2017-01-18] MEDS: Z GUARD REMEDY 2 OZ OINT TP PRN (08:53)
[2017-01-18] MEDS: NEOMY SULF/BACITRAC ZN/POLY 15 GM TUBE TP SCH ×2 (08:56→17:41)
[2017-01-18] MEDS: CLOTRIMAZOLE 1% 15 GM TUBE TP SCH ×2 (08:56→17:41)
[2017-01-18] MEDS: ACETAMINOPHEN 650 MG/20.3 ML UDC NG PRN ×2 (10:18→20:19)
--- NOTE | 2017-01-18 10:46 | NUR ---
RN NOTES: Pt seen & examined by Dr. Todd Glover w/ orders & carried out. Addendum: 01/18/17 at 1055 by ROBERT WALKER RN DISREGARD. NOTE FROM OTHER PT.
--- NOTE | 2017-01-18 10:47 | NUR ---
RN NOTES: As per Dr. Brooks to call pt's neurosurgeon Dr. 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 LVMM to Dr. Finley contact # [phone]. Family at made aware. Addendum: 01/18/17 at 1056 by ROBERT WALKER RN DISREGARD. NOTE FROM OTHER PT.
[2017-01-18] MEDS: LEVOFLOXACIN (250MG) 250 MG TABLET GT SCH (11:35)
--- NOTE | 2017-01-18 12:00 | NUR ---
RN NOTES: Pt started on HD c/o Ahmed.
[2017-01-18] MEDS ORDERED: SECONDARY IV SET 1 EA INFUS.SET MC ONE (13:47)
[2017-01-18] MEDS: CEFTAZIDIME 1 G in IV D5W 50 ML IV SCH (13:49)
[2017-01-18 16:00] VITALS: BP 96/41
[2017-01-18] MEDS: RENAL NOVASOURCE 1,000 ML BOTTLE GT PRN (17:39)
--- NOTE | 2017-01-18 19:10 | NUR ---
RN CLOSING NOTES: No acute changes noted w/in shift. Pt tolerated T-piece setting, saturating at 99%. Secretions suctioned. PEG kept patent & intact on continuous tube feeding Novasource at 40 cc/hr, infusing well, no residual noted w/in shift. NINA midline, SL, kept patent & intact w/ no signs of infection/ infiltration noted. R CW permacath kept in place & intact. HD done today w/ no output. Wound care done. Turned, repositioned & offloaded heels q2h. Kept well rested & calm. Call light placed w/in reach. Bed kept low & in locked position. Will endorse to PM RN for SONI.
--- NOTE | 2017-01-18 19:50 | NUR ---
MSRN FULLY AWAKE, FAMILY AT BEDSIDE. BP MONITORED, LOWSIDE, ABLE TO TOLERATE. ALL NEEDS ATTENDED, TRACH TO 35% AEROSOL, SOB ON MINIMAL EXERTION. COMPLETE BEDREST. CONTINUED
[2017-01-18 20:00] VITALS: BP 96/33
[2017-01-18] MEDS: PANTOPRAZOLE 40 MG/PACK PACK GT SCH (20:19)
--- NOTE | 2017-01-18 20:20 | NUR ---
MSRN VERBALIZES PAIN ON HIS CHEST, NOIFIED CN. TYLENOL 650 ADMINISTERED. REPOSITIONED PER COMFORT. NON RADIATING, NO SOB.
--- NOTE | 2017-01-18 21:10 | NUR ---
MSRN BLOOD SUGAR WAS 130 NO COVERAGE FOR NOW. WENT BACK TO SLEEP. KEPT COMFORTABLE.
[2017-01-19 00:02] VITALS: BP 177/87
[2017-01-19 00:11] VITALS: BP 97/36
[2017-01-19] MEDS: IPRATROPIUM NEB FS 0.5 MG/2.5 ML AMPUL.NEB NEB SCH ×4 (01:12→19:43)
[2017-01-19] MEDS: ALBUTEROL FS 2.5 MG/3 ML VIAL.NEB NEB SCH ×4 (01:13→19:43)
[2017-01-19] MEDS: ACETAMINOPHEN 650 MG/20.3 ML UDC NG PRN ×3 (01:37→21:13)
[2017-01-19] MEDS: BLOOD SUGAR DIAGNOSTIC 1 EACH STRIP IN SCH ×6 (01:39→21:03)
[2017-01-19] MEDS: INSULIN REGULAR, HUMAN 100 UNIT/ML 3 ML VIAL SQ PRN ×6 (01:50→21:03)
--- NOTE | 2017-01-19 01:52 | NUR ---
msrn HAD BM SECOND TIME, SOFT BM. PAIN ON MID CHEST, TYLENOL GIVEN VIA GT ORDERED. SUCTIONED THICK MUCUS, SOB ON MINIMAL EXERTION. KEPT COMFORTABLE REPOSITIONED. BS 139 COVERED WITH 2 UNITS REGULAR INSULIN.
[2017-01-19] MEDS: LINEZOLID RTU BAG 600 MG in PREMIX 1 EA IV SCH ×2 (02:39→15:36)
[2017-01-19 05:24] VITALS: BP 94/51
--- NOTE | 2017-01-19 05:49 | NUR ---
MSRN BS 183 COVERED WITH 4 UNITS REG INSULIN SQ ORDERED PER SLIDING SCALE.
[2017-01-19 07:08] LABS: HEMOGLOBIN 8.7 g/dL (13.5-17.5); NEUTROPHILS % (AUTO) 83.3 % (43.0-81.0)
[2017-01-19 07:14] LABS: BASOPHILS % (AUTO) 0.1 % (0.0-2.0); EOSINOPHILS % (AUTO) 0.2 % (0.0-6.0); HEMATOCRIT 28 % (39-51); LYMPHOCYTES % (AUTO) 11.4 % (20.0-44.0); MEAN CORPUSCULAR HEMOGLOBIN 30 PG (26.0-33.0); MEAN CORPUSCULAR HGB CONC 31 g/dl (31.0-36.0); MEAN CORPUSCULAR VOLUME 96 fL (80-96); MONOCYTES # (AUTO) 0.9 /CMM (0.1-1.30); NEUTROPHILS # (AUTO) 14.4 /CMM (1.8-8.9); PLATELET COUNT (AUTO) 124 /CMM (150-450); RDW COEFFICIENT OF VARIATION 32.2 (11.5-15.0); RED BLOOD CELL COUNT(AUTO) 2.93 MIL/uL (4.5-6.0); WHITE BLOOD COUNT (AUTO) 17.3 K/uL (4.3-11.0)
[2017-01-19 07:22] LABS: CALCIUM, SERUM 8.2 mg/dL (8.5-10.1); CREATININE 2.9 mg/dL (0.6-1.3); MAGNESIUM 2.7 mg/dL (1.8-2.4); PHOSPHORUS 4.4 mg/dL (2.5-4.9); POTASSIUM 4.4 mmol/L (3.5-5.1)
[2017-01-19 08:00] VITALS: BP 129/31
--- NOTE | 2017-01-19 08:00 | NUR ---
AM RN NOTES RECEIVED PT IN STABLE CONDITION, NO SOB OR DISTRESS NOTED, ON MECHANICAL VENTILATOR, NO PAIN OR DISCOMFORT, AT BEDSIDE, WILL MONITOR.
[2017-01-19] MEDS: DOCUSATE SODIUM LIQ 100 MG/10 ML UDC GT SCH ×2 (09:08→16:12)
[2017-01-19] MEDS: LACTOBACILLUS RHAMNOSUS GG 1 EACH CAP.SPRINK PO SCH ×2 (09:09→16:12)
[2017-01-19] MEDS: SEVELAMER CARBONATE 0.8 GM POWD.PACK GT SCH ×3 (09:09→17:25)
[2017-01-19] MEDS: HYDROGEL DRESSING 90 GM TUBE TP SCH (09:13)
[2017-01-19] MEDS: NEOMY SULF/BACITRAC ZN/POLY 15 GM TUBE TP SCH ×2 (09:13→16:13)
[2017-01-19] MEDS: CLOTRIMAZOLE 1% 15 GM TUBE TP SCH ×2 (09:13→16:13)
[2017-01-19] MEDS: Z GUARD REMEDY 2 OZ OINT TP PRN (09:13)
--- NOTE | 2017-01-19 10:00 | NUR ---
PT ON DIALYSIS TOLERATES WELL
[2017-01-19] MEDS ORDERED: MEROPENEM 500 MG in IV NS 0.9% 50 ML IV SCH (13:00)
[2017-01-19] MEDS: MEROPENEM 1 G in IV NS 0.9% 100 ML IV SCH ×2 (13:41→20:52)
[2017-01-19] MEDS: CEFTAZIDIME 1 G in IV D5W 50 ML IV SCH (14:36)
[2017-01-19 16:00] VITALS: BP 136/36
--- NOTE | 2017-01-19 17:12 | NUR ---
HT CATH ON RIGHT UPPER CHEST REMOVED BY DR. MCNAIR AT BEDSIDE, DUE TO INFECTION, NO PAIN OR BLEEDING NOTED, WILL MONITOR PT. CONSENT GIVEN BY PT AND HIS WITH TRANSLATORS HELP.
--- NOTE | 2017-01-19 17:57 | NUR ---
PT AWAKE, WATCHING TV, IN STABLE CONDITION, NO SOB OR DISTRESS NOTED, NO BLEEDING FROM S/P HD CATH REMOVAL, HOB ELEVATED, KEPT CLEAN AND DRY, AT BEDSIDE, WILL INDORSE TO NEXT SHIFT FOR SONI.
--- NOTE | 2017-01-19 19:23 | NUR ---
PT INDORSED TO NIGHT RN IN STABLE CONDITION.
[2017-01-19 20:00] VITALS: BP 96/34
--- NOTE | 2017-01-19 20:00 | NUR ---
RN INITIAL NOTE; PT IN THE BED AWAKE WITHOUT ANY DISTRESS. PT IS ALERT , MOUTH WORDS .ON T PIECE GETTING 8 L, FIO2 35 % . MIDLINE IN [place] INTACT AND PATENT. S/P PERMA CATH REMOVAL .NO BLEEDING NOTED , DRESSING INTACT .G TUBE INTACT AND PATENT WITH CONTINUE NOVASOURCE @ 40 ML/HR . NO RESIDUAL .ASPIRATION PRECAUTION APPLIED. BED IN THE LOWEST/LOCKED POSITION ,SAFETY MEASURES APPLIED. CALL LIGHT WITHIN REACH. WILL CONTINUE TO MONITOR .
[2017-01-19] MEDS: PANTOPRAZOLE 40 MG/PACK PACK GT SCH (20:52)
[2017-01-19] MEDS: RENAL NOVASOURCE 1,000 ML BOTTLE GT PRN (20:54)
[2017-01-19] MEDS ORDERED: IV NS 0.9% 250 ML IV ONE (20:54)
[2017-01-19] MEDS ORDERED: SECONDARY IV SET 1 EA INFUS.SET MC ONE (20:54)
[2017-01-19] MEDS: IV NS 0.9% 250 ML IV PRN (21:01)
[2017-01-20] MEDS: MORPHINE SULFATE INJ 2 MG/ML DISP.SYRIN IV PRN ×2 (00:04→09:15)
--- NOTE | 2017-01-20 00:04 | NUR ---
RN NOTE; PRN MORPHINE 1 MG IV GIVEN FOR GENERALIZED PAIN 04/12 , TOLERATED WELL AT THIS TIME , WILL CONTINUE TO MONITOR .
[2017-01-20] MEDS: INSULIN REGULAR, HUMAN 100 UNIT/ML 3 ML VIAL SQ PRN ×3 (00:09→11:49)
[2017-01-20] MEDS: BLOOD SUGAR DIAGNOSTIC 1 EACH STRIP IN SCH ×6 (00:11→20:11)
[2017-01-20] MEDS: ALBUTEROL FS 2.5 MG/3 ML VIAL.NEB NEB SCH ×4 (01:59→19:47)
[2017-01-20] MEDS: IPRATROPIUM NEB FS 0.5 MG/2.5 ML AMPUL.NEB NEB SCH ×4 (01:59→19:46)
[2017-01-20] MEDS: LINEZOLID RTU BAG 600 MG in PREMIX 1 EA IV SCH ×2 (02:44→17:25)
[2017-01-20 04:00] VITALS: BP 98/46
[2017-01-20] MEDS: MEROPENEM 1 G in IV NS 0.9% 100 ML IV SCH ×3 (04:12→20:12)
[2017-01-20] MEDS: ACETAMINOPHEN 650 MG/20.3 ML UDC NG PRN ×3 (04:12→23:00)
[2017-01-20 06:43] LABS: EOSINOPHILS # (AUTO) 0.1 /CMM (0.0-0.7); EOSINOPHILS % (AUTO) 0.4 % (0.0-6.0); HEMATOCRIT 29 % (39-51); HEMOGLOBIN 9.2 g/dL (13.5-17.5); LYMPHOCYTES % (AUTO) 20.9 % (20.0-44.0); MEAN CORPUSCULAR HEMOGLOBIN 31 PG (26.0-33.0); MEAN CORPUSCULAR HGB CONC 32 g/dl (31.0-36.0); MEAN CORPUSCULAR VOLUME 97 fL (80-96); MONOCYTES # (AUTO) 0.5 /CMM (0.1-1.30); MONOCYTES % (AUTO) 3.7 % (2.0-12.0); NEUTROPHILS # (AUTO) 10.8 /CMM (1.8-8.9); PLATELET COUNT (AUTO) 141 /CMM (150-450); RDW COEFFICIENT OF VARIATION 32.8 (11.5-15.0); RED BLOOD CELL COUNT(AUTO) 2.97 MIL/uL (4.5-6.0); WHITE BLOOD COUNT (AUTO) 14.4 K/uL (4.3-11.0)
[2017-01-20 06:44] LABS: CALCIUM, SERUM 7.9 mg/dL (8.5-10.1); CREATININE 2.4 mg/dL (0.6-1.3); POTASSIUM 3.6 mmol/L (3.5-5.1)
--- NOTE | 2017-01-20 06:57 | NUR ---
RN EOS NOTE; PT REMAINED STABLE DURING THE SHIFT, NO ANY DISTRESS NOTED DURING THE SHIFT, KEPT CLEAN AND DRY . ALL NEEDS ATTENDED PROMPTLY. G TUBE FEEDING TOLERATED WELL. TOTAL CARE RENDERED. WILL ENDORSE TO NEXT SHIFT RN FOR CONTINUITY OF CARE.
[2017-01-20 08:00] VITALS: BP 88/37
[2017-01-20] MEDS: CLOTRIMAZOLE 1% 15 GM TUBE TP SCH ×2 (09:00→17:00)
[2017-01-20] MEDS: DOCUSATE SODIUM LIQ 100 MG/10 ML UDC GT SCH ×2 (09:00→17:08)
[2017-01-20] MEDS: SEVELAMER CARBONATE 0.8 GM POWD.PACK GT SCH ×3 (09:20→17:09)
[2017-01-20] MEDS: LACTOBACILLUS RHAMNOSUS GG 1 EACH CAP.SPRINK PO SCH ×2 (09:28→17:08)
[2017-01-20] MEDS: NEOMY SULF/BACITRAC ZN/POLY 15 GM TUBE TP SCH ×2 (10:00→17:00)
[2017-01-20] MEDS: HYDROGEL DRESSING 90 GM TUBE TP SCH (10:00)
[2017-01-20 12:00] VITALS: BP 88/44
[2017-01-20] MEDS: LORAZEPAM INJ 2 MG/ML VIAL IV PRN ×2 (14:18→20:27)
[2017-01-20 16:00] VITALS: BP 90/37
[2017-01-20] MEDS: CEFTAZIDIME 1 G in IV D5W 50 ML IV SCH (16:54)
--- NOTE | 2017-01-20 19:30 | NUR ---
MS RN OPENING NOTES: RECEIVED PT IN BED AWAKE WATCHING TELEVISION. PT IS A/OX3. PT MOUTH WORDS. PT HAS T PIECE AND IS ON 8L. PT IS ON G TUBE FEEDING. NO RESIDUAL NOTED. PT IS ON NOVASOURCE AT 40ML/HR. NO SIGNS OR SYMPTOMS OF DISTRESS NOTED AT THIS TIME. CALL LIGHT WITHIN PT'S REACH. BED KEPT IN LOCKED, LOWEST POSITION, AND SIDE RAILS X 2 UP. PT KEPT CLEAN, DRY, AND COMFORTABLE. WILL CONTINUE TO MONITOR PT.
[2017-01-20] MEDS ORDERED: SECONDARY IV SET 1 EA INFUS.SET MC ONE (19:56)
[2017-01-20 20:00] VITALS: BP 110/42
[2017-01-20] MEDS: PANTOPRAZOLE 40 MG/PACK PACK GT SCH (20:11)
[2017-01-20] MEDS: IV NS 0.9% 250 ML IV PRN (20:14)
--- NOTE | 2017-01-20 20:16 | NUR ---
MS RN NOTES: BLOOD SUGAR WAS 106. NO COVERAGE WAS GIVEN. WILL CONTINUE TO MONITOR PT.
--- NOTE | 2017-01-20 20:27 | NUR ---
MS RN NOTES: PT'S BP IS HR 79, RR 17, TEMP 97.4, AND PULSE OX 95%. PT REQUESTED ATIVAN 0.5MG FOR ANXIETY. WILL CONTINUE TO MONITOR PT.
--- NOTE | 2017-01-20 23:00 | NUR ---
MS RN NOTES: PT IS COMPLAINING OF GENERALIZED MILD PAIN AND IS REQUESTING FOR TYLENOL. PT WAS GIVEN TYLENOL 650MG VIA G TUBE. WILL CONTINUE TO MONITOR PT.
[2017-01-21] MEDS: BLOOD SUGAR DIAGNOSTIC 1 EACH STRIP IN SCH ×6 (00:22→21:01)
[2017-01-21] MEDS: IPRATROPIUM NEB FS 0.5 MG/2.5 ML AMPUL.NEB NEB SCH ×4 (01:27→19:47)
[2017-01-21] MEDS: ALBUTEROL FS 2.5 MG/3 ML VIAL.NEB NEB SCH ×4 (01:27→19:47)
[2017-01-21] MEDS: LINEZOLID RTU BAG 600 MG in PREMIX 1 EA IV SCH ×2 (02:21→15:53)
[2017-01-21] MEDS: RENAL NOVASOURCE 1,000 ML BOTTLE GT PRN (02:32)
[2017-01-21 04:00] VITALS: BP 118/48
[2017-01-21] MEDS: MEROPENEM 1 G in IV NS 0.9% 100 ML IV SCH ×3 (05:15→20:49)
[2017-01-21] MEDS: INSULIN REGULAR, HUMAN 100 UNIT/ML 3 ML VIAL SQ PRN ×4 (05:18→20:53)
[2017-01-21] MEDS: LORAZEPAM INJ 2 MG/ML VIAL IV PRN (05:19)
[2017-01-21 07:16] LABS: BASOPHILS % (AUTO) 0.2 % (0.0-2.0); EOSINOPHILS # (AUTO) 0.1 /CMM (0.0-0.7); EOSINOPHILS % (AUTO) 0.6 % (0.0-6.0); HEMATOCRIT 29 % (39-51); HEMOGLOBIN 9.3 g/dL (13.5-17.5); LYMPHOCYTES # (AUTO) 2.1 /CMM (0.8-4.8); LYMPHOCYTES % (AUTO) 12.8 % (20.0-44.0); MEAN CORPUSCULAR HEMOGLOBIN 31 PG (26.0-33.0); MEAN CORPUSCULAR HGB CONC 32 g/dl (31.0-36.0); MEAN CORPUSCULAR VOLUME 98 fL (80-96); MONOCYTES # (AUTO) 0.6 /CMM (0.1-1.30); MONOCYTES % (AUTO) 3.8 % (2.0-12.0); NEUTROPHILS # (AUTO) 13.5 /CMM (1.8-8.9); NEUTROPHILS % (AUTO) 82.6 % (43.0-81.0); PLATELET COUNT (AUTO) 132 /CMM (150-450); RDW COEFFICIENT OF VARIATION 33.3 (11.5-15.0); RED BLOOD CELL COUNT(AUTO) 3.01 MIL/uL (4.5-6.0); WHITE BLOOD COUNT (AUTO) 16.3 K/uL (4.3-11.0)
--- NOTE | 2017-01-21 07:25 | NUR ---
MS RN CLOSING NOTES: ALL NEEDS WERE ATTENDED AND ANTICIPATED FOR. PT IS ALERT AND ORIENTED X 2. PT IS AWAKE WATCHING TELEVISION. PT HAS TRACH SH #8, 8L, FI02 35%. PT IS ON NOVASOURCE AT 40ML/HR. NO RESIDUAL. PT HAS L UPPER ARM MIDLINE AND IS BEING USED TKO. PT IS S/P PERMA CATH REMOVAL. ENDORSED TO AM NURSE FOR CONTINUITY OF CARE.
[2017-01-21 07:29] LABS: MAGNESIUM 2.7 mg/dL (1.8-2.4); PHOSPHORUS 4.9 mg/dL (2.5-4.9); POTASSIUM 4.6 mmol/L (3.5-5.1)
[2017-01-21] MEDS: LACTOBACILLUS RHAMNOSUS GG 1 EACH CAP.SPRINK PO SCH ×2 (10:20→15:53)
[2017-01-21] MEDS: DOCUSATE SODIUM LIQ 100 MG/10 ML UDC GT SCH ×2 (10:20→15:53)
[2017-01-21] MEDS: ACETAMINOPHEN 650 MG/20.3 ML UDC NG PRN ×2 (10:20→18:05)
[2017-01-21] MEDS: SEVELAMER CARBONATE 0.8 GM POWD.PACK GT SCH ×3 (10:21→15:53)
[2017-01-21] MEDS: HYDROGEL DRESSING 90 GM TUBE TP SCH (10:37)
[2017-01-21] MEDS: CLOTRIMAZOLE 1% 15 GM TUBE TP SCH ×2 (10:38→16:31)
[2017-01-21] MEDS: NEOMY SULF/BACITRAC ZN/POLY 15 GM TUBE TP SCH ×2 (10:38→16:31)
[2017-01-21 10:55] VITALS: BP 128/50
--- NOTE | 2017-01-21 11:46 | NUR ---
MS1/RN CHEST PAIN SIDE SAWYER VOLODYMYR ON ROUNDS, NOTIFIED SIDE SAWYER THAT PT COMPLAINT OF CHEST PAIN. STAT EKG AND CHEST X-RAY ORDERED. EKG RESULTED ABNORMAL FINDINGS, RELAYED TO SIDE SAWYER VOLODYMYR, SAID TO REFER TO DR. FUENTES. CALLED DR. FUENTES THROUGH PHONE EXCHANGE. AWAITING FOR CALL BACK.
[2017-01-21 12:00] VITALS: BP 103/45
--- NOTE | 2017-01-21 12:49 | NUR ---
MS1/RN DR. FUENTES RELAYED TO DR. FUENTES ABNORMAL RESULT. WITH ORDERS RECEIVED FOR STAT TROPONIN AND NITRO PASTE 1 INCH Q12HRS. ORDERS NOTED AND CARRIED. WILL RELAY RESULT OF TROPONIN SOON IT BECOMES AVAILABLE.
[2017-01-21] MEDS: CEFTAZIDIME 1 G in IV D5W 50 ML IV SCH (15:14)
[2017-01-21] MEDS: NITROGLYCERIN PACKET 1 GM PACKET TOP SCH (15:41)
[2017-01-21 16:00] VITALS: BP_SYST 101; BP_SYST 110; BP_DIAS 45; BP_DIAS 54
[2017-01-21 20:00] VITALS: BP 139/75
[2017-01-21] MEDS: MORPHINE SULFATE INJ 2 MG/ML DISP.SYRIN IV PRN (20:14)
[2017-01-21] MEDS: PANTOPRAZOLE 40 MG/PACK PACK GT SCH (20:50)
[2017-01-22] MEDS: BLOOD SUGAR DIAGNOSTIC 1 EACH STRIP IN SCH ×6 (00:06→20:39)
[2017-01-22] MEDS: NITROGLYCERIN PACKET 1 GM PACKET TOP SCH ×2 (00:26→12:04)
[2017-01-22] MEDS: MORPHINE SULFATE INJ 2 MG/ML DISP.SYRIN IV PRN ×2 (01:29→22:53)
[2017-01-22] MEDS: ALBUTEROL FS 2.5 MG/3 ML VIAL.NEB NEB SCH ×4 (01:53→19:12)
[2017-01-22] MEDS: IPRATROPIUM NEB FS 0.5 MG/2.5 ML AMPUL.NEB NEB SCH ×4 (01:53→19:12)
[2017-01-22] MEDS: LINEZOLID RTU BAG 600 MG in PREMIX 1 EA IV SCH (03:45)
[2017-01-22 04:00] VITALS: BP 114/44
[2017-01-22] MEDS: ACETAMINOPHEN 650 MG/20.3 ML UDC NG PRN (04:17)
[2017-01-22] MEDS: MEROPENEM 1 G in IV NS 0.9% 100 ML IV SCH ×3 (05:42→20:39)
[2017-01-22 06:52] LABS: BASOPHILS % (AUTO) 0.3 % (0.0-2.0); EOSINOPHILS # (AUTO) 0.2 /CMM (0.0-0.7); EOSINOPHILS % (AUTO) 1.6 % (0.0-6.0); HEMATOCRIT 31 % (39-51); HEMOGLOBIN 9.7 g/dL (13.5-17.5); LYMPHOCYTES # (AUTO) 1.5 /CMM (0.8-4.8); LYMPHOCYTES % (AUTO) 11.5 % (20.0-44.0); MEAN CORPUSCULAR HEMOGLOBIN 31 PG (26.0-33.0); MEAN CORPUSCULAR HGB CONC 32 g/dl (31.0-36.0); MEAN CORPUSCULAR VOLUME 98 fL (80-96); MONOCYTES # (AUTO) 0.6 /CMM (0.1-1.30); MONOCYTES % (AUTO) 4.3 % (2.0-12.0); NEUTROPHILS # (AUTO) 10.7 /CMM (1.8-8.9); NEUTROPHILS % (AUTO) 82.3 % (43.0-81.0); PLATELET COUNT (AUTO) 122 /CMM (150-450); RDW COEFFICIENT OF VARIATION 33.8 (11.5-15.0)
--- NOTE | 2017-01-22 07:00 | NUR ---
RN NOTES: RECEIVED PT ON BED, A/OX3. MOUTH WORDS. RESPIRATION EVEN AND UNLABORED , TRACH CARE DONE, PT HAS T PIECE AND IS ON 8L. NO SOB NOTED , TOLERATING G TUBE FEEDING NOVASOURCE AT 40CC/HR RUNNING VIA G TUBE WELL, NO RESIDUAL NOTED. CALL LIGHT WITHIN EASY REACH. BED KEPT LOCKED AND IN LOWEST POSITION, AND SIDE RAILS UP X3, WILL CONTINUE TO MONITOR PT CLOSELY AND NOTIFY MD FOR ANY SINGFINCAT CHANGES.
[2017-01-22 07:03] LABS: CALCIUM, SERUM 8.4 mg/dL (8.5-10.1); CREATININE 3.5 mg/dL (0.6-1.3); PHOSPHORUS 6.6 mg/dL (2.5-4.9); POTASSIUM 5.2 mmol/L (3.5-5.1)
[2017-01-22 08:00] VITALS: BP 106/41
[2017-01-22] MEDS: DOCUSATE SODIUM LIQ 100 MG/10 ML UDC GT SCH ×2 (08:39→17:27)
[2017-01-22] MEDS: SEVELAMER CARBONATE 0.8 GM POWD.PACK GT SCH ×3 (08:39→17:28)
[2017-01-22] MEDS: LACTOBACILLUS RHAMNOSUS GG 1 EACH CAP.SPRINK PO SCH ×2 (08:39→17:27)
[2017-01-22] MEDS: HYDROGEL DRESSING 90 GM TUBE TP SCH (08:40)
[2017-01-22] MEDS: CLOTRIMAZOLE 1% 15 GM TUBE TP SCH ×2 (08:40→17:30)
[2017-01-22] MEDS: NEOMY SULF/BACITRAC ZN/POLY 15 GM TUBE TP SCH ×2 (08:41→17:30)
[2017-01-22] MEDS: INSULIN REGULAR, HUMAN 100 UNIT/ML 3 ML VIAL SQ PRN ×2 (08:45→12:02)
[2017-01-22] MEDS: LORAZEPAM INJ 2 MG/ML VIAL IV PRN ×2 (11:46→17:27)
--- NOTE | 2017-01-22 12:00 | NUR ---
RN NOTES PT STABLE, TRACH CARE DONE , RESPIRATION EVEN AND UNLABORED, CONTINUE TO MONITOR .
[2017-01-22] MEDS: CEFTAZIDIME 1 G in IV D5W 50 ML IV SCH (14:05)
[2017-01-22] MEDS: RENAL NOVASOURCE 1,000 ML BOTTLE GT PRN (15:14)
[2017-01-22 16:00] VITALS: BP 107/49
--- NOTE | 2017-01-22 17:00 | NUR ---
RN NOTES PT VOMITED LARGE AMOUNT OF WHITISH STOMACH CONFIENT , TF HELD AT THIS TIME , ZOFRAN GIVEN , CONTINUE TO MONITOR .
[2017-01-22] MEDS: LINEZOLID 600 MG TABLET GT SCH (17:28)
[2017-01-22] MEDS: ONDANSETRON HCL/PF 4 MG/2 ML VIAL IVP PRN ×2 (17:29→23:34)
--- NOTE | 2017-01-22 18:47 | NUR ---
RN NOTES PT STABLE AT THIS TIME, TF STILL ON HOLD , L UPPER ARM MIDLINE CDI, WILL ENDORSE TO NIGHT NURSE FOR CONTINUITY OF CARE
[2017-01-22] MEDS ORDERED: IV NS 0.9% 250 ML IV ONE (19:37)
[2017-01-22 20:00] VITALS: BP 104/34
--- NOTE | 2017-01-22 20:00 | NUR ---
RN INITIAL NOTES RECEIVED PT AWAKE ON BED, A/O X2, ABLE TO MOUTH WORDS. PT IS ON TPIECE 8L O2, 35% FIO2, SATURATING WELL, NO S/S OF RESP DISTRESS. PT IS MEDSURG. ON DIAPERS ONLY, ANURIC. ON GTUBE FEEDING OF NOVASOURCE @ 40MLS/HR, NO RESIDUALS. RIGHT UPPER ARM MIDLINE FLUSHED AND PATENT, NO S/S OF INFILTRATION/INFECTION DRESSING CDI. BED LOW AND LOCKED, SIDERAILS UP, CALL LIGHT WITHIN REACH. WILL MONITOR
[2017-01-22] MEDS: PANTOPRAZOLE 40 MG/PACK PACK GT SCH (20:39)
[2017-01-23] MEDS: BLOOD SUGAR DIAGNOSTIC 1 EACH STRIP IN SCH ×6 (00:43→23:51)
[2017-01-23] MEDS: NITROGLYCERIN PACKET 1 GM PACKET TOP SCH ×3 (00:46→23:51)
[2017-01-23] MEDS: ALBUTEROL FS 2.5 MG/3 ML VIAL.NEB NEB SCH ×4 (01:17→19:56)
[2017-01-23] MEDS: IPRATROPIUM NEB FS 0.5 MG/2.5 ML AMPUL.NEB NEB SCH ×4 (01:17→19:56)
[2017-01-23 04:00] VITALS: BP 100/33
[2017-01-23] MEDS: MEROPENEM 1 G in IV NS 0.9% 100 ML IV SCH ×3 (04:50→21:23)
[2017-01-23] MEDS: INSULIN REGULAR, HUMAN 100 UNIT/ML 3 ML VIAL SQ PRN ×2 (04:51→17:33)
--- NOTE | 2017-01-23 06:30 | NUR ---
RN CLOSING NOTES PT REMAINS STABLE OF THE MOMENT. ALL DUE MEDS GIVEN. AM CARE PROVIDED. WILL ENDORSE CONTINUITY OF CARE TO AM RN
[2017-01-23 06:45] LABS: BASOPHILS % (AUTO) 0.3 % (0.0-2.0); EOSINOPHILS # (AUTO) 0.1 /CMM (0.0-0.7); EOSINOPHILS % (AUTO) 0.5 % (0.0-6.0); HEMATOCRIT 29 % (39-51); HEMOGLOBIN 9.4 g/dL (13.5-17.5); LYMPHOCYTES # (AUTO) 1.5 /CMM (0.8-4.8); LYMPHOCYTES % (AUTO) 11.1 % (20.0-44.0); MEAN CORPUSCULAR HEMOGLOBIN 32 PG (26.0-33.0); MEAN CORPUSCULAR HGB CONC 32 g/dl (31.0-36.0); MEAN CORPUSCULAR VOLUME 99 fL (80-96); MONOCYTES # (AUTO) 0.6 /CMM (0.1-1.30); MONOCYTES % (AUTO) 4.8 % (2.0-12.0); NEUTROPHILS % (AUTO) 83.3 % (43.0-81.0); PLATELET COUNT (AUTO) 101 /CMM (150-450); RDW COEFFICIENT OF VARIATION 33.9 (11.5-15.0); RED BLOOD CELL COUNT(AUTO) 2.98 MIL/uL (4.5-6.0); WHITE BLOOD COUNT (AUTO) 13.2 K/uL (4.3-11.0)
[2017-01-23 07:28] LABS: CALCIUM, SERUM 8.6 mg/dL (8.5-10.1); CREATININE 4.1 mg/dL (0.6-1.3); PHOSPHORUS 7.8 mg/dL (2.5-4.9); POTASSIUM 5.5 mmol/L (3.5-5.1)
--- NOTE | 2017-01-23 07:55 | NUR ---
INITIAL MS RN NOTE RCVD PT AWAKE AND ALERT SHOWING NO S/O DISTRESS OR C/O PAIN AT THIS TIME. PT ABLE TO MOUTH WORDS IN IRISH, ABLE TO MAKE HIS NEEDS KNOWN. ON T-PIECE TOLERATING WELL. PEG PLACEMENT VERIFIED BY AUSCULTATION. NO RESIDUAL OBTAINED. NINA MIDLINE C/D/I/PATENT. NO S/O INFILTRATION OR PHLEBITIS OBSERVED. WILL CONTINUE TO MONITOR PT FOR SAFETY AND COMFORT. CALL LIGHT WITHIN REACH. BED IN LOW AND LOCKED POSITION.
[2017-01-23 08:00] VITALS: BP 99/36
[2017-01-23] MEDS ORDERED: SODIUM POLYSTYRENE SULFONATE 15 G/60 ML BOTTLE PO ONE (08:00)
[2017-01-23] MEDS: ONDANSETRON HCL/PF 4 MG/2 ML VIAL IVP PRN (08:07)
[2017-01-23] MEDS: LINEZOLID 600 MG TABLET GT SCH ×2 (08:15→21:23)
[2017-01-23] MEDS: SEVELAMER CARBONATE 0.8 GM POWD.PACK GT SCH ×3 (08:15→17:22)
[2017-01-23] MEDS: LACTOBACILLUS RHAMNOSUS GG 1 EACH CAP.SPRINK PO SCH ×2 (08:15→17:23)
[2017-01-23] MEDS: DOCUSATE SODIUM LIQ 100 MG/10 ML UDC GT SCH ×2 (08:15→17:22)
[2017-01-23] MEDS: HYDROGEL DRESSING 90 GM TUBE TP SCH (08:20)
[2017-01-23] MEDS: Z GUARD REMEDY 2 OZ OINT TP PRN (08:20)
[2017-01-23] MEDS: CLOTRIMAZOLE 1% 15 GM TUBE TP SCH ×2 (08:20→17:36)
[2017-01-23] MEDS: NEOMY SULF/BACITRAC ZN/POLY 15 GM TUBE TP SCH ×2 (08:20→17:36)
[2017-01-23 12:00] VITALS: BP 91/38
[2017-01-23] MEDS: LORAZEPAM INJ 2 MG/ML VIAL IV PRN ×3 (12:11→21:24)
[2017-01-23] MEDS: CEFTAZIDIME 1 G in IV D5W 50 ML IV SCH (14:20)
[2017-01-23 16:00] VITALS: BP 92/28
[2017-01-23] MEDS: MORPHINE SULFATE INJ 2 MG/ML DISP.SYRIN IV PRN (16:53)
[2017-01-23] MEDS: RENAL NOVASOURCE 1,000 ML BOTTLE GT PRN (17:22)
--- NOTE | 2017-01-23 19:30 | NUR ---
MS RN NOTE RCVD PT AWAKE AND ALERT SHOWING NO S/O DISTRESS OR C/O PAIN AT THIS TIME. PT ABLE TO MOUTH WORDS IN [place], ABLE TO MAKE HIS NEEDS KNOWN. ON T-PIECE TOLERATING WELL. PEG PLACEMENT VERIFIED BY AUSCULTATION. NO RESIDUAL OBTAINED. NINA MIDLINE C/D/I/PATENT. NO S/O INFILTRATION OR PHLEBITIS OBSERVED. WILL CONTINUE TO MONITOR PT FOR SAFETY AND COMFORT. CALL LIGHT WITHIN REACH. BED IN LOW AND LOCKED POSITION.
[2017-01-23 20:00] VITALS: BP 96/42
[2017-01-23] MEDS ORDERED: INSULIN REGULAR, HUMAN 100 UNIT/ML 3 ML VIAL SQ PRN (20:00)
[2017-01-23 20:21] VITALS: BP 96/42
[2017-01-23] MEDS: PANTOPRAZOLE 40 MG/PACK PACK GT SCH (21:24)
[2017-01-23] MEDS: DEXTROSE 50%-WATER 50 ML DISP.SYRIN IV PRN (23:55)
[2017-01-24] VITALS (47 sets, daily range): BP systolic 50–152; BP diastolic 17–91
--- NOTE | 2017-01-24 | NUR ---
MS RN NOTE PATIENTS BLOOD SUGAR IS 32. PATIENT IS RESPONSIVE. VS STABLE. 50% DEXTROSE ADMINISTERED. WILL REASSESS SHORTLY
--- NOTE | 2017-01-24 00:30 | NUR ---
MS RN NOTE PATIENTS BLOOD SUGAR IS 84 AFTER RECEIVING DEXTROSE. WILL CONTINUE TO MONITOR.
[2017-01-24] MEDS: IPRATROPIUM NEB FS 0.5 MG/2.5 ML AMPUL.NEB NEB SCH ×4 (01:37→20:15)
[2017-01-24] MEDS: ALBUTEROL FS 2.5 MG/3 ML VIAL.NEB NEB SCH ×4 (01:37→20:15)
[2017-01-24] MEDS: MORPHINE SULFATE INJ 2 MG/ML DISP.SYRIN IV PRN ×2 (01:58→21:16)
[2017-01-24] MEDS: MEROPENEM 1 G in IV NS 0.9% 100 ML IV SCH (04:03)
--- NOTE | 2017-01-24 06:00 | NUR ---
MS RN NOTE BLOOD SUGAR CRITICALLY LOW <10. PATIENT IS RESPONSIVE, BUT GROGGY. PUSHED 50% DEXTROSE NOTIFIED DEEDEE FARMER NP. NEW ORDERS RECEIVED AND CARRIED OUT FOR ACCUCHECKS EVERY TWO HOURS AT THIS TIME. WILL RE-CHECK BLOOD SUGAR IN FIFTEEN MINUTES
[2017-01-24] MEDS: BLOOD SUGAR DIAGNOSTIC 1 EACH STRIP IN SCH ×10 (06:04→23:05)
[2017-01-24] MEDS: DEXTROSE 50%-WATER 50 ML DISP.SYRIN IV PRN ×2 (06:04→08:27)
--- NOTE | 2017-01-24 06:20 | NUR ---
MS RN NOTE BLOOD SUGAR 98. PERFORMED WOUND CARE ORDERED. KEPT CLEAN, DRY AND COMFORTABLE. WILL ENDORSE TO DAY SHIFT FOR SONI.
[2017-01-24 06:30] LABS: BASOPHILS % (AUTO) 0.2 % (0.0-2.0); HEMATOCRIT 27 % (39-51); HEMOGLOBIN 8.2 g/dL (13.5-17.5); LYMPHOCYTES # (AUTO) 1.2 /CMM (0.8-4.8); LYMPHOCYTES % (AUTO) 6.6 % (20.0-44.0); MEAN CORPUSCULAR HEMOGLOBIN 32 PG (26.0-33.0); MEAN CORPUSCULAR HGB CONC 31 g/dl (31.0-36.0); MEAN CORPUSCULAR VOLUME 103 fL (80-96); MONOCYTES # (AUTO) 0.9 /CMM (0.1-1.30); MONOCYTES % (AUTO) 4.7 % (2.0-12.0); NEUTROPHILS # (AUTO) 16.2 /CMM (1.8-8.9); NEUTROPHILS % (AUTO) 88.5 % (43.0-81.0); PLATELET COUNT (AUTO) 63 /CMM (150-450); RDW COEFFICIENT OF VARIATION 33.6 (11.5-15.0); WHITE BLOOD COUNT (AUTO) 18.3 K/uL (4.3-11.0)
[2017-01-24 06:36] LABS: ALBUMIN 1.7 g/dL (3.4-5.0); BILIRUBIN,TOTAL 3.2 mg/dL (0.2-1.0); CREATININE 5.1 mg/dL (0.6-1.3); MAGNESIUM 3.6 mg/dL (1.8-2.4); TOTAL PROTEIN, SERUM 6.4 g/dL (6.4-8.2)
[2017-01-24 06:47] LABS: PHOSPHORUS 11.4 mg/dL (2.5-4.9); POTASSIUM 6.7 mmol/L (3.5-5.1)
--- NOTE | 2017-01-24 06:57 | NUR ---
MS RN NOTE LAB CALLED WITH CRITICAL VALUES. POTASSIUM 6.7 CO2 9 PHOS 11.4 AND BUN 125. AWARE. NO NEW ORDERS AT THIS TIME.
--- NOTE | 2017-01-24 08:20 | NUR ---
WOOD EXPERIMENTAL MECHANIC- RECEIVED PT FROM [facility]. PT UPGRADED TO [facility] STATUS. D50 TO BE GIVEN. 0835- STAT ABGS DONE BY RT. RESULTS RELAYED TO MD DR. POWER. ORDERS RECEIVED TO TRANSFER PATIENT TO ICU AND START ON BICARB DRIP. 0900- REPORT GIVEN TO PHILLY WOOD EXPERIMENTAL MECHANIC. LAB CALLED FOR CRITICAL RESULTS. BLOOD GLUCOSE= 34. ACCUCHECK DONE POST D50. RESULTS= 87. DR. POWER AWARE OF CRITICAL RESULTS. 0915- PT TRANSFERRED TO ICU ROOM 257 WITH LELAND RN AND JOSIE RT. ALL ORDERS ENDORSED TO PHILLY WOOD EXPERIMENTAL MECHANIC.
[2017-01-24] MEDS ORDERED: DEXTROSE 50%-WATER 50 ML DISP.SYRIN ONE (08:21)
[2017-01-24] MEDS ORDERED: IV 10% DEXTROSE 1,000 ML IV PRN (08:30)
[2017-01-24] MEDS ORDERED: DEXTROSE 10% IN WATER 250 ML BAG IV ONE (08:30)
[2017-01-24 08:35] LABS: ABG BASE EXCESS -23.6 mmol/L; ABG OXYGEN SATURATION 97.2 % (92.0-98.5); ABG PCO2 19.1 mmHg (35.0-45.0); ABG PH 7.046 (7.350-7.450); ABG PO2 138.6 mmHg (75.0-100.0); AaDO2 88.7 mmHg; COHb 1.9 % (0.5-1.5); MetHb 0.9 % (0.0-1.5); O2Hb 94.5 % (94.0-97.0); SITE, ABG Left Brachial; VENT MODE, BG CA 35%
[2017-01-24] MEDS ORDERED: Sodium Bicarbonate 100 MEQ in IV D5W 1,000 ML IV PRN ×4 (09:00)
[2017-01-24] MEDS ORDERED: IV SET PRIMARY PUMP SET 1 EA INFUS.SET MC ONE ×2 (09:25→13:27)
[2017-01-24] MEDS ORDERED: Sodium Bicarbonate 150 MEQ in IV D5W 1,000 ML IV PRN (09:30)
[2017-01-24] MEDS ORDERED: SODIUM BICARBONATE SYR 50 MEQ/50 ML DISP.SYRIN IV STA ×2 (09:33→13:44)
[2017-01-24 09:35] LABS: LYMPHOCYTES % (MANUAL) 8 % (16-48); MONOCYTES % (MANUAL) 5 % (0-11.0); NEUTROPHILS % (MANUAL) 87 (42-76)
[2017-01-24] MEDS: LINEZOLID 600 MG TABLET GT SCH ×2 (09:58→20:02)
[2017-01-24] MEDS: LACTOBACILLUS RHAMNOSUS GG 1 EACH CAP.SPRINK PO SCH ×2 (09:58→16:17)
[2017-01-24] MEDS: DOCUSATE SODIUM LIQ 100 MG/10 ML UDC GT SCH ×2 (09:58→16:17)
[2017-01-24] MEDS: IV NS 0.9% 250 ML IV PRN (09:59)
[2017-01-24] MEDS: SEVELAMER CARBONATE 0.8 GM POWD.PACK GT SCH ×3 (10:08→18:20)
[2017-01-24] MEDS: CLOTRIMAZOLE 1% 15 GM TUBE TP SCH ×2 (10:15→16:15)
[2017-01-24] MEDS: HYDROGEL DRESSING 90 GM TUBE TP SCH (10:16)
[2017-01-24] MEDS: NEOMY SULF/BACITRAC ZN/POLY 15 GM TUBE TP SCH ×2 (10:16→16:15)
--- NOTE | 2017-01-24 10:25 | NUR ---
PT RECVD IN ICU. PER REPORT HE HAD HIS HD CATHETER DC ON THE FOR "LINE HOLIDAY." THIS MORNING HE WAS FOUND TO BE TACHYPNEIC AND HYPOGLYCEMIC IN MED SURG, QUICKLY UPGRADED TO [facility] AND THEN TO ICU. ON ARRIVAL PT IS TACHYPNEIC, ABG REVEALED METABOLIC ACIDOSIS. DR. WONG ON THE UNIT ORDERS TO PLACE PT BACK ON VENTILATOR (WAS ON COOL AEROSOL) CURRENT SETTINGS OF AC 20 TV 500 FIO2 100% NO PEEP. DR. POWER IN GIVES ORDERS AND INSERTS 2ND 18G MIDLINE INTO LEFT UPPER ARM: 2 AMPS OF BICARB GIVEN BICARB DRIP (3AMP) STARTED AND RUNNING AT 50ML/H BLOOD GLUCOSE IS 68 ON ARRIVAL TO ICU D10 STARTED AND RUNNING AT 75ML/H ACCUCHECKS Q2H DR. POWER STATES HE WILL COME BACK TO PLACE HD CATHETER THE PT NEEDS HEMODIALYSIS TODAY HE STATES HE HAS ALREADY TALKED WITH DR. GWENDOLYN SONG ABOUT PLAN FOR HD TODAY.
--- NOTE | 2017-01-24 12:10 | NUR ---
DR. POWER IN FOR HD CATH PLACEMENT.
[2017-01-24] MEDS: NITROGLYCERIN PACKET 1 GM PACKET TOP SCH (13:00)
[2017-01-24] MEDS: CEFTAZIDIME 1 G in IV D5W 50 ML IV SCH (13:05)
[2017-01-24] MEDS ORDERED: SECONDARY IV SET 1 EA INFUS.SET MC ONE ×3 (13:06→16:32)
[2017-01-24 13:21] LABS: ABG BASE EXCESS -20.2 mmol/L; ABG OXYGEN SATURATION 99.4 % (92.0-98.5); ABG PCO2 34.6 mmHg (35.0-45.0); ABG PH 7.035 (7.350-7.450); ABG PO2 326.2 mmHg (75.0-100.0); AaDO2 352.2 mmHg; COHb 1.9 % (0.5-1.5); O2Hb 96.5 % (94.0-97.0); PEEP,BG 0 cm H2O; SITE, ABG Left Brachial; VT, ABG 550 mL
--- NOTE | 2017-01-24 13:26 | NUR ---
JUANITO OBTAINED: PH 7.035 CO2 [address] WONG TO GET ORDERS. AWAITING CALL BACK
[2017-01-24] MEDS ORDERED: NOREPINEPHRINE 16 MG in IV D5W 500 ML IV PRN (13:30)
--- NOTE | 2017-01-24 14:00 | NUR ---
DR. WONG CALLS BACK ORDERS TO INCREASE RATE TO 28, VT TO 600 AND GIVE 2 AMPS BICARB, AND HD. RT NOTIFIED, VENT CHANGES MADE. 2 AMPS BICARB GIVEN. CALLED [facility] NURSE WHO CONFIRMS HE IS ON THE SCHEDULE FOR TODAY AND IS CONTACTING TO MAKE ARRANGEMENT WITH THE HD NURSES, UNABLE TO GIVE GIVE A SPECIFIC ETA FOR HD.
[2017-01-24] MEDS: ALBUMIN 25% 25 GM in PREMIX 1 EA IV PRN (16:59)
[2017-01-24] MEDS ORDERED: DOSING PER PHARMACY-AMIKACI IV XX PRN (17:00)
[2017-01-24] MEDS ORDERED: MEROPENEM 500 MG in IV NS 0.9% 50 ML IV SCH (17:00)
[2017-01-24] MEDS ORDERED: FEE PK DOSING 1 MIN EA MC ONE (17:21)
--- NOTE | 2017-01-24 17:57 | NUR ---
INFECTIOUS DISEASE EMAIL ADMINISTRATOR ON THE UNIT (WITH DR. [facility] [employer]), ORDERS FOR RESP CULTURE, URINE CX AND BLOOD CX X2 (ONE PERIPHERAL STICK, ONE FROM MIDLINE). -RESP CULTURE COLLECTED. -STRAIGHT CATHED THE PT BUT HE ONLY PRODUCES MINIMAL AMOUNT OF URINE COLLECTED AND GIVEN TO HAM CURER WHO STATES THEY WILL TRY TO CULTURE IT OTHERWISE THEY WILL CONTACT THE NURSE IF UNABLE TO RUN THE TEST WITH THE SPECIMEN. -2 BLOOD CX'S OBTAINED Q15 APART.
[2017-01-24] MEDS ORDERED: AMIKACIN 500 MG in IV D5W 100 ML IV ONE (18:00)
[2017-01-24 19:40] LABS: APPEARANCE,URINE CLOUDY (CLEAR); BILIRUBIN,URINE 3+ (NEGATIVE); BLOOD, URINE 3+ Ery/uL (NEGATIVE); COLOR,URINE DARK YELLO (YELLOW); KETONES,URINE 1+ (NEGATIVE); LEUKOCYTE ESTERASE ,URINE 1+ (NEGATIVE); NITRITE, URINE POSITIVE (NEGATIVE); PROTEIN,URINE 3+ mg/dl (NEGATIVE); UGLUCOSE NEGATIVE (NEGATIVE)
--- NOTE | 2017-01-24 19:56 | NUR ---
rn:icu: abg performed post hd as ordered. ph 7.447 pco2 28.9 po2 508 hco3 19.5 rt to titrate fio2. pt stable.
[2017-01-24] MEDS ORDERED: MICAFUNGIN SODIUM 100 MG in IV NS 0.9% 100 ML IV SCH (20:00)
[2017-01-24] MEDS: PANTOPRAZOLE 40 MG/PACK PACK GT SCH (20:02)
[2017-01-24 20:09] LABS: BACTERIA,URINE Few /HPF (None Seen); RBC,URINE 81-100 /HPF (0-2); SQUAMOUS EPITHELIAL CELL,UR Rare /HPF (None Seen)
--- NOTE | 2017-01-24 21:49 | NUR ---
rn:icu: pt reported that patient is having chest and abdominal pain. pt medicated for pain. pt noted to have distended abdomen. manager benefit meat boner notified. orders for kub. tf placed on hold. manager benefit made aware of last several blood sugars over 150, may decrease d10 gtt to 50ml/hr instead of 75ml/hr, orders placed. will follow up.
[2017-01-24] MEDS: ACETAMINOPHEN 650 MG/20.3 ML UDC NG PRN (21:59)
--- NOTE | 2017-01-24 22:56 | NUR ---
rn:icu: pt suddenly became unresponsive, with hr dropping into the 50's. pt bp dropped to 50's. pt restarted on levophed gtt at 5mcg/min, then 10mcg/min. pt bp remains extremely labile. motor coach tour operator communication professor notified regarding change in condition. stat labs sent per motor coach tour operator orders. pt remains too unstable to take to ct. rt at the bedside performing translation. pending labs. radiology called to read kub. pending report. will continue to monitor closely.
[2017-01-24 22:59] LABS: BASOPHILS % (AUTO) 0.2 % (0.0-2.0); HEMATOCRIT 25 % (39-51); HEMOGLOBIN 7.4 g/dL (13.5-17.5); LYMPHOCYTES # (AUTO) 1.7 /CMM (0.8-4.8); LYMPHOCYTES % (AUTO) 8.6 % (20.0-44.0); MEAN CORPUSCULAR HEMOGLOBIN 31 PG (26.0-33.0); MEAN CORPUSCULAR HGB CONC 30 g/dl (31.0-36.0); MEAN CORPUSCULAR VOLUME 104 fL (80-96); MONOCYTES # (AUTO) 0.5 /CMM (0.1-1.30); MONOCYTES % (AUTO) 2.4 % (2.0-12.0); NEUTROPHILS # (AUTO) 17.6 /CMM (1.8-8.9); NEUTROPHILS % (AUTO) 88.8 % (43.0-81.0); RDW COEFFICIENT OF VARIATION 33.7 (11.5-15.0); RED BLOOD CELL COUNT(AUTO) 2.37 MIL/uL (4.5-6.0); WHITE BLOOD COUNT (AUTO) 19.9 K/uL (4.3-11.0)
[2017-01-24 23:14] LABS: CALCIUM, SERUM 8.8 mg/dL (8.5-10.1); CREATININE 3.3 mg/dL (0.6-1.3); POTASSIUM 4.8 mmol/L (3.5-5.1)
[2017-01-24] MEDS ORDERED: CALCIUM CHLORIDE 1,000 MG/10 ML DISP.SYRIN ONE (23:16)
[2017-01-24 23:17] LABS: ALBUMIN 2.1 g/dL (3.4-5.0); BILIRUBIN,TOTAL 3.7 mg/dL (0.2-1.0); MAGNESIUM 2.9 mg/dL (1.8-2.4); TOTAL PROTEIN, SERUM 6.6 g/dL (6.4-8.2)
[2017-01-24] MEDS ORDERED: CALCIUM CHLORIDE 1,000 MG/10 ML DISP.SYRIN IV ONE (23:21)
[2017-01-24] MEDS ORDERED: SODIUM BICARBONATE SYR 50 MEQ/50 ML DISP.SYRIN IV ONE ×2 (23:21)
[2017-01-24] MEDS ORDERED: EPINEPHRINE (1:10,000) SYRINGE 1 MG/10 ML DISP.SYRIN IVP ONE (23:21)
[2017-01-24 23:22] LABS: PLATELET COUNT (AUTO) 32 /CMM (150-450)
[2017-01-24 23:24] LABS: BAND % (MANUAL) 3 % (0.0-5.0); LYMPHOCYTES % (MANUAL) 10 % (16-48); MONOCYTES % (MANUAL) 5 % (0-11.0); NEUTROPHILS % (MANUAL) 82 (42-76)
--- NOTE | 2017-01-24 23:32 | NUR ---
rn:icu: pt was noted to be asystole on the monitor. acls protocol initiated. melvin sys dir at the bedside after jean stringer called. jean stringer unsuccessful, pt at [phone]. one [employer] notified and pt was not a candidate for organ donation. pt at the bedside.
[2017-01-25] MEDS ORDERED: AMIKACIN 500 MG in IV D5W 100 ML IV PRN (18:00)
== END 2017-01-24 23:22 | disposition expired | DRG 5 ==
LOC: ER 17:00 → TELE 19:44 → MED 11-14 09:07 → TELE 11-14 09:08 → MED 11-16 11:03 → ICU 11-23 07:05 → TELE-TD 12-20 01:17 → TELE1 12-20 09:02 → MEDSG1 01-01 10:17 → TELE1 01-07 09:37 → TELE-TD 01-07 16:29 → MEDSG1 01-08 10:34 → TELE1 01-08 10:35 → MEDSG1 01-14 09:51 → TELE-TD 01-24 08:25 → ICU 01-24 09:16
PROVIDERS: ADMIT Nurse Practitioner Acute Care; ATTEND Nurse Practitioner Acute Care
PROC: 05H633Z Insertion of Infusion Device into Left Subclavian Vein, Percutaneous Approach (ICD-10-PCS; 2016-11-20)
PROC: 5A1D60Z (ICD-10-PCS; 2016-11-20)
PROC: 5A09357 Assistance with Respiratory Ventilation, Less than 24 Consecutive Hours, Continuous Positive Airway Pressure (ICD-10-PCS; 2016-11-23)
PROC: 0WJ Anatomical Regions, General, Inspection (ICD-10-PCS; 2016-11-24)
PROC: 05HB33Z Insertion of Infusion Device into Right Basilic Vein, Percutaneous Approach (ICD-10-PCS; 2016-11-27)
PROC: B54MZZA Ultrasonography of Right Upper Extremity Veins, Guidance (ICD-10-PCS; 2016-11-27)
PROC: B246ZZ4 Ultrasonography of Right and Left Heart, Transesophageal (ICD-10-PCS; 2016-11-28)
PROC: 0BH18EZ Insertion of Endotracheal Airway into Trachea, Via Natural or Artificial Opening Endoscopic (ICD-10-PCS; 2016-11-28)
PROC: 5A1955Z Respiratory Ventilation, Greater than 96 Consecutive Hours (ICD-10-PCS; 2016-11-28)
PROC: 02HV33Z Insertion of Infusion Device into Superior Vena Cava, Percutaneous Approach (ICD-10-PCS; 2016-11-29)
PROC: B548ZZA Ultrasonography of Superior Vena Cava, Guidance (ICD-10-PCS; 2016-11-29)
PROC: 30233N1 Transfusion of Nonautologous Red Blood Cells into Peripheral Vein, Percutaneous Approach (ICD-10-PCS; 2016-12-01)
PROC: 0B110F4 Bypass Trachea to Cutaneous with Tracheostomy Device, Open Approach (ICD-10-PCS; principal; 2016-12-16 08:00)
PROC: 0DH63UZ Insertion of Feeding Device into Stomach, Percutaneous Approach (ICD-10-PCS; 2016-12-20)
PROC: B513YZA Fluoroscopy of Right Jugular Veins using Other Contrast, Guidance (ICD-10-PCS; 2017-01-11)
PROC: 05HM33Z Insertion of Infusion Device into Right Internal Jugular Vein, Percutaneous Approach (ICD-10-PCS; 2017-01-11)
PROC: 05PYX3Z Removal of Infusion Device from Upper Vein, External Approach (ICD-10-PCS; 2017-01-19)
PROC: B54BZZA Ultrasonography of Right Lower Extremity Veins, Guidance (ICD-10-PCS; 2017-01-24)
PROC: 5A2204Z Restoration of Cardiac Rhythm, Single (ICD-10-PCS; 2017-01-24)
PROC: 5A12012 Performance of Cardiac Output, Single, Manual (ICD-10-PCS; 2017-01-24)
PROC: B54MZZA Ultrasonography of Right Upper Extremity Veins, Guidance (ICD-10-PCS; 2017-01-24)
PROC: 06HM33Z Insertion of Infusion Device into Right Femoral Vein, Percutaneous Approach (ICD-10-PCS; 2017-01-24)
PROC: 05HB33Z Insertion of Infusion Device into Right Basilic Vein, Percutaneous Approach (ICD-10-PCS; 2017-01-24)
DX: A41.9 Sepsis, unspecified organism (principal); I21.4 Non-ST elevation (NSTEMI) myocardial infarction; N17.0 Acute kidney failure with tubular necrosis; I26.90 Septic pulmonary embolism without acute cor pulmonale; I63.9 Cerebral infarction, unspecified; I33.0 Acute and subacute infective endocarditis; G93.40 Encephalopathy, unspecified; J90 Pleural effusion, not elsewhere classified; E43 Unspecified severe protein-calorie malnutrition; R65.21 Severe sepsis with septic shock; J96.02 Acute respiratory failure with hypercapnia; J96.01 Acute respiratory failure with hypoxia; K56.7 Ileus, unspecified; J15.1 Pneumonia due to Pseudomonas; I76 Septic arterial embolism; R53.2 Functional quadriplegia; D69.59 Other secondary thrombocytopenia; E87.2 Acidosis; E11.65 Type 2 diabetes mellitus with hyperglycemia; D69.6 Thrombocytopenia, unspecified; E87.1 Hypo-osmolality and hyponatremia; N39.0 Urinary tract infection, site not specified; Z83.3 Family history of diabetes mellitus; G89.29 Other chronic pain; Z87.891 Personal history of nicotine dependence; J32.0 Chronic maxillary sinusitis; N18.6 End stage renal disease; I27.2 Other secondary pulmonary hypertension; R74.0 Nonspecific elevation of levels of transaminase and lactic acid dehydrogenase [LDH]; Z68.30 Body mass index [BMI] 30.0-30.9, adult; A41.01 Sepsis due to Methicillin susceptible Staphylococcus aureus; B37.49 Other urogenital candidiasis; D62 Acute posthemorrhagic anemia; E83.51 Hypocalcemia; E83.39 Other disorders of phosphorus metabolism; I50.33 Acute on chronic diastolic (congestive) heart failure; Z87.01 Personal history of pneumonia (recurrent); D61.818 Other pancytopenia; Z87.898 Personal history of other specified conditions; E87.4 Mixed disorder of acid-base balance; N00.9 Acute nephritic syndrome with unspecified morphologic changes; D68.59 Other primary thrombophilia; I33.9 Acute and subacute endocarditis, unspecified; D50.0 Iron deficiency anemia secondary to blood loss (chronic); E11.22 Type 2 diabetes mellitus with diabetic chronic kidney disease; I13.2 Hypertensive heart and chronic kidney disease with heart failure and with stage 5 chronic kidney disease, or end stage renal disease; I47.1 Supraventricular tachycardia; K92.2 Gastrointestinal hemorrhage, unspecified; M85.80 Other specified disorders of bone density and structure, unspecified site; R13.10 Dysphagia, unspecified; T36.8X5A Adverse effect of other systemic antibiotics, initial encounter; Z99.2 Dependence on renal dialysis; I35.1 Nonrheumatic aortic (valve) insufficiency; B96.89 Other specified bacterial agents as the cause of diseases classified elsewhere; K59.00 Constipation, unspecified; R19.5 Other fecal abnormalities; I96 Gangrene, not elsewhere classified; R00.8 Other abnormalities of heart beat; J32.9 Chronic sinusitis, unspecified; K05.219 Aggressive periodontitis, localized, unspecified severity; M27.2 Inflammatory conditions of jaws; E87.5 Hyperkalemia; E80.6 Other disorders of bilirubin metabolism; G81.94 Hemiplegia, unspecified affecting left nondominant side; T82.7XXA Infection and inflammatory reaction due to other cardiac and vascular devices, implants and grafts, initial encounter; I34.0 Nonrheumatic mitral (valve) insufficiency; E83.41 Hypermagnesemia; L89.150 Pressure ulcer of sacral region, unstageable; I25.10 Atherosclerotic heart disease of native coronary artery without angina pectoris; H70.91 Unspecified mastoiditis, right ear; M86.8X8 Other osteomyelitis, other site
CPT/HCPCS: 31720; 36415; 36569; 36600; 43246; 70450-TC; 70487-TC; 71010-TC; 71260-TC; 72132-TC; 72148-TC; 72193-TC; 73100-TC; 73110; 74000-TC; 74160-TC; 76700-TC; 77012-TC; 80048-TC; 80053-TC; 80061-TC; 80076-TC; 80150; 80202-TC; 81000-TC; 82140-TC; 82272-TC; 82306; 82378; 82570-TC; 82728-TC; 82746; 82947-TC; 82962-TC; 83010; 83540-TC; 83605-TC; 83615-TC; 83735-TC; 84100-TC; 84155; 84155-TC; 84165; 84300-TC; 84439-TC; 84443-TC; 84478-TC; 84484-TC; 84550-TC; 84560-TC; 85025-TC; 85045-TC; 85396; 85610-TC; 85652-TC; 85730-TC; 86704; 86705; 86706; 86707; 86709; 86803; 86850-TC; 86880-TC; 86921-TC; 87040-TC; 87070-TC; 87081-TC; 87086-TC; 87186-TC; 87340; 87400; 90935-TC; 93307-TC; 93312-TC; 93880-TC; 93971-TC; 94002-TC; 94003-TC; 94640-TC; 94660; 94664-TC; 94760-TC; 94762-TC; 94799-TC; 97001-TC; 97003-TC; 97110-TC; 97116-TC; 97530-TC; 97535-TC; 99082-TC; A4216; A4606; A4623; A6248; A6402; A6403; A9502; A9563; C1750; C1751; C1769; C9113; G0480; J0171; J0278; J0690; J0713; J0885; J1644; J1815; J1956; J2020; J2060; J2185; J2248; J2250; J2270; J2310; J2370; J2405; J2543; J2704; J2785; J2916; J2997; J3010; J3370; J3490; J7030; J7040; J7050; J7060; J7070; P9016-BL; P9047; Q9967; Z7610